=== PATIENT | female | born 1970 | race Caucasian/White ===

== ENCOUNTER 2016-06-16 16:33 | Observation (INO) | payer OTHER ==
[2016-06-16] MEDS ORDERED: IOPAMIDOL-300 100 ML VIAL IVP ONE (18:10)
[2016-06-16] MEDS ORDERED: ASPIRIN CHEW 81 MG TABLET PO STA (19:54)
[2016-06-16] MEDS ORDERED: ASPIRIN CHEW 81 MG TABLET ONE (19:59)
[2016-06-16] MEDS ORDERED: ACETAMINOPHEN 325 MG TABLET PO PRN (20:02)
[2016-06-16] MEDS ORDERED: SODIUM CHLORIDE FLUSH 0.9% 10 ML SYRINGE IVP PRN (20:02)
[2016-06-16] MEDS ORDERED: NITROGLYCERIN SL 0.4 MG TABLET SL PRN (20:02)
[2016-06-16] MEDS ORDERED: ONDANSETRON 4 MG/2 ML VIAL IVP PRN (20:02)
[2016-06-16] MEDS ORDERED: PROCHLORPERAZINE 10 MG/2 ML VIAL IVP PRN (20:02)
[2016-06-16] MEDS ORDERED: ATORVASTATIN 40 MG TABLET PO SCH (21:00)
[2016-06-16] MEDS: SODIUM CHLORIDE FLUSH 0.9% 10 ML SYRINGE IVP SCH (22:03)
[2016-06-17] MEDS ORDERED: ALPRAZolam 0.25 MG TABLET PO SCH (01:38)
[2016-06-17] MEDS: SODIUM CHLORIDE FLUSH 0.9% 10 ML SYRINGE IVP SCH (06:27)
[2016-06-17] MEDS ORDERED: PANTOPRAZOLE 40 MG TABLET PO SCH (07:00)
[2016-06-17] MEDS ORDERED: POLYETHYLENE GLYCOL 3350 17 GM PACKET PO SCH (09:00)
[2016-06-17] MEDS ORDERED: ENOXAPARIN 40 MG/0.4 ML SYRINGE SUBQ SCH (09:00)
[2016-06-17] MEDS ORDERED: THYROID PORK 45 MG PO SCH (09:00)
[2016-06-17] MEDS ORDERED: ASPIRIN EC 81 MG TABLET PO SCH (09:00)
== END 2016-06-17 08:12 | disposition home or self-care (01) ==
DX: R07.89 Other chest pain (principal); R42 Dizziness and giddiness; E89.0 Postprocedural hypothyroidism; I45.10 Unspecified right bundle-branch block; R20.2 Paresthesia of skin; E04.1 Nontoxic single thyroid nodule; R78.89 Finding of other specified substances, not normally found in blood; Z87.891 Personal history of nicotine dependence; Z79.899 Other long term (current) drug therapy
CPT/HCPCS: 36415; 71010; 71275; 80053; 83690; 84484; 85025; 93005; 93010; 99284; 99285; A9270; G0378; Q9967

== ENCOUNTER 2016-06-25 14:41 | Emergency (ER) | payer OTHER | END 2016-06-25 17:44 | disposition home or self-care (01) | DX: R07.89 Other chest pain (principal); M79.7 Fibromyalgia; E03.9 Hypothyroidism, unspecified ==

== ENCOUNTER 2017-07-06 10:19 | Emergency (ER) | payer OTHER ==
[2017-07-06 10:58] LABS: BASOPHILS % (AUTO) 0.5 %; EOSINOPHILS # (AUTO) 0.2 10^3/uL (0.0-0.7); EOSINOPHILS % (AUTO) 2.2 %; HGB - HEMOGLOBIN 13.8 g/dL (12.0-16.0); LYMPHOCYTES # (AUTO) 1.9 10^3/uL (1.5-3.5); LYMPHOCYTES % (AUTO) 20.4 %; MEAN CORPUSCULAR HEMOGLOBIN 28.3 pg (27.0-31.0); MEAN CORPUSCULAR HGB CONC 33.2 g/dL (32.0-36.0); MEAN CORPUSCULAR VOLUME 85.4 fL (81.0-99.0); MEAN PLATELET VOLUME 7.7 fL (7.9-10.8); MONOCYTES # (AUTO) 0.8 10^3/uL (0.0-1.0); MONOCYTES % (AUTO) 8.4 %; NEUTROPHILS # (AUTO) 6.3 10^3/uL (1.5-6.6); NEUTROPHILS % (AUTO) 68.5 %; PLT - PLATELET COUNT 284 10^3/uL (130-450); RED BLOOD COUNT 4.89 10^6/uL (4.20-5.40); RED CELL DISTRIBUTION WIDTH 14.2 % (12.0-15.0); WHITE BLOOD COUNT 9.2 x10^3/uL (4.8-10.8)
[2017-07-06 11:11] LABS: ALBUMIN 4.2 g/dL (3.2-5.5); ALBUMIN/GLOBULIN RATIO 1.3 (1.0-2.2); BILIRUBIN,TOTAL 0.6 mg/dL (0.2-1.0); CALCIUM 8.7 mg/dL (8.5-10.3); CREATININE 0.7 mg/dL (0.4-1.0); TOTAL PROTEIN 7.5 g/dL (6.7-8.2)
--- NOTE | 2017-07-06 11:13 | XRAY Report ---
EXAM: CHEST RADIOGRAPHY EXAM DATE: 07/06/2017 10:51 AM. CLINICAL HISTORY: Chest pain. COMPARISON: 06/25/2016. TECHNIQUE: 1 view. FINDINGS: Lungs/Pleura: No focal opacities evident. No pleural effusion. No pneumothorax. Mediastinum: Within exam limitations, the cardiomediastinal contour is normal. Other: None. IMPRESSION: Normal single view chest. [facility] Referring Provider Line: [phone] SITE ID: [id number]
--- NOTE | 2017-07-06 11:13 | XRAY Preliminary Report ---
Exam: XR CHEST 1 VIEW X-RAY IMPRESSION: Normal single view chest. [facility] SITE ID: [id number]
--- NOTE | 2017-07-06 12:07 | ED Physician Documentation ---
PD HPI CHEST PAIN - Stated complaint Stated Complaint: CHEST PAIN - Chief complaint Chief Complaint: Cardiac - History obtained from History obtained from: Patient, Family - History of Present Illness Timing - onset: How many days ago (2) Timing - onset during: Rest Timing - duration: Days (had it 2 days ago and then recurred this morning while sitting in office.) Timing - details: Abrupt onset, Now resolved, Waxing and waning Quality: Aching, Sharp, Pain Location: Substernal, Left chest Radiation: Neck Improved by: No: Rest Worsened by: Movement. No: Exertion, Inspiration, Palpation Associated symptoms: Feeling faint / dizzy, General Weakness. No: Shortness of air, Nausea, Cough Similar symptoms before: No diagnosis (chest pain episodes in the past without spcific diagnosis. Had had CP episode last fall and was to get stress test but felt okay so did not follow up with Cardiology.) Recently seen: Not recently seen Review of Systems Constitutional: denies: Fever, Chills Nose: denies: Rhinorrhea / runny nose, Congestion Throat: denies: Sore throat Cardiac: denies: Palpitations, Pedal edema, Calf pain Respiratory: denies: Dyspnea, Cough, Wheezing GI: denies: Abdominal Pain, Nausea Musculoskeletal: denies: Extremity swelling Neurologic: denies: Focal weakness, Numbness, Near syncope, Altered mental status PD PAST MEDICAL HISTORY - Past Medical History Past Medical History: Yes Respiratory: None Neuro: Other Endocrine/Autoimmune: None, Other GI: None 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 : None HEENT: None Psych: None Musculoskeletal: Fibromyalgia Derm: None - Past Surgical History Past Surgical History: Yes General: Appendectomy Neuro: Other - Present Medications Home Medications: Ambulatory Orders Medication Instructions Recorded Confirmed Thyroid,Pork [[place] Thyroid] 45 mg PO DAILY 08/12/12 06/25/16 Lorazepam [Ativan] 1 mg PO BID PRN #7 tablet 06/25/16 - Allergies Allergies/Adverse Reactions: Allergies Allergy/AdvReac Type Severity Reaction Status Date / Time cephalexin monohydrate * Allergy Intermediate CAREY, "worse Verified 06/25/16 15:03 [From Keflex] feeling of my life" morphine Allergy Intermediate Itching Verified 06/25/16 15:03 azithromycin [From Zithromax] Allergy Mild Hives Verified 06/25/16 15:03 oxycodone HCl * Allergy Mild Itching Verified 06/25/16 15:03 [From Percocet] propoxyphene napsylate * Allergy Mild Itching Verified 06/25/16 15:03 [From Darvocet-N 100] codeine Allergy Itching Verified 06/25/16 15:03 cimetidine [From Tagamet] AdvReac Severe drop in Verified 06/25/16 15:03 blood platelets cimetidine HCl * AdvReac Severe drop in Verified 06/25/16 15:03 [From Tagamet] blood platelets Sulfa (Sulfonamide AdvReac Severe platelets Verified 06/25/16 15:03 Antibiotics) dropped hydrocodone bitartrate * AdvReac Intermediate Nausea Verified 06/25/16 15:03 [From Vicodin] - Social History Does the pt smoke?: No Smoking Status: Never smoker Does the pt drink ETOH?: Yes Does the pt have substance abuse?: No - Family History Family history: reports: CAD - Immunizations Immunizations are current?: Yes - POLST Patient has POLST: No PD ED PE NORMAL - Vitals Vital signs reviewed: Yes - General General: Alert and oriented X 3, No acute distress, Well developed/nourished - HEENT HEENT: Pharynx benign - Neck Neck: Supple, no meningeal sign, No adenopathy, No JVD - Cardiac Cardiac: RRR, No murmur - Respiratory Respiratory: Clear bilaterally, Other (no chestwall tenderness) - Abdomen Abdomen: Soft, Non tender - Back Back: No CVA TTP - Derm Derm: Normal color, Warm and dry - Extremities Extremities: No deformity, No tenderness to palpate, Normal ROM s pain, No edema , No calf tenderness / cord - Neuro Neuro: Alert and oriented X 3, No motor deficit, Normal speech Results - Vitals Vitals: Vital Signs - 24 hr 07/06/17 07/06/17 07/06/17 10:29 11:24 12:31 Temperature 36.9 C 36.9 C Heart Rate 87 83 Respiratory 18 15 Rate Blood Pressure 148/96 H 147/84 H Blood Pressure 140/80 H [Left] O2 Saturation 100 100 Oxygen O2 Source Room air - EKG (time done) 10:26 Rate: Rate (enter#) (87) Rhythm: NSR Rohwer: Normal Intervals: RBBB (incomplete) QRS: Normal Ischemia: Normal ST segments. No: ST elevation c/w ischemia, ST depression Compare to prior EKG: Unchanged from prior EKG - Labs Labs: Laboratory Tests 07/06/17 07/06/17 07/06/17 10:52 10:52 10:52 WBC 9.2 RBC 4.89 Hgb 13.8 Hct 41.8 MCV 85.4 MCH 28.3 MCHC 33.2 RDW 14.2 Plt Count 284 MPV 7.7 L Neut # 6.3 Lymph # 1.9 Finney # 0.8 Eos # 0.2 Baso # 0.0 Absolute Nucleated RBC 0.00 Nucleated RBC % 0.0 Sodium 136 Potassium 3.6 Chloride 103 Carbon Dioxide 24 Anion Gap 9.0 BUN 17 Creatinine 0.7 Estimated GFR (MDRD) 90 Glucose 101 H Calcium 8.7 Total Bilirubin 0.6 AST 21 ALT 23 Alkaline Phosphatase 41 L Troponin I < 0.04 Total Protein 7.5 Albumin 4.2 Globulin 3.3 Albumin/Globulin Ratio 1.3 Lipase 17 L - Rads (name of study) chest xray Radiology: Prelim report reviewed, EMP read contemporaneously (no acute process) PD MEDICAL DECISION MAKING - ED course Complexity details: considered differential (no signs of acute ACS and not exertional CP. States she had stress test a few years ago that was normal. Was to get one after recent CP ER visit but says she felt okay so did not follow up with Regulatory Lead. ), d/w patient Departure - Departure Disposition: 01 Home, Self Care Clinical Impression: Chest pain Qualifiers: Chest pain type: precordial pain Qualified Code(s): R07.2 - Precordial pain Condition: Stable Record reviewed to determine appropriate education?: Yes Instructions: ED Chest Pain Atypical Unkn Cause Follow-Up: ALMA Frank [Provider Group] Comments: No signs of heart attack or other serious cause at this time based on your EKG chest x-ray and blood tests. Follow-up with your primary care regarding any further potential testing such as stress test. At this point presume an inflammatory component and try some ibuprofen or naproxen 2-3 times a day over the next few days. Return if worsening symptoms or other concerns. Discharge Date/Time: 07/06/17 12:52
[2017-07-06] MEDS ORDERED: KETOROLAC 60 MG/2 ML VIAL IVP STA (12:24)
[2017-07-06 12:32] VITALS: BP 147/84
== END 2017-07-06 12:52 | disposition home or self-care (01) ==
LOC: ED 10:19
DX: R07.2 Precordial pain (principal); I45.10 Unspecified right bundle-branch block; R94.31 Abnormal electrocardiogram [ECG] [EKG]; M79.7 Fibromyalgia
CPT/HCPCS: 36415; 71045; 80053; 83690; 84484; 85025; 93005; 96374; 99283

== ENCOUNTER 2017-11-25 13:00 | Emergency (ER) | payer OTHER ==
[2017-11-25 13:10] VITALS: BP 173/112
[2017-11-25 13:35] LABS: BASOPHILS # (AUTO) 0.1 10^3/uL (0.0-0.1); BASOPHILS % (AUTO) 0.9 %; EOSINOPHILS # (AUTO) 0.3 10^3/uL (0.0-0.7); EOSINOPHILS % (AUTO) 2.6 %; HGB - HEMOGLOBIN 13.9 g/dL (12.0-16.0); LYMPHOCYTES # (AUTO) 2.2 10^3/uL (1.5-3.5); LYMPHOCYTES % (AUTO) 20.8 %; MEAN CORPUSCULAR HEMOGLOBIN 28.9 pg (27.0-31.0); MEAN CORPUSCULAR HGB CONC 33.6 g/dL (32.0-36.0); MEAN CORPUSCULAR VOLUME 86.1 fL (81.0-99.0); MONOCYTES # (AUTO) 0.7 10^3/uL (0.0-1.0); MONOCYTES % (AUTO) 6.8 %; NEUTROPHILS # (AUTO) 7.2 10^3/uL (1.5-6.6); NEUTROPHILS % (AUTO) 68.9 %; PLT - PLATELET COUNT 311 10^3/uL (130-450); RED BLOOD COUNT 4.82 10^6/uL (4.20-5.40); RED CELL DISTRIBUTION WIDTH 14.7 % (12.0-15.0); WHITE BLOOD COUNT 10.5 x10^3/uL (4.8-10.8)
[2017-11-25 13:47] LABS: ALBUMIN 4.1 g/dL (3.2-5.5); ALBUMIN/GLOBULIN RATIO 1.2 (1.0-2.2); CALCIUM 9.1 mg/dL (8.5-10.3); CREATININE 0.8 mg/dL (0.4-1.0); TOTAL PROTEIN 7.5 g/dL (6.7-8.2)
--- NOTE | 2017-11-25 14:27 | XRAY Report ---
Procedure Date: 11/25/2017 Accession Number: [id number] / [id number] Procedure: XR - Chest 2 View X-Ray CPT Code: 01579 FULL RESULT: EXAM: CHEST RADIOGRAPHY EXAM DATE: 11/25/2017 02:05 PM. CLINICAL HISTORY: Chest tightnes. COMPARISON: 07/06/2017 TECHNIQUE: 2 views. FINDINGS: Lungs/Pleura: No focal opacities evident. No pleural effusion. No pneumothorax. Normal volumes. Mediastinum: Heart and mediastinal contours are unremarkable. Other: No acute findings compared to prior. IMPRESSION: Negative 2-view chest radiography. [facility]
== END 2017-11-25 15:00 | disposition left against medical advice (07) ==
LOC: ED 13:00
DX: R20.0 Anesthesia of skin (principal); M79.603 Pain in arm, unspecified; Z53.21 Procedure and treatment not carried out due to patient leaving prior to being seen by health care provider
CPT/HCPCS: 36415; 71046; 80053; 83690; 84484; 85025; 93005

== ENCOUNTER 2018-06-24 10:53 | Emergency (ER) | payer OTHER ==
[2018-06-24 11:06] VITALS: BP 138/38
[2018-06-24] MEDS ORDERED: DEXAMETHASONE 10 MG/ML VIAL PO STA (11:27)
--- NOTE | 2018-06-24 11:29 | ED Physician Documentation ---
History of Present Illness - Stated complaint Stated Complaint: HIVES/SWOLLEN LIP - Chief complaint Chief Complaint: Allergic Rx - History obtained from History obtained from: Patient - History of Present Illness Timing: Last night - Additonal information Additional information: 48-year-old female has had cough and congestion this past week she has had some pain in both of her ears she has developed hives last night. She has a prior history of developing hives easily. She denies any recent change in medications. Review of Systems Constitutional: denies: Fever Eyes: denies: Decreased vision Ears: reports: Ear pain Nose: reports: Rhinorrhea / runny nose, Congestion Throat: reports: Sore throat Cardiac: denies: Chest pain / pressure, Palpitations Respiratory: reports: Cough. 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 : None HEENT: None Psych: None Musculoskeletal: Fibromyalgia Derm: None - Past Surgical History Past Surgical History: Yes General: Appendectomy Neuro: Other - Present Medications Home Medications: Ambulatory Orders Medication Instructions Recorded Confirmed Thyroid,Pork [[place] Thyroid] 45 mg PO DAILY 08/12/12 06/24/18 Amoxicillin 875 mg PO BID #20 tablet 06/24/18 - Allergies Allergies/Adverse Reactions: Allergies Allergy/AdvReac Type Severity Reaction Status Date / Time cephalexin monohydrate * Allergy Intermediate CAREY, "worse Verified 06/24/18 11:06 [From Keflex] feeling of my life" morphine Allergy Intermediate Itching Verified 06/24/18 11:06 azithromycin [From Zithromax] Allergy Mild Hives Verified 06/24/18 11:06 oxycodone HCl * Allergy Mild Itching Verified 06/24/18 11:06 [From Percocet] propoxyphene napsylate * Allergy Mild Itching Verified 06/24/18 11:06 [From Darvocet-N 100] codeine Allergy Itching Verified 06/24/18 11:06 cimetidine [From Tagamet] AdvReac Severe drop in Verified 06/24/18 11:06 blood platelets cimetidine HCl * AdvReac Severe drop in Verified 06/24/18 11:06 [From Tagamet] blood platelets Sulfa (Sulfonamide AdvReac Severe platelets Verified 06/24/18 11:06 Antibiotics) dropped hydrocodone bitartrate * AdvReac Intermediate Nausea Verified 06/24/18 11:06 [From Vicodin] - Social History Does the pt smoke?: No Smoking Status: Never smoker Does the pt drink ETOH?: Yes Does the pt have substance abuse?: No - Immunizations Immunizations are current?: Yes - POLST Patient has POLST: No PD ED PE NORMAL - Vitals Vital signs reviewed: Yes (hypertensive with wide pulse pressure. ) - General General: Alert and oriented X 3, No acute distress, Well developed/nourished - HEENT HEENT: Atraumatic, PERRL, EOMI, Other (both TM's are inflamed along the umbo and there is a small hole in the left TM ) - Neck Neck: Supple, no meningeal sign, No bony TTP - Cardiac Cardiac: RRR, No murmur - Respiratory Respiratory: No respiratory distress, Clear bilaterally - Abdomen Abdomen: Soft, Non tender - Back Back: No CVA TTP, No spinal TTP - Derm Derm: Normal color, Warm and dry, Other (light urticaria is present) - Extremities Extremities: No deformity, No edema - Neuro Neuro: Alert and oriented X 3, 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 She is administered dexamethasone 10 mg orally and we will place her on some amoxicillin as this is the only antibiotic she tends to tolerate. Departure - Departure Disposition: 01 Home, Self Care Clinical Impression: Otitis media, Urticaria Condition: Stable Instructions: ED Urticaria, ED Otitis Media Acute Adult Follow-Up: ASHWIN FRANCOIS DO [Primary Care Provider] - Prescriptions: Amoxicillin 875 mg PO BID #20 tablet
== END 2018-06-24 11:46 | disposition home or self-care (01) ==
LOC: ED 10:53
DX: H66.90 Otitis media, unspecified, unspecified ear (principal); L50.9 Urticaria, unspecified; Z88.1 Allergy status to other antibiotic agents; Z88.3 Allergy status to other anti-infective agents; Z88.2 Allergy status to sulfonamides
CPT/HCPCS: 99282; 99283

== ENCOUNTER 2019-04-07 11:18 | Emergency (ER) | payer OTHER ==
--- NOTE | 2019-04-07 12:31 | XRAY Report ---
Reason: pain, swelling, popping, clicking left wrist Procedure Date: 04/07/2019 Accession Number: [id number] / [id number] Procedure: XR - Wrist 4 View LT CPT Code: Final Report FULL RESULT: EXAM: LEFT WRIST RADIOGRAPHY EXAM DATE: 04/07/2019 12:13 PM. CLINICAL HISTORY: Pain, swelling, popping, clicking left wrist. Carrying a washer up stairs yesterday, wrist twisted and popped. Pain ulnar side with bruising. COMPARISON: None. TECHNIQUE: 4 views. FINDINGS: Bones: Normal. No fractures or bone lesions. Joints: Normal. No subluxations. Soft Tissues: Normal. No soft tissue swelling. IMPRESSION: No acute osseous injury is detected. [facility]
--- NOTE | 2019-04-07 12:58 | ED Physician Documentation ---
PD HPI UPPER EXT INJURY - Stated complaint Stated Complaint: LEFT WRIST INJURY - Chief complaint Chief Complaint: Ext Problem - History obtained from History obtained from: Patient (She was carrying a washer and dryer yesterday and it slipped and she felt a pop on the ulnar side of the left, nondominant nondominant wrist with continued pain there although declines pain medication. 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 : None HEENT: None Psych: None Musculoskeletal: Fibromyalgia Derm: None - Past Surgical History Past Surgical History: Yes General: Appendectomy Neuro: Other - Present Medications Home Medications: Ambulatory Orders Medication Instructions Recorded Confirmed Thyroid,Pork [[place] Thyroid] 45 mg PO DAILY 08/12/12 06/24/18 Amoxicillin 875 mg PO BID #20 tablet 06/24/18 - Allergies Allergies/Adverse Reactions: Allergies Allergy/AdvReac Type Severity Reaction Status Date / Time cephalexin monohydrate * Allergy Intermediate CAREY, "worse Verified 10/29/18 19:10 [From Keflex] feeling of my life" morphine Allergy Intermediate Itching Verified 10/29/18 19:10 azithromycin [From Zithromax] Allergy Mild Hives Verified 10/29/18 19:10 oxycodone HCl * Allergy Mild Itching Verified 10/29/18 19:10 [From Percocet] propoxyphene napsylate * Allergy Mild Itching Verified 10/29/18 19:10 [From Darvocet-N 100] codeine Allergy Itching Verified 10/29/18 19:10 hydrochlorothiazide Allergy Unknown Verified 10/29/18 19:10 cimetidine [From Tagamet] AdvReac Severe drop in Verified 10/29/18 19:10 blood platelets cimetidine HCl * AdvReac Severe drop in Verified 10/29/18 19:10 [From Tagamet] blood platelets Sulfa (Sulfonamide AdvReac Severe platelets Verified 10/29/18 19:10 Antibiotics) dropped hydrocodone bitartrate * AdvReac Intermediate Nausea Verified 10/29/18 19:10 [From Vicodin] - Social History Does the pt smoke?: No Smoking Status: Never smoker Does the pt drink ETOH?: Yes Does the pt have substance abuse?: No - Immunizations Immunizations are current?: Yes - POLST Patient has POLST: No PD ED PE NORMAL - Vitals Vital signs reviewed: Yes - General General: Alert and oriented X 3, No acute distress - Extremities Extremities: Other (Tender over the ulnar side of the left wrist without d eformity. Has a lot of pain with radial deviation of the wrist, not so much with flexion and extension.) Results - Vitals Vitals: Vital Signs - 24 hr 04/07/19 11:49 Temperature 36.8 C Heart Rate 86 Respiratory 18 Rate Blood Pressure 147/94 H O2 Saturation 100 Oxygen O2 Source Room air - Rads (name of study) 4 views of the left wrist Radiology: EMP read contemporaneously (Normal) PD MEDICAL DECISION MAKING - ED course ED course: She presents with a tendinitis of the ulnar side of the left wrist. She is placed in a Velcro splint [place] She was given a copy of her x-rays on CD to aid in follow-up. She declines prescription pain medication. Departure - Departure Disposition: Home, Self Care Clinical Impression: Left wrist tendinitis Condition: Good Record reviewed to determine appropriate education?: Yes Instructions: ED Sprain Wrist Comments: If not better in a week, [place]. Take the copy the x-ray on CD with you. Ibuprofen as needed for pain. Ice as tolerated and keep the splint on, but she can remove it for sleeping and showering.
[2019-04-07 13:04] VITALS: BP 138/88
== END 2019-04-07 13:03 | disposition home or self-care (01) ==
LOC: ED 11:18
DX: M77.8 Other enthesopathies, not elsewhere classified (principal); I10 Essential (primary) hypertension
CPT/HCPCS: 99283

== ENCOUNTER 2020-03-21 13:46 | Outpatient (CLI) | payer OTHER | END 2020-03-21 13:47 | disposition EMS.NT | LOC: EMS 13:46 | PROVIDERS: ATTEND Surgery | DX: R07.9 Chest pain, unspecified (principal); R20.2 Paresthesia of skin ==

== ENCOUNTER 2021-04-17 18:48 | Emergency (ER) | payer OTHER ==
--- NOTE | 2021-04-17 19:26 | ED Physician Documentation ---
History of Present Illness - Stated complaint Stated Complaint: HYPERTENSION - Chief complaint Chief Complaint: Cardiac - Additonal information Additional information: 51-year-old female presents emergency department for concerns of elevated blood pressures. She states that over the last month she has been having migraines with increasing frequency. Her migraines typically will cause numbness and paresthesias on the right side of her body. She had a migraine that did not respond to usual treatments therefore when she was in [place] on 11 April she did go to a hospital there. She was noted to be modestly hypertensive with a blood pressure in the 190s. Subsequent labs and EKG as well as CT scan did not reveal any worrisome findings and she was advised to follow-up with the primary doctor. Since returning to [place] she has been checking her blood pressures and have noticed that they have been in the 160s and 170s. She is denying any chest pain, nausea or vomiting. She does have a remote history of a meningioma resection about 10 years ago near her brainstem. Her doctor did trial her on antihypertensive medicine in July 2020 but she had an allergic reaction to hydrochlorothiazide. She does/is scheduled to see her primary care doctor on the to discuss her hypertension as well as her recurrent headaches. Review of Systems Constitutional: denies: Fever, Chills Eyes: reports: Reviewed and negative Ears: reports: Reviewed and negative Nose: reports: Reviewed and negative Throat: reports: Reviewed and negative Cardiac: reports: Reviewed and negative Respiratory: reports: Reviewed and negative GI: reports: Reviewed and negative : reports: Reviewed and negative Skin: reports: Reviewed and negative Musculoskeletal: reports: Reviewed and negative Neurologic: reports: Headache Psychiatric: reports: Reviewed and negative Endocrine: reports: Reviewed and negative PD PAST MEDICAL HISTORY - Past Medical History Cardiovascular: Hypertension Respiratory: None Neuro: Motion sickness Endocrine/Autoimmune: None, Other GI: None CHARGE LPN: Ovarian cysts : None HEENT: None Psych: None Musculoskeletal: Fibromyalgia Derm: None - Past Surgical History Past Surgical History: Yes General: Appendectomy Neuro: Other - Present Medications Home Medications: Ambulatory Orders Medication Instructions Recorded Confirmed Thyroid,Pork [[place] Thyroid] 45 mg PO DAILY 08/12/12 06/24/18 Amoxicillin 875 mg PO BID #20 tablet 06/24/18 LORazepam [Lorazepam] 0.5 - 1 mg PO Q6HR PRN #10 tablet 08/05/20 - Allergies Allergies/Adverse Reactions: Allergies Allergy/AdvReac Type Severity Reaction Status Date / Time cephalexin monohydrate * Allergy Intermediate CAREY, "worse Verified 04/17/21 18:56 [From Keflex] feeling of my life" morphine Allergy Intermediate Itching Verified 04/17/21 18:56 azithromycin [From Zithromax] Allergy Mild Hives Verified 04/17/21 18:56 oxycodone HCl * Allergy Mild Itching Verified 04/17/21 18:56 [From Percocet] propoxyphene napsylate * Allergy Mild Itching Verified 04/17/21 18:56 [From Darvocet-N 100] codeine Allergy Itching Verified 04/17/21 18:56 hydrochlorothiazide Allergy Unknown Verified 04/17/21 18:56 cimetidine [From Tagamet] AdvReac Severe drop in Verified 04/17/21 18:56 blood platelets cimetidine HCl * AdvReac Severe drop in Verified 04/17/21 18:56 [From Tagamet] blood platelets Sulfa (Sulfonamide AdvReac Severe platelets Verified 04/17/21 18:56 Antibiotics) dropped hydrocodone bitartrate * AdvReac Intermediate Nausea Verified 04/17/21 18:56 [From Vicodin] - Social History Does the pt smoke?: No Smoking Status: Never smoker Does the pt drink ETOH?: Yes Does the pt have substance abuse?: No - Immunizations Immunizations are current?: Yes - POLST Patient has POLST: No PD ED PE NORMAL - General General: Alert and oriented X 3, No acute distress, Well developed/nourished - HEENT HEENT: Atraumatic, Ears normal, Moist mucous membranes - Neck Neck: Supple, no meningeal sign - Cardiac Cardiac: RRR, No murmur, No gallop - Respiratory Respiratory: No respiratory distress - Abdomen Abdomen: Normal bowel sounds, Soft - Back Back: No CVA TTP, No spinal TTP - Derm Derm: Normal color, Warm and dry - Extremities Extremities: No deformity, No tenderness to palpate, Normal ROM s pain - Neuro Neuro: Alert and oriented X 3 Eye Opening: Spontaneous Motor: Obeys Commands Verbal: Oriented GCS Score: 15 Results - Vitals Vitals: Vital Signs - 24 hr 04/17/21 04/17/21 18:51 19:30 Temperature 36.0 C L Heart Rate 105 H 91 Respiratory 16 17 Rate Blood Pressure 150/106 H 149/89 H O2 Saturation 100 97 Oxygen O2 Source Room air - EKG (time done) 1907 Rate: Rate (enter#) (88) Rhythm: NSR [place]: Normal Intervals: Normal IN. No: Prolonged QT QRS: Low voltage Ischemia: Normal ST segments Compare to prior EKG: Old EKG unavailable Computer interpretation: Agree with computer - Labs Labs: Laboratory Tests 04/17/21 04/17/21 04/17/21 19:30 19:30 19:30 WBC 11.2 H RBC 4.76 Hgb 15.0 Hct 43.9 MCV 92.2 MCH 31.5 H MCHC 34.2 RDW 12.4 Plt Count 278 MPV 9.8 Neut # (Auto) 7.7 H Lymph # (Auto) 1.9 [place] # (Auto) 1.3 H Eos # (Auto) 0.2 Baso # (Auto) 0.1 Absolute Nucleated RBC 0.00 Nucleated RBC % 0.0 Sodium 139 Potassium 3.5 Chloride 102 Carbon Dioxide 24 Anion Gap 13.0 BUN 17 Creatinine 0.9 Estimated GFR (MDRD) 66 L Glucose 101 H Calcium 9.6 Total Bilirubin 0.6 AST 23 ALT 38 Alkaline Phosphatase 57 Troponin I High Sens 4.4 Total Protein 7.1 Albumin 4.0 Globulin 3.1 Albumin/Globulin Ratio 1.3 Lipase 27 TSH 04/17/21 19:30 WBC RBC Hgb Hct MCV MCH MCHC RDW Plt Count MPV Neut # (Auto) Lymph # (Auto) [place] # (Auto) Eos # (Auto) Baso # (Auto) Absolute Nucleated RBC Nucleated RBC % Sodium Potassium Chloride Carbon Dioxide Anion Gap BUN Creatinine Estimated GFR (MDRD) Glucose Calcium Total Bilirubin AST ALT Alkaline Phosphatase Troponin I High Sens Total Protein Albumin Globulin Albumin/Globulin Ratio Lipase TSH 0.98 - Rads (name of study) CXR Radiology: Final report received (No acute cardiopulmonary pathology.) PD MEDICAL DECISION MAKING - ED course Complexity details: reviewed results, re-evaluated patient, d/w patient ED course: 51-year-old female who has a history of recurrent migraines as well as a meningioma status postresection 10 to 11 years ago presents to the emergency department for evaluation for worsening headaches as well as elevated blood pressures at home. She was seen at an ER in [place] about 1 week ago for similar. Had an unremarkable work-up including a CT of her head. She is not on any antihypertensive medicines and her blood pressures have been modestly elevated here in the ER. However reassuringly she has no endorgan perfusion normal troponin normal kidney and liver function. Screening EKG is nonischemic. There is some mild LVH. Chest x-ray without acute focal findings. I did offer to start the patient on a low-dose hydrochlorothiazide but the patient declined that as she states that she has many allergies and will see her primary doctor and follow-up in 4 days. We also discussed that with a history of the meningioma and the headaches with increasing frequency she would benefit from an outpatient MRI. Though recent CT imaging was negative and MRI would be more sensitive to evaluate for recurrent meningioma. Reassuringly she has a normal neurological exam without focal deficits. Emergent return precautions otherwise discussed. Departure - Departure Disposition: 01 Home, Self Care Clinical Impression: Persistent headaches, Elevated blood pressure reading Condition: Stable Record reviewed to determine appropriate education?: Yes Comments: Raine barahona are seen in the emergency department today for recurrent headaches that have started to come with increasing frequency over the last month as well as concerns your blood pressure is elevated. Your screening labs today do not show any worrisome findings. Your troponin is normal. Your EKG does not show signs of acute heart attack or 1 in the past. Because you have the history of the headaches as well as the meningioma in the past it is important that you discuss this ED visit with your primary care doctor. You should be referred for an outpatient MRI for further evaluation of the headaches despite normal CT scans. Your primary doctor will want to discuss other blood pressure management techniq ues for you which may include initiating medications. If at any point you develop sudden severe chest pain, have uncontrolled vomiting, slurred speech, facial droop please return immediately to the ER for second evaluation.
--- NOTE | 2021-04-17 19:32 | XRAY Report ---
PROCEDURE: Chest 1 View X-Ray INDICATIONS: HTN TECHNIQUE: One view of the chest was acquired. COMPARISON: November 09, 2019 FINDINGS: SUPPORT DEVICES: None. LUNGS/PLEURA: No focal consolidation, pleural effusion or space-occupying pneumothorax. MEDIASTINUM: The cardiomediastinal silhouette is within normal limits. BONES/SOFT TISSUES: No acute abnormality. IMPRESSION: 1.No acute cardiopulmonary abnormality. Reviewed by: Jason Bello MD on 04/17/2021 7:30 PM [facility] Approved by: Jason Bello MD on 04/17/2021 7:30 PM [facility] Station ID: [id number]
[2021-04-17 19:36] LABS: BASOPHILS # (AUTO) 0.1 10^3/uL (0.0-0.1); BASOPHILS % (AUTO) 0.4 %; EOSINOPHILS # (AUTO) 0.2 10^3/uL (0.0-0.7); EOSINOPHILS % (AUTO) 2.1 %; HCT - HEMATOCRIT 43.9 % (37.0-47.0); LYMPHOCYTES # (AUTO) 1.9 10^3/uL (1.5-3.5); LYMPHOCYTES % (AUTO) 16.6 %; MEAN CORPUSCULAR HEMOGLOBIN 31.5 pg (27.0-31.0); MEAN CORPUSCULAR HGB CONC 34.2 g/dL (32.0-36.0); MEAN CORPUSCULAR VOLUME 92.2 fL (81.0-99.0); MEAN PLATELET VOLUME 9.8 fL (7.9-10.8); MONOCYTES # (AUTO) 1.3 10^3/uL (0.0-1.0); MONOCYTES % (AUTO) 11.3 %; NEUTROPHILS # (AUTO) 7.7 10^3/uL (1.5-6.6); NEUTROPHILS % (AUTO) 69.3 %; PLT - PLATELET COUNT 278 10^3/uL (130-450); RED BLOOD COUNT 4.76 10^6/uL (4.20-5.40); RED CELL DISTRIBUTION WIDTH 12.4 % (12.0-15.0); WHITE BLOOD COUNT 11.2 x10^3/uL (4.8-10.8)
[2021-04-17 19:49] LABS: ALBUMIN/GLOBULIN RATIO 1.3 (1.0-2.2); BILIRUBIN,TOTAL 0.6 mg/dL (0.2-1.0); CALCIUM 9.6 mg/dL (8.5-10.3); CREATININE 0.9 mg/dL (0.4-1.0); POTASSIUM 3.5 mmol/L (3.5-5.0); TOTAL PROTEIN 7.1 g/dL (6.7-8.2)
[2021-04-17] MEDS ORDERED: ACETAMINOPHEN 325 MG TABLET PO STA (19:58)
[2021-04-17 21:08] VITALS: BP 138/78
== END 2021-04-17 21:08 | disposition home or self-care (01) ==
LOC: ED 18:48
DX: R51.9 Headache, unspecified (principal); I10 Essential (primary) hypertension; I51.7 Cardiomegaly; Z88.8 Allergy status to other drugs, medicaments and biological substances; Z86.69 Personal history of other diseases of the nervous system and sense organs; Z98.890 Other specified postprocedural states
CPT/HCPCS: 36415; 71045; 80053; 83690; 84443; 84484; 85025; 93005; 99283; 99284; A9270

== ENCOUNTER 2021-05-21 13:40 | Emergency (ER) | payer OTHER ==
--- NOTE | 2021-05-21 15:41 | ED Physician Documentation ---
PD HPI FOCAL NEURO - Stated complaint Stated Complaint: TUNEL VISION/HEAD PX/DIZZY - Chief complaint Chief Complaint: Neuro - History obtained from History obtained from: Patient - Additional information Additional information: 51yo female with hx of resolved brain CA (neg MRI/MRA per her 1 month ago). Had COVID in February and subsequently has had transiently elevated BPs. Today had near syncope at 12pm. Was driviing and saw spots and developed tunnel vision. Lasted 15 minutes and went away. Went home and developed N/V and occipital headache. She has been plagued by migraines lately, and her neurologist has prescribed PE prophylactic verapamil which she has not yet started. 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 : None HEENT: None Psych: None Musculoskeletal: Fibromyalgia Derm: None - Past Surgical History Past Surgical History: Yes General: Appendectomy Neuro: Other - Present Medications Home Medications: Ambulatory Orders Medication Instructions Recorded Confirmed Thyroid,Pork [[place] Thyroid] 45 mg PO DAILY 08/12/12 06/24/18 Amoxicillin 875 mg PO BID #20 tablet 06/24/18 LORazepam [Lorazepam] 0.5 - 1 mg PO Q6HR PRN #10 tablet 11/09/19 - Allergies Allergies/Adverse Reactions: Allergies Allergy/AdvReac Type Severity Reaction Status Date / Time cephalexin monohydrate * Allergy Intermediate CAREY, "worse Verified 05/21/21 13:52 [From Keflex] feeling of my life" morphine Allergy Intermediate Itching Verified 05/21/21 13:52 azithromycin [From Zithromax] Allergy Mild Hives Verified 05/21/21 13:52 oxycodone HCl * Allergy Mild Itching Verified 05/21/21 13:52 [From Percocet] propoxyphene napsylate * Allergy Mild Itching Verified 05/21/21 13:52 [From Darvocet-N 100] codeine Allergy Itching Verified 05/21/21 13:52 hydrochlorothiazide Allergy Unknown Verified 05/21/21 13:52 cimetidine [From Tagamet] AdvReac Severe drop in Verified 05/21/21 13:52 blood platelets cimetidine HCl * AdvReac Severe drop in Verified 05/21/21 13:52 [From Tagamet] blood platelets Sulfa (Sulfonamide AdvReac Severe platelets Verified 05/21/21 13:52 Antibiotics) dropped hydrocodone bitartrate * AdvReac Intermediate Nausea Verified 05/21/21 13:52 [From Vicodin] - Social History Does the pt smoke?: No Smoking Status: Never smoker Does the pt drink ETOH?: Yes Does the pt have substance abuse?: No - Immunizations Immunizations are current?: Yes - POLST Patient has POLST: No PD ED PE NORMAL - Vitals Vital signs reviewed: Yes - General General: Alert and oriented X 3, No acute distress - HEENT HEENT: PERRL, EOMI - Neck Neck: Supple, no meningeal sign, No bony TTP - Cardiac Cardiac: RRR, No murmur - Respiratory Respiratory: No respiratory distress, Clear bilaterally - Abdomen Abdomen: Normal bowel sounds, Soft, Non tender - Back Back: No CVA TTP, No spinal TTP - Derm Derm: Normal color, Warm and dry - Extremities Extremities: No edema, No calf tenderness / cord - Neuro Neuro: Alert and oriented X 3, Normal speech Results - Vitals Vitals: Vital Signs - 24 hr 05/21/21 05/21/21 13:45 14:51 Temperature 36.5 C Heart Rate 83 88 Respiratory 18 18 Rate Blood Pressure 163/92 H 165/90 H O2 Saturation 97 100 Oxygen O2 Source Room air - EKG (time done) 1635 Rate: Rate (enter#) (77) Rhythm: NSR [place]: LAD Intervals: Normal [place] QRS: Normal Ischemia: Normal ST segments PD MEDICAL DECISION MAKING - ED course ED course: She is been going through a lot lately, had COVID a couple of months ago now has transiently elevated blood pressures and flushing. Her research shows that this may be a post Covid phenomenon, albeit I have to admit I am not familiar with that. Classically it is concerning for pheochromocytoma and discussed the need for outpatient work-up for same. Today she has a pretty classic ophthalmic migraine with scotomata followed by occipital headache, she did not want anything stronger than ibuprofen for that. Departure - Departure Disposition: 01 Home, Self Care Clinical Impression: Migraine Qualifiers: Migraine type: with aura Status migrainosus presence: without status migrainosus Intractability: not intractable Qualified Code(s): G43.109 - Migraine with aura, not intractable, without status migrainosus Condition: Good Record reviewed to determine appropriate education?: Yes Instructions: ED Headache Migraine Comments: Talk with your doctor about a work-up for pheochromocytoma. Generally this involves a 24-hour urine collection looking for the metabolites of adrenaline. I would recommend starting the verapamil that your neurologist prescribed tonight. Return for new or worsening symptoms.
[2021-05-21] MEDS ORDERED: MAG HYDROX/AL HYDROX/SIMETH 30 ML UDC PO STA (15:43)
[2021-05-21] MEDS ORDERED: FAMOTIDINE 20 MG TABLET PO STA (15:43)
[2021-05-21] MEDS ORDERED: IBUPROFEN 600 MG TABLET PO STA (16:06)
[2021-05-21 17:00] VITALS: BP 171/89
== END 2021-05-21 17:00 | disposition home or self-care (01) ==
LOC: ED 13:40
DX: G43.109 Migraine with aura, not intractable, without status migrainosus (principal); I10 Essential (primary) hypertension
CPT/HCPCS: 93005; 99283; A9270

== ENCOUNTER 2021-05-23 11:25 | Outpatient (CLI) | payer OTHER ==
[2021-05-29 10:01] LABS: METANEPHRINE 74 mcg/24 h (90-315); NORMETANEPHRINE 296 mcg/24 h (122-676); TOTAL VOLUME 2800 mL
== END 2021-05-23 11:26 | disposition home or self-care (01) ==
LOC: LAB 11:25
PROVIDERS: ATTEND Emergency Medicine
DX: I10 Essential (primary) hypertension (principal)
CPT/HCPCS: 81599; 82384; 83835

== ENCOUNTER 2021-08-19 11:13 | Emergency (ER) | payer OTHER ==
--- OUTSIDE RECORDS SUMMARY | 2021-08-19 11:21 | EXTERNAL MEDICAL SUMMARY RPT | Continuity of Care Document ---
:1970 Author Organization [facility] Address [address] [place] [address] Phone Care Team Providers Name Role Phone Niurka Unavailable Unavailable Allergies No information. Encounters No information. Medications date description facility [id number] 24 HR Verapamil hydrochloride 180 MG Ex tended Release [facility] Capsule Problems Procedures date description facility [id number] [facility] [id number] Finding [facility] [id number] Diagnosis [facility] [id number] [facility] Results No information. Vital Signs date measurement value source [id number] temperature_standard 96.9 F [id number] temperature_metric 36.06 C 20210528 height_standard 66 in [id number] height_metric 167.64 cm 20210528 heart_rate 76 /min 20210528 BP_systolic 148 mm[Hg] 20210528 BP_diastolic 98 mm[Hg] 20210814 weight_standard 89.81 lb 20210814 weight_metric 40.74 kg 20210814 temperature_standard 97.9 F 20210814 temperature_metric 36.61 C 20210814 height_standard 66 in [id number] height_metric 167.64 cm 20210814 heart_rate 71 /min 20210814 BP_systolic 140 mm[Hg] 20210814 BP_diastolic 100 mm[Hg] 20210814 BMI 31.9 kg/m2
[2021-08-19 11:23] VITALS: BP 175/105
--- NOTE | 2021-08-19 12:08 | XRAY Report ---
PROCEDURE: Chest 1 View X-Ray INDICATIONS: chest pain: C+ TECHNIQUE: One view of the chest was acquired. COMPARISON: 04/17/2021 chest x-ray FINDINGS: Surgical changes and devices: None. Lungs and pleura: No pleural effusions or pneumothorax. Lungs are clear. Mediastinum: Mediastinal contours appear normal. Heart size is normal. Bones and chest wall: No suspicious bony lesions. Overlying soft tissues appear unremarkable. IMPRESSION: No acute process. Reviewed by: Mariela Cruz MD on 08/19/2021 12:07 PM PDT Approved by: Mariela Cruz MD on 08/19/2021 12:07 PM PDT Station ID: [id number]
--- NOTE | 2021-08-19 12:09 | ED Physician Documentation ---
History of Present Illness - Stated complaint Stated Complaint: C+ BACK/HEAD PX COUGH - Chief complaint Chief Complaint: General - Additonal information Additional information: 51-year-old female presents emergency department for evaluation of her COVID-19 infection. She began getting a sore throat fevers body aches yesterday evening and tested positive for COVID-19 with a home test this morning. There is been some nausea and mild vomiting. No diarrhea. Patient is not vaccinated for COVID-19. She reports a history of severe allergic reaction to the flu vaccine in the past. She also reports multiple allergies to many medications and has an intolerance to most of them. The only medication she currently takes is [place] for a thyroid disorder. She reports a history of fibromyalgia as well as COVID-19 in the early part of the year. States that she is dealing with long-haul symptoms. 9 she is interested in outpatient antiviral therapy but is concerned that she could have a severe side effect. Review of Systems Constitutional: reports: Fever, Chills, Myalgias, Fatigue Eyes: reports: Reviewed and negative Nose: reports: Reviewed and negative Throat: reports: Sore throat. 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 HEENT: None Psych: None Musculoskeletal: Fibromyalgia Derm: None - Past Surgical History Past Surgical History: Yes General: Appendectomy Neuro: Other - Present Medications Home Medications: Ambulatory Orders Medication Instructions Recorded Confirmed Thyroid,Pork [[place] Thyroid] 45 mg PO DAILY 08/12/12 06/24/18 Amoxicillin 875 mg PO BID #20 tablet 06/24/18 LORazepam [Lorazepam] 0.5 - 1 mg PO Q6HR PRN #10 tablet 11/09/19 - Allergies Allergies/Adverse Reactions: Allergies Allergy/AdvReac Type Severity Reaction Status Date / Time cephalexin monohydrate * Allergy Intermediate CAREY, "worse Verified 05/21/21 13:52 [From Keflex] feeling of my life" morphine Allergy Intermediate Itching Verified 05/21/21 13:52 azithromycin [From Zithromax] Allergy Mild Hives Verified 05/21/21 13:52 oxycodone HCl * Allergy Mild Itching Verified 05/21/21 13:52 [From Percocet] propoxyphene napsylate * Allergy Mild Itching Verified 05/21/21 13:52 [From Darvocet-N 100] codeine Allergy Itching Verified 05/21/21 13:52 hydrochlorothiazide Allergy Unknown Verified 05/21/21 13:52 verapamil Allergy Unknown Verified 08/19/21 11:18 cimetidine [From Tagamet] AdvReac Severe drop in Verified 05/21/21 13:52 blood platelets cimetidine HCl * AdvReac Severe drop in Verified 05/21/21 13:52 [From Tagamet] blood platelets Sulfa (Sulfonamide AdvReac Severe platelets Verified 05/21/21 13:52 Antibiotics) dropped hydrocodone bitartrate * AdvReac Intermediate Nausea Verified 05/21/21 13:52 [From Vicodin] - Social History Does the pt smoke?: No Smoking Status: Never smoker Does the pt drink ETOH?: Yes Does the pt have substance abuse?: No - Immunizations Immunizations are current?: Yes - POLST Patient has POLST: No PD ED PE NORMAL - General General: Alert and oriented X 3, No acute distress, Well developed/nourished - HEENT HEENT: Atraumatic, Moist mucous membranes - Neck Neck: Supple, no meningeal sign, No adenopathy, No JVD - Cardiac Cardiac: RRR, No murmur - Respiratory Respiratory: No respiratory distress, Clear bilaterally - Abdomen Abdomen: Normal bowel sounds, Soft - Back Back: No CVA TTP, No spinal TTP - Derm Derm: Normal color, Warm and dry, No rash - Extremities Extremities: No deformity, No tenderness to palpate, Normal ROM s pain - Neuro Neuro: Alert and oriented X 3, 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 Eye Opening: Spontaneous Motor: Obeys Commands Verbal: Oriented GCS Score: 15 - Psych Psych: Normal mood Results - Vitals Vitals: Vital Signs - 24 hr 08/19/21 11:19 Temperature 37.4 C Heart Rate 87 Respiratory 18 Rate Blood Pressure 175/105 H O2 Saturation 97 Oxygen O2 Source Room air - Rads (name of study) cxr Radiology: EMP read indepedently (No acute cardiopulmonary process) PD MEDICAL DECISION MAKING - ED course Complexity details: reviewed results, re-evaluated patient, considered differential, d/w patient ED course: 51-year-old female who reports a history of multiple medication allergies as well as severe side effects to the flu vaccine in the past presents to the emergency department for evaluation of her current COVID-19 infection. Began getting fevers myalgias chills body aches and sore throat last night. Tested positive this AM. Clinically patient appears very well. Unremarkable cardiopulmonary auscultation without hypoxia. Chest x-ray is without any focal findings. Her vital signs are reassuring with the exception of some hypertension. She would not meet criteria for inpatient hospitalization. The patient is interested in outpatient antiviral therapy. However given her h istory of side effects to many medications she was given the [employer] EUA papers to read.After being given appropriate amount of time to read the information and questions were answered by this provider patient has ultimately elected to decline oral outpatient antiviral therapy for the treatment of this COVID infection. We otherwise discussed routine care of her symptoms as well as emergent return precautions. Departure - Departure Disposition: 01 Home, Self Care Clinical Impression: COVID-19 Condition: Stable Record reviewed to determine appropriate education?: Yes Comments: Raine You are seen today in the emergency department for evaluation of your COVID-19 infection. You tested positive this morning but began having symptoms last night. Your chest x-ray is unremarkable. There are no findings to suggest pneumonia. As we discussed at the bedside this particular wave of COVID seems to be accompanied by higher fevers and more severe body aches though less respiratory symptoms. You were offered outpatient oral antiviral medication with either Paxlovid or Molnupiravir. After reading the distributed information and taking your history into consideration you have ultimately declined to take the medication as you se em to have a higher risk of severe side effects. I think that this is an okay decision and I believe that you will do well with your infection. Please stay well-hydrated. This helps reduce body aches as well as fevers, you can take [id number] ibuprofen or Tylenol. You can return to the ER at any point within 5 days of the onset of symptoms and we can distribute the medication to you. If at any point you feel that your symptoms are worsening, you have difficulty breathing severe chest pain or any fainting episodes then please return to the ER for a second evaluation
== END 2021-08-19 12:38 | disposition home or self-care (01) ==
LOC: ED 11:13
DX: U07.1 COVID-19 (principal); Z28.310 Unvaccinated for COVID-19
CPT/HCPCS: 99281; 99283

== ENCOUNTER 2021-11-06 10:54 | Emergency (ER) | payer OTHER ==
--- OUTSIDE RECORDS SUMMARY | 2021-11-06 11:18 | EXTERNAL MEDICAL SUMMARY RPT | Continuity of Care Document ---
:1970 Author Organization [facility] Address [address] [place] [address] Phone Allergies No information. Encounters No information. Functional Status No information. Immunizations No information. Medications No information. Problems No information. Procedures date description facility [id number] [facility] [id number] [facility] [id number] [facility] [id number] [facility] [id number] [facility] [id number]+0000 [facility] [id number] [facility] Results/Labs test date author facility value unit interpret ation Result panel 1 (unknown) (no (unknown) (unknown) (no value) (units (unk nown) date) unknown) (unknown) (no (unknown) (unknown) (no value) (units (unk nown) date) unknown) (unknown) (no (unknown) (unknown) (no value) (units (unk nown) date) unknown) (unknown) (no (unknown) (unknown) 08/14/21 (units (unkno wn) date) unknown) (unknown) (no (unknown) (unknown) 09:31 (units (unkno wn) date) unknown) (unknown) (no (unknown) (unknown) [place] [address] (unit s (unknown) date) unknown) (unknown) (no (unknown) (unknown) Draft (units (unkno wn) date) unknown) (unknown) (no (unknown) (unknown) Sleep Visit (units (un known) date) unknown) (unknown) (no (unknown) (unknown) [facility] (units (unknown) date) Center unknown) (unknown) (no (unknown) (unknown) (no value) (units (unk nown) date) unknown) (unknown) (no (unknown) (unknown) Confirmed 08/14/21] (unit s (unknown) date) unknown) (unknown) (no (unknown) (unknown) 0 = Would never doze (uni ts (unknown) date) or sleep, 1 = Slight unknown) chance of dozing or sleeping, 2 = (unknown) (no (unknown) (unknown) 08/14/21 (units (unkno wn) date) unknown) (unknown) (no (unknown) (unknown) 20 mg PO DAILY (units (unknown) date) 05/07/21 [History unknown) Confirmed 05/28/21] (unknown) (no (unknown) (unknown) [id number] (units (unkno wn) date) unknown) (unknown) (no (unknown) (unknown) Adult general (units ( unknown) date) medical exam unknown) (unknown) (no (unknown) (unknown) Age/Sex: 51 / F (units (unknown) date) Date of Service: unknown) (unknown) (no (unknown) (unknown) Allergies (units (unkn own) date) unknown) (unknown) (no (unknown) (unknown) Anesthesia (units (unk nown) date) unknown) (unknown) (no (unknown) (unknown) Attending Dr: Emile (uni ts (unknown) date) Eva POWELL unknown) (unknown) (no (unknown) (unknown) BMI 31.9 (units (un known) date) unknown) (unknown) (no (unknown) (unknown) BP 140/100 H (units (unknown) date) unknown) (unknown) (no (unknown) (unknown) Being a passenger in (uni ts (unknown) date) a motor vehicle for unknown) an hour or so: 2 = Moderate (unknown) (no (unknown) (unknown) Blood Pressure (units (unknown) date) Location Lt unknown) brachial (unknown) (no (unknown) (unknown) CODEINE Allergy (units (unknown) date) (Unknown, Uncoded unknown) 05/28/21 09:50) (unknown) (no (unknown) (unknown) Chronic back pain (units (unknown) date) unknown) (unknown) (no (unknown) (unknown) Colon polyps () (uni ts (unknown) date) unknown) (unknown) (no (unknown) (unknown) : 1970 (units (unknown) date) Acct:[id number] unknown) (unknown) (no (unknown) (unknown) Daytime sleepiness (units (unknown) date) unknown) (unknown) (no (unknown) (unknown) Dept at (units (unkno wn) date) . unknown) (unknown) (no (unknown) (unknown) Documented By: (units (unknown) date) Emile Velasquez MD unknown) 08/14/21 0924 (unknown) (no (unknown) (unknown) [place] Score: 5 (units (unknown) date) unknown) (unknown) (no (unknown) (unknown) [place] Sleepiness (units (unknown) date) Scale unknown) (unknown) (no (unknown) (unknown) Family History (units (unknown) date) (Reviewed 05/28/21 @ unknown) 10:35 by TEDDY Chowdary) (unknown) (no (unknown) (unknown) Father Prostate (units (unknown) date) cancer unknown) (unknown) (no (unknown) (unknown) Height 5 ft 6 in (unit s (unknown) date) unknown) (unknown) (no (unknown) (unknown) History of ITP (units (unknown) date) (-1999) unknown) (unknown) (no (unknown) (unknown) History of (units (unk nown) date) craniotomy unknown) (unknown) (no (unknown) (unknown) Intake (units (unkno wn) date) unknown) (unknown) (no (unknown) (unknown) Loc: SLEEP (units (unk nown) date) unknown) (unknown) (no (unknown) (unknown) Lying down in the (units (unknown) date) afternoon: 1 = Slight unknown) (unknown) (no (unknown) (unknown) MORPHINE Allergy (units (unknown) date) (Unknown, Uncoded unknown) 05/28/21 09:50) (unknown) (no (unknown) (unknown) Medical History (units (unknown) date) (Reviewed 05/28/21 @ unknown) 10:35 by TEDDY Chowdary) (unknown) (no (unknown) (unknown) Medications (units (un known) date) unknown) (unknown) (no (unknown) (unknown) Moderate chance of (units (unknown) date) dozing or sleeping, 3 unknown) = High chance of dozing or sleeping (unknown) (no (unknown) (unknown) Neck Circumference (units (unknown) date) Measurement unknown) 15.5 (unknown) (no (unknown) (unknown) Ovarian cyst (-1987) (uni ts (unknown) date) unknown) (unknown) (no (unknown) (unknown) PFSH (units (unkno wn) date) unknown) (unknown) (no (unknown) (unknown) Pain (units (unkno wn) date) unknown) (unknown) (no (unknown) (unknown) Pain scale (1-10): 0 (uni ts (unknown) date) unknown) (unknown) (no (unknown) (unknown) Patient: (units (unkno wn) date) Pita Perez D unknown) MR#: [id number] (unknown) (no (unknown) (unknown) Position Sitting (unit s (unknown) date) unknown) (unknown) (no (unknown) (unknown) Propoxyphene Allergy (uni ts (unknown) date) (Unknown, Uncoded unknown) 05/28/21 09:50) (unknown) (no (unknown) (unknown) Pulse 71 (units (un known) date) unknown) (unknown) (no (unknown) (unknown) Questionnaires (units (unknown) date) unknown) (unknown) (no (unknown) (unknown) Reason For Visit (units (unknown) date) unknown) (unknown) (no (unknown) (unknown) SULFA Allergy (units ( unknown) date) (Unknown, Uncoded unknown) 05/28/21 09:50) (unknown) (no (unknown) (unknown) Screening for (units ( unknown) date) malignant neoplasm of unknown) colon (unknown) (no (unknown) (unknown) Signed By: (units (unk nown) date) unknown) (unknown) (no (unknown) (unknown) Sitting and Reading: (uni ts (unknown) date) 1 = Slight unknown) (unknown) (no (unknown) (unknown) Sitting and talking (unit s (unknown) date) to someone: 0 = Never unknown) (None) (unknown) (no (unknown) (unknown) Sitting inactive in (unit s (unknown) date) a public place: 0 = unknown) Never (None) (unknown) (no (unknown) (unknown) Sitting quietly (units (unknown) date) after lunch (no unknown) alcohol): 0 = Never (None) (unknown) (no (unknown) (unknown) Smoking Status: (units (unknown) date) Former smoker unknown) (unknown) (no (unknown) (unknown) Stopped for a few (units (unknown) date) minutes in traffic: 0 unknown) = Never (None) (unknown) (no (unknown) (unknown) Surgical History (units (unknown) date) (Reviewed 05/28/21 @ unknown) 10:35 by TEDDY Chowdary) (unknown) (no (unknown) (unknown) Temp 97.9 F (units (unknown) date) unknown) (unknown) (no (unknown) (unknown) This note may have (units (unknown) date) been all or partially unknown) generated using voice recognition (unknown) (no (unknown) (unknown) Thyroid nodule (units (unknown) date) (-1998) unknown) (unknown) (no (unknown) (unknown) Tobacco + Substance (unit s (unknown) date) Use unknown) (unknown) (no (unknown) (unknown) Tobacco Status (units (unknown) date) unknown) (unknown) (no (unknown) (unknown) Visit Reasons: (units (unknown) date) consult unknown) (unknown) (no (unknown) (unknown) Vitals (units (unkno wn) date) unknown) (unknown) (no (unknown) (unknown) Watching TV: 1 = (units (unknown) date) Slight unknown) (unknown) (no (unknown) (unknown) Weight 198 lb (units (unknown) date) unknown) (unknown) (no (unknown) (unknown) azithromycin [From (units (unknown) date) Zithromax] Allergy unknown) (Unknown, Verified 08/14/21 09:30) (unknown) (no (unknown) (unknown) cephalexin [From (units (unknown) date) Keflex] Allergy unknown) (Unknown, Verified 08/14/21 09:30) (unknown) (no (unknown) (unknown) cimetidine [From (units (unknown) date) Tagamet] Allergy unknown) (Unknown, Verified 08/14/21 09:30) (unknown) (no (unknown) (unknown) have occurred. If (units (unknown) date) there are any unknown) questions, please contact the Medical Records (unknown) (no (unknown) (unknown) hydrochlorothiazide (unit s (unknown) date) Allergy (Verified unknown) 08/14/21 09:30) (unknown) (no (unknown) (unknown) ketorolac 10 mg (units (unknown) date) tablet 10 mg PO Q6H unknown) PRN #14 tab 11/02/20 [Rx Confirmed 05/28/21] (unknown) (no (unknown) (unknown) may occur. (units (unk nown) date) Occasional wrong-word unknown) or 'sound-alike' substitutions may have (unknown) (no (unknown) (unknown) occurred due to the (unit s (unknown) date) inherent limitations unknown) of voice recognition software. Please (unknown) (no (unknown) (unknown) omeprazole magnesium (uni ts (unknown) date) 20 mg capsule,delayed unknown) release (Acid Imaging Clerk (omeprazole)) (unknown) (no (unknown) (unknown) oxycodone [From (units (unknown) date) Percocet] Allergy unknown) (Unknown, Verified 08/14/21 09:30) (unknown) (no (unknown) (unknown) read the note (units ( unknown) date) carefully and unknown) recognize, using context, where these substitutions (unknown) (no (unknown) (unknown) software. 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 (unknown) (no (unknown) (unknown) thyroid (pork) 15 mg (unit s (unknown) date) tablet ([place] unknown) Thyroid) 15 mg PO DAILY #30 tab 04/29/21 [Rx (unknown) (no (unknown) (unknown) thyroid (pork) 30 mg (unit s (unknown) date) tablet ([place] unknown) Thyroid) 30 mg PO DAILY #30 tab 04/29/21 [Rx Result panel 2 (unknown) (no (unknown) (unknown) (no value) (units (unk nown) date) unknown) (unknown) (no (unknown) (unknown) (no value) (units (unk nown) date) unknown) (unknown) (no (unknown) (unknown) (no value) (units (unk nown) date) unknown) (unknown) (no (unknown) (unknown) [place] [address] (unit s (unknown) date) unknown) (unknown) (no (unknown) (unknown) Draft (units (unkno wn) date) unknown) (unknown) (no (unknown) (unknown) Sleep Visit (units (un known) date) unknown) (unknown) (no (unknown) (unknown) [facility] ([facility] (unknown) date) Center unknown) (unknown) (no (unknown) (unknown) (no value) (units (unk nown) date) unknown) (unknown) (no (unknown) (unknown) Confirmed 08/14/21] (unit s (unknown) date) unknown) (unknown) (no (unknown) (unknown) 0 = Would never doze (uni ts (unknown) date) or sleep, 1 = Slight unknown) chance of dozing or sleeping, 2 = (unknown) (no (unknown) (unknown) 08/14/21 (units (unkno wn) date) unknown) (unknown) (no (unknown) (unknown) 20 mg PO DAILY (units (unknown) date) 05/07/21 [History unknown) Confirmed 05/28/21] (unknown) (no (unknown) (unknown) [id number] (units (unkno wn) date) unknown) (unknown) (no (unknown) (unknown) Adult general (units ( unknown) date) medical exam unknown) (unknown) (no (unknown) (unknown) Age/Sex: 51 / F (units (unknown) date) Date of Service: unknown) (unknown) (no (unknown) (unknown) Allergies (units (unkn own) date) unknown) (unknown) (no (unknown) (unknown) Anesthesia (units (unk nown) date) unknown) (unknown) (no (unknown) (unknown) Attending Dr: Emile (uni ts (unknown) date) Eva POWELL unknown) (unknown) (no (unknown) (unknown) Being a passenger in (uni ts (unknown) date) a motor vehicle for unknown) an hour or so: 2 = Moderate (unknown) (no (unknown) (unknown) Branch: consistent, (unit s (unknown) date) daytime somnolence unknown) Daytime somnolence is: occasional, (unknown) (no (unknown) (unknown) Branch: denied, (units (unknown) date) sleep talking Sleep unknown) Talking Branch: currently and denied and (unknown) (no (unknown) (unknown) CODEINE Allergy (units (unknown) date) (Unknown, Uncoded unknown) 05/28/21 09:50) (unknown) (no (unknown) (unknown) Cardiac (units (unkno wn) date) unknown) (unknown) (no (unknown) (unknown) Chief Complaint: (units (unknown) date) Patient is here with unknown) a complaint of snoring and trouble (unknown) (no (unknown) (unknown) Chronic back pain (units (unknown) date) unknown) (unknown) (no (unknown) (unknown) Colon polyps (-1999) (uni ts (unknown) date) unknown) (unknown) (no (unknown) (unknown) Condition is Onset: (unit s (unknown) date) Chronic and ongoing unknown) (unknown) (no (unknown) (unknown) Const (units (unkno wn) date) unknown) (unknown) (no (unknown) (unknown) : 1970 (units (unknown) date) Acct:[id number] unknown) (unknown) (no (unknown) (unknown) Daytime sleepiness (units (unknown) date) unknown) (unknown) (no (unknown) (unknown) Denies chest pain or (uni ts (unknown) date) nocturnal unknown) palpitations (unknown) (no (unknown) (unknown) Denies chills, (units (unknown) date) Reports fatigue, unknown) Reports lethargy, Reports night sweats, Reports (unknown) (no (unknown) (unknown) Denies hives, rash (units (unknown) date) or pruritus unknown) (unknown) (no (unknown) (unknown) Denies nocturia (units (unknown) date) unknown) (unknown) (no (unknown) (unknown) Dept at (units (unkno wn) date) . unknown) (unknown) (no (unknown) (unknown) Dermatological (units (unknown) date) unknown) (unknown) (no (unknown) (unknown) Details: (units (unkno wn) date) unknown) (unknown) (no (unknown) (unknown) Documented By: (units (unknown) date) Emile Velasquez MD unknown) 08/14/21 0924 (unknown) (no (unknown) (unknown) ENT (units (unkno wn) date) unknown) (unknown) (no (unknown) (unknown) [place] Score: 5 (units (unknown) date) unknown) (unknown) (no (unknown) (unknown) [place] Sleepiness (units (unknown) date) Scale unknown) (unknown) (no (unknown) (unknown) Exacerbating/Allevia (uni ts (unknown) date) ting Factors unknown) (unknown) (no (unknown) (unknown) Eyes (units (unkno wn) date) unknown) (unknown) (no (unknown) (unknown) Family History (units (unknown) date) (Reviewed 08/14/21 @ unknown) 09:38 by Emile Velasquez MD) (unknown) (no (unknown) (unknown) Father Prostate (units (unknown) date) cancer unknown) (unknown) (no (unknown) (unknown) GI (units (unkno wn) date) unknown) (unknown) (no (unknown) (unknown) (units (unkno wn) date) unknown) (unknown) (no (unknown) (unknown) Gasping Branch: (units (unknown) date) currently, [place] unknown) sleep scale score (08/27), bruxism Bruxism (unknown) (no (unknown) (unknown) HPI (units (unkno wn) date) unknown) (unknown) (no (unknown) (unknown) HPI Sleep New (units ( unknown) date) Patient unknown) (unknown) (no (unknown) (unknown) Hematologic (units (un known) date) unknown) (unknown) (no (unknown) (unknown) History of ITP (units (unknown) date) (-1999) unknown) (unknown) (no (unknown) (unknown) History of (units (unk nown) date) craniotomy unknown) (unknown) (no (unknown) (unknown) Intake (units (unkno wn) date) unknown) (unknown) (no (unknown) (unknown) Loc: SLEEP (units (unk nown) date) unknown) (unknown) (no (unknown) (unknown) Lying down in the (units (unknown) date) afternoon: 1 = Slight unknown) (unknown) (no (unknown) (unknown) MORPHINE Allergy (units (unknown) date) (Unknown, Uncoded unknown) 05/28/21 09:50) (unknown) (no (unknown) (unknown) Medical History (units (unknown) date) (Reviewed 08/14/21 @ unknown) 09:38 by Emile Velasquez MD) (unknown) (no (unknown) (unknown) Medications (units (un known) date) unknown) (unknown) (no (unknown) (unknown) Moderate chance of (units (unknown) date) dozing or sleeping, 3 unknown) = High chance of dozing or sleeping (unknown) (no (unknown) (unknown) Musc (units (unkno wn) date) unknown) (unknown) (no (unknown) (unknown) Neurological (units (u nknown) date) unknown) (unknown) (no (unknown) (unknown) Ovarian cyst (-1987) (uni ts (unknown) date) unknown) (unknown) (no (unknown) (unknown) PFSH (units (unkno wn) date) unknown) (unknown) (no (unknown) (unknown) Pain (units (unkno wn) date) unknown) (unknown) (no (unknown) (unknown) Pain scale (1-10): 0 (uni ts (unknown) date) unknown) (unknown) (no (unknown) (unknown) Patient denies (units (unknown) date) 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, unknown) reports stress Sleep Stress Branch: both (unknown) (no (unknown) (unknown) Patient is here today (uni ts (unknown) date) for initial unknown) evaluation of sleep apnea symptoms and initial (unknown) (no (unknown) (unknown) Patient: (units (unkno wn) date) Pita Perez D unknown) MR#: [id number] (unknown) (no (unknown) (unknown) Propoxyphene Allergy (uni ts (unknown) date) (Unknown, Uncoded unknown) 05/28/21 09:50) (unknown) (no (unknown) (unknown) Psychological (units ( unknown) date) unknown) (unknown) (no (unknown) (unknown) Questionnaires (units (unknown) date) unknown) (unknown) (no (unknown) (unknown) ROS Sleep (units (unkn own) date) unknown) (unknown) (no (unknown) (unknown) Reason For Visit (units (unknown) date) unknown) (unknown) (no (unknown) (unknown) Reports depression, (unit s (unknown) date) anxiety and napping unknown) not at all; Denies hypnagogic (unknown) (no (unknown) (unknown) Reports dyspnea at (units (unknown) date) night; Denies cough unknown) (unknown) (no (unknown) (unknown) Reports history of (units (unknown) date) anemia; Denies unknown) history of transfusions (unknown) (no (unknown) (unknown) Reports morning (units (unknown) date) headache and trouble unknown) concentrating or focusing; Denies dizzy in (unknown) (no (unknown) (unknown) Reports myalgia (units (unknown) date) interfering with unknown) sleep (fibromyalgia); Denies arthralgia (unknown) (no (unknown) (unknown) Reports nasal (units ( unknown) date) congestion at night, unknown) sore throat in the morning and dry mouth in (unknown) (no (unknown) (unknown) Reports reflux pain (unit s (unknown) date) at night unknown) (unknown) (no (unknown) (unknown) Reports seasonal (units (unknown) date) allergies; Denies unknown) itchy eyes, redness, blurry vision or eye (unknown) (no (unknown) (unknown) Respiratory (units (un known) date) unknown) (unknown) (no (unknown) (unknown) SULFA Allergy (units ( unknown) date) (Unknown, Uncoded unknown) 05/28/21 09:50) (unknown) (no (unknown) (unknown) Screening for (units ( unknown) date) malignant neoplasm of unknown) colon (unknown) (no (unknown) (unknown) She has a history of (uni ts (unknown) date) hypertension and unknown) depression. (unknown) (no (unknown) (unknown) Signed By: (units (unk nown) date) unknown) (unknown) (no (unknown) (unknown) Sitting and Reading: (uni ts (unknown) date) 1 = Slight unknown) (unknown) (no (unknown) (unknown) Sitting and talking (unit s (unknown) date) to someone: 0 = Never unknown) (None) (unknown) (no (unknown) (unknown) Sitting inactive in (unit s (unknown) date) a public place: 0 = unknown) Never (None) (unknown) (no (unknown) (unknown) Sitting quietly (units (unknown) date) after lunch (no unknown) alcohol): 0 = Never (None) (unknown) (no (unknown) (unknown) Smoking Status: (units (unknown) date) Former smoker unknown) (unknown) (no (unknown) (unknown) Stopped for a few (units (unknown) date) minutes in traffic: 0 unknown) = Never (None) (unknown) (no (unknown) (unknown) Surgical History (units (unknown) date) (Reviewed 08/14/21 @ unknown) 09:38 by Emile Velasquez MD) (unknown) (no (unknown) (unknown) Symptom Course After (unit s (unknown) date) Onset: difficulty unknown) falling asleep Difficulty Falling Asleep: (unknown) (no (unknown) (unknown) Symptoms (units (unkno wn) date) unknown) (unknown) (no (unknown) (unknown) This note may have (units (unknown) date) been all or partially unknown) generated using voice recognition (unknown) (no (unknown) (unknown) Thyroid nodule (units (unknown) date) (-1998) unknown) (unknown) (no (unknown) (unknown) Tobacco + Substance (unit s (unknown) date) Use unknown) (unknown) (no (unknown) (unknown) Tobacco Status (units (unknown) date) unknown) (unknown) (no (unknown) (unknown) Visit Reasons: (units (unknown) date) consult unknown) (unknown) (no (unknown) (unknown) Watching TV: 1 = (units (unknown) date) Slight unknown) (unknown) (no (unknown) (unknown) also reports that she (uni ts (unknown) date) has had trouble unknown) falling asleep, staying asleep and getting (unknown) (no (unknown) (unknown) azithromycin [From (units (unknown) date) Zithromax] Allergy unknown) (Unknown, Verified 08/14/21 09:30) (unknown) (no (unknown) (unknown) back to sleep for (units (unknown) date) the last 5 years. She unknown) had a geoffrey-thyroidectomy in 1999. She (unknown) (no (unknown) (unknown) cephalexin [From (units (unknown) date) Keflex] Allergy unknown) (Unknown, Verified 08/14/21 09:30) (unknown) (no (unknown) (unknown) cimetidine [From (units (unknown) date) Tagamet] Allergy unknown) (Unknown, Verified 08/14/21 09:30) (unknown) (no (unknown) (unknown) daily, reports (units (unknown) date) caffeine Sleep unknown) Caffeine Branch: no, reports non-supine sleeping, (unknown) (no (unknown) (unknown) denies stimulant (units (unknown) date) therapy, denies unknown) sleeping with head elevated or denies sleeping (unknown) (no (unknown) (unknown) evaluation of (units ( unknown) date) insomnia unknown) (unknown) (no (unknown) (unknown) frequent, difficulty (uni ts (unknown) date) staying asleep unknown) Difficulty Staying Asleep: frequent, early (unknown) (no (unknown) (unknown) hallucinations or (units (unknown) date) sleep paralysis unknown) (unknown) (no (unknown) (unknown) has a (units (unkno wn) date) humidifer/vaporizer unknown) in her bedroom. She has tried different pillows. (unknown) (no (unknown) (unknown) have occurred. If (units (unknown) date) there are any unknown) questions, please contact the Medical Records (unknown) (no (unknown) (unknown) home + work Stress (units (unknown) date) Both Branch: unknown) somewhat, reports alcohol Sleep Alcohol Branch: (unknown) (no (unknown) (unknown) hydrochlorothiazide (unit s (unknown) date) Allergy (Verified unknown) 08/14/21 09:30) (unknown) (no (unknown) (unknown) interfering with (units (unknown) date) sleep, weakness unknown) associated with strong emotion or sleep (unknown) (no (unknown) (unknown) ketorolac 10 mg (units (unknown) date) tablet 10 mg PO Q6H unknown) PRN #14 tab 11/02/20 [Rx Confirmed 05/28/21] (unknown) (no (unknown) (unknown) may occur. 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 Please (unknown) (no (unknown) (unknown) omeprazole magnesium (uni ts (unknown) date) 20 mg capsule,delayed unknown) release (Acid Imaging Clerk (omeprazole)) (unknown) (no (unknown) (unknown) oxycodone [From (units (unknown) date) Percocet] Allergy unknown) (Unknown, Verified 08/14/21 09:30) (unknown) (no (unknown) (unknown) pain (units (unkno wn) date) unknown) (unknown) (no (unknown) (unknown) paralysis (units (unkn own) date) unknown) (unknown) (no (unknown) (unknown) patient reports that (uni ts (unknown) date) she has been told she unknown) is snoring at night for the last 4 (unknown) (no (unknown) (unknown) pills (units (unkno wn) date) unknown) (unknown) (no (unknown) (unknown) read the note (units ( unknown) date) carefully and unknown) recognize, using context, where these substitutions (unknown) (no (unknown) (unknown) sleep walking Sleep (unit s (unknown) date) Walking Branch: unknown) denied (unknown) (no (unknown) (unknown) sleeping (units (unkno wn) date) unknown) (unknown) (no (unknown) (unknown) sleeping a lot, (units (unknown) date) normal bedtime unknown) ([id number], 2400 on non work nights), normal wake (unknown) (no (unknown) (unknown) snoring Snoring: (units (unknown) date) frequent, apnea unknown) Apnea: witnessed, choking or gasping Choking or (unknown) (no (unknown) (unknown) snoring and Reports (unit s (unknown) date) stops breathing unknown) during sleep (unknown) (no (unknown) (unknown) software. 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 (unknown) (no (unknown) (unknown) the morning or (units (unknown) date) vertigo unknown) (unknown) (no (unknown) (unknown) the morning; Denies (unit s (unknown) date) epistaxis or runny unknown) nose (unknown) (no (unknown) (unknown) thyroid (pork) 15 mg (unit s (unknown) date) tablet ([place] unknown) Thyroid) 15 mg PO DAILY #30 tab 04/29/21 [Rx (unknown) (no (unknown) (unknown) thyroid (pork) 30 mg (unit s (unknown) date) tablet ([place] unknown) Thyroid) 30 mg PO DAILY #30 tab 04/29/21 [Rx (unknown) (no (unknown) (unknown) time (0900, (units (un known) date) [id number] on non work unknown) mornings), sleep schedule Sleep Schedule (unknown) (no (unknown) (unknown) years. She is snoring (uni ts (unknown) date) nightly with unknown) witnessed apnea and has gasping arousals. She Result panel 3 (unknown) (no (unknown) (unknown) (no value) (units (unk nown) date) unknown) (unknown) (no (unknown) (unknown) (no value) (units (unk nown) date) unknown) (unknown) (no (unknown) (unknown) (no value) (units (unk nown) date) unknown) (unknown) (no (unknown) (unknown) [place] [address] (unit s (unknown) date) unknown) (unknown) (no (unknown) (unknown) Draft (units (unkno wn) date) unknown) (unknown) (no (unknown) (unknown) Sleep Visit (units (un known) date) unknown) (unknown) (no (unknown) (unknown) [facility] ([facility] unknown) (unknown) (no (unknown) (unknown) (no value) (units (unk nown) date) unknown) (unknown) (no (unknown) (unknown) Confirmed 08/14/21] (unit s (unknown) date) unknown) (unknown) (no (unknown) (unknown) 0 = Would never doze (uni ts (unknown) date) or sleep, 1 = Slight unknown) chance of dozing or sleeping, 2 = (unknown) (no (unknown) (unknown) 08/14/21 (units (unkno wn) date) unknown) (unknown) (no (unknown) (unknown) 20 mg PO DAILY (units (unknown) date) 05/07/21 [History unknown) Confirmed 05/28/21] (unknown) (no (unknown) (unknown) [id number] (units (unkno wn) date) unknown) (unknown) (no (unknown) (unknown) Adult general (units ( unknown) date) medical exam unknown) (unknown) (no (unknown) (unknown) Age/Sex: 51 / F (units (unknown) date) Date of Service: unknown) (unknown) (no (unknown) (unknown) Allergies (units (unkn own) date) unknown) (unknown) (no (unknown) (unknown) Anesthesia (units (unk nown) date) unknown) (unknown) (no (unknown) (unknown) Attending Dr: Emile (uni ts (unknown) date) Eva POWELL unknown) (unknown) (no (unknown) (unknown) Being a passenger in (uni ts (unknown) date) a motor vehicle for unknown) an hour or so: 2 = Moderate (unknown) (no (unknown) (unknown) Branch: consistent, (unit s (unknown) date) daytime somnolence unknown) Daytime somnolence is: occasional, (unknown) (no (unknown) (unknown) Branch: denied, (units (unknown) date) sleep talking Sleep unknown) Talking Branch: currently and denied and (unknown) (no (unknown) (unknown) CODEINE Allergy (units (unknown) date) (Unknown, Uncoded unknown) 05/28/21 09:50) (unknown) (no (unknown) (unknown) Cardiac (units (unkno wn) date) unknown) (unknown) (no (unknown) (unknown) Chief Complaint: (units (unknown) date) Patient is here with unknown) a complaint of snoring and trouble (unknown) (no (unknown) (unknown) Chronic back pain (units (unknown) date) unknown) (unknown) (no (unknown) (unknown) Colon polyps (-1999) (uni ts (unknown) date) unknown) (unknown) (no (unknown) (unknown) Condition is Onset: (unit s (unknown) date) Chronic and ongoing unknown) (unknown) (no (unknown) (unknown) Const (units (unkno wn) date) unknown) (unknown) (no (unknown) (unknown) : 1970 (units (unknown) date) Acct:[id number] unknown) (unknown) (no (unknown) (unknown) Daytime sleepiness (units (unknown) date) unknown) (unknown) (no (unknown) (unknown) Denies chest pain or (uni ts (unknown) date) nocturnal unknown) palpitations (unknown) (no (unknown) (unknown) Denies chills, (units (unknown) date) Reports fatigue, unknown) Reports lethargy, Reports night sweats, Reports (unknown) (no (unknown) (unknown) Denies hives, rash (units (unknown) date) or pruritus unknown) (unknown) (no (unknown) (unknown) Denies nocturia (units (unknown) date) unknown) (unknown) (no (unknown) (unknown) Dept at (units (unkno wn) date) . unknown) (unknown) (no (unknown) (unknown) Dermatological (units (unknown) date) unknown) (unknown) (no (unknown) (unknown) Details: (units (unkno wn) date) unknown) (unknown) (no (unknown) (unknown) Documented By: (units (unknown) date) Emile Velasquez MD unknown) 08/14/21 0924 (unknown) (no (unknown) (unknown) ENT (units (unkno wn) date) unknown) (unknown) (no (unknown) (unknown) [place] Score: 5 (units (unknown) date) unknown) (unknown) (no (unknown) (unknown) [place] Sleepiness (units (unknown) date) Scale unknown) (unknown) (no (unknown) (unknown) Exacerbating/Allevia (uni ts (unknown) date) ting Factors unknown) (unknown) (no (unknown) (unknown) Eyes (units (unkno wn) date) unknown) (unknown) (no (unknown) (unknown) Family History (units (unknown) date) (Reviewed 08/14/21 @ unknown) 09:38 by Emile Velasquez MD) (unknown) (no (unknown) (unknown) Father Prostate (units (unknown) date) cancer unknown) (unknown) (no (unknown) (unknown) GI (units (unkno wn) date) unknown) (unknown) (no (unknown) (unknown) (units (unkno wn) date) unknown) (unknown) (no (unknown) (unknown) Gasping Branch: (units (unknown) date) currently, epworth unknown) sleep scale score (08/27), bruxism Bruxism (unknown) (no (unknown) (unknown) HPI (units (unkno wn) date) unknown) (unknown) (no (unknown) (unknown) HPI Sleep New (units ( unknown) date) Patient unknown) (unknown) (no (unknown) (unknown) Hematologic (units (un known) date) unknown) (unknown) (no (unknown) (unknown) History of ITP (units (unknown) date) () unknown) (unknown) (no (unknown) (unknown) History of (units (unk nown) date) craniotomy unknown) (unknown) (no (unknown) (unknown) Intake (units (unkno wn) date) unknown) (unknown) (no (unknown) (unknown) Loc: SLEEP (units (unk nown) date) unknown) (unknown) (no (unknown) (unknown) Lying down in the (units (unknown) date) afternoon: 1 = Slight unknown) (unknown) (no (unknown) (unknown) MORPHINE Allergy (units (unknown) date) (Unknown, Uncoded unknown) 05/28/21 09:50) (unknown) (no (unknown) (unknown) Medical History (units (unknown) date) (Reviewed 08/14/21 @ unknown) 09:38 by Emile Velasquez MD) (unknown) (no (unknown) (unknown) Medications (units (un known) date) unknown) (unknown) (no (unknown) (unknown) Moderate chance of (units (unknown) date) dozing or sleeping, 3 unknown) = High chance of dozing or sleeping (unknown) (no (unknown) (unknown) Musc (units (unkno wn) date) unknown) (unknown) (no (unknown) (unknown) Neurological (units (u nknown) date) unknown) (unknown) (no (unknown) (unknown) Ovarian cyst (-1987) (uni ts (unknown) date) unknown) (unknown) (no (unknown) (unknown) PFSH (units (unkno wn) date) unknown) (unknown) (no (unknown) (unknown) Pain (units (unkno wn) date) unknown) (unknown) (no (unknown) (unknown) Pain scale (1-10): 0 (uni ts (unknown) date) unknown) (unknown) (no (unknown) (unknown) Patient 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 (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 (unknown) date) 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, unknown) reports stress Sleep Stress Branch: both (unknown) (no (unknown) (unknown) Patient is here today (uni ts (unknown) date) for initial unknown) evaluation of sleep apnea symptoms and initial (unknown) (no (unknown) (unknown) Patient: (units (unkno wn) date) Pita Perez D unknown) MR#: [id number] (unknown) (no (unknown) (unknown) Propoxyphene Allergy (uni ts (unknown) date) (Unknown, Uncoded unknown) 05/28/21 09:50) (unknown) (no (unknown) (unknown) Psychological (units ( unknown) date) unknown) (unknown) (no (unknown) (unknown) Questionnaires (units (unknown) date) unknown) (unknown) (no (unknown) (unknown) ROS Sleep (units (unkn own) date) unknown) (unknown) (no (unknown) (unknown) Reason For Visit (units (unknown) date) unknown) (unknown) (no (unknown) (unknown) Reports depression, (unit s (unknown) date) anxiety and napping unknown) not at all; Denies hypnagogic (unknown) (no (unknown) (unknown) Reports dyspnea at (units (unknown) date) night; Denies cough unknown) (unknown) (no (unknown) (unknown) Reports history of (units (unknown) date) anemia; Denies unknown) history of transfusions (unknown) (no (unknown) (unknown) Reports morning (units (unknown) date) headache and trouble unknown) concentrating or focusing; Denies dizzy in (unknown) (no (unknown) (unknown) Reports myalgia (units (unknown) date) interfering with unknown) sleep (fibromyalgia); Denies arthralgia (unknown) (no (unknown) (unknown) Reports nasal (units ( unknown) date) congestion at night, unknown) sore throat in the morning and dry mouth in (unknown) (no (unknown) (unknown) Reports reflux pain (unit s (unknown) date) at night unknown) (unknown) (no (unknown) (unknown) Reports seasonal (units (unknown) date) allergies; Denies unknown) itchy eyes, redness, blurry vision or eye (unknown) (no (unknown) (unknown) Respiratory (units (un known) date) unknown) (unknown) (no (unknown) (unknown) SULFA Allergy (units ( unknown) date) (Unknown, Uncoded unknown) 05/28/21 09:50) (unknown) (no (unknown) (unknown) Screening for (units ( unknown) date) malignant neoplasm of unknown) colon (unknown) (no (unknown) (unknown) She has a history of (uni ts (unknown) date) hypertension and unknown) depression. (unknown) (no (unknown) (unknown) Signed By: (units (unk nown) date) unknown) (unknown) (no (unknown) (unknown) Sitting and Reading: (uni ts (unknown) date) 1 = Slight unknown) (unknown) (no (unknown) (unknown) Sitting and talking (unit s (unknown) date) to someone: 0 = Never unknown) (None) (unknown) (no (unknown) (unknown) Sitting inactive in (unit s (unknown) date) a public place: 0 = unknown) Never (None) (unknown) (no (unknown) (unknown) Sitting quietly (units (unknown) date) after lunch (no unknown) alcohol): 0 = Never (None) (unknown) (no (unknown) (unknown) Smoking Status: (units (unknown) date) Former smoker unknown) (unknown) (no (unknown) (unknown) Stopped for a few (units (unknown) date) minutes in traffic: 0 unknown) = Never (None) (unknown) (no (unknown) (unknown) Surgical History (units (unknown) date) (Reviewed 08/14/21 @ unknown) 09:38 by Emile Velasquez MD) (unknown) (no (unknown) (unknown) Symptom Course After (unit s (unknown) date) Onset: difficulty unknown) falling asleep Difficulty Falling Asleep: (unknown) (no (unknown) (unknown) Symptoms (units (unkno wn) date) unknown) (unknown) (no (unknown) (unknown) This note may have (units (unknown) date) been all or partially unknown) generated using voice recognition (unknown) (no (unknown) (unknown) Thyroid nodule (units (unknown) date) (-1998) unknown) (unknown) (no (unknown) (unknown) Tobacco + Substance (unit s (unknown) date) Use unknown) (unknown) (no (unknown) (unknown) Tobacco Status (units (unknown) date) unknown) (unknown) (no (unknown) (unknown) Visit Reasons: (units (unknown) date) consult unknown) (unknown) (no (unknown) (unknown) Watching TV: 1 = (units (unknown) date) Slight unknown) (unknown) (no (unknown) (unknown) also reports that she (uni ts (unknown) date) has had trouble unknown) falling asleep, staying asleep and getting (unknown) (no (unknown) (unknown) azithromycin [From (units (unknown) date) Zithromax] Allergy unknown) (Unknown, Verified 08/14/21 09:30) (unknown) (no (unknown) (unknown) back to sleep for (units (unknown) date) the last 5 years. She unknown) had a geoffrey-thyroidectomy in 1999. She (unknown) (no (unknown) (unknown) cephalexin [From (units (unknown) date) Keflex] Allergy unknown) (Unknown, Verified 08/14/21 09:30) (unknown) (no (unknown) (unknown) cimetidine [From (units (unknown) date) Tagamet] Allergy unknown) (Unknown, Verified 08/14/21 09:30) (unknown) (no (unknown) (unknown) daily, reports (units (unknown) date) caffeine Sleep unknown) Caffeine Branch: no, reports non-supine sleeping, (unknown) (no (unknown) (unknown) denies stimulant (units (unknown) date) therapy, denies unknown) sleeping with head elevated or denies sleeping (unknown) (no (unknown) (unknown) evaluation of (units ( unknown) date) insomnia unknown) (unknown) (no (unknown) (unknown) frequent, difficulty (uni ts (unknown) date) staying asleep unknown) Difficulty Staying Asleep: frequent, early (unknown) (no (unknown) (unknown) hallucinations or (units (unknown) date) sleep paralysis unknown) (unknown) (no (unknown) (unknown) has a (units (unkno wn) date) humidifer/vaporizer unknown) in her bedroom. She has tried different pillows. (unknown) (no (unknown) (unknown) have occurred. If (units (unknown) date) there are any unknown) questions, please contact the Medical Records (unknown) (no (unknown) (unknown) home + work Stress (units (unknown) date) Both Branch: unknown) somewhat, reports alcohol Sleep Alcohol Branch: (unknown) (no (unknown) (unknown) hydrochlorothiazide (unit s (unknown) date) Allergy (Verified unknown) 08/14/21 09:30) (unknown) (no (unknown) (unknown) interfering with (units (unknown) date) sleep, weakness unknown) associated with strong emotion or sleep (unknown) (no (unknown) (unknown) ketorolac 10 mg (units (unknown) date) tablet 10 mg PO Q6H unknown) PRN #14 tab 11/02/20 [Rx Confirmed 05/28/21] (unknown) (no (unknown) (unknown) may occur. 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 Please (unknown) (no (unknown) (unknown) omeprazole magnesium (uni ts (unknown) date) 20 mg capsule,delayed unknown) release (Acid Imaging Clerk (omeprazole)) (unknown) (no (unknown) (unknown) oxycodone [From (units (unknown) date) Percocet] Allergy unknown) (Unknown, Verified 08/14/21 09:30) (unknown) (no (unknown) (unknown) pain (units (unkno wn) date) unknown) (unknown) (no (unknown) (unknown) paralysis (units (unkn own) date) unknown) (unknown) (no (unknown) (unknown) patient reports that (uni ts (unknown) date) she has been told she unknown) is snoring at night for the last 4 (unknown) (no (unknown) (unknown) pills (units (unkno wn) date) unknown) (unknown) (no (unknown) (unknown) read the note (units ( unknown) date) carefully and unknown) recognize, using context, where these substitutions (unknown) (no (unknown) (unknown) sleep walking Sleep (unit s (unknown) date) Walking Branch: unknown) denied (unknown) (no (unknown) (unknown) sleeping (units (unkno wn) date) unknown) (unknown) (no (unknown) (unknown) sleeping a lot, (units (unknown) date) normal bedtime unknown) ([id number], 2400 on non work nights), normal wake (unknown) (no (unknown) (unknown) snoring Snoring: (units (unknown) date) frequent, apnea unknown) Apnea: witnessed, choking or gasping Choking or (unknown) (no (unknown) (unknown) snoring and Reports (unit s (unknown) date) stops breathing unknown) during sleep (unknown) (no (unknown) (unknown) software. 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 (unknown) (no (unknown) (unknown) the morning or (units (unknown) date) vertigo unknown) (unknown) (no (unknown) (unknown) the morning; Denies (unit s (unknown) date) epistaxis or runny unknown) nose (unknown) (no (unknown) (unknown) thyroid (pork) 15 mg (unit s (unknown) date) tablet ([place] unknown) Thyroid) 15 mg PO DAILY #30 tab 04/29/21 [Rx (unknown) (no (unknown) (unknown) thyroid (pork) 30 mg (unit s (unknown) date) tablet ([place] unknown) Thyroid) 30 mg PO DAILY #30 tab 04/29/21 [Rx (unknown) (no (unknown) (unknown) time (0900, (units (un known) date) [id number] on non work unknown) mornings), sleep schedule Sleep Schedule (unknown) (no (unknown) (unknown) years. She is snoring (uni ts (unknown) date) nightly with unknown) witnessed apnea and has gasping arousals. She Result panel 4 (unknown) (no (unknown) (unknown) (no value) (units (unk nown) date) unknown) (unknown) (no (unknown) (unknown) Assessment and Plan: (uni ts (unknown) date) unknown) (unknown) (no (unknown) (unknown) Qualifiers: (units (un known) date) unknown) (unknown) (no (unknown) (unknown) Status: Chronic (units (unknown) date) unknown) (unknown) (no (unknown) (unknown) (no value) (units (unk nown) date) unknown) (unknown) (no (unknown) (unknown) (no value) (units (unk nown) date) unknown) (unknown) (no (unknown) (unknown) [place] [address] (unit s (unknown) date) unknown) (unknown) (no (unknown) (unknown) Draft (units (unkno wn) date) unknown) (unknown) (no (unknown) (unknown) Insomnia type: (units (unknown) date) unspecified unknown) Qualified Code(s): G47.00 - Insomnia, (unknown) (no (unknown) (unknown) Sleep Visit (units (un known) date) unknown) (unknown) (no (unknown) (unknown) [facility] ([facility] ([facility] unknown) (unknown) (no (unknown) (unknown) (no value) (units (unk nown) date) unknown) (unknown) (no (unknown) (unknown) Confirmed 08/14/21] (unit s (unknown) date) unknown) (unknown) (no (unknown) (unknown) (1) (units (unkno wn) date) Breathing-related unknown) sleep disorder: (unknown) (no (unknown) (unknown) (2) Insomnia: (units ( unknown) date) unknown) (unknown) (no (unknown) (unknown) (3) Snoring: (units (u nknown) date) unknown) (unknown) (no (unknown) (unknown) 0 = Would never doze (uni ts (unknown) date) or sleep, 1 = Slight unknown) chance of dozing or sleeping, 2 = (unknown) (no (unknown) (unknown) 05/11/22 (units (unkno wn) date) unknown) (unknown) (no (unknown) (unknown) 20 mg PO DAILY (units (unknown) date) 05/07/21 [History unknown) Confirmed 05/28/21] (unknown) (no (unknown) (unknown) [id number] (units (unkno wn) date) unknown) (unknown) (no (unknown) (unknown) Adhere to regular (units (unknown) date) mealtime schedule, unknown) avoid snacking (unknown) (no (unknown) (unknown) Adult general (units ( unknown) date) medical exam unknown) (unknown) (no (unknown) (unknown) Affect: normal (units (unknown) date) affect unknown) (unknown) (no (unknown) (unknown) Age/Sex: 51 / F (units (unknown) date) Date of Service: unknown) (unknown) (no (unknown) (unknown) Allergies (units (unkn own) date) unknown) (unknown) (no (unknown) (unknown) Anesthesia (units (unk nown) date) unknown) (unknown) (no (unknown) (unknown) Appearance: grossly (unit s (unknown) date) normal unknown) (unknown) (no (unknown) (unknown) Assessment + Plan (units (unknown) date) unknown) (unknown) (no (unknown) (unknown) Associate your bed (units (unknown) date) with sleep. It's not unknown) a good idea to use your bed to watch TV, (unknown) (no (unknown) (unknown) Attending Dr: Emile (uni ts (unknown) date) Eva POWELL unknown) (unknown) (no (unknown) (unknown) Attitude: (units (unkn own) date) cooperative unknown) (unknown) (no (unknown) (unknown) Avoid alcohol after (unit s (unknown) date) 4 pm unknown) (unknown) (no (unknown) (unknown) Avoid medications (units (unknown) date) which may interfere unknown) with sleep (unknown) (no (unknown) (unknown) Avoid random napping (uni ts (unknown) date) during the day; it unknown) can disturb the normal pattern of sleep (unknown) (no (unknown) (unknown) Avoid stimulants (units (unknown) date) such as caffeine, unknown) nicotine, and alcohol too close to bedtime. (unknown) (no (unknown) (unknown) Being a passenger in (uni ts (unknown) date) a motor vehicle for unknown) an hour or so: 2 = Moderate (unknown) (no (unknown) (unknown) Branch: consistent, (unit s (unknown) date) daytime somnolence unknown) Daytime somnolence is: occasional, (unknown) (no (unknown) (unknown) Branch: denied, (units (unknown) date) sleep talking Sleep unknown) Talking Branch: currently and denied and (unknown) (no (unknown) (unknown) CODEINE Allergy (units (unknown) date) (Unknown, Uncoded unknown) 05/28/21 09:50) (unknown) (no (unknown) (unknown) Cardiac (units (unkno wn) date) unknown) (unknown) (no (unknown) (unknown) Chief Complaint: (units (unknown) date) Patient is here with unknown) a complaint of snoring and trouble (unknown) (no (unknown) (unknown) Chronic back pain (units (unknown) date) unknown) (unknown) (no (unknown) (unknown) Cognition: normal (units (unknown) date) cognition unknown) (unknown) (no (unknown) (unknown) Colon polyps (-1999) (uni ts (unknown) date) unknown) (unknown) (no (unknown) (unknown) Condition is Onset: (unit s (unknown) date) Chronic and ongoing unknown) (unknown) (no (unknown) (unknown) Conjunctivae: (units ( unknown) date) conjunctivae normal unknown) (unknown) (no (unknown) (unknown) Consider weaning (units (unknown) date) caffeine use, unknown) starting with no caffeine after 3pm (unknown) (no (unknown) (unknown) Const (units (unkno wn) date) unknown) (unknown) (no (unknown) (unknown) : 1970 (units (unknown) date) Acct:[id number] unknown) (unknown) (no (unknown) (unknown) Daytime sleepiness (units (unknown) date) unknown) (unknown) (no (unknown) (unknown) Denies chest pain or (uni ts (unknown) date) nocturnal unknown) palpitations (unknown) (no (unknown) (unknown) Denies chills, (units (unknown) date) Reports fatigue, unknown) Reports lethargy, Reports night sweats, Reports (unknown) (no (unknown) (unknown) Denies hives, rash (units (unknown) date) or pruritus unknown) (unknown) (no (unknown) (unknown) Denies nocturia (units (unknown) date) unknown) (unknown) (no (unknown) (unknown) Dept at (units (unkno wn) date) . unknown) (unknown) (no (unknown) (unknown) Dermatological (units (unknown) date) unknown) (unknown) (no (unknown) (unknown) Details: (units (unkno wn) date) unknown) (unknown) (no (unknown) (unknown) Documented By: (units (unknown) date) Emile Velasquez MD unknown) 08/14/21 0924 (unknown) (no (unknown) (unknown) ENT (units (unkno wn) date) unknown) (unknown) (no (unknown) (unknown) Ears: hearing (units ( unknown) date) grossly normal unknown) bilaterally and external ears normal (unknown) (no (unknown) (unknown) Effort + Inspection: (uni ts (unknown) date) normal respiratory unknown) effort, able to speak in complete (unknown) (no (unknown) (unknown) Ensure adequate (units (unknown) date) exposure to natural unknown) light. This is particularly important for (unknown) (no (unknown) (unknown) [place] Score: 5 (units (unknown) date) unknown) (unknown) (no (unknown) (unknown) [place] Sleepiness (units (unknown) date) Scale unknown) (unknown) (no (unknown) (unknown) Establish a regular (units (unknown) date) relaxing bedtime unknown) routine. Try to avoid emotionally upsetting (unknown) (no (unknown) (unknown) Exacerbating/Allevia (uni ts (unknown) date) ting Factors unknown) (unknown) (no (unknown) (unknown) Exam (units (unkno wn) date) unknown) (unknown) (no (unknown) (unknown) Eyes (units (unkno wn) date) unknown) (unknown) (no (unknown) (unknown) Family History (units (unknown) date) (Reviewed 08/14/21 @ unknown) 09:38 by Emile Velasquez MD) (unknown) (no (unknown) (unknown) Father Prostate (units (unknown) date) cancer unknown) (unknown) (no (unknown) (unknown) Food can be (units (un known) date) disruptive right unknown) before sleep; stay away from large meals close to (unknown) (no (unknown) (unknown) GI (units (unkno wn) date) unknown) (unknown) (no (unknown) (unknown) (units (unkno wn) date) unknown) (unknown) (no (unknown) (unknown) Gasping Branch: (units (unknown) date) currently, epworth unknown) sleep scale score (08/27), bruxism Bruxism (unknown) (no (unknown) (unknown) General: cooperative (uni ts (unknown) date) and no acute distress unknown) (unknown) (no (unknown) (unknown) General: patient (units (unknown) date) alert, patient awake unknown) and patient oriented x3 (unknown) (no (unknown) (unknown) Get regular moderate (uni ts (unknown) date) exercise (30 minutes, unknown) 3x/week) (unknown) (no (unknown) (unknown) HENMT (units (unkno wn) date) unknown) (unknown) (no (unknown) (unknown) HPI (units (unkno wn) date) unknown) (unknown) (no (unknown) (unknown) HPI Sleep New (units ( unknown) date) Patient unknown) (unknown) (no (unknown) (unknown)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 (unknown) (no (unknown) (unknown) Effort + Inspection: (uni ts (unknown) date) normal respiratory unknown) effort, able to speak in complete (unknown) (no (unknown) (unknown) Ensure adequate (units (unknown) date) exposure to natural unknown) light. This is particularly important for (unknown) (no (unknown) (unknown) [place] Score: 5 (units (unknown) date) unknown) (unknown) (no (unknown) (unknown) [place] Sleepiness (units (unknown) date) Scale unknown) (unknown) (no (unknown) (unknown) Establish a regular (units (unknown) date) relaxing bedtime unknown) routine. Try to avoid emotionally upsetting (unknown) (no (unknown) (unknown) Exacerbating/Allevia (uni ts (unknown) date) ting Factors unknown) (unknown) (no (unknown) (unknown) Exam (units (unkno wn) date) unknown) (unknown) (no (unknown) (unknown) Eyes (units (unkno wn) date) unknown) (unknown) (no (unknown) (unknown) Family History (units (unknown) date) (Reviewed 05/28/21 @ unknown) 10:35 by TEDDY Chowdary) (unknown) (no (unknown) (unknown) Father Prostate (units (unknown) date) cancer unknown) (unknown) (no (unknown) (unknown) Food can be (units (un known) date) disruptive right unknown) before sleep; stay away from large meals close to (unknown) (no (unknown) (unknown) GI (units (unkno wn) date) unknown) (unknown) (no (unknown) (unknown) (units (unkno wn) date) unknown) (unknown) (no (unknown) (unknown) [place]asping Branch: (units (unknown) date) currently, epworth unknown) sleep scale score (08/27), bruxism Bruxism (unknown) (no (unknown) (unknown) General: cooperative (uni ts (unknown) date) and no acute distress unknown) (unknown) (no (unknown) (unknown) General: patient (units (unknown) date) alert, patient awake unknown) and patient oriented x3 (unknown) (no (unknown) (unknown) Get regular moderate (uni ts (unknown) date) exercise (30 minutes, unknown) 3x/week) (unknown) (no (unknown) (unknown) HENMT (units (unkno wn) date) unknown) (unknown) (no (unknown) (unknown) HPI (units (unkno wn) date) unknown) (unknown) (no (unknown) (unknown) HPI Sleep New (units ( unknown) date) Patient unknown) (unknown) (no (unknown) (unknown) Head: normal to (units (unknown) date) inspection unknown) (unknown) (no (unknown) (unknown) Height 5 ft 6 in (unit s (unknown) date) unknown) (unknown) (no (unknown) (unknown) Hematologic (units (un known) date) unknown) (unknown) (no (unknown) (unknown) History of ITP (units (unknown) date) (-1999) unknown) (unknown) (no (unknown) (unknown) History of (units (unk nown) date) craniotomy unknown) (unknown) (no (unknown) (unknown) Intake (units (unkno wn) date) unknown) (unknown) (no (unknown) (unknown) Light exposure (units (unknown) date) during the day helps unknown) maintain a healthy sleep-wake cycle. In (unknown) (no (unknown) (unknown) Loc: SLEEP (units (unk nown) date) unknown) (unknown) (no (unknown) (unknown) Lying down in the (units (unknown) date) afternoon: 1 = Slight unknown) (unknown) (no (unknown) (unknown) MORPHINE Allergy (units (unknown) date) (Unknown, Uncoded unknown) 05/28/21 09:50) (unknown) (no (unknown) (unknown) Make sure that the (units (unknown) date) sleep environment is unknown) pleasant and relaxing. The bed should be (unknown) (no (unknown) (unknown) Medical History (units (unknown) date) (Reviewed 05/28/21 @ unknown) 10:35 by TEDDY Chowdary) (unknown) (no (unknown) (unknown) Medications (units (un known) date) unknown) (unknown) (no (unknown) (unknown) Mental Status: (units (unknown) date) mental status grossly unknown) normal (unknown) (no (unknown) (unknown) Moderate chance of (units (unknown) date) dozing or sleeping, 3 unknown) = High chance of dozing or sleeping (unknown) (no (unknown) (unknown) Mood: congruent mood (uni ts (unknown) date) unknown) (unknown) (no (unknown) (unknown) Musc (units (unkno wn) date) unknown) (unknown) (no (unknown) (unknown) Neck Circumference (units (unknown) date) Measurement unknown) 15.5 (unknown) (no (unknown) (unknown) Neuro (units (unkno wn) date) unknown) (unknown) (no (unknown) (unknown) Neurological (units (u nknown) date) unknown) (unknown) (no (unknown) (unknown) Nutritional (units (un known) date) Appearance: obese unknown) (unknown) (no (unknown) (unknown) Orientation: alert, (unit s (unknown) date) awake and oriented x3 unknown) (unknown) (no (unknown) (unknown) Ovarian cyst (-1987) (uni ts (unknown) date) unknown) (unknown) (no (unknown) (unknown) PFSH (units (unkno wn) date) unknown) (unknown) (no (unknown) (unknown) Pain (units (unkno wn) date) unknown) (unknown) (no (unknown) (unknown) Pain scale (1-10): 0 (uni ts (unknown) date) unknown) (unknown) (no (unknown) (unknown) Patient 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 Positional therapy and the use of (unknown) (no (unknown) (unknown) Patient is here today (uni ts (unknown) date) for initial unknown) evaluation of sleep apnea symptoms and initial (unknown) (no (unknown) (unknown) Patient reports a (units (unknown) date) history of snoring unknown) and a disturbed sleep pattern. There is (unknown) (no (unknown) (unknown) Patient reports (units (unknown) date) symptoms of chronic unknown) insomnia for more than 3 months as evidenced (unknown) (no (unknown) (unknown) Patient scheduled (units (unknown) date) for an attended unknown) overnight diagnostic sleep study (unknown) (no (unknown) (unknown) Patient scheduled (units (unknown) date) for an attended unknown) overnight diagnostic sleep study. (unknown) (no (unknown) (unknown) Patient was (units (un known) date) instructed to return unknown) sooner if any questions or concerns arise. (unknown) (no (unknown) (unknown) Patient: (units (unkno wn) date) Szypula,Pita D unknown) MR#: [id number] (unknown) (no (unknown) (unknown) Plan (units (unkno wn) date) unknown) (unknown) (no (unknown) (unknown) Position Sitting (unit s (unknown) date) unknown) (unknown) (no (unknown) (unknown) Positional therapy (units (unknown) date) as needed. unknown) (unknown) (no (unknown) (unknown) Properly timed (units (unknown) date) exercise can promote unknown) good sleep. Vigorous exercise should be (unknown) (no (unknown) (unknown) Propoxyphene Allergy (uni ts (unknown) date) (Unknown, Uncoded unknown) 05/28/21 09:50) (unknown) (no (unknown) (unknown) Psych (units (unkno wn) date) unknown) (unknown) (no (unknown) (unknown) Psychological (units ( unknown) date) unknown) (unknown) (no (unknown) (unknown) Pulse 71 (units (un known) date) unknown) (unknown) (no (unknown) (unknown) Questionnaires (units (unknown) date) unknown) (unknown) (no (unknown) (unknown) ROS Sleep (units (unkn own) date) unknown) (unknown) (no (unknown) (unknown) Reason For Visit (units (unknown) date) unknown) (unknown) (no (unknown) (unknown) Reports depression, (unit s (unknown) date) anxiety and napping unknown) not at all; Denies hypnagogic (unknown) (no (unknown) (unknown) Reports dyspnea at (units (unknown) date) night; Denies cough unknown) (unknown) (no (unknown) (unknown) Reports history of (units (unknown) date) anemia; Denies unknown) history of transfusions (unknown) (no (unknown) (unknown) Reports morning (units (unknown) date) headache and trouble unknown) concentrating or focusing; Denies dizzy in (unknown) (no (unknown) (unknown) Reports myalgia (units (unknown) date) interfering with unknown) sleep (fibromyalgia); Denies arthralgia (unknown) (no (unknown) (unknown) Reports nasal (units ( unknown) date) congestion at night, unknown) sore throat in the morning and dry mouth in (unknown) (no (unknown) (unknown) Reports reflux pain (unit s (unknown) date) at night unknown) (unknown) (no (unknown) (unknown) Reports seasonal (units (unknown) date) allergies; Denies unknown) itchy eyes, redness, blurry vision or eye (unknown) (no (unknown) (unknown) Resp (units (unkno wn) date) unknown) (unknown) (no (unknown) (unknown) Respiratory (units (un known) date) unknown) (unknown) (no (unknown) (unknown) Return visit in 2 (units (unknown) date) weeks to review sleep unknown) study results (unknown) (no (unknown) (unknown) SULFA Allergy (units ( unknown) date) (Unknown, Uncoded unknown) 05/28/21 09:50) (unknown) (no (unknown) (unknown) Sclera: sclerae (units (unknown) date) normal unknown) (unknown) (no (unknown) (unknown) Score II (units (unkno wn) date) unknown) (unknown) (no (unknown) (unknown) Screening for (units ( unknown) date) malignant neoplasm of unknown) colon (unknown) (no (unknown) (unknown) She has a history of (uni ts (unknown) date) hypertension and unknown) depression. (unknown) (no (unknown) (unknown) Signed By: (units (unk nown) date) unknown) (unknown) (no (unknown) (unknown) Sitting and Reading: (uni ts (unknown) date) 1 = Slight unknown) (unknown) (no (unknown) (unknown) Sitting and talking (unit s (unknown) date) to someone: 0 = Never unknown) (None) (unknown) (no (unknown) (unknown) Sitting inactive in (unit s (unknown) date) a public place: 0 = unknown) Never (None) (unknown) (no (unknown) (unknown) Sitting quietly (units (unknown) date) after lunch (no unknown) alcohol): 0 = Never (None) (unknown) (no (unknown) (unknown) Smoking Status: (units (unknown) date) Former smoker unknown) (unknown) (no (unknown) (unknown) Speech and Movement: (uni ts (unknown) date) speech clear unknown) (unknown) (no (unknown) (unknown) Speech: speech (units (unknown) date) normal unknown) (unknown) (no (unknown) (unknown) Stopped for a few (units (unknown) date) minutes in traffic: 0 unknown) = Never (None) (unknown) (no (unknown) (unknown) Surgical History (units (unknown) date) (Reviewed 05/28/21 @ unknown) 10:35 by TEDDY Chowdary) (unknown) (no (unknown) (unknown) Symptom Course After (unit s (unknown) date) Onset: difficulty unknown) falling asleep Difficulty Falling Asleep: (unknown) (no (unknown) (unknown) Symptoms (units (unkno wn) date) unknown) (unknown) (no (unknown) (unknown) Temp 97.9 F (units (unknown) date) unknown) (unknown) (no (unknown) (unknown) This note may have (units (unknown) date) been all or partially unknown) generated using voice recognition (unknown) (no (unknown) (unknown) This will be (units (u nknown) date) reassessed after the unknown) sleep study. (unknown) (no (unknown) (unknown) Throat: posterior (units (unknown) date) oropharynx normal unknown) Throat Post Oph Norm Branch: Mallampati (unknown) (no (unknown) (unknown) Thyroid nodule (units (unknown) date) (-1998) unknown) (unknown) (no (unknown) (unknown) Tobacco + Substance (unit s (unknown) date) Use unknown) (unknown) (no (unknown) (unknown) Tobacco Status (units (unknown) date) unknown) (unknown) (no (unknown) (unknown) Treatment options (units (unknown) date) were also reviewed unknown) and questions answered. The patient is (unknown) (no (unknown) (unknown) Use of nasal (units (u nknown) date) steroids and unknown) montelukast was also reviewed. This will be assessed (unknown) (no (unknown) (unknown) Visit Reasons: (units (unknown) date) consult unknown) (unknown) (no (unknown) (unknown) Vitals (units (unkno wn) date) unknown) (unknown) (no (unknown) (unknown) Watching TV: 1 = (units (unknown) date) Slight unknown) (unknown) (no (unknown) (unknown) Weight 198 lb (units (unknown) date) unknown) (unknown) (no (unknown) (unknown) While alcohol is (units (unknown) date) well known to speed unknown) the onset of sleep, it disrupts sleep in (unknown) (no (unknown) (unknown) activities, you may (unit s (unknown) date) have more problems unknown) getting back to sleep during the night. (unknown) (no (unknown) (unknown) addition, avoiding (units (unknown) date) nighttime bright unknown) light exposure, which can occur with many (unknown) (no (unknown) (unknown) also a history of (units (unknown) date) hypertension and unknown) depression with a Mallampati score of II. The (unknown) (no (unknown) (unknown) also reports that she (uni ts (unknown) date) has had trouble unknown) falling asleep, staying asleep and getting (unknown) (no (unknown) (unknown) and wakefulness. (units (unknown) date) Scheduled napping may unknown) be considered if appropriate for the (unknown) (no (unknown) (unknown) azithromycin [From (units (unknown) date) Zithromax] Allergy unknown) (Unknown, Verified 08/14/21 09:30) (unknown) (no (unknown) (unknown) back to sleep for (units (unknown) date) the last 5 years. She unknown) had a geoffrey-thyroidectomy in 1999. She (unknown) (no (unknown) (unknown) basics of the (units ( unknown) date) pathophysiology of unknown) sleep apnea and the effect on sleep in general (unknown) (no (unknown) (unknown) be an independent (units (unknown) date) problem. Sleep unknown) hygiene and sleep schedules were discussed. (unknown) (no (unknown) (unknown) bedtime. Also dietary (uni ts (unknown) date) changes can cause unknown) sleep problems, if someone is struggling (unknown) (no (unknown) (unknown) bring your problems (unit s (unknown) date) to bed. unknown) (unknown) (no (unknown) (unknown) by trouble falling (units (unknown) date) asleep, trouble unknown) staying asleep and non-restorative sleep. Th (unknown) (no (unknown) (unknown) cephalexin [From (units (unknown) date) Keflex] Allergy unknown) (Unknown, Verified 08/14/21 09:30) (unknown) (no (unknown) (unknown) cimetidine [From (units (unknown) date) Tagamet] Allergy unknown) (Unknown, Verified 08/14/21 09:30) (unknown) (no (unknown) (unknown) comfortable, the (units (unknown) date) room should be quiet, unknown) not too hot or cold, or too bright. (unknown) (no (unknown) (unknown) conversations and (units (unknown) date) activities before unknown) trying to go to sleep. Don't dwell on, or (unknown) (no (unknown) (unknown) daily, reports (units (unknown) date) caffeine Sleep unknown) Caffeine Branch: no, reports non-supine sleeping, (unknown) (no (unknown) (unknown) denies stimulant (units (unknown) date) therapy, denies unknown) sleeping with head elevated or denies sleeping (unknown) (no (unknown) (unknown) determined that a (units (unknown) date) diagnostic sleep unknown) study is indicated. Sleep study options were (unknown) (no (unknown) (unknown) dishes. And, (units (u nknown) date) remember, chocolate unknown) has caffeine. (unknown) (no (unknown) (unknown) done before bed to (units (unknown) date) help initiate a unknown) restful night's sleep. (unknown) (no (unknown) (unknown) evaluation of (units ( unknown) date) insomnia unknown) (unknown) (no (unknown) (unknown) frequent, difficulty (uni ts (unknown) date) staying asleep unknown) Difficulty Staying Asleep: frequent, early (unknown) (no (unknown) (unknown) hallucinations or (units (unknown) date) sleep paralysis unknown) (unknown) (no (unknown) (unknown) has a (units (unkno wn) date) humidifer/vaporizer unknown) in her bedroom. She has tried different pillows. (unknown) (no (unknown) (unknown) have occurred. If (units (unknown) date) there are any unknown) questions, please contact the Medical Records (unknown) (no (unknown) (unknown) home + work Stress (units (unknown) date) Both Branch: unknown) somewhat, reports alcohol Sleep Alcohol Branch: (unknown) (no (unknown) (unknown) hydrochlorothiazide (unit s (unknown) date) Allergy (Verified unknown) 08/14/21 09:30) (unknown) (no (unknown) (unknown) in the past. After (units (unknown) date) review of the unknown) physical findings and clinical history it was (unknown) (no (unknown) (unknown) interfering with (units (unknown) date) sleep, weakness unknown) associated with strong emotion or sleep (unknown) (no (unknown) (unknown) is can be seen (units (unknown) date) secondary to sleep unknown) apnea, depression, medical conditions or can (unknown) (no (unknown) (unknown) ketorolac 10 mg (units (unknown) date) tablet 10 mg PO Q6H unknown) PRN #14 tab 11/02/20 [Rx Confirmed 05/28/21] (unknown) (no (unknown) (unknown) listen to the radio, (uni ts (unknown) date) or read as if you unknown) associate falling asleep with these (unknown) (no (unknown) (unknown) may occur. 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 (unknown) (no (unknown) (unknown) occurred due to the (unit s (unknown) date) inherent limitations unknown) of voice recognition software. Please (unknown) (no (unknown) (unknown) older people who may (uni ts (unknown) date) not venture outside unknown) as frequently as children and adults. (unknown) (no (unknown) (unknown) omeprazole magnesium (uni ts (unknown) date) 20 mg capsule,delayed unknown) release (Acid Imaging Clerk (omeprazole)) (unknown) (no (unknown) (unknown) on the sleep study. (unit s (unknown) date) unknown) (unknown) (no (unknown) (unknown) optimal sleep (units ( unknown) date) schedule. unknown) (unknown) (no (unknown) (unknown) outlined, including (unit s (unknown) date) the benefits and unknown) limitations of different study types. (unknown) (no (unknown) (unknown) oxycodone [From (units (unknown) date) Percocet] Allergy unknown) (Unknown, Verified 08/14/21 09:30) (unknown) (no (unknown) (unknown) pain (units (unkno wn) date) unknown) (unknown) (no (unknown) (unknown) paralysis (units (unkn own) date) unknown) (unknown) (no (unknown) (unknown) patient reports that (uni ts (unknown) date) she has been told she unknown) is snoring at night for the last 4 (unknown) (no (unknown) (unknown) personal electronic (unit s (unknown) date) devices, can also unknown) help maintain a healthy sleep-wake cycle. (unknown) (no (unknown) (unknown) pills (units (unkno wn) date) unknown) (unknown) (no (unknown) (unknown) read the note (units ( unknown) date) carefully and unknown) recognize, using context, where these substitutions (unknown) (no (unknown) (unknown) sentences, no (units ( unknown) date) audible wheezes, no unknown) grunting and not labored (unknown) (no (unknown) (unknown) sleep walking Sleep (unit s (unknown) date) Walking Branch: unknown) denied (unknown) (no (unknown) (unknown) sleeping (units (unkno wn) date) unknown) (unknown) (no (unknown) (unknown) sleeping a lot, (units (unknown) date) normal bedtime unknown) ([id number], 2400 on non work nights), normal wake (unknown) (no (unknown) (unknown) snoring Snoring: (units (unknown) date) frequent, apnea unknown) Apnea: witnessed, choking or gasping Choking or (unknown) (no (unknown) (unknown) snoring and Reports (unit s (unknown) date) stops breathing unknown) during sleep (unknown) (no (unknown) (unknown) software. 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 (unknown) (no (unknown) (unknown) taken in the morning (uni ts (unknown) date) or late afternoon. A unknown) relaxing exercise, like yoga, can be (unknown) (no (unknown) (unknown) the morning or (units (unknown) date) vertigo unknown) (unknown) (no (unknown) (unknown) the morning; Denies (unit s (unknown) date) epistaxis or runny unknown) nose (unknown) (no (unknown) (unknown) the second half as (units (unknown) date) the body begins to unknown) metabolize the alcohol, causing arousal. (unknown) (no (unknown) (unknown) thyroid (pork) 15 mg (unit s (unknown) date) tablet ([place] unknown) Thyroid) 15 mg PO DAILY #30 tab 04/29/21 [Rx (unknown) (no (unknown) (unknown) thyroid (pork) 30 mg (unit s (unknown) date) tablet ([place] unknown) Thyroid) 30 mg PO DAILY #30 tab 04/29/21 [Rx (unknown) (no (unknown) (unknown) time (0900, (units (un known) date) [id number] on non work unknown) mornings), sleep schedule Sleep Schedule (unknown) (no (unknown) (unknown) unspecified (units (un known) date) unknown) (unknown) (no (unknown) (unknown) were discussed at (units (unknown) date) length. She has a unknown) history of witnessed apnea and neck surgery (unknown) (no (unknown) (unknown) willing to proceed (units (unknown) date) with the sleep study. unknown) (unknown) (no (unknown) (unknown) with a sleep (units (u nknown) date) problem, it's not a unknown) good time to start experimenting with spicy (unknown) (no (unknown) (unknown) years. She is snoring (uni ts (unknown) date) nightly with unknown) witnessed apnea and has gasping arousals. She Result panel 6 (unknown) (no (unknown) (unknown) (no value) (units (unk nown) date) unknown) (unknown) (no (unknown) (unknown) Assessment and Plan: (uni ts (unknown) date) unknown) (unknown) (no (unknown) (unknown) Qualifiers: (units (un known) date) unknown) (unknown) (no (unknown) (unknown) Status: Chronic (units (unknown) date) unknown) (unknown) (no (unknown) (unknown) (no value) (units (unk nown) date) unknown) (unknown) (no (unknown) (unknown) (no value) (units (unk nown) date) unknown) (unknown) (no (unknown) (unknown) 08/14/21 1221 (units ( unknown) date) unknown) (unknown) (no (unknown) (unknown) [place] [id number] (unit s (unknown) date) unknown) (unknown) (no (unknown) (unknown) Insomnia type: (units (unknown) date) unspecified unknown) Qualified Code(s): G47.00 - Insomnia, (unknown) (no (unknown) (unknown) Signed (units (unkno wn) date) unknown) (unknown) (no (unknown) (unknown) Sleep Visit (units (un known) date) unknown) (unknown) (no (unknown) (unknown) [facility]) (unknown) (no (unknown) (unknown) (no value) (units (unk nown) date) unknown) (unknown) (no (unknown) (unknown) Confirmed 08/14/21] (unit s (unknown) date) unknown) (unknown) (no (unknown) (unknown) (1) (units (unkno wn) date) Breathing-related unknown) sleep disorder: (unknown) (no (unknown) (unknown) (2) Insomnia: (units ( unknown) date) unknown) (unknown) (no (unknown) (unknown) (3) Snoring: (units (u nknown) date) unknown) (unknown) (no (unknown) (unknown) 0 = Would never doze (uni ts (unknown) date) or sleep, 1 = Slight unknown) chance of dozing or sleeping, 2 = (unknown) (no (unknown) (unknown) 08/14/21 (units (unkno wn) date) unknown) (unknown) (no (unknown) (unknown) 20 mg PO DAILY (units (unknown) date) 05/07/21 [History unknown) Confirmed 05/28/21] (unknown) (no (unknown) (unknown) [id number] (units (unkno wn) date) unknown) (unknown) (no (unknown) (unknown) Adhere to regular (units (unknown) date) mealtime schedule, unknown) avoid snacking (unknown) (no (unknown) (unknown) Adult general (units ( unknown) date) medical exam unknown) (unknown) (no (unknown) (unknown) Affect: normal (units (unknown) date) affect unknown) (unknown) (no (unknown) (unknown) Age/Sex: 51 / F (units (unknown) date) Date of Service: unknown) (unknown) (no (unknown) (unknown) Allergies (units (unkn own) date) unknown) (unknown) (no (unknown) (unknown) Anesthesia (units (unk nown) date) unknown) (unknown) (no (unknown) (unknown) Appearance: grossly (unit s (unknown) date) normal unknown) (unknown) (no (unknown) (unknown) Assessment + Plan (units (unknown) date) unknown) (unknown) (no (unknown) (unknown) Associate your bed (units (unknown) date) with sleep. It's not unknown) a good idea to use your bed to watch TV, (unknown) (no (unknown) (unknown) Attending Dr: Emile (uni ts (unknown) date) Eva POWELL unknown) (unknown) (no (unknown) (unknown) Attitude: (units (unkn own) date) cooperative unknown) (unknown) (no (unknown) (unknown) Avoid alcohol after (unit s (unknown) date) 4 pm unknown) (unknown) (no (unknown) (unknown) Avoid medications (units (unknown) date) which may interfere unknown) with sleep (unknown) (no (unknown) (unknown) Avoid random napping (uni ts (unknown) date) during the day; it unknown) can disturb the normal pattern of sleep (unknown) (no (unknown) (unknown) Avoid stimulants (units (unknown) date) such as caffeine, unknown) nicotine, and alcohol too close to bedtime. (unknown) (no (unknown) (unknown) Being a passenger in (uni ts (unknown) date) a motor vehicle for unknown) an hour or so: 2 = Moderate (unknown) (no (unknown) (unknown) Branch: consistent, (unit s (unknown) date) daytime somnolence unknown) Daytime somnolence is: occasional, (unknown) (no (unknown) (unknown) Branch: denied, (units (unknown) date) sleep talking Sleep unknown) Talking Branch: currently and denied and (unknown) (no (unknown) (unknown) CODEINE Allergy (units (unknown) date) (Unknown, Uncoded unknown) 05/28/21 09:50) (unknown) (no (unknown) (unknown) Cardiac (units (unkno wn) date) unknown) (unknown) (no (unknown) (unknown) Chief Complaint: (units (unknown) date) Patient is here with unknown) a complaint of snoring and trouble (unknown) (no (unknown) (unknown) Chronic back pain (units (unknown) date) unknown) (unknown) (no (unknown) (unknown) Cognition: normal (units (unknown) date) cognition unknown) (unknown) (no (unknown) (unknown) Colon polyps (-1999) (uni ts (unknown) date) unknown) (unknown) (no (unknown) (unknown) Condition is Onset: (unit s (unknown) date) Chronic and ongoing unknown) (unknown) (no (unknown) (unknown) Conjunctivae: (units ( unknown) date) conjunctivae normal unknown) (unknown) (no (unknown) (unknown) Consider weaning (units (unknown) date) caffeine use, unknown) starting with no caffeine after 3pm (unknown) (no (unknown) (unknown) Const (units (unkno wn) date) unknown) (unknown) (no (unknown) (unknown) : 1970 (units (unknown) date) Acct:[id number] unknown) (unknown) (no (unknown) (unknown) Daytime sleepiness (units (unknown) date) unknown) (unknown) (no (unknown) (unknown) Denies chest pain or (uni ts (unknown) date) nocturnal unknown) palpitations (unknown) (no (unknown) (unknown) Denies chills, (units (unknown) date) Reports fatigue, unknown) Reports lethargy, Reports night sweats, Reports (unknown) (no (unknown) (unknown) Denies hives, rash (units (unknown) date) or pruritus unknown) (unknown) (no (unknown) (unknown) Denies nocturia (units (unknown) date) unknown) (unknown) (no (unknown) (unknown) Dept at (units (unkno wn) date) . unknown) (unknown) (no (unknown) (unknown) Dermatological (units (unknown) date) unknown) (unknown) (no (unknown) (unknown) Details: (units (unkno wn) date) unknown) (unknown) (no (unknown) (unknown) Documented By: (units (unknown) date) Emile Velasquez MD unknown) 08/14/21 0924 (unknown) (no (unknown) (unknown) ENT (units (unkno wn) date) unknown) (unknown) (no (unknown) (unknown) Ears: hearing (units ( unknown) date) grossly normal unknown) bilaterally and external ears normal (unknown) (no (unknown) (unknown) Effort + Inspection: (uni ts (unknown) date) normal respiratory unknown) effort, able to speak in complete (unknown) (no (unknown) (unknown) Ensure adequate (units (unknown) date) exposure to natural unknown) light. This is particularly important for (unknown) (no (unknown) (unknown) [place] Score: 5 (units (unknown) date) unknown) (unknown) (no (unknown) (unknown) [place] Sleepiness (units (unknown) date) Scale unknown) (unknown) (no (unknown) (unknown) Establish a regular (units (unknown) date) relaxing bedtime unknown) routine. Try to avoid emotionally upsetting (unknown) (no (unknown) (unknown) Exacerbating/Allevia (uni ts (unknown) date) ting Factors unknown) (unknown) (no (unknown) (unknown) Exam (units (unkno wn) date) unknown) (unknown) (no (unknown) (unknown) Eyes (units (unkno wn) date) unknown) (unknown) (no (unknown) (unknown) Family History (units (unknown) date) (Reviewed 08/14/21 @ unknown) 09:38 by Emile Velasquez MD) (unknown) (no (unknown) (unknown) Father Prostate (units (unknown) date) cancer unknown) (unknown) (no (unknown) (unknown) Food can be (units (un known) date) disruptive right unknown) before sleep; stay away from large meals close to (unknown) (no (unknown) (unknown) GI (units (unkno wn) date) unknown) (unknown) (no (unknown) (unknown) (units (unkno wn) date) unknown) (unknown) (no (unknown) (unknown) Gasping Branch: (units (unknown) date) currently, epworth unknown) sleep scale score (08/27), bruxism Bruxism (unknown) (no (unknown) (unknown) General: cooperative (uni ts (unknown) date) and no acute distress unknown) (unknown) (no (unknown) (unknown) General: patient (units (unknown) date) alert, patient awake unknown) and patient oriented x3 (unknown) (no (unknown) (unknown) Get regular moderate (uni ts (unknown) date) exercise (30 minutes, unknown) 3x/week) (unknown) (no (unknown) (unknown) HENMT (units (unkno wn) date) unknown) (unknown) (no (unknown) (unknown) HPI (units (unkno wn) date) unknown) (unknown) (no (unknown) (unknown) HPI Sleep New (units ( unknown) date) Patient unknown) (unknown) (no (unknown) (unknown) Head: normal to (units (unknown) date) inspection unknown) (unknown) (no (unknown) (unknown) Hematologic (units (un known) date) unknown) (unknown) (no (unknown) (unknown) History of ITP (units (unknown) date) (-1999) unknown) (unknown) (no (unknown) (unknown) History of (units (unk n) date) craniotomy unknown) (unknown) (no (unknown) (unknown) Intake (units (unkno wn) date) unknown) (unknown) (no (unknown) (unknown) Light exposure (units (unknown) date) during the day helps unknown) maintain a healthy sleep-wake cycle. In (unknown) (no (unknown) (unknown) Loc: SLEEP (units (unk nown) date) unknown) (unknown) (no (unknown) (unknown) Lying down in the (units (unknown) date) afternoon: 1 = Slight unknown) (unknown) (no (unknown) (unknown) MORPHINE Allergy (units (unknown) date) (Unknown, Uncoded unknown) 05/28/21 09:50) (unknown) (no (unknown) (unknown) Make sure that the (units (unknown) date) sleep environment is unknown) pleasant and relaxing. The bed should be (unknown) (no (unknown) (unknown) Medical History (units (unknown) date) (Reviewed 08/14/21 @ unknown) 09:38 by Emile Velasquez MD) (unknown) (no (unknown) (unknown) Medications (units (un known) date) unknown) (unknown) (no (unknown) (unknown) Mental Status: (units (unknown) date) mental status grossly unknown) normal (unknown) (no (unknown) (unknown) Moderate chance of (units (unknown) date) dozing or sleeping, 3 unknown) = High chance of dozing or sleeping (unknown) (no (unknown) (unknown) Mood: congruent mood (uni ts (unknown) date) unknown) (unknown) (no (unknown) (unknown) Musc (units (unkno wn) date) unknown) (unknown) (no (unknown) (unknown) Neuro (units (unkno wn) date) unknown) (unknown) (no (unknown) (unknown) Neurological (units (u nknown) date) unknown) (unknown) (no (unknown) (unknown) Nutritional (units (un known) date) Appearance: obese unknown) (unknown) (no (unknown) (unknown) Orientation: alert, (unit s (unknown) date) awake and oriented x3 unknown) (unknown) (no (unknown) (unknown) Ovarian cyst (-1987) (uni ts (unknown) date) unknown) (unknown) (no (unknown) (unknown) PFSH (units (unkno wn) date) unknown) (unknown) (no (unknown) (unknown) Pain (units (unkno wn) date) unknown) (unknown) (no (unknown) (unknown) Pain scale (1-10): 0 (uni ts (unknown) date) unknown) (unknown) (no (unknown) (unknown) Patient 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 Positional therapy and the use of (unknown) (no (unknown) (unknown) Patient is here today (uni ts (unknown) date) for initial unknown) evaluation of sleep apnea symptoms and initial (unknown) (no (unknown) (unknown) Patient reports a (units (unknown) date) history of snoring unknown) and a disturbed sleep pattern. There is (unknown) (no (unknown) (unknown) Patient reports (units (unknown) date) symptoms of chronic unknown) insomnia for more than 3 months as evidenced (unknown) (no (unknown) (unknown) Patient scheduled (units (unknown) date) for an attended unknown) overnight diagnostic sleep study (unknown) (no (unknown) (unknown) Patient scheduled (units (unknown) date) for an attended unknown) overnight diagnostic sleep study. (unknown) (no (unknown) (unknown) Patient was (units (un known) date) instructed to return unknown) sooner if any questions or concerns arise. (unknown) (no (unknown) (unknown) Patient: (units (unkno wn) date) Pita Perez D unknown) MR#: [id number] (unknown) (no (unknown) (unknown) Plan (units (unkno wn) date) unknown) (unknown) (no (unknown) (unknown) Positional therapy (units (unknown) date) as needed. unknown) (unknown) (no (unknown) (unknown) Properly timed (units (unknown) date) exercise can promote unknown) good sleep. Vigorous exercise should be (unknown) (no (unknown) (unknown) Propoxyphene Allergy (uni ts (unknown) date) (Unknown, Uncoded unknown) 05/28/21 09:50) (unknown) (no (unknown) (unknown) Psych (units (unkno wn) date) unknown) (unknown) (no (unknown) (unknown) Psychological (units ( unknown) date) unknown) (unknown) (no (unknown) (unknown) Questionnaires (units (unknown) date) unknown) (unknown) (no (unknown) (unknown) ROS Sleep (units (unkn own) date) unknown) (unknown) (no (unknown) (unknown) Reason For Visit (units (unknown) date) unknown) (unknown) (no (unknown) (unknown) Reports depression, (unit s (unknown) date) anxiety and napping unknown) not at all; Denies hypnagogic (unknown) (no (unknown) (unknown) Reports dyspnea at (units (unknown) date) night; Denies cough unknown) (unknown) (no (unknown) (unknown) Reports history of (units (unknown) date) anemia; Denies unknown) history of transfusions (unknown) (no (unknown) (unknown) Reports morning (units (unknown) date) headache and trouble unknown) concentrating or focusing; Denies dizzy in (unknown) (no (unknown) (unknown) Reports myalgia (units (unknown) date) interfering with unknown) sleep (fibromyalgia); Denies arthralgia (unknown) (no (unknown) (unknown) Reports nasal (units ( unknown) date) congestion at night, unknown) sore throat in the morning and dry mouth in (unknown) (no (unknown) (unknown) Reports reflux pain (unit s (unknown) date) at night unknown) (unknown) (no (unknown) (unknown) Reports seasonal (units (unknown) date) allergies; Denies unknown) itchy eyes, redness, blurry vision or eye (unknown) (no (unknown) (unknown) Resp (units (unkno wn) date) unknown) (unknown) (no (unknown) (unknown) Respiratory (units (un known) date) unknown) (unknown) (no (unknown) (unknown) Return visit in 2 (units (unknown) date) weeks to review sleep unknown) study results (unknown) (no (unknown) (unknown) SULFA Allergy (units ( unknown) date) (Unknown, Uncoded unknown) 05/28/21 09:50) (unknown) (no (unknown) (unknown) Sclera: sclerae (units (unknown) date) normal unknown) (unknown) (no (unknown) (unknown) Score II (units (unkno wn) date) unknown) (unknown) (no (unknown) (unknown) Screening for (units ( unknown) date) malignant neoplasm of unknown) colon (unknown) (no (unknown) (unknown) She has a history of (uni ts (unknown) date) hypertension and unknown) depression. (unknown) (no (unknown) (unknown) Signed By: (units (unk nown) date) <Electronically unknown) signed by Emile Velasquez MD> (unknown) (no (unknown) (unknown) Sitting and Reading: (uni ts (unknown) date) 1 = Slight unknown) (unknown) (no (unknown) (unknown) Sitting and talking (unit s (unknown) date) to someone: 0 = Never unknown) (None) (unknown) (no (unknown) (unknown) Sitting inactive in (unit s (unknown) date) a public place: 0 = unknown) Never (None) (unknown) (no (unknown) (unknown) Sitting quietly (units (unknown) date) after lunch (no unknown) alcohol): 0 = Never (None) (unknown) (no (unknown) (unknown) Smoking Status: (units (unknown) date) Former smoker unknown) (unknown) (no (unknown) (unknown) Speech and Movement: (uni ts (unknown) date) speech clear unknown) (unknown) (no (unknown) (unknown) Speech: speech (units (unknown) date) normal unknown) (unknown) (no (unknown) (unknown) Stopped for a few (units (unknown) date) minutes in traffic: 0 unknown) = Never (None) (unknown) (no (unknown) (unknown) Surgical History (units (unknown) date) (Reviewed 08/14/21 @ unknown) 09:38 by Emile Velasquez MD) (unknown) (no (unknown) (unknown) Symptom Course After (unit s (unknown) date) Onset: difficulty unknown) falling asleep Difficulty Falling Asleep: (unknown) (no (unknown) (unknown) Symptoms (units (unkno wn) date) unknown) (unknown) (no (unknown) (unknown) This can be seen (units (unknown) date) secondary to sleep unknown) apnea, depression, medical conditions or can (unknown) (no (unknown) (unknown) This note may have (units (unknown) date) been all or partially unknown) generated using voice recognition (unknown) (no (unknown) (unknown) This will be (units (u nknown) date) reassessed after the unknown) sleep study. (unknown) (no (unknown) (unknown) Throat: posterior (units (unknown) date) oropharynx normal unknown) Throat Post Oph Norm Branch: Mallampati (unknown) (no (unknown) (unknown) Thyroid nodule (units (unknown) date) (-1998) unknown) (unknown) (no (unknown) (unknown) Tobacco + Substance (unit s (unknown) date) Use unknown) (unknown) (no (unknown) (unknown) Tobacco Status (units (unknown) date) unknown) (unknown) (no (unknown) (unknown) Treatment options (units (unknown) date) were also reviewed unknown) and questions answered. The patient is (unknown) (no (unknown) (unknown) Use of nasal (units (u nknown) date) steroids and unknown) montelukast was also reviewed. This will be assessed (unknown) (no (unknown) (unknown) Visit Reasons: (units (unknown) date) consult unknown) (unknown) (no (unknown) (unknown) Watching TV: 1 = (units (unknown) date) Slight unknown) (unknown) (no (unknown) (unknown) While alcohol is (units (unknown) date) well known to speed unknown) the onset of sleep, it disrupts sleep in (unknown) (no (unknown) (unknown) activities, you may (unit s (unknown) date) have more problems unknown) getting back to sleep during the night. (unknown) (no (unknown) (unknown) addition, avoiding (units (unknown) date) nighttime bright unknown) light exposure, which can occur with many (unknown) (no (unknown) (unknown) also a history of (units (unknown) date) hypertension and unknown) depression with a Mallampati score of II. The (unknown) (no (unknown) (unknown) also reports that she (uni ts (unknown) date) has had trouble unknown) falling asleep, staying asleep and getting (unknown) (no (unknown) (unknown) and wakefulness. (units (unknown) date) Scheduled napping may unknown) be considered if appropriate for the (unknown) (no (unknown) (unknown) azithromycin [From (units (unknown) date) Zithromax] Allergy unknown) (Unknown, Verified 08/14/21 09:30) (unknown) (no (unknown) (unknown) back to sleep for (units (unknown) date) the last 5 years. She unknown) had a geoffrey-thyroidectomy in 1999. She (unknown) (no (unknown) (unknown) basics of the (units ( unknown) date) pathophysiology of unknown) sleep apnea and the effect on sleep in general (unknown) (no (unknown) (unknown) be an independent (units (unknown) date) problem. Sleep unknown) hygiene and sleep schedules were discussed. (unknown) (no (unknown) (unknown) bedtime. Also dietary (uni ts (unknown) date) changes can cause unknown) sleep problems, if someone is struggling (unknown) (no (unknown) (unknown) bring your problems (unit s (unknown) date) to bed. unknown) (unknown) (no (unknown) (unknown) by trouble falling (units (unknown) date) asleep, trouble unknown) staying asleep and non-restorative sleep. (unknown) (no (unknown) (unknown) cephalexin [From (units (unknown) date) Keflex] Allergy unknown) (Unknown, Verified 08/14/21 09:30) (unknown) (no (unknown) (unknown) change in body (units (unknown) date) position for the unknown) snoring without improvement. (unknown) (no (unknown) (unknown) cimetidine [From (units (unknown) date) Tagamet] Allergy unknown) (Unknown, Verified 08/14/21 09:30) (unknown) (no (unknown) (unknown) comfortable, the (units (unknown) date) room should be quiet, unknown) not too hot or cold, or too bright. (unknown) (no (unknown) (unknown) conversations and (units (unknown) date) activities before unknown) trying to go to sleep. Don't dwell on, or (unknown) (no (unknown) (unknown) daily, reports (units (unknown) date) caffeine Sleep unknown) Caffeine Branch: no, reports non-supine sleeping, (unknown) (no (unknown) (unknown) denies stimulant (units (unknown) date) therapy, denies unknown) sleeping with head elevated or denies sleeping (unknown) (no (unknown) (unknown) determined that a (units (unknown) date) diagnostic sleep unknown) study is indicated. Sleep study options were (unknown) (no (unknown) (unknown) dishes. And, (units (u nknown) date) remember, chocolate unknown) has caffeine. (unknown) (no (unknown) (unknown) done before bed to (units (unknown) date) help initiate a unknown) restful night's sleep. (unknown) (no (unknown) (unknown) evaluation of (units ( unknown) date) insomnia unknown) (unknown) (no (unknown) (unknown) frequent, difficulty (uni ts (unknown) date) staying asleep unknown) Difficulty Staying Asleep: frequent, early (unknown) (no (unknown) (unknown) hallucinations or (units (unknown) date) sleep paralysis unknown) (unknown) (no (unknown) (unknown) has a (units (unkno wn) date) humidifer/vaporizer unknown) in her bedroom. She has tried different pillows with (unknown) (no (unknown) (unknown) have occurred. If (units (unknown) date) there are any unknown) questions, please contact the Medical Records (unknown) (no (unknown) (unknown) home + work Stress (units (unknown) date) Both Branch: unknown) somewhat, reports alcohol Sleep Alcohol Branch: (unknown) (no (unknown) (unknown) hydrochlorothiazide (unit s (unknown) date) Allergy (Verified unknown) 08/14/21 09:30) (unknown) (no (unknown) (unknown) in the past. After (units (unknown) date) review of the unknown) physical findings and clinical history it was (unknown) (no (unknown) (unknown) interfering with (units (unknown) date) sleep, weakness unknown) associated with strong emotion or sleep (unknown) (no (unknown) (unknown) ketorolac 10 mg (units (unknown) date) tablet 10 mg PO Q6H unknown) PRN #14 tab 11/02/20 [Rx Confirmed 05/28/21] (unknown) (no (unknown) (unknown) listen to the radio, (uni ts (unknown) date) or read as if you unknown) associate falling asleep with these (unknown) (no (unknown) (unknown) may occur. 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 (unknown) (no (unknown) (unknown) occurred due to the (unit s (unknown) date) inherent limitations unknown) of voice recognition software. Please (unknown) (no (unknown) (unknown) older people who may (uni ts (unknown) date) not venture outside unknown) as frequently as children and adults. (unknown) (no (unknown) (unknown) omeprazole magnesium (uni ts (unknown) date) 20 mg capsule,delayed unknown) release (Acid Imaging Clerk (omeprazole)) (unknown) (no (unknown) (unknown) on the sleep study. (unit s (unknown) date) unknown) (unknown) (no (unknown) (unknown) optimal sleep (units ( unknown) date) schedule. unknown) (unknown) (no (unknown) (unknown) outlined, including (unit s (unknown) date) the benefits and unknown) limitations of different study types. (unknown) (no (unknown) (unknown) oxycodone [From (units (unknown) date) Percocet] Allergy unknown) (Unknown, Verified 08/14/21 09:30) (unknown) (no (unknown) (unknown) pain (units (unkno wn) date) unknown) (unknown) (no (unknown) (unknown) paralysis (units (unkn own) date) unknown) (unknown) (no (unknown) (unknown) patient reports that (uni ts (unknown) date) she has been told she unknown) is snoring at night for the last 4 (unknown) (no (unknown) (unknown) personal electronic (unit s (unknown) date) devices, can also unknown) help maintain a healthy sleep-wake cycle. (unknown) (no (unknown) (unknown) pills (units (unkno wn) date) unknown) (unknown) (no (unknown) (unknown) read the note (units ( unknown) date) carefully and unknown) recognize, using context, where these substitutions (unknown) (no (unknown) (unknown) sentences, no (units ( unknown) date) audible wheezes, no unknown) grunting and not labored (unknown) (no (unknown) (unknown) sleep walking Sleep (unit s (unknown) date) Walking Branch: unknown) denied (unknown) (no (unknown) (unknown) sleeping (units (unkno wn) date) unknown) (unknown) (no (unknown) (unknown) sleeping a lot, (units (unknown) date) normal bedtime unknown) ([id number], 2400 on non work nights), normal wake (unknown) (no (unknown) (unknown) snoring Snoring: (units (unknown) date) frequent, apnea unknown) Apnea: witnessed, choking or gasping Choking or (unknown) (no (unknown) (unknown) snoring and Reports (unit s (unknown) date) stops breathing unknown) during sleep (unknown) (no (unknown) (unknown) software. 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 (unknown) (no (unknown) (unknown) taken in the morning (uni ts (unknown) date) or late afternoon. A unknown) relaxing exercise, like yoga, can be (unknown) (no (unknown) (unknown) the morning or (units (unknown) date) vertigo unknown) (unknown) (no (unknown) (unknown) the morning; Denies (unit s (unknown) date) epistaxis or runny unknown) nose (unknown) (no (unknown) (unknown) the second half as (units (unknown) date) the body begins to unknown) metabolize the alcohol, causing arousal. (unknown) (no (unknown) (unknown) thyroid (pork) 15 mg (unit s (unknown) date) tablet ([place] unknown) Thyroid) 15 mg PO DAILY #30 tab 04/29/21 [Rx (unknown) (no (unknown) (unknown) thyroid (pork) 30 mg (unit s (unknown) date) tablet ([place] unknown) Thyroid) 30 mg PO DAILY #30 tab 04/29/21 [Rx (unknown) (no (unknown) (unknown) time (0900, (units (un known) date) [id number] on non work unknown) mornings), sleep schedule Sleep Schedule (unknown) (no (unknown) (unknown) unspecified (units (un known) date) unknown) (unknown) (no (unknown) (unknown) were discussed at (units (unknown) date) length. She has a unknown) history of witnessed apnea and neck surgery (unknown) (no (unknown) (unknown) willing to proceed (units (unknown) date) with the sleep study. unknown) (unknown) (no (unknown) (unknown) with a sleep (units (u nknown) date) problem, it's not a unknown) good time to start experimenting with spicy (unknown) (no (unknown) (unknown) years. She is snoring (uni ts (unknown) date) nightly with unknown) witnessed apnea and has gasping arousals. She Result panel 7 (unknown) (no (unknown) (unknown) (no value) (units (unk nown) date) unknown) (unknown) (no (unknown) (unknown) Orders: (units (unkno wn) date) unknown) (unknown) (no (unknown) (unknown) (no value) (units (unk nown) date) unknown) (unknown) (no (unknown) (unknown) 0047 (units (unkno wn) date) unknown) (unknown) (no (unknown) (unknown) 0147 (units (unkno wn) date) unknown) (unknown) (no (unknown) (unknown) 0247 (units (unkno wn) date) unknown) (unknown) (no (unknown) (unknown) 0347 (units (unkno wn) date) unknown) (unknown) (no (unknown) (unknown) 0447 (units (unkno wn) date) unknown) (unknown) (no (unknown) (unknown) 0525 (units (unkno wn) date) unknown) (unknown) (no (unknown) (unknown) 157 (units (unkno wn) date) unknown) (unknown) (no (unknown) (unknown) 2,3, (units (unkno wn) date) unknown) (unknown) (no (unknown) (unknown) 20 (units (unkno wn) date) unknown) (unknown) (no (unknown) (unknown) 2138 (units (unkno wn) date) unknown) (unknown) (no (unknown) (unknown) 2147 (units (unkno wn) date) unknown) (unknown) (no (unknown) (unknown) 2247 (units (unkno wn) date) unknown) (unknown) (no (unknown) (unknown) 2347 (units (unkno wn) date) unknown) (unknown) (no (unknown) (unknown) 277 (units (unkno wn) date) unknown) (unknown) (no (unknown) (unknown) 37 (units (unkno wn) date) unknown) (unknown) (no (unknown) (unknown) 397 (units (unkno wn) date) unknown) (unknown) (no (unknown) (unknown) 49-75 (units (unkno wn) date) unknown) (unknown) (no (unknown) (unknown) 517 (units (unkno wn) date) unknown) (unknown) (no (unknown) (unknown) 55-72 (units (unkno wn) date) unknown) (unknown) (no (unknown) (unknown) 55-76 (units (unkno wn) date) unknown) (unknown) (no (unknown) (unknown) 58-82 (units (unkno wn) date) unknown) (unknown) (no (unknown) (unknown) 63-75 (units (unkno wn) date) unknown) (unknown) (no (unknown) (unknown) 637 (units (unkno wn) date) unknown) (unknown) (no (unknown) (unknown) 65-71 (units (unkno wn) date) unknown) (unknown) (no (unknown) (unknown) 66-72 (units (unkno wn) date) unknown) (unknown) (no (unknown) (unknown) 66-75 (units (unkno wn) date) unknown) (unknown) (no (unknown) (unknown) 67-73 (units (unkno wn) date) unknown) (unknown) (no (unknown) (unknown) 757 (units (unkno wn) date) unknown) (unknown) (no (unknown) (unknown) 85 (units (unkno wn) date) unknown) (unknown) (no (unknown) (unknown) 877 (units (unkno wn) date) unknown) (unknown) (no (unknown) (unknown) 91 (units (unkno wn) date) unknown) (unknown) (no (unknown) (unknown) 92 (units (unkno wn) date) unknown) (unknown) (no (unknown) (unknown) 93 (units (unkno wn) date) unknown) (unknown) (no (unknown) (unknown) 95 (units (unkno wn) date) unknown) (unknown) (no (unknown) (unknown) 954 (units (unkno wn) date) unknown) (unknown) (no (unknown) (unknown) 97 (units (unkno wn) date) unknown) (unknown) (no (unknown) (unknown) ? (units (unkno wn) date) unknown) (unknown) (no (unknown) (unknown) ? (units (unkno wn) date) unknown) (unknown) (no (unknown) (unknown) ? (units (unkno wn) date) unknown) (unknown) (no (unknown) (unknown) ?UAR, freq (units (unk nown) date) snores unknown) (unknown) (no (unknown) (unknown) [place], [place] (units ( unknown) date) [id number] unknown) (unknown) (no (unknown) (unknown) Bthrm In and Out (units (unknown) date) unknown) (unknown) (no (unknown) (unknown) Comments (units (unkno wn) date) unknown) (unknown) (no (unknown) (unknown) Cont OH In REM (units (unknown) date) supine, Rera, unknown) UAR, snores, PLM (unknown) (no (unknown) (unknown) Draft (units (unkno wn) date) unknown) (unknown) (no (unknown) (unknown) Epoch (units (unkno wn) date) unknown) (unknown) (no (unknown) (unknown) Events (units (unkno wn) date) unknown) (unknown) (no (unknown) (unknown) Freq OH + Rera (units (unknown) date) UAR, occ snores unknown) (unknown) (no (unknown) (unknown) Freq OH + Rera, (units (unknown) date) unknown) (unknown) (no (unknown) (unknown) Freq OH in REM, (units (unknown) date) Rera, UAR unknown) (unknown) (no (unknown) (unknown) HR (units (unkno wn) date) unknown) (unknown) (no (unknown) (unknown) L (units (unkno wn) date) unknown) (unknown) (no (unknown) (unknown) LIGHTS OFF (units (unk nown) date) unknown) (unknown) (no (unknown) (unknown) LIGHTS ON (units (unkn own) date) unknown) (unknown) (no (unknown) (unknown) Mild to loud (units (u nknown) date) unknown) (unknown) (no (unknown) (unknown) Mild to mod (units (un known) date) unknown) (unknown) (no (unknown) (unknown) Min. SpO2 (units (unkn own) date) unknown) (unknown) (no (unknown) (unknown) Mostly resting (units (unknown) date) quietly unknown) (unknown) (no (unknown) (unknown) No (units (unkno wn) date) unknown) (unknown) (no (unknown) (unknown) Occ OH, Rera, (units ( unknown) date) UAR, snores unknown) (unknown) (no (unknown) (unknown) Position (units (unkno wn) date) unknown) (unknown) (no (unknown) (unknown) REM (units (unkno wn) date) unknown) (unknown) (no (unknown) (unknown) REM, W,1,2 (units (unk nown) date) unknown) (unknown) (no (unknown) (unknown) Resting quietly (units (unknown) date) unknown) (unknown) (no (unknown) (unknown) S (units (unkno wn) date) unknown) (unknown) (no (unknown) (unknown) S,L (units (unkno wn) date) unknown) (unknown) (no (unknown) (unknown) SLEEP ONSET (units (un known) date) unknown) (unknown) (no (unknown) (unknown) Sleep Visit (units (un known) date) unknown) (unknown) (no (unknown) (unknown) [facility] ([facility] ([facility] unknown) (unknown) (no (unknown) (unknown) Snores (units (unkno wn) date) unknown) (unknown) (no (unknown) (unknown) Stages (units (unkno wn) date) unknown) (unknown) (no (unknown) (unknown) Time (units (unkno wn) date) unknown) (unknown) (no (unknown) (unknown) UAR, a few OH in (units (unknown) date) REM unknown) (unknown) (no (unknown) (unknown) W (units (unkno wn) date) unknown) (unknown) (no (unknown) (unknown) W,1 (units (unkno wn) date) unknown) (unknown) (no (unknown) (unknown) W,1,2, (units (unkno wn) date) unknown) (unknown) (no (unknown) (unknown) W,1,2,3 (units (unkno wn) date) unknown) (unknown) (no (unknown) (unknown) n/a (units (unkno wn) date) unknown) (unknown) (no (unknown) (unknown) (no value) (units (unk nown) date) unknown) (unknown) (no (unknown) (unknown) (units (unknown) date) Scoring unknown) Summary (unknown) (no (unknown) (unknown) 09/09/21 (units (unkno wn) date) unknown) (unknown) (no (unknown) (unknown) [id number] (units (unkno wn) date) unknown) (unknown) (no (unknown) (unknown) ? (units (unkno wn) date) unknown) (unknown) (no (unknown) (unknown) ? (units (unkno wn) date) unknown) (unknown) (no (unknown) (unknown) ? ?L,S,O (units (unkno wn) date) unknown) (unknown) (no (unknown) (unknown) ? Mild to (units (unkn own) date) ?mod unknown) (unknown) (no (unknown) (unknown) ?86 (units (unkno wn) date) unknown) (unknown) (no (unknown) (unknown) ? (units (unkno wn) date) Arousals: unknown) Frequent most of the time, consistent with OH and Rera (unknown) (no (unknown) (unknown) ? ECG (units (un known) date) Abnormalities:? unknown) None (unknown) (no (unknown) (unknown) ? EEG (units (un known) date) Abnormalities:? unknown) None (unknown) (no (unknown) (unknown) ? (units (unkno wn) date) Estimated RDI: unknown) 23? AHI: 11 (unknown) (no (unknown) (unknown) ? (units (unkno wn) date) Nocturia: X 1 unknown) (unknown) (no (unknown) (unknown) ? PLMS: (units ( unknown) date) Noted for a short unknown) time only (unknown) (no (unknown) (unknown) ? REM (units (un known) date) Latency: 67 unknown) minutes (unknown) (no (unknown) (unknown) ? Sleep (units ( unknown) date) Latency: 8.5 unknown) minutes (unknown) (no (unknown) (unknown) ? Snoring: (units (unknown) date) Later in study, unknown) frequent to continuous, mild to mod (unknown) (no (unknown) (unknown) ? (units (unkno wn) date) Technical Issues: unknown) None (unknown) (no (unknown) (unknown) ? Pt (units (u nknown) date) estimates 6-7 unknown) hours of sleep and woke up 2-3 times (unknown) (no (unknown) (unknown) ? Pt (units (u nknown) date) [id number] unknown) utes to fall asleep, which is shorter than usual (unknown) (no (unknown) (unknown) ? Pt (units (u nknown) date) feels moderate unknown) sleepy and fatigued, and also moderately alert (unknown) (no (unknown) (unknown) ? Pt (units (u nknown) date) says sleep was unknown) average, which is better than usual because she (unknown) (no (unknown) (unknown) ? Pt (units (u nknown) date) stated she is unknown) alert enough to drive herself home (unknown) (no (unknown) (unknown) ? Pt (units (u nknown) date) states no unknown) difficulty falling or staying asleep? (unknown) (no (unknown) (unknown) ? Pt (units (u nknown) date) woke up by Tech. unknown) (unknown) (no (unknown) (unknown) ? (units (unknown) date) ? unknown) ? (unknown) (no (unknown) (unknown) Age/Sex: 51 / F (units (unknown) date) Date of unknown) Service: (unknown) (no (unknown) (unknown) Assessment and (units (unknown) date) Plan unknown) (unknown) (no (unknown) (unknown) Attending Dr: (units ( unknown) date) Emile Velasquez MD unknown) (unknown) (no (unknown) (unknown) Bed #:? 2 (units (unkn own) date) unknown) (unknown) (no (unknown) (unknown) DATE: 09/09/2021 (units (unknown) date) unknown) (unknown) (no (unknown) (unknown) : 1970 (units (unknown) date) Acct:[id number] unknown) (unknown) (no (unknown) (unknown) Dept at (units (unkno wn) date) . unknown) (unknown) (no (unknown) (unknown) Documented By: (units (unknown) date) Emile Velasquez MD unknown) 09/10/21 0610 (unknown) (no (unknown) (unknown) ESS: 5? (units (unkno wn) date) unknown) (unknown) (no (unknown) (unknown) Height: 66? (units (un known) date) unknown) (unknown) (no (unknown) (unknown) [facility] (units (unknown) date) [facility] (unknown) (no (unknown) (unknown) Insurance info: (units (unknown) date) Prime unknown) (unknown) (no (unknown) (unknown) Loc: SLEEP (units (unk nown) date) unknown) (unknown) (no (unknown) (unknown) Medication: (units (un known) date) Ketorolac, unknown) Omeprazole Magnesium, Thyroid (pork) (unknown) (no (unknown) (unknown) Morning (units (unkno wn) date) Comments: unknown) (unknown) (no (unknown) (unknown) Neck (units (unkno wn) date) Circumference: unknown) 14? (unknown) (no (unknown) (unknown) Ordering (units (unkno wn) date) Physician: unknown) Emile Velasquez (unknown) (no (unknown) (unknown) Patient Medical (units (unknown) date) History: EDS, unknown) Hypothyroidism, Fibromyalgia, Migraines, Anxiety (unknown) (no (unknown) (unknown) Patient Name: (units ( unknown) date) ?PITA unknown) RAMONEBERNARDINO? MR#: [id number]?: 1970 (unknown) (no (unknown) (unknown) Patient: (units (unkno wn) date) JewelSamuel fischermick العراقي unknown) MR#: [id number] (unknown) (no (unknown) (unknown) Performed by (units (u nknown) date) unknown) (unknown) (no (unknown) (unknown) Performed by: (units ( unknown) date) unknown) (unknown) (no (unknown) (unknown) Previous Sleep (units (unknown) date) Studies: None? ? unknown) (unknown) (no (unknown) (unknown) Reason for SLEEP (units (unknown) date) STUDY: unknown) Breathing-related Sleep Disorder, Insomnia, EDS, Snoring (unknown) (no (unknown) (unknown) Recording Tech: (units (unknown) date) Mariya unknown) GHISLAINE Boswell??? 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 Later, frequent mild to moderate snores (unknown) (no (unknown) (unknown) Result Visit is (units (unknown) date) scheduled on: unknown) (unknown) (no (unknown) (unknown) Mariya (units (unkno wn) date) ROSY BoswellGT unknown) (unknown) (no (unknown) (unknown) Severity OF GERI: (units (unknown) date) ?N/A unknown) (unknown) (no (unknown) (unknown) Signed By: (units (unk nown) date) unknown) (unknown) (no (unknown) (unknown) Sleep Aid used (units (unknown) date) by pt: ??0 unknown) (unknown) (no (unknown) (unknown) Sleep Procedure (units (unknown) date) unknown) (unknown) (no (unknown) (unknown) Study type: (units (un known) date) NPSG? unknown) ? (unknown) (no (unknown) (unknown) Tech (units (unkno wn) date) Observations unknown) (unknown) (no (unknown) (unknown) Tech (units (unkno wn) date) Observations: unknown) (unknown) (no (unknown) (unknown) Technologist (units (u nknown) date) Summary:? Pt unknown) started the NPSG in the supine position. Sleep onset (unknown) (no (unknown) (unknown) This note may (units ( unknown) date) have been all or unknown) partially generated using voice recognition (unknown) (no (unknown) (unknown) Weight: 198 lbs (units (unknown) date) unknown) (unknown) (no (unknown) (unknown) about 4.5 hours (units (unknown) date) TIB, in supine unknown) position, continuous left PLMs were also (unknown) (no (unknown) (unknown) desaturations to (units (unknown) date) 85%, during the unknown) last prolonged Stg REM period. (unknown) (no (unknown) (unknown) didn?t wake up (units (unknown) date) as much unknown) (unknown) (no (unknown) (unknown) have occurred. (units (unknown) date) If there are any unknown) questions, please contact the Medical Records (unknown) (no (unknown) (unknown) may occur. (units (unk nown) date) Occasional unknown) wrong-word or 'sound-alike' substitutions may have (unknown) (no (unknown) (unknown) observed. Pt (units (u nknown) date) achieved Stg REM unknown) X 4, with frequent to continuous OH and SpO2 (unknown) (no (unknown) (unknown) occurred due to (units (unknown) date) the inherent unknown) limitations of voice recognition software. Please (unknown) (no (unknown) (unknown) read the note (units ( unknown) date) carefully and unknown) recognize, using context, where these substitutions (unknown) (no (unknown) (unknown) software. 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 Sleep architecture was normal (unknown) (no (unknown) (unknown) with Depression, (units (unknown) date) Hyperlipidemia, unknown) Abnormal EKG (unknown) (no (unknown) (unknown) with UAR were (units ( unknown) date) noted, as well as unknown) frequent OH and Rera, with SpO2 ryland 85%.After (unknown) (no (unknown) (unknown) with pt (units (unkno wn) date) achieving all unknown) stages of sleep. IN Stg REM, pt demonstrated frequent OH, Result panel 8 (unknown) (no (unknown) (unknown) (no value) (units (unk nown) date) unknown) (unknown) (no (unknown) (unknown) Orders: (units (unkno wn) date) unknown) (unknown) (no (unknown) (unknown) (no value) (units (unk nown) date) unknown) (unknown) (no (unknown) (unknown) 0047 (units (unkno wn) date) unknown) (unknown) (no (unknown) (unknown) 0147 (units (unkno wn) date) unknown) (unknown) (no (unknown) (unknown) 0247 (units (unkno wn) date) unknown) (unknown) (no (unknown) (unknown) 0347 (units (unkno wn) date) unknown) (unknown) (no (unknown) (unknown) 0447 (units (unkno wn) date) unknown) (unknown) (no (unknown) (unknown) 0525 (units (unkno wn) date) unknown) (unknown) (no (unknown) (unknown) 09/10/21 1853 (units ( unknown) date) unknown) (unknown) (no (unknown) (unknown) 157 (units (unkno wn) date) unknown) (unknown) (no (unknown) (unknown) 2,3, (units (unkno wn) date) unknown) (unknown) (no (unknown) (unknown) 20 (units (unkno wn) date) unknown) (unknown) (no (unknown) (unknown) 2138 (units (unkno wn) date) unknown) (unknown) (no (unknown) (unknown) 2147 (units (unkno wn) date) unknown) (unknown) (no (unknown) (unknown) 2247 (units (unkno wn) date) unknown) (unknown) (no (unknown) (unknown) 2347 (units (unkno wn) date) unknown) (unknown) (no (unknown) (unknown) 277 (units (unkno wn) date) unknown) (unknown) (no (unknown) (unknown) 37 (units (unkno wn) date) unknown) (unknown) (no (unknown) (unknown) 397 (units (unkno wn) date) unknown) (unknown) (no (unknown) (unknown) 49-75 (units (unkno wn) date) unknown) (unknown) (no (unknown) (unknown) 517 (units (unkno wn) date) unknown) (unknown) (no (unknown) (unknown) 55-72 (units (unkno wn) date) unknown) (unknown) (no (unknown) (unknown) 55-76 (units (unkno wn) date) unknown) (unknown) (no (unknown) (unknown) 58-82 (units (unkno wn) date) unknown) (unknown) (no (unknown) (unknown) 63-75 (units (unkno wn) date) unknown) (unknown) (no (unknown) (unknown) 637 (units (unkno wn) date) unknown) (unknown) (no (unknown) (unknown) 65-71 (units (unkno wn) date) unknown) (unknown) (no (unknown) (unknown) 66-72 (units (unkno wn) date) unknown) (unknown) (no (unknown) (unknown) 66-75 (units (unkno wn) date) unknown) (unknown) (no (unknown) (unknown) 67-73 (units (unkno wn) date) unknown) (unknown) (no (unknown) (unknown) 757 (units (unkno wn) date) unknown) (unknown) (no (unknown) (unknown) 85 (units (unkno wn) date) unknown) (unknown) (no (unknown) (unknown) 877 (units (unkno wn) date) unknown) (unknown) (no (unknown) (unknown) 91 (units (unkno wn) date) unknown) (unknown) (no (unknown) (unknown) 92 (units (unkno wn) date) unknown) (unknown) (no (unknown) (unknown) 93 (units (unkno wn) date) unknown) (unknown) (no (unknown) (unknown) 95 (units (unkno wn) date) unknown) (unknown) (no (unknown) (unknown) 954 (units (unkno wn) date) unknown) (unknown) (no (unknown) (unknown) 97 (units (unkno wn) date) unknown) (unknown) (no (unknown) (unknown) ? (units (unkno wn) date) unknown) (unknown) (no (unknown) (unknown) ? (units (unkno wn) date) unknown) (unknown) (no (unknown) (unknown) ? (units (unkno wn) date) unknown) (unknown) (no (unknown) (unknown) ?UAR, freq (units (unk nown) date) snores unknown) (unknown) (no (unknown) (unknown) [place], [place] (units ( unknown) date) [address] unknown) (unknown) (no (unknown) (unknown) Bthrm In and Out (units (unknown) date) unknown) (unknown) (no (unknown) (unknown) Comments (units (unkno wn) date) unknown) (unknown) (no (unknown) (unknown) Cont OH In REM (units (unknown) date) supine, Rera, unknown) UAR, snores, PLM (unknown) (no (unknown) (unknown) Epoch (units (unkno wn) date) unknown) (unknown) (no (unknown) (unknown) Events (units (unkno wn) date) unknown) (unknown) (no (unknown) (unknown) Freq OH + Rera (units (unknown) date) UAR, occ snores unknown) (unknown) (no (unknown) (unknown) Freq OH + Rera, (units (unknown) date) unknown) (unknown) (no (unknown) (unknown) Freq OH in REM, (units (unknown) date) Rera, UAR unknown) (unknown) (no (unknown) (unknown) HR (units (unkno wn) date) unknown) (unknown) (no (unknown) (unknown) L (units (unkno wn) date) unknown) (unknown) (no (unknown) (unknown) LIGHTS OFF (units (unk nown) date) unknown) (unknown) (no (unknown) (unknown) LIGHTS ON (units (unkn own) date) unknown) (unknown) (no (unknown) (unknown) Mild to loud (units (u nknown) date) unknown) (unknown) (no (unknown) (unknown) Mild to mod (units (un known) date) unknown) (unknown) (no (unknown) (unknown) Min. SpO2 (units (unkn own) date) unknown) (unknown) (no (unknown) (unknown) Mostly resting (units (unknown) date) quietly unknown) (unknown) (no (unknown) (unknown) No (units (unkno wn) date) unknown) (unknown) (no (unknown) (unknown) Occ OH, Rera, (units ( unknown) date) UAR, snores unknown) (unknown) (no (unknown) (unknown) Position (units (unkno wn) date) unknown) (unknown) (no (unknown) (unknown) REM (units (unkno wn) date) unknown) (unknown) (no (unknown) (unknown) REM, W,1,2 (units (unk nown) date) unknown) (unknown) (no (unknown) (unknown) Resting quietly (units (unknown) date) unknown) (unknown) (no (unknown) (unknown) S (units (unkno wn) date) unknown) (unknown) (no (unknown) (unknown) S,L (units (unkno wn) date) unknown) (unknown) (no (unknown) (unknown) SLEEP ONSET (units (un known) date) unknown) (unknown) (no (unknown) (unknown) Signed (units (unkno wn) date) unknown) (unknown) (no (unknown) (unknown) Sleep Visit (units (un known) date) unknown) (unknown) (no (unknown) (unknown) [facility] ([facility] ([facility] Center unknown) (unknown) (no (unknown) (unknown) Snores (units (unkno wn) date) unknown) (unknown) (no (unknown) (unknown) Stages (units (unkno wn) date) unknown) (unknown) (no (unknown) (unknown) Time (units (unkno wn) date) unknown) (unknown) (no (unknown) (unknown) UAR, a few OH in (units (unknown) date) REM unknown) (unknown) (no (unknown) (unknown) W (units (unkno wn) date) unknown) (unknown) (no (unknown) (unknown) W,1 (units (unkno wn) date) unknown) (unknown) (no (unknown) (unknown) W,1,2, (units (unkno wn) date) unknown) (unknown) (no (unknown) (unknown) W,1,2,3 (units (unkno wn) date) unknown) (unknown) (no (unknown) (unknown) n/a (units (unkno wn) date) unknown) (unknown) (no (unknown) (unknown) (no value) (units (unk nown) date) unknown) (unknown) (no (unknown) (unknown) (units (unknown) date) Scoring unknown) Summary (unknown) (no (unknown) (unknown) 09/09/21 (units (unkno wn) date) unknown) (unknown) (no (unknown) (unknown) [id number] (units (unkno wn) date) unknown) (unknown) (no (unknown) (unknown) ? (units (unkno wn) date) unknown) (unknown) (no (unknown) (unknown) ? (units (unkno wn) date) unknown) (unknown) (no (unknown) (unknown) ? ?L,S,O (units (unkno wn) date) unknown) (unknown) (no (unknown) (unknown) ? Mild to (units (unkn own) date) ?mod unknown) (unknown) (no (unknown) (unknown) ?86 (units (unkno wn) date) unknown) (unknown) (no (unknown) (unknown) ? (units (unkno wn) date) Arousals: unknown) Frequent most of the time, consistent with OH and Rera (unknown) (no (unknown) (unknown) ? ECG (units (un known) date) Abnormalities:? unknown) None (unknown) (no (unknown) (unknown) ? EEG (units (un known) date) Abnormalities:? unknown) None (unknown) (no (unknown) (unknown) ? (units (unkno wn) date) Estimated RDI: unknown) 23? AHI: 11 (unknown) (no (unknown) (unknown) ? (units (unkno wn) date) Nocturia: X 1 unknown) (unknown) (no (unknown) (unknown) ? PLMS: (units ( unknown) date) Noted for a short unknown) time only (unknown) (no (unknown) (unknown) ? REM (units (un known) date) Latency: 67 unknown) minutes (unknown) (no (unknown) (unknown) ? Sleep (units ( unknown) date) Latency: 8.5 unknown) minutes (unknown) (no (unknown) (unknown) ? Snoring: (units (unknown) date) Later in study, unknown) frequent to continuous, mild to mod (unknown) (no (unknown) (unknown) ? (units (unkno wn) date) Technical Issues: unknown) None (unknown) (no (unknown) (unknown) ? Pt (units (u nknown) date) estimates 6-7 unknown) hours of sleep and woke up 2-3 times (unknown) (no (unknown) (unknown) ? Pt (units (u nknown) date) [id number] unknown) utes to fall asleep, which is shorter than usual (unknown) (no (unknown) (unknown) ? Pt (units (u nknown) date) feels moderate unknown) sleepy and fatigued, and also moderately alert (unknown) (no (unknown) (unknown) ? Pt (units (u nknown) date) says sleep was unknown) average, which is better than usual because she (unknown) (no (unknown) (unknown) ? Pt (units (u nknown) date) stated she is unknown) alert enough to drive herself home (unknown) (no (unknown) (unknown) ? Pt (units (u nknown) date) states no unknown) difficulty falling or staying asleep? (unknown) (no (unknown) (unknown) ? Pt (units (u nknown) date) woke up by Tech. unknown) (unknown) (no (unknown) (unknown) ? (units (unknown) date) ? unknown) ? (unknown) (no (unknown) (unknown) Age/Sex: 51 / F (units (unknown) date) Date of unknown) Service: (unknown) (no (unknown) (unknown) Assessment and (units (unknown) date) Plan unknown) (unknown) (no (unknown) (unknown) Attending Dr: (units ( unknown) date) Emile Velasquez MD unknown) (unknown) (no (unknown) (unknown) Bed #:? 2 (units (unkn own) date) unknown) (unknown) (no (unknown) (unknown) DATE: 09/09/2021 (units (unknown) date) unknown) (unknown) (no (unknown) (unknown) : 1970 (units (unknown) date) Acct:[id number] unknown) (unknown) (no (unknown) (unknown) Dept at (units (unkno wn) date) . unknown) (unknown) (no (unknown) (unknown) Documented By: (units (unknown) date) Emile Velasquez MD unknown) 09/10/21 0610 (unknown) (no (unknown) (unknown) ESS: 5? (units (unkno wn) date) unknown) (unknown) (no (unknown) (unknown) Height: 66? (units (un known) date) unknown) (unknown) (no (unknown) (unknown) [facility] (units (unknown) date) [facility]) [facility] (unknown) (no (unknown) (unknown) Insurance info: (units (unknown) date) Prime unknown) (unknown) (no (unknown) (unknown) Loc: SLEEP (units (unk nown) date) unknown) (unknown) (no (unknown) (unknown) Medication: (units (un known) date) Ketorolac, unknown) Omeprazole Magnesium, Thyroid (pork) (unknown) (no (unknown) (unknown) Morning (units (unkno wn) date) Comments: unknown) (unknown) (no (unknown) (unknown) Neck (units (unkno wn) date) Circumference: unknown) 14? (unknown) (no (unknown) (unknown) Ordering (units (unkno wn) date) Physician: unknown) Emile Velasquez (unknown) (no (unknown) (unknown) Patient Medical (units (unknown) date) History: EDS, unknown) Hypothyroidism, Fibromyalgia, Migraines, Anxiety (unknown) (no (unknown) (unknown) Patient Name: (units ( unknown) date) ?PITA unknown) RACHEL? MR#: [id number]?: 1970 (unknown) (no (unknown) (unknown) Patient: (units (unkno wn) date) Pita Perez D unknown) MR#: [id number] (unknown) (no (unknown) (unknown) Performed by (units (u nknown) date) unknown) (unknown) (no (unknown) (unknown) Performed by: (units ( unknown) date) unknown) (unknown) (no (unknown) (unknown) Previous Sleep (units (unknown) date) Studies: None? ? unknown) (unknown) (no (unknown) (unknown) Reason for SLEEP (units (unknown) date) STUDY: unknown) Breathing-related Sleep Disorder, Insomnia, EDS, Snoring (unknown) (no (unknown) (unknown) Recording Tech: (units (unknown) date) Mariya unknown) GHISLAINE Boswell??? 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 Later, frequent mild to moderate snores (unknown) (no (unknown) (unknown) Result Visit is (units (unknown) date) scheduled on: unknown) (unknown) (no (unknown) (unknown) Mariya (units (unkno wn) date) GHISLAINE Boswell unknown) (unknown) (no (unknown) (unknown) Severity OF GERI: (units (unknown) date) ?N/A unknown) (unknown) (no (unknown) (unknown) Signed By: (units (unk nown) date) <Electronically unknown) signed by Emile Velasquez MD> (unknown) (no (unknown) (unknown) Sleep Aid used (units (unknown) date) by pt: ??0 unknown) (unknown) (no (unknown) (unknown) Sleep Procedure (units (unknown) date) unknown) (unknown) (no (unknown) (unknown) Study type: (units (un known) date) NPSG? unknown) ? (unknown) (no (unknown) (unknown) Tech (units (unkno wn) date) Observations unknown) (unknown) (no (unknown) (unknown) Tech (units (unkno wn) date) Observations: unknown) (unknown) (no (unknown) (unknown) Technologist (units (u nknown) date) Summary:? Pt unknown) started the NPSG in the supine position. Sleep onset (unknown) (no (unknown) (unknown) This note may (units ( unknown) date) have been all or unknown) partially generated using voice recognition (unknown) (no (unknown) (unknown) Weight: 198 lbs (units (unknown) date) unknown) (unknown) (no (unknown) (unknown) about 4.5 hours (units (unknown) date) TIB, in supine unknown) position, continuous left PLMs were also (unknown) (no (unknown) (unknown) desaturations to (units (unknown) date) 85%, during the unknown) last prolonged Stg REM period. (unknown) (no (unknown) (unknown) didn?t wake up (units (unknown) date) as much unknown) (unknown) (no (unknown) (unknown) have occurred. (units (unknown) date) If there are any unknown) questions, please contact the Medical Records (unknown) (no (unknown) (unknown) may occur. (units (unk nown) date) Occasional unknown) wrong-word or 'sound-alike' substitutions may have (unknown) (no (unknown) (unknown) observed. Pt (units (u nknown) date) achieved Stg REM unknown) X 4, with frequent to continuous OH and SpO2 (unknown) (no (unknown) (unknown) occurred due to (units (unknown) date) the inherent unknown) limitations of voice recognition software. Please (unknown) (no (unknown) (unknown) read the note (units ( unknown) date) carefully and unknown) recognize, using context, where these substitutions (unknown) (no (unknown) (unknown) software. 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 Sleep architecture was normal (unknown) (no (unknown) (unknown) with Depression, (units (unknown) date) Hyperlipidemia, unknown) Abnormal EKG (unknown) (no (unknown) (unknown) with UAR were (units ( unknown) date) noted, as well as unknown) frequent OH and Rera, with SpO2 ryland 85%.After (unknown) (no (unknown) (unknown) with pt (units (unkno wn) date) achieving all unknown) stages of sleep. IN Stg REM, pt demonstrated frequent OH, Result panel 9 (unknown) (no (unknown) (unknown) (no value) (units (unk nown) date) unknown) (unknown) (no (unknown) (unknown) Depression (units (unk nown) date) unknown) (unknown) (no (unknown) (unknown) Orders: (units (unkno wn) date) unknown) (unknown) (no (unknown) (unknown) (no value) (units (unk nown) date) unknown) (unknown) (no (unknown) (unknown) (no value) (units (unk nown) date) unknown) (unknown) (no (unknown) (unknown) 0047? (units (unknown) date) unknown) (unknown) (no (unknown) (unknown) 0147? (units (unknown) date) unknown) (unknown) (no (unknown) (unknown) 0247? (units (unknown) date) unknown) (unknown) (no (unknown) (unknown) 0347? (units (unknown) date) unknown) (unknown) (no (unknown) (unknown) 0447? (units (unknown) date) unknown) (unknown) (no (unknown) (unknown) 0525? (units (unknown) date) unknown) (unknown) (no (unknown) (unknown) 157? (units ( unknown) date) unknown) (unknown) (no (unknown) (unknown) 2,3,??REM? (unit s (unknown) date) unknown) (unknown) (no (unknown) (unknown) 20? (units (u nknown) date) unknown) (unknown) (no (unknown) (unknown) 2138? (units (unknown) date) unknown) (unknown) (no (unknown) (unknown) 2147? (units (unknown) date) unknown) (unknown) (no (unknown) (unknown) 2247? (units (unknown) date) unknown) (unknown) (no (unknown) (unknown) 2347? (units (unknown) date) unknown) (unknown) (no (unknown) (unknown) 277? (units ( unknown) date) unknown) (unknown) (no (unknown) (unknown) 37? (units (u nknown) date) unknown) (unknown) (no (unknown) (unknown) 397? (units ( unknown) date) unknown) (unknown) (no (unknown) (unknown) 49-75? (units (unknown) date) unknown) (unknown) (no (unknown) (unknown) 517? (units ( unknown) date) unknown) (unknown) (no (unknown) (unknown) 55-72? (units (unknown) date) unknown) (unknown) (no (unknown) (unknown) 55-76? (units (unknown) date) unknown) (unknown) (no (unknown) (unknown) 58-82? (units (unknown) date) unknown) (unknown) (no (unknown) (unknown) 63-75? (units (unknown) date) unknown) (unknown) (no (unknown) (unknown) 637? (units ( unknown) date) unknown) (unknown) (no (unknown) (unknown) 65-71? (units (unknown) date) unknown) (unknown) (no (unknown) (unknown) 66-72? (units (unknown) date) unknown) (unknown) (no (unknown) (unknown) 66-75? (units (unknown) date) unknown) (unknown) (no (unknown) (unknown) 67-73? (units (unknown) date) unknown) (unknown) (no (unknown) (unknown) 757? (units ( unknown) date) unknown) (unknown) (no (unknown) (unknown) 85? (units (u nknown) date) unknown) (unknown) (no (unknown) (unknown) 877? (units ( unknown) date) unknown) (unknown) (no (unknown) (unknown) 91? (units (u nknown) date) unknown) (unknown) (no (unknown) (unknown) 92? (units (u nknown) date) unknown) (unknown) (no (unknown) (unknown) 93? (units (u nknown) date) unknown) (unknown) (no (unknown) (unknown) 954? (units ( unknown) date) unknown) (unknown) (no (unknown) (unknown) 95? (units (u nknown) date) unknown) (unknown) (no (unknown) (unknown) 97? (units (u nknown) date) unknown) (unknown) (no (unknown) (unknown) ? (units (un known) date) unknown) (unknown) (no (unknown) (unknown) ? (units (unkno wn) date) unknown) (unknown) (no (unknown) (unknown) ???Events? (unit s (unknown) date) unknown) (unknown) (no (unknown) (unknown) ???HR? (units (unknown) date) unknown) (unknown) (no (unknown) (unknown) [place] [address] (unit s (unknown) date) unknown) (unknown) (no (unknown) (unknown) Bthrm In and Out?? ? (uni ts (unknown) date) unknown) (unknown) (no (unknown) (unknown) Comments?? ? (units (u nknown) date) unknown) (unknown) (no (unknown) (unknown) Cont OH In REM (units (unknown) date) supine, Rera, UAR, unknown) snores, PLM? (unknown) (no (unknown) (unknown) Draft (units (unkno wn) date) unknown) (unknown) (no (unknown) (unknown) Epoch? (units (unknown) date) unknown) (unknown) (no (unknown) (unknown) Freq OH + Rera UAR, (unit s (unknown) date) occ snores? unknown) (unknown) (no (unknown) (unknown) Freq OH + (units (unkn own) date) Rera,???UAR, freq unknown) snores? (unknown) (no (unknown) (unknown) Freq OH in REM, Rera, (un its (unknown) date) UAR? unknown) (unknown) (no (unknown) (unknown) L? (units (un known) date) unknown) (unknown) (no (unknown) (unknown) LIGHTS OFF? (units (unknown) date) unknown) (unknown) (no (unknown) (unknown) LIGHTS ON??? (units (u nknown) date) unknown) (unknown) (no (unknown) (unknown) Mild to loud? (unit s (unknown) date) ?? unknown) (unknown) (no (unknown) (unknown) Mild to mod? (un its (unknown) date) unknown) (unknown) (no (unknown) (unknown) Min. SpO2? (unit s (unknown) date) unknown) (unknown) (no (unknown) (unknown) Mostly resting (units (unknown) date) quietly?? ? unknown) (unknown) (no (unknown) (unknown) No? (units (u nknown) date) unknown) (unknown) (no (unknown) (unknown) Occ OH, Rera, UAR, (units (unknown) date) snores? unknown) (unknown) (no (unknown) (unknown) Position? (units (unknown) date) unknown) (unknown) (no (unknown) (unknown) REM, W,1,2? (uni ts (unknown) date) unknown) (unknown) (no (unknown) (unknown) Resting quietly?? ? (unit s (unknown) date) unknown) (unknown) (no (unknown) (unknown) S,L? (units ( unknown) date) unknown) (unknown) (no (unknown) (unknown) S? (units (un known) date) unknown) (unknown) (no (unknown) (unknown) SLEEP ONSET?? ? (units (unknown) date) unknown) (unknown) (no (unknown) (unknown) Sleep Visit (units (un known) date) unknown) (unknown) (no (unknown) (unknown) [facility] (un its (unknown) date) unknown) (unknown) (no (unknown) (unknown) Snores? (units (unknown) date) unknown) (unknown) (no (unknown) (unknown) Stages? (units (unknown) date) unknown) (unknown) (no (unknown) (unknown) Time? (units (unknown) date) unknown) (unknown) (no (unknown) (unknown) UAR, a few OH in REM? (un its (unknown) date) ? unknown) (unknown) (no (unknown) (unknown) W,1,2,3? (units (unknown) date) unknown) (unknown) (no (unknown) (unknown) W,1,2,??REM? (un its (unknown) date) unknown) (unknown) (no (unknown) (unknown) W,1? (units ( unknown) date) unknown) (unknown) (no (unknown) (unknown) W? (units (un known) date) unknown) (unknown) (no (unknown) (unknown) n/a? (units ( unknown) date) unknown) (unknown) (no (unknown) (unknown) (no value) (units (unk nown) date) unknown) (unknown) (no (unknown) (unknown) (un its (unknown) date) Scoring unknown) Summary (unknown) (no (unknown) (unknown) *Please reference (units (unknown) date) Sleep Study for unknown) Procedure Documentation (unknown) (no (unknown) (unknown) 09/09/21 (units (unkno wn) date) unknown) (unknown) (no (unknown) (unknown) [id number] (units (unkno wn) date) unknown) (unknown) (no (unknown) (unknown) ? (units (unkno wn) date) unknown) (unknown) (no (unknown) (unknown) ? ? ? (units (unkno wn) date) unknown) (unknown) (no (unknown) (unknown) ? ?L,S,O? (units (unknown) date) unknown) (unknown) (no (unknown) (unknown) ? Mild to ?mod? (uni ts (unknown) date) ? unknown) (unknown) (no (unknown) (unknown) ?86? (units ( unknown) date) unknown) (unknown) (no (unknown) (unknown) ? (un its (unknown) date) ? unknown ) ? (unknown) (no (unknown) (unknown) ?Pt (units (u nknown) date) estimates 6-7 hours of unknown ) sleep and woke up 2-3 times (unknown) (no (unknown) (unknown) ?Pt (units (u nknown) date) [id number] unknown) to fall asleep, which is shorter than usual (unknown) (no (unknown) (unknown) ?Pt feels (units (unknown) date) moderate sleepy and unknown) fatigued, and also moderately alert (unknown) (no (unknown) (unknown) ?Pt says (units (unknown) date) sleep was average, unknown) which is better than usual because she (unknown) (no (unknown) (unknown) ?Pt stated (unit s (unknown) date) she is alert enough to unknown ) drive herself home (unknown) (no (unknown) (unknown) ?Pt states (unit s (unknown) date) no difficulty falling unknown) or staying asleep? (unknown) (no (unknown) (unknown) ?Pt woke up (uni ts (unknown) date) by Tech. unknown) (unknown) (no (unknown) (unknown) ?Arousals: (units (unknown) date) Frequent most of the unknown) time, consistent with OH and Rera (unknown) (no (unknown) (unknown) ?ECG (units (un known) date) Abnormalities:? None unknown) (unknown) (no (unknown) (unknown) ?EEG (units (un known) date) Abnormalities:? None unknown) (unknown) (no (unknown) (unknown) ?Estimated (units (unknown) date) RDI: unknown) 23?AHI: 11 (unknown) (no (unknown) (unknown) ?Nocturia: X 1 (un its (unknown) date) unknown) (unknown) (no (unknown) (unknown) ?PLMS: Noted (unit s (unknown) date) for a short time only unknown) (unknown) (no (unknown) (unknown) ?REM Latency: (uni ts (unknown) date) 67 minutes unknown) (unknown) (no (unknown) (unknown) ?Sleep (units ( unknown) date) Latency: 8.5 minutes unknown) (unknown) (no (unknown) (unknown) ?Snoring: (units (unknown) date) Later in study, unknown) frequent to continuous, mild to mod (unknown) (no (unknown) (unknown) ?Technical (units (unknown) date) Issues: None unknown) (unknown) (no (unknown) (unknown) Add'l Plan Details (units (unknown) date) unknown) (unknown) (no (unknown) (unknown) Add'l Plan*: (units (u nknown) date) unknown) (unknown) (no (unknown) (unknown) Age/Sex: 51 / F (units (unknown) date) Date of Service: unknown) (unknown) (no (unknown) (unknown) Assessment and Plan (unit s (unknown) date) unknown) (unknown) (no (unknown) (unknown) Attending Dr: Emile (uni ts (unknown) date) Eva POWELL unknown) (unknown) (no (unknown) (unknown) [place] A: Obstructive (un its (unknown) date) Sleep Apnea, Mild unknown) (G47.33) (unknown) (no (unknown) (unknown) [place] B: (units (unkno wn) date) Polysomnogram (89.17) unknown) (unknown) (no (unknown) (unknown) [place] C: (units (unkno wn) date) Hypertension unknown) (unknown) (no (unknown) (unknown) Bed #:? 2 (units (unkn own) date) unknown) (unknown) (no (unknown) (unknown) DATE: 09/09/2021 (units (unknown) date) unknown) (unknown) (no (unknown) (unknown) : 1970 (units (unknown) date) Acct:[id number] unknown) (unknown) (no (unknown) (unknown) Dept at (units (unkno wn) date) . unknown) (unknown) (no (unknown) (unknown) Diplomat, [place] (units (unknown) date) Board of Sleep unknown) Medicine (unknown) (no (unknown) (unknown) Documented By: (units (unknown) date) Emile Velasquez MD unknown) 09/16/21 1201 (unknown) (no (unknown) (unknown) ESS: 5? (units (unkno wn) date) unknown) (unknown) (no (unknown) (unknown) FAAP, sub-specialty (unit s (unknown) date) boards in Sleep unknown) Medicine (unknown) (no (unknown) (unknown) Height: 66? (units (un known) date) unknown) (unknown) (no (unknown) (unknown) IMPRESSION: (units (un known) date) unknown) (unknown) (no (unknown) (unknown) [facility] (un its (unknown) date) [facility]) (unknown) (no (unknown) (unknown) If there are any (units (unknown) date) questions regarding unknown) this patient please contact us at the Sleep (unknown) (no (unknown) (unknown) Insurance info: (units (unknown) date) Prime unknown) (unknown) (no (unknown) (unknown) Loc: SLEEP (units (unk nown) date) unknown) (unknown) (no (unknown) (unknown) Medication:?Ketorolac (un its (unknown) date) , Omeprazole unknown) Magnesium, Thyroid (pork) (unknown) (no (unknown) (unknown) Morning Comments:? (units (unknown) date) unknown) (unknown) (no (unknown) (unknown) Neck (units (unkno wn) date) Circumference:?14? unknown) (unknown) (no (unknown) (unknown) Ordering (units (unkno wn) date) Physician:?Dr. Baptiste unknown) Eva (unknown) (no (unknown) (unknown) Patient Medical (units (unknown) date) History:?EDS, unknown) Hypothyroidism, Fibromyalgia, Migraines, Anxiety (unknown) (no (unknown) (unknown) Patient Name: OJ (unit s (unknown) date) RACHEL? MR#: unknown ) [id number]?: 1970 (unknown) (no (unknown) (unknown) Patient: Pita Perez (un its (unknown) date) D MR#: [id number] unknown) (unknown) (no (unknown) (unknown) Performed by (units (u nknown) date) unknown) (unknown) (no (unknown) (unknown) Performed by: (units ( unknown) date) unknown) (unknown) (no (unknown) (unknown) Previous Sleep (units (unknown) date) Studies:?None??? unknown) (unknown) (no (unknown) (unknown) RECOMMENDATION: (units (unknown) date) unknown) (unknown) (no (unknown) (unknown) Reason for SLEEP (units (unknown) date) STUDY: unknown) Breathing-related Sleep Disorder, Insomnia, EDS, Snoring (unknown) (no (unknown) (unknown) Recording Tech: (units (unknown) date) Mariya Boswell, unknown) RPSGT??? (unknown) (no (unknown) (unknown) Recording Outer Diameter Grinder Tool (uni ts (unknown) date) Observations: unknown) (unknown) (no (unknown) (unknown) Referral Sleep (units (unknown) date) Medicine G47.00 - unknown) Insomnia, unspecified, G47.30 - Sleep apnea, (unknown) (no (unknown) (unknown) Referrals (units (unkn own) date) unknown) (unknown) (no (unknown) (unknown) Referring physician: (uni ts (unknown) date) Juan Pablo Stratton unknown) (unknown) (no (unknown) (unknown) Rera, UAR and SpO2 (units (unknown) date) desaturations to 91%. unknown) Later, frequent mild to moderate snores (unknown) (no (unknown) (unknown) Result Visit is (units (unknown) date) scheduled on: unknown) (unknown) (no (unknown) (unknown) Review of proper (units (unknown) date) sleep hygiene, unknown) including the use of nicotine and excessive (unknown) (no (unknown) (unknown) Emile Velasquez M.D. (units (unknown) date) unknown) (unknown) (no (unknown) (unknown) Mariya Boswell, (unit s (unknown) date) RPSGT unknown) (unknown) (no (unknown) (unknown) Severity OF GERI:??N/A (un its (unknown) date) unknown) (unknown) (no (unknown) (unknown) Signed By: (units (unk nown) date) unknown) (unknown) (no (unknown) (unknown) Sleep Aid used by pt: (un its (unknown) date) ??0 unknown) (unknown) (no (unknown) (unknown) Sleep Procedure (units (unknown) date) unknown) (unknown) (no (unknown) (unknown) Study type: (units (un known) date) NPSG? unknown ) ? (unknown) (no (unknown) (unknown) Tech Observations (units (unknown) date) unknown) (unknown) (no (unknown) (unknown) Tech Observations: (units (unknown) date) unknown) (unknown) (no (unknown) (unknown) Tech Observations: (units (unknown) date) unknown) (unknown) (no (unknown) (unknown) Technologist (units (u nknown) date) Summary:? Pt started unknown) the NPSG in the supine position. Sleep onset (unknown) (no (unknown) (unknown) The EKG showed no (units (unknown) date) significant unknown) arrhythmias. (unknown) (no (unknown) (unknown) The patient should be (un its (unknown) date) advised regarding unknown) safety issues associated with (unknown) (no (unknown) (unknown) The patient underwent (un its (unknown) date) a digital unknown) polysomnographic sleep study is which the (unknown) (no (unknown) (unknown) This nocturnal (units (unknown) date) polysomnographic sleep unknown ) study showed moderate snoring which was (unknown) (no (unknown) (unknown) This note may have (units (unknown) date) been all or partially unknown) generated using voice recognition (unknown) (no (unknown) (unknown) This recording was (units (unknown) date) performed using unknown) [employer] Frequency G3 PSG recording system and (unknown) (no (unknown) (unknown) Weight: 198?lbs (units (unknown) date) unknown) (unknown) (no (unknown) (unknown) [facility] (units (unknown) date) unknown) (unknown) (no (unknown) (unknown) a trial of auto CPAP (uni ts (unknown) date) therapy or return to unknown) the sleep lab for a full-night CPAP (unknown) (no (unknown) (unknown) about 4.5 hours TIB, (uni ts (unknown) date) in supine position, unknown) continuous left PLMs were also (unknown) (no (unknown) (unknown) and pulse oximetry (units (unknown) date) with placement based unknown) on guidelines outlined in the AASM (unknown) (no (unknown) (unknown) caffeine and the (units (unknown) date) avoidance of alcohol unknown) and benzodiazepine hypnotics before be (unknown) (no (unknown) (unknown) continuous in nature. (uni ts (unknown) date) The apnea/hypopnea unknown) index was 11.7 and the sleep efficiency (unknown) (no (unknown) (unknown) deemed to be of (units (unknown) date) adequate quality to unknown) allow interpretation. Scoring was based on (unknown) (no (unknown) (unknown) desaturations to 85%, (un its (unknown) date) during the last unknown) prolonged Stg REM period. (unknown) (no (unknown) (unknown) didn?t wake up as (units (unknown) date) much unknown) (unknown) (no (unknown) (unknown) dtime is also (units ( unknown) date) recommended. unknown) (unknown) (no (unknown) (unknown) effort, nasal and (units (unknown) date) oral airflow, nasal unknown) pressure, leg movements, body position,? (unknown) (no (unknown) (unknown) equipment while in a (uni ts (unknown) date) somnolent state. unknown) (unknown) (no (unknown) (unknown) following were (units (unknown) date) recorded unknown) simultaneously: Electroencephalogram based on the 10-20 (unknown) (no (unknown) (unknown) have occurred. If (units (unknown) date) there are any unknown) questions, please contact the Medical Records (unknown) (no (unknown) (unknown) may occur. (units (unk nown) date) Occasional wrong-word unknown) or 'sound-alike' substitutions may have (unknown) (no (unknown) (unknown) observed. Pt achieved (un its (unknown) date) Stg REM X 4, with unknown) frequent to continuous OH and SpO2 (unknown) (no (unknown) (unknown) obstructive sleep (units (unknown) date) apnea with significant unknown ) desaturation events down to 86%. Given (unknown) (no (unknown) (unknown) occurred due to the (unit s (unknown) date) inherent limitations unknown) of voice recognition software. Please (unknown) (no (unknown) (unknown) procedures could also (un its (unknown) date) be considered. unknown) Attaining optimal weight is recommended. (unknown) (no (unknown) (unknown) read the note (units ( unknown) date) carefully and unknown) recognize, using context, where these substitutions (unknown) (no (unknown) (unknown) scoring manual. Audio (un its (unknown) date) and video recordings unknown) were also obtained at the same time. (unknown) (no (unknown) (unknown) scoring software. The (un its (unknown) date) raw data was reviewed unknown) in its entirety and the data was (unknown) (no (unknown) (unknown) sleepiness, and avoid (un its (unknown) date) operating motor unknown) vehicles or handling heavy/dangerous (unknown) (no (unknown) (unknown) software. 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 (unknown) (no (unknown) (unknown) system, (units (unkno wn) date) electro-oculogram, unknown) electromyogram, electrocardiogram, respiratory (unknown) (no (unknown) (unknown) the Recommended (units (unknown) date) Standards and unknown) Specifications as outlined in the AASM Manual for (unknown) (no (unknown) (unknown) the Scoring of Sleep (uni ts (unknown) date) and Associated Events, unknown ) Version 2.6. (unknown) (no (unknown) (unknown) the history of (units (unknown) date) hypertension and unknown) depression, would recommend the patient undergo (unknown) (no (unknown) (unknown) titration study. (units (unknown) date) Alternative therapies, unknown ) including dental appliances and surgical (unknown) (no (unknown) (unknown) unspecified, R06.83 - (un its (unknown) date) Snoring unknown) (unknown) (no (unknown) (unknown) was 8 minutes, Pt (units (unknown) date) rested quietly through unknown ) NREM. Sleep architecture was normal (unknown) (no (unknown) (unknown) was 89.9%. The PLM (units (unknown) date) index was 6.1. The unknown) sleep study is consistent with mild (unknown) (no (unknown) (unknown) with Depression, (units (unknown) date) Hyperlipidemia, unknown) Abnormal EKG (unknown) (no (unknown) (unknown) with UAR were noted, (uni ts (unknown) date) as well as frequent OH unknown ) and Rera, with SpO2 ryland 85%.After (unknown) (no (unknown) (unknown) with pt achieving all (un its (unknown) date) stages of sleep. IN unknown) Stg REM, pt demonstrated frequent OH, Result panel 10 (unknown) (no (unknown) (unknown) (no value) (units (unk nown) date) unknown) (unknown) (no (unknown) (unknown) Depression (units (unk nown) date) unknown) (unknown) (no (unknown) (unknown) Orders: (units (unkno wn) date) unknown) (unknown) (no (unknown) (unknown) (no value) (units (unk nown) date) unknown) (unknown) (no (unknown) (unknown) (no value) (units (unk nown) date) unknown) (unknown) (no (unknown) (unknown) 0047? (units (unknown) date) unknown) (unknown) (no (unknown) (unknown) 0147? (units (unknown) date) unknown) (unknown) (no (unknown) (unknown) 0247? (units (unknown) date) unknown) (unknown) (no (unknown) (unknown) 0347? (units (unknown) date) unknown) (unknown) (no (unknown) (unknown) 0447? (units (unknown) date) unknown) (unknown) (no (unknown) (unknown) 0525? (units (unknown) date) unknown) (unknown) (no (unknown) (unknown) 09/16/21 1417 (units ( unknown) date) unknown) (unknown) (no (unknown) (unknown) 157? (units ( unknown) date) unknown) (unknown) (no (unknown) (unknown) 2,3,??REM? (unit s (unknown) date) unknown) (unknown) (no (unknown) (unknown) 20? (units (u nknown) date) unknown) (unknown) (no (unknown) (unknown) 2138? (units (unknown) date) unknown) (unknown) (no (unknown) (unknown) 2147? (units (unknown) date) unknown) (unknown) (no (unknown) (unknown) 2247? (units (unknown) date) unknown) (unknown) (no (unknown) (unknown) 2347? (units (unknown) date) unknown) (unknown) (no (unknown) (unknown) 277? (units ( unknown) date) unknown) (unknown) (no (unknown) (unknown) 37? (units (u nknown) date) unknown) (unknown) (no (unknown) (unknown) 397? (units ( unknown) date) unknown) (unknown) (no (unknown) (unknown) 49-75? (units (unknown) date) unknown) (unknown) (no (unknown) (unknown) 517? (units ( unknown) date) unknown) (unknown) (no (unknown) (unknown) 55-72? (units (unknown) date) unknown) (unknown) (no (unknown) (unknown) 55-76? (units (unknown) date) unknown) (unknown) (no (unknown) (unknown) 58-82? (units (unknown) date) unknown) (unknown) (no (unknown) (unknown) 63-75? (units (unknown) date) unknown) (unknown) (no (unknown) (unknown) 637? (units ( unknown) date) unknown) (unknown) (no (unknown) (unknown) 65-71? (units (unknown) date) unknown) (unknown) (no (unknown) (unknown) 66-72? (units (unknown) date) unknown) (unknown) (no (unknown) (unknown) 66-75? (units (unknown) date) unknown) (unknown) (no (unknown) (unknown) 67-73? (units (unknown) date) unknown) (unknown) (no (unknown) (unknown) 757? (units ( unknown) date) unknown) (unknown) (no (unknown) (unknown) 85? (units (u nknown) date) unknown) (unknown) (no (unknown) (unknown) 877? (units ( unknown) date) unknown) (unknown) (no (unknown) (unknown) 91? (units (u nknown) date) unknown) (unknown) (no (unknown) (unknown) 92? (units (u nknown) date) unknown) (unknown) (no (unknown) (unknown) 93? (units (u nknown) date) unknown) (unknown) (no (unknown) (unknown) 954? (units ( unknown) date) unknown) (unknown) (no (unknown) (unknown) 95? (units (u nknown) date) unknown) (unknown) (no (unknown) (unknown) 97? (units (u nknown) date) unknown) (unknown) (no (unknown) (unknown) ? (units (un known) date) unknown) (unknown) (no (unknown) (unknown) ? (units (unkno wn) date) unknown) (unknown) (no (unknown) (unknown) ???Events? (unit s (unknown) date) unknown) (unknown) (no (unknown) (unknown) ???HR? (units (unknown) date) unknown) (unknown) (no (unknown) (unknown) [place] [address] (unit s (unknown) date) unknown) (unknown) (no (unknown) (unknown) Bthrm In and Out?? ? (uni ts (unknown) date) unknown) (unknown) (no (unknown) (unknown) Comments?? ? (units (u nknown) date) unknown) (unknown) (no (unknown) (unknown) Cont OH In REM (units (unknown) date) supine, Rera, UAR, unknown) snores, PLM? (unknown) (no (unknown) (unknown) Epoch? (units (unknown) date) unknown) (unknown) (no (unknown) (unknown) Freq OH + Rera UAR, (unit s (unknown) date) occ snores? unknown) (unknown) (no (unknown) (unknown) Freq OH + (units (unkn own) date) Rera,???UAR, freq unknown) snores? (unknown) (no (unknown) (unknown) Freq OH in REM, Rera, (un its (unknown) date) UAR? unknown) (unknown) (no (unknown) (unknown) L? (units (un known) date) unknown) (unknown) (no (unknown) (unknown) LIGHTS OFF? (units (unknown) date) unknown) (unknown) (no (unknown) (unknown) LIGHTS ON??? (units (u nknown) date) unknown) (unknown) (no (unknown) (unknown) Mild to loud? (unit s (unknown) date) ?? unknown) (unknown) (no (unknown) (unknown) Mild to mod? (un its (unknown) date) unknown) (unknown) (no (unknown) (unknown) Min. SpO2? (unit s (unknown) date) unknown) (unknown) (no (unknown) (unknown) Mostly resting (units (unknown) date) quietly?? ? unknown) (unknown) (no (unknown) (unknown) No? (units (u nknown) date) unknown) (unknown) (no (unknown) (unknown) Occ OH, Rera, UAR, (units (unknown) date) snores? unknown) (unknown) (no (unknown) (unknown) Position? (units (unknown) date) unknown) (unknown) (no (unknown) (unknown) REM, W,1,2? (uni ts (unknown) date) unknown) (unknown) (no (unknown) (unknown) Resting quietly?? ? (unit s (unknown) date) unknown) (unknown) (no (unknown) (unknown) S,L? (units ( unknown) date) unknown) (unknown) (no (unknown) (unknown) S? (units (un known) date) unknown) (unknown) (no (unknown) (unknown) SLEEP ONSET?? ? (units (unknown) date) unknown) (unknown) (no (unknown) (unknown) Signed (units (unkno wn) date) unknown) (unknown) (no (unknown) (unknown) Sleep Visit (units (un known) date) unknown) (unknown) (no (unknown) (unknown) [facility] (un its (unknown) date) unknown) (unknown) (no (unknown) (unknown) Snores? (units (unknown) date) unknown) (unknown) (no (unknown) (unknown) Stages? (units (unknown) date) unknown) (unknown) (no (unknown) (unknown) Time? (units (unknown) date) unknown) (unknown) (no (unknown) (unknown) UAR, a few OH in REM? (un its (unknown) date) ? unknown) (unknown) (no (unknown) (unknown) W,1,2,3? (units (unknown) date) unknown) (unknown) (no (unknown) (unknown) W,1,2,??REM? (un its (unknown) date) unknown) (unknown) (no (unknown) (unknown) W,1? (units ( unknown) date) unknown) (unknown) (no (unknown) (unknown) W? (units (un known) date) unknown) (unknown) (no (unknown) (unknown) n/a? (units ( unknown) date) unknown) (unknown) (no (unknown) (unknown) (no value) (units (unk nown) date) unknown) (unknown) (no (unknown) (unknown) (un its (unknown) date) Scoring unknown) Summary (unknown) (no (unknown) (unknown) *Please reference (units (unknown) date) Sleep Study for unknown) Procedure Documentation (unknown) (no (unknown) (unknown) 09/09/21 (units (unkno wn) date) unknown) (unknown) (no (unknown) (unknown) [id number] (units (unkno wn) date) unknown) (unknown) (no (unknown) (unknown) ? (units (unkno wn) date) unknown) (unknown) (no (unknown) (unknown) ? ? ? (units (unkno wn) date) unknown) (unknown) (no (unknown) (unknown) ? ?L,S,O? (units (unknown) date) unknown) (unknown) (no (unknown) (unknown) ? Mild to ?mod? (uni ts (unknown) date) ? unknown) (unknown) (no (unknown) (unknown) ?86? (units ( unknown) date) unknown) (unknown) (no (unknown) (unknown) ? (un its (unknown) date) ? unknown ) ? (unknown) (no (unknown) (unknown) ?Pt (units (u nknown) date) estimates 6-7 hours of unknown ) sleep and woke up 2-3 times (unknown) (no (unknown) (unknown) ?Pt (units (u nknown) date) [id number] unknown) to fall asleep, which is shorter than usual (unknown) (no (unknown) (unknown) ?Pt feels (units (unknown) date) moderate sleepy and unknown) fatigued, and also moderately alert (unknown) (no (unknown) (unknown) ?Pt says (units (unknown) date) sleep was average, unknown) which is better than usual because she (unknown) (no (unknown) (unknown) ?Pt stated (unit s (unknown) date) she is alert enough to unknown ) drive herself home (unknown) (no (unknown) (unknown) ?Pt states (unit s (unknown) date) no difficulty falling unknown) or staying asleep? (unknown) (no (unknown) (unknown) ?Pt woke up (uni ts (unknown) date) by Tech. unknown) (unknown) (no (unknown) (unknown) ?Arousals: (units (unknown) date) Frequent most of the unknown) time, consistent with OH and Rera (unknown) (no (unknown) (unknown) ?ECG (units (un known) date) Abnormalities:? None unknown) (unknown) (no (unknown) (unknown) ?EEG (units (un known) date) Abnormalities:? None unknown) (unknown) (no (unknown) (unknown) ?Estimated (units (unknown) date) RDI: unknown) 23?AHI: 11 (unknown) (no (unknown) (unknown) ?Nocturia: X 1 (un its (unknown) date) unknown) (unknown) (no (unknown) (unknown) ?PLMS: Noted (unit s (unknown) date) for a short time only unknown) (unknown) (no (unknown) (unknown) ?REM Latency: (uni ts (unknown) date) 67 minutes unknown) (unknown) (no (unknown) (unknown) ?Sleep (units ( unknown) date) Latency: 8.5 minutes unknown) (unknown) (no (unknown) (unknown) ?Snoring: (units (unknown) date) Later in study, unknown) frequent to continuous, mild to mod (unknown) (no (unknown) (unknown) ?Technical (units (unknown) date) Issues: None unknown) (unknown) (no (unknown) (unknown) Add'l Plan Details (units (unknown) date) unknown) (unknown) (no (unknown) (unknown) Add'l Plan*: (units (u nknown) date) unknown) (unknown) (no (unknown) (unknown) Age/Sex: 51 / F (units (unknown) date) Date of Service: unknown) (unknown) (no (unknown) (unknown) Assessment and Plan (unit s (unknown) date) unknown) (unknown) (no (unknown) (unknown) Attending Dr: Emile (uni ts (unknown) date) Eva POWELL unknown) (unknown) (no (unknown) (unknown) [place] A: Obstructive (un its (unknown) date) Sleep Apnea, Mild unknown) (G47.33) (unknown) (no (unknown) (unknown) [place] B: (units (unkno wn) date) Polysomnogram (89.17) unknown) (unknown) (no (unknown) (unknown) [place] C: (units (unkno wn) date) Hypertension unknown) (unknown) (no (unknown) (unknown) Bed #:? 2 (units (unkn own) date) unknown) (unknown) (no (unknown) (unknown) DATE: 09/09/2021 (units (unknown) date) unknown) (unknown) (no (unknown) (unknown) : 1970 (units (unknown) date) Acct:[id number] unknown) (unknown) (no (unknown) (unknown) Dept at (units (unkno wn) date) . unknown) (unknown) (no (unknown) (unknown) Diplomat, [place] (units (unknown) date) Board of Sleep unknown) Medicine (unknown) (no (unknown) (unknown) Documented By: (units (unknown) date) Emile Velasquez MD unknown) 09/16/21 1201 (unknown) (no (unknown) (unknown) ESS: 5? (units (unkno wn) date) unknown) (unknown) (no (unknown) (unknown) FAAP, sub-specialty (unit s (unknown) date) boards in Sleep unknown) Medicine (unknown) (no (unknown) (unknown) Height: 66? (units (un known) date) unknown) (unknown) (no (unknown) (unknown) IMPRESSION: (units (un known) date) unknown) (unknown) (no (unknown) (unknown) [facility] (un its (unknown) date) [facility]) (unknown) (no (unknown) (unknown) If there are any (units (unknown) date) questions regarding unknown) this patient please contact us at the Sleep (unknown) (no (unknown) (unknown) Insurance info: (units (unknown) date) Prime unknown) (unknown) (no (unknown) (unknown) Loc: SLEEP (units (unk nown) date) unknown) (unknown) (no (unknown) (unknown) Medication:?Ketorolac (un its (unknown) date) , Omeprazole unknown) Magnesium, Thyroid (pork) (unknown) (no (unknown) (unknown) Morning Comments:? (units (unknown) date) unknown) (unknown) (no (unknown) (unknown) Neck (units (unkno wn) date) Circumference:?14? unknown) (unknown) (no (unknown) (unknown) Ordering (units (unkno wn) date) Physician:?Dr. Baptiste unknown) Eva (unknown) (no (unknown) (unknown) Patient Medical (units (unknown) date) History:?EDS, unknown) Hypothyroidism, Fibromyalgia, Migraines, Anxiety (unknown) (no (unknown) (unknown) Patient Name: ?PITA (unit s (unknown) date) RACHEL? MR#: unknown ) [id number]?: 1970 (unknown) (no (unknown) (unknown) Patient: Pita Perez (un its (unknown) date) D MR#: [id number] unknown) (unknown) (no (unknown) (unknown) Performed by (units (u nknown) date) unknown) (unknown) (no (unknown) (unknown) Performed by: (units ( unknown) date) unknown) (unknown) (no (unknown) (unknown) Previous Sleep (units (unknown) date) Studies:?None??? unknown) (unknown) (no (unknown) (unknown) RECOMMENDATION: (units (unknown) date) unknown) (unknown) (no (unknown) (unknown) Reason for SLEEP (units (unknown) date) STUDY: unknown) Breathing-related Sleep Disorder, Insomnia, EDS, Snoring (unknown) (no (unknown) (unknown) Recording Tech: (units (unknown) date) Mariya Boswell, unknown) RPSGT??? (unknown) (no (unknown) (unknown) Recording Outer [employer] (uni ts (unknown) date) Observations: unknown) (unknown) (no (unknown) (unknown) Referral Sleep (units (unknown) date) Medicine G47.00 - unknown) Insomnia, unspecified, G47.30 - Sleep apnea, (unknown) (no (unknown) (unknown) Referrals (units (unkn own) date) unknown) (unknown) (no (unknown) (unknown) Referring physician: (uni ts (unknown) date) Juan Pablo Stratton unknown) (unknown) (no (unknown) (unknown) Rera, UAR and SpO2 (units (unknown) date) desaturations to 91%. unknown) Later, frequent mild to moderate snores (unknown) (no (unknown) (unknown) Result Visit is (units (unknown) date) scheduled on: unknown) (unknown) (no (unknown) (unknown) Review of proper (units (unknown) date) sleep hygiene, unknown) including the use of nicotine and excessive (unknown) (no (unknown) (unknown) Emile Velasquez M.D. (units (unknown) date) unknown) (unknown) (no (unknown) (unknown) Mariya Boswell, (unit s (unknown) date) RPSGT unknown) (unknown) (no (unknown) (unknown) Severity OF GERI:??N/A (un its (unknown) date) unknown) (unknown) (no (unknown) (unknown) Signed By: (units (unk nown) date) <Electronically signed unknown ) by Emile Velasquez MD> (unknown) (no (unknown) (unknown) Sleep Aid used by pt: (un its (unknown) date) ??0 unknown) (unknown) (no (unknown) (unknown) Sleep Procedure (units (unknown) date) unknown) (unknown) (no (unknown) (unknown) Study type: (units (un known) date) NPSG? unknown ) ? (unknown) (no (unknown) (unknown) Tech Observations (units (unknown) date) unknown) (unknown) (no (unknown) (unknown) Tech Observations: (units (unknown) date) unknown) (unknown) (no (unknown) (unknown) Tech Observations: (units (unknown) date) unknown) (unknown) (no (unknown) (unknown) Technologist (units (u nknown) date) Summary:? Pt started unknown) the NPSG in the supine position. Sleep onset (unknown) (no (unknown) (unknown) The EKG showed no (units (unknown) date) significant unknown) arrhythmias. (unknown) (no (unknown) (unknown) The patient should be (un its (unknown) date) advised regarding unknown) safety issues associated with (unknown) (no (unknown) (unknown) The patient underwent (un its (unknown) date) a digital unknown) polysomnographic sleep study is which the (unknown) (no (unknown) (unknown) This nocturnal (units (unknown) date) polysomnographic sleep unknown ) study showed moderate snoring which was (unknown) (no (unknown) (unknown) This note may have (units (unknown) date) been all or partially unknown) generated using voice recognition (unknown) (no (unknown) (unknown) This recording was (units (unknown) date) performed using unknown) [employer] G3 PSG recording system and (unknown) (no (unknown) (unknown) Weight: 198?lbs (units (unknown) date) unknown) (unknown) (no (unknown) (unknown) [facility] (units (unknown) date) unknown) (unknown) (no (unknown) (unknown) a trial of auto CPAP (uni ts (unknown) date) therapy or return to unknown) the sleep lab for a full-night CPAP (unknown) (no (unknown) (unknown) about 4.5 hours TIB, (uni ts (unknown) date) in supine position, unknown) continuous left PLMs were also (unknown) (no (unknown) (unknown) and pulse oximetry (units (unknown) date) with placement based unknown) on guidelines outlined in the AASM (unknown) (no (unknown) (unknown) caffeine and the (units (unknown) date) avoidance of alcohol unknown) and benzodiazepine hypnotics before be (unknown) (no (unknown) (unknown) continuous in nature. (uni ts (unknown) date) The apnea/hypopnea unknown) index was 11.7 and the sleep efficiency (unknown) (no (unknown) (unknown) deemed to be of (units (unknown) date) adequate quality to unknown) allow interpretation. Scoring was based on (unknown) (no (unknown) (unknown) desaturations to 85%, (un its (unknown) date) during the last unknown) prolonged Stg REM period. (unknown) (no (unknown) (unknown) didn?t wake up as (units (unknown) date) much unknown) (unknown) (no (unknown) (unknown) dtime is also (units ( unknown) date) recommended. unknown) (unknown) (no (unknown) (unknown) effort, nasal and (units (unknown) date) oral airflow, nasal unknown) pressure, leg movements, body position,? (unknown) (no (unknown) (unknown) equipment while in a (uni ts (unknown) date) somnolent state. unknown) (unknown) (no (unknown) (unknown) following were (units (unknown) date) recorded unknown) simultaneously: Electroencephalogram based on the 10-20 (unknown) (no (unknown) (unknown) have occurred. If (units (unknown) date) there are any unknown) questions, please contact the Medical Records (unknown) (no (unknown) (unknown) may occur. (units (unk nown) date) Occasional wrong-word unknown) or 'sound-alike' substitutions may have (unknown) (no (unknown) (unknown) observed. Pt achieved (un its (unknown) date) Stg REM X 4, with unknown) frequent to continuous OH and SpO2 (unknown) (no (unknown) (unknown) obstructive sleep (units (unknown) date) apnea with significant unknown ) desaturation events down to 86%. Given (unknown) (no (unknown) (unknown) occurred due to the (unit s (unknown) date) inherent limitations unknown) of voice recognition software. Please (unknown) (no (unknown) (unknown) procedures could also (un its (unknown) date) be considered. unknown) Attaining optimal weight is recommended. (unknown) (no (unknown) (unknown) read the note (units ( unknown) date) carefully and unknown) recognize, using context, where these substitutions (unknown) (no (unknown) (unknown) scoring manual. Audio (un its (unknown) date) and video recordings unknown) were also obtained at the same time. (unknown) (no (unknown) (unknown) scoring software. The (un its (unknown) date) raw data was reviewed unknown) in its entirety and the data was (unknown) (no (unknown) (unknown) sleepiness, and avoid (un its (unknown) date) operating motor unknown) vehicles or handling heavy/dangerous (unknown) (no (unknown) (unknown) software. 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 (unknown) (no (unknown) (unknown) system, (units (unkno wn) date) electro-oculogram, unknown) electromyogram, electrocardiogram, respiratory (unknown) (no (unknown) (unknown) the Recommended (units (unknown) date) Standards and unknown) Specifications as outlined in the AASM Manual for (unknown) (no (unknown) (unknown) the Scoring of Sleep (uni ts (unknown) date) and Associated Events, unknown ) Version 2.6. (unknown) (no (unknown) (unknown) the history of (units (unknown) date) hypertension and unknown) depression, would recommend the patient undergo (unknown) (no (unknown) (unknown) titration study. (units (unknown) date) Alternative therapies, unknown ) including dental appliances and surgical (unknown) (no (unknown) (unknown) unspecified, R06.83 - (un its (unknown) date) Snoring unknown) (unknown) (no (unknown) (unknown) was 8 minutes, Pt (units (unknown) date) rested quietly through unknown ) NREM. Sleep architecture was normal (unknown) (no (unknown) (unknown) was 89.9%. The PLM (units (unknown) date) index was 6.1. The unknown) sleep study is consistent with mild (unknown) (no (unknown) (unknown) with Depression, (units (unknown) date) Hyperlipidemia, unknown) Abnormal EKG (unknown) (no (unknown) (unknown) with UAR were noted, (uni ts (unknown) date) as well as frequent OH unknown ) and Rera, with SpO2 ryland 85%.After (unknown) (no (unknown) (unknown) with pt achieving all (un its (unknown) date) stages of sleep. IN unknown) Stg REM, pt demonstrated frequent OH, Result panel 11 (unknown) (no (unknown) (unknown) (no value) (units (unk nown) date) unknown) (unknown) (no (unknown) (unknown) (no value) (units (unk nown) date) unknown) (unknown) (no (unknown) (unknown) (no value) (units (unk nown) date) unknown) (unknown) (no (unknown) (unknown) 09/24/21 (units (unkno wn) date) unknown) (unknown) (no (unknown) (unknown) 13:05 (units (unkno wn) date) unknown) (unknown) (no (unknown) (unknown) [place] [address] (unit s (unknown) date) unknown) (unknown) (no (unknown) (unknown) Draft (units (unkno wn) date) unknown) (unknown) (no (unknown) (unknown) Sleep Visit (units (un known) date) unknown) (unknown) (no (unknown) (unknown) [facility]) (unknown) (no (unknown) (unknown) (no value) (units (unk nown) date) unknown) (unknown) (no (unknown) (unknown) PLM index was 6.1. (units (unknown) date) Sleep study is unknown) consistent with mild obstructive sleep apnea (unknown) (no (unknown) (unknown) 09/24/21 (units (unkno wn) date) unknown) (unknown) (no (unknown) (unknown) 09/24/21] (units (unkn own) date) unknown) (unknown) (no (unknown) (unknown) 20 mg PO DAILY (units (unknown) date) 05/07/21 [History unknown) Confirmed 09/24/21] (unknown) (no (unknown) (unknown) [id number] (units (unkno wn) date) unknown) (unknown) (no (unknown) (unknown) Adult general (units ( unknown) date) medical exam unknown) (unknown) (no (unknown) (unknown) Age/Sex: 51 / F (units (unknown) date) Date of Service: unknown) (unknown) (no (unknown) (unknown) Allergies (units (unkn own) date) unknown) (unknown) (no (unknown) (unknown) Anesthesia (units (unk nown) date) unknown) (unknown) (no (unknown) (unknown) Attaining optimal (units (unknown) date) weight is also unknown) recommended. (unknown) (no (unknown) (unknown) Attending Dr: Regan (unit s (unknown) date) Isiah ESPINAL unknown) (unknown) (no (unknown) (unknown) BMI 31.4 (units (un known) date) unknown) (unknown) (no (unknown) (unknown) BP 178/110 H (units (unknown) date) unknown) (unknown) (no (unknown) (unknown) Blood Pressure (units (unknown) date) Location Lt unknown) brachial (unknown) (no (unknown) (unknown) CODEINE Allergy (units (unknown) date) (Unknown, Uncoded unknown) 09/24/21 13:04) (unknown) (no (unknown) (unknown) Chief Complaint: (units (unknown) date) NPSG results review unknown) (unknown) (no (unknown) (unknown) Chronic back pain (units (unknown) date) unknown) (unknown) (no (unknown) (unknown) Colon polyps () (uni ts (unknown) date) unknown) (unknown) (no (unknown) (unknown) : 1970 (units (unknown) date) Acct:[id number] unknown) (unknown) (no (unknown) (unknown) Daytime sleepiness (units (unknown) date) unknown) (unknown) (no (unknown) (unknown) Dept at (units (unkno wn) date) . unknown) (unknown) (no (unknown) (unknown) Documented By: (units (unknown) date) Regan Joyce unknown) 09/24/21 1301 (unknown) (no (unknown) (unknown) EKG showed no (units ( unknown) date) significant unknown) arrhythmias. (unknown) (no (unknown) (unknown) Elevated Blood (units (unknown) date) Pressure. unknown) (unknown) (no (unknown) (unknown) Family History (units (unknown) date) (Reviewed 08/14/21 @ unknown) 09:38 by Emile Velasquez MD) (unknown) (no (unknown) (unknown) Father Prostate (units (unknown) date) cancer unknown) (unknown) (no (unknown) (unknown) HPI (units (unkno wn) date) unknown) (unknown) (no (unknown) (unknown) Height 5 ft 6 in (unit s (unknown) date) unknown) (unknown) (no (unknown) (unknown) History of ITP (units (unknown) date) () unknown) (unknown) (no (unknown) (unknown) History of (units (unk nown) date) craniotomy unknown) (unknown) (no (unknown) (unknown) Intake (units (unkno wn) date) unknown) (unknown) (no (unknown) (unknown) Loc: SLEEP (units (unk nown) date) unknown) (unknown) (no (unknown) (unknown) MORPHINE Allergy (units (unknown) date) (Unknown, Uncoded unknown) 09/24/21 13:04) (unknown) (no (unknown) (unknown) Medical History (units (unknown) date) (Reviewed 08/14/21 @ unknown) 09:38 by Emile Velasquez MD) (unknown) (no (unknown) (unknown) Medications (units (un known) date) unknown) (unknown) (no (unknown) (unknown) Ovarian cyst (-1987) (uni ts (unknown) date) unknown) (unknown) (no (unknown) (unknown) PFSH (units (unkno wn) date) unknown) (unknown) (no (unknown) (unknown) Pain (units (unkno wn) date) unknown) (unknown) (no (unknown) (unknown) Pain scale (1-10): 4 (uni ts (unknown) date) unknown) (unknown) (no (unknown) (unknown) Patient: (units (unkno wn) date) Pita Perez Malcom unknown) MR#: [id number] (unknown) (no (unknown) (unknown) Position Sitting (unit s (unknown) date) unknown) (unknown) (no (unknown) (unknown) Propoxyphene Allergy (uni ts (unknown) date) (Unknown, Uncoded unknown) 09/24/21 13:04) (unknown) (no (unknown) (unknown) Pt here for follow (units (unknown) date) up of Sleep Study unknown) Follow Up Visit Reason (describe): (unknown) (no (unknown) (unknown) Pt here for follow (units (unknown) date) up of an overnight unknown) attended diagnostic sleep study (unknown) (no (unknown) (unknown) Pulse 87 (units (un known) date) unknown) (unknown) (no (unknown) (unknown) Pulse Source (units (u nknown) date) Monitor unknown) (unknown) (no (unknown) (unknown) Reason For Visit (units (unknown) date) unknown) (unknown) (no (unknown) (unknown) Respiration 14 (units (unknown) date) unknown) (unknown) (no (unknown) (unknown) Results reviewed. (units (unknown) date) Implications of unknown) findings discussed. NPSG revealed continuous (unknown) (no (unknown) (unknown) Review of sleep (units (unknown) date) hygiene reviewed. unknown) (unknown) (no (unknown) (unknown) SULFA Allergy (units ( unknown) date) (Unknown, Uncoded unknown) 09/24/21 13:04) (unknown) (no (unknown) (unknown) Safety issues (units ( unknown) date) reviewed associated unknown) with sleepiness, operating motor vehicles and (unknown) (no (unknown) (unknown) Screening for (units ( unknown) date) malignant neoplasm of unknown) colon (unknown) (no (unknown) (unknown) Signed By: (units (unk nown) date) unknown) (unknown) (no (unknown) (unknown) Sleep Study Follow (units (unknown) date) Up Chief Complaint: unknown) Attended sleep study (unknown) (no (unknown) (unknown) Sleep Study Results (unit s (unknown) date) Follow Up unknown) (unknown) (no (unknown) (unknown) Smoking Status: (units (unknown) date) Former smoker unknown) (unknown) (no (unknown) (unknown) Surgical History (units (unknown) date) (Reviewed 08/14/21 @ unknown) 09:38 by Emile Velasquez MD) (unknown) (no (unknown) (unknown) Temp 98.3 F (units (unknown) date) unknown) (unknown) (no (unknown) (unknown) Temp Source (units (un known) date) Temporal Artery Scan unknown) (unknown) (no (unknown) (unknown) This note may have (units (unknown) date) been all or partially unknown) generated using voice recognition (unknown) (no (unknown) (unknown) Thyroid nodule (units (unknown) date) (-1998) unknown) (unknown) (no (unknown) (unknown) Tobacco + Substance (unit s (unknown) date) Use unknown) (unknown) (no (unknown) (unknown) Tobacco Status (units (unknown) date) unknown) (unknown) (no (unknown) (unknown) Visit Reasons: NPSG (unit s (unknown) date) RESULTS unknown) (unknown) (no (unknown) (unknown) Vitals (units (unkno wn) date) unknown) (unknown) (no (unknown) (unknown) Weight 195 lb (units (unknown) date) unknown) (unknown) (no (unknown) (unknown) [Rx Confirmed (units ( unknown) date) 09/24/21] unknown) (unknown) (no (unknown) (unknown) azithromycin [From (units (unknown) date) Zithromax] Allergy unknown) (Unknown, Verified 09/24/21 13:04) (unknown) (no (unknown) (unknown) cephalexin [From (units (unknown) date) Keflex] Allergy unknown) (Unknown, Verified 09/24/21 13:04) (unknown) (no (unknown) (unknown) cimetidine [From (units (unknown) date) Tagamet] Allergy unknown) (Unknown, Verified 09/24/21 13:04) (unknown) (no (unknown) (unknown) have occurred. If (units (unknown) date) there are any unknown) questions, please contact the Medical Records (unknown) (no (unknown) (unknown) hydrochlorothiazide (unit s (unknown) date) Allergy (Verified unknown) 09/24/21 13:04) (unknown) (no (unknown) (unknown) hypertension and (units (unknown) date) depression, unknown) recommendations for trial of auto CPAP therapy or (unknown) (no (unknown) (unknown) including dental (units (unknown) date) appliances and unknown) surgical procedures could also be considered. (unknown) (no (unknown) (unknown) ketorolac 10 mg (units (unknown) date) tablet 10 mg PO Q6H unknown) PRN pain #14 tabs 11/02/20 [Rx Confirmed (unknown) (no (unknown) (unknown) may occur. (units (unk nown) date) Occasional wrong-word unknown) or 'sound-alike' substitutions may have (unknown) (no (unknown) (unknown) moderate snoring. (units (unknown) date) Apnea-hypopnea index unknown) was 11.7 the sleep efficiency was 89.9%. (unknown) (no (unknown) (unknown) occurred due to the (unit s (unknown) date) inherent limitations unknown) of voice recognition software. Please (unknown) (no (unknown) (unknown) omeprazole magnesium (uni ts (unknown) date) 20 mg capsule,delayed unknown) release (Acid Imaging Clerk (omeprazole)) (unknown) (no (unknown) (unknown) or heavy, dangerous (unit s (unknown) date) equipment. unknown) (unknown) (no (unknown) (unknown) oxycodone [From (units (unknown) date) Percocet] Allergy unknown) (Unknown, Verified 09/24/21 13:04) (unknown) (no (unknown) (unknown) read the note (units ( unknown) date) carefully and unknown) recognize, using context, where these substitutions (unknown) (no (unknown) (unknown) return to sleep lab (unit s (unknown) date) for full night CPAP unknown) titration study. Alternative therapies (unknown) (no (unknown) (unknown) software. 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 (unknown) (no (unknown) (unknown) thyroid (pork) 15 mg (uni ts (unknown) date) tablet ([place] unknown) Thyroid) 15 mg PO DAILY #30 tabs 04/29/21 (unknown) (no (unknown) (unknown) thyroid (pork) 30 mg (uni ts (unknown) date) tablet ([place] unknown) Thyroid) 30 mg PO DAILY #30 tabs 04/29/21 (unknown) (no (unknown) (unknown) with significant (units (unknown) date) desaturation events unknown) down to 86%. Given the history of Result panel 12 (unknown) (no (unknown) (unknown) (no value) (units (unk nown) date) unknown) (unknown) (no (unknown) (unknown) (no value) (units (unk nown) date) unknown) (unknown) (no (unknown) (unknown) (no value) (units (unk nown) date) unknown) (unknown) (no (unknown) (unknown) LACY [place] [id number] (unit s (unknown) date) unknown) (unknown) (no (unknown) (unknown) Draft (units (unkno wn) date) unknown) (unknown) (no (unknown) (unknown) Sleep Visit (units (un known) date) unknown) (unknown) (no (unknown) (unknown) [facility] unknown) (unknown) (no (unknown) (unknown) (no value) (units (unk nown) date) unknown) (unknown) (no (unknown) (unknown) PLM index was 6.1. (units (unknown) date) Sleep study is unknown) consistent with mild obstructive sleep apnea (unknown) (no (unknown) (unknown) 'every test in the (units (unknown) date) world and everything unknown) is fine'. We discussed the implications (unknown) (no (unknown) (unknown) 09/24/21 (units (unkno wn) date) unknown) (unknown) (no (unknown) (unknown) 09/24/21] (units (unkn own) date) unknown) (unknown) (no (unknown) (unknown) 20 mg PO DAILY (units (unknown) date) 05/07/21 [History unknown) Confirmed 09/24/21] (unknown) (no (unknown) (unknown) [id number] (units (unkno wn) date) unknown) (unknown) (no (unknown) (unknown) Adult general (units ( unknown) date) medical exam unknown) (unknown) (no (unknown) (unknown) Age/Sex: 51 / F (units (unknown) date) Date of Service: unknown) (unknown) (no (unknown) (unknown) Allergies (units (unkn own) date) unknown) (unknown) (no (unknown) (unknown) Anesthesia (units (unk nown) date) unknown) (unknown) (no (unknown) (unknown) Attaining optimal (units (unknown) date) weight is also unknown) recommended. (unknown) (no (unknown) (unknown) Attending Dr: Regan (unit s (unknown) date) Isiah ESPINAL unknown) (unknown) (no (unknown) (unknown) CODEINE Allergy (units (unknown) date) (Unknown, Uncoded unknown) 09/24/21 13:04) (unknown) (no (unknown) (unknown) Chief Complaint: (units (unknown) date) NPSG results review unknown) (unknown) (no (unknown) (unknown) Chronic back pain (units (unknown) date) unknown) (unknown) (no (unknown) (unknown) Colon polyps (-1999) (uni ts (unknown) date) unknown) (unknown) (no (unknown) (unknown) : 1970 (units (unknown) date) Acct:[id number] unknown) (unknown) (no (unknown) (unknown) Daytime sleepiness (units (unknown) date) unknown) (unknown) (no (unknown) (unknown) Dept at (units (unkno wn) date) . unknown) (unknown) (no (unknown) (unknown) Documented By: (units (unknown) date) Regan Joyce unknown) 09/24/21 1301 (unknown) (no (unknown) (unknown) EKG showed no (units ( unknown) date) significant unknown) arrhythmias. (unknown) (no (unknown) (unknown) Elevated Blood (units (unknown) date) Pressure. Has had unknown) numerous workups in the ED, does not take (unknown) (no (unknown) (unknown) Family History (units (unknown) date) (Reviewed 08/14/21 @ unknown) 09:38 by Emile Velasquez MD) (unknown) (no (unknown) (unknown) Father Prostate (units (unknown) date) cancer unknown) (unknown) (no (unknown) (unknown) HPI (units (unkno wn) date) unknown) (unknown) (no (unknown) (unknown) History of ITP (units (unknown) date) () unknown) (unknown) (no (unknown) (unknown) History of (units (unk nown) date) craniotomy unknown) (unknown) (no (unknown) (unknown) Intake (units (unkno wn) date) unknown) (unknown) (no (unknown) (unknown) Loc: [facility] (units (unk nown) date) unknown) (unknown) (no (unknown) (unknown) MORPHINE Allergy (units (unknown) date) (Unknown, Uncoded unknown) 09/24/21 13:04) (unknown) (no (unknown) (unknown) Medical History (units (unknown) date) (Reviewed 08/14/21 @ unknown) 09:38 by Emile Velasquez MD) (unknown) (no (unknown) (unknown) Medications (units (un known) date) unknown) (unknown) (no (unknown) (unknown) Ovarian cyst (-1987) (uni ts (unknown) date) unknown) (unknown) (no (unknown) (unknown) PFSH (units (unkno wn) date) unknown) (unknown) (no (unknown) (unknown) Pain (units (unkno wn) date) unknown) (unknown) (no (unknown) (unknown) Pain scale (1-10): 4 (uni ts (unknown) date) unknown) (unknown) (no (unknown) (unknown) Patient: (units (unkno wn) date) Pita Perez D unknown) MR#: [id number] (unknown) (no (unknown) (unknown) Propoxyphene Allergy (uni ts (unknown) date) (Unknown, Uncoded unknown) 09/24/21 13:04) (unknown) (no (unknown) (unknown) Pt here for follow (units (unknown) date) up of Sleep Study unknown) Follow Up Visit Reason (describe): (unknown) (no (unknown) (unknown) Pt here for follow (units (unknown) date) up of an overnight unknown) attended diagnostic sleep study (unknown) (no (unknown) (unknown) Reason For Visit (units (unknown) date) unknown) (unknown) (no (unknown) (unknown) Results reviewed. (units (unknown) date) Implications of unknown) findings discussed. NPSG revealed continuous (unknown) (no (unknown) (unknown) Review of sleep (units (unknown) date) hygiene reviewed. unknown) (unknown) (no (unknown) (unknown) SULFA Allergy (units ( unknown) date) (Unknown, Uncoded unknown) 09/24/21 13:04) (unknown) (no (unknown) (unknown) Safety issues (units ( unknown) date) reviewed associated unknown) with sleepiness, operating motor vehicles and (unknown) (no (unknown) (unknown) Screening for (units ( unknown) date) malignant neoplasm of unknown) colon (unknown) (no (unknown) (unknown) Signed By: (units (unk nown) date) unknown) (unknown) (no (unknown) (unknown) Sleep Study Follow (units (unknown) date) Up Chief Complaint: unknown) Attended sleep study (unknown) (no (unknown) (unknown) Sleep Study Results (unit s (unknown) date) Follow Up unknown) (unknown) (no (unknown) (unknown) Smoking Status: (units (unknown) date) Former smoker unknown) (unknown) (no (unknown) (unknown) Surgical History (units (unknown) date) (Reviewed 08/14/21 @ unknown) 09:38 by Emile Velasquez MD) (unknown) (no (unknown) (unknown) This note may have (units (unknown) date) been all or partially unknown) generated using voice recognition (unknown) (no (unknown) (unknown) Thyroid nodule (units (unknown) date) (-1998) unknown) (unknown) (no (unknown) (unknown) Tobacco + Substance (unit s (unknown) date) Use unknown) (unknown) (no (unknown) (unknown) Tobacco Status (units (unknown) date) unknown) (unknown) (no (unknown) (unknown) Visit Reasons: NPSG (unit s (unknown) date) RESULTS unknown) (unknown) (no (unknown) (unknown) [Rx Confirmed (units ( unknown) date) 09/24/21] unknown) (unknown) (no (unknown) (unknown) azithromycin [From (units (unknown) date) Zithromax] Allergy unknown) (Unknown, Verified 09/24/21 13:04) (unknown) (no (unknown) (unknown) cephalexin [From (units (unknown) date) Keflex] Allergy unknown) (Unknown, Verified 09/24/21 13:04) (unknown) (no (unknown) (unknown) cimetidine [From (units (unknown) date) Tagamet] Allergy unknown) (Unknown, Verified 09/24/21 13:04) (unknown) (no (unknown) (unknown) elevated blood (units (unknown) date) pressure. unknown) (unknown) (no (unknown) (unknown) have occurred. If (units (unknown) date) there are any unknown) questions, please contact the Medical Records (unknown) (no (unknown) (unknown) hydrochlorothiazide (unit s (unknown) date) Allergy (Verified unknown) 09/24/21 13:04) (unknown) (no (unknown) (unknown) hypertension and (units (unknown) date) depression, unknown) recommendations for trial of auto CPAP therapy or (unknown) (no (unknown) (unknown) including dental (units (unknown) date) appliances and unknown) surgical procedures could also be considered. (unknown) (no (unknown) (unknown) ketorolac 10 mg (units (unknown) date) tablet 10 mg PO Q6H unknown) PRN pain #14 tabs 11/02/20 [Rx Confirmed (unknown) (no (unknown) (unknown) may occur. (units (unk nown) date) Occasional wrong-word unknown) or 'sound-alike' substitutions may have (unknown) (no (unknown) (unknown) medications. States (unit s (unknown) date) these are just spikes unknown) and is not concerned. I have had (unknown) (no (unknown) (unknown) moderate snoring. (units (unknown) date) Apnea-hypopnea index unknown) was 11.7 the sleep efficiency was 89.9%. (unknown) (no (unknown) (unknown) occurred due to the (unit s (unknown) date) inherent limitations unknown) of voice recognition software. Please (unknown) (no (unknown) (unknown) of elevated blood (units (unknown) date) pressure and she unknown) verbalized understanding of the dangers in (unknown) (no (unknown) (unknown) omeprazole magnesium (uni ts (unknown) date) 20 mg capsule,delayed unknown) release (Acid Imaging Clerk (omeprazole)) (unknown) (no (unknown) (unknown) or heavy, dangerous (unit s (unknown) date) equipment. unknown) (unknown) (no (unknown) (unknown) oxycodone [From (units (unknown) date) Percocet] Allergy unknown) (Unknown, Verified 09/24/21 13:04) (unknown) (no (unknown) (unknown) read the note (units ( unknown) date) carefully and unknown) recognize, using context, where these substitutions (unknown) (no (unknown) (unknown) return to sleep lab (unit s (unknown) date) for full night CPAP unknown) titration study. Alternative therapies (unknown) (no (unknown) (unknown) software. 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 (unknown) (no (unknown) (unknown) thyroid (pork) 15 mg (uni ts (unknown) date) tablet ([place] unknown) Thyroid) 15 mg PO DAILY #30 tabs 04/29/21 (unknown) (no (unknown) (unknown) thyroid (pork) 30 mg (uni ts (unknown) date) tablet ([place] unknown) Thyroid) 30 mg PO DAILY #30 tabs 04/29/21 (unknown) (no (unknown) (unknown) with significant (units (unknown) date) desaturation events unknown) down to 86%. Given the history of Result panel 13 (unknown) (no (unknown) (unknown) (no value) (units (unk nown) date) unknown) (unknown) (no (unknown) (unknown) (no value) (units (unk nown) date) unknown) (unknown) (no (unknown) (unknown) (no value) (units (unk nown) date) unknown) (unknown) (no (unknown) (unknown) LACY [place] [id number] (unit s (unknown) date) unknown) (unknown) (no (unknown) (unknown) Draft (units (unkno wn) date) unknown) (unknown) (no (unknown) (unknown) Sleep Visit (units (un known) date) unknown) (unknown) (no (unknown) (unknown) [facility]) (unknown) (no (unknown) (unknown) (no value) (units (unk nown) date) unknown) (unknown) (no (unknown) (unknown) PLM index was 6.1. (units (unknown) date) Sleep study is unknown) consistent with mild obstructive sleep apnea (unknown) (no (unknown) (unknown) 'every test in the (units (unknown) date) world and everything unknown) is fine'. We discussed the implications (unknown) (no (unknown) (unknown) 09/24/21 (units (unkno wn) date) unknown) (unknown) (no (unknown) (unknown) 09/24/21] (units (unkn own) date) unknown) (unknown) (no (unknown) (unknown) 20 mg PO DAILY (units (unknown) date) 05/07/21 [History unknown) Confirmed 09/24/21] (unknown) (no (unknown) (unknown) [id number] (units (unkno wn) date) unknown) (unknown) (no (unknown) (unknown) Adult general (units ( unknown) date) medical exam unknown) (unknown) (no (unknown) (unknown) Age/Sex: 51 / F (units (unknown) date) Date of Service: unknown) (unknown) (no (unknown) (unknown) Allergies (units (unkn own) date) unknown) (unknown) (no (unknown) (unknown) Anesthesia (units (unk nown) date) unknown) (unknown) (no (unknown) (unknown) Attaining optimal (units (unknown) date) weight is also unknown) recommended. (unknown) (no (unknown) (unknown) Attending Dr: Regan (unit s (unknown) date) Isiah ESPINAL unknown) (unknown) (no (unknown) (unknown) CODEINE Allergy (units (unknown) date) (Unknown, Uncoded unknown) 09/24/21 13:04) (unknown) (no (unknown) (unknown) Cardiac (units (unkno wn) date) unknown) (unknown) (no (unknown) (unknown) Chief Complaint: (units (unknown) date) NPSG results review unknown) (unknown) (no (unknown) (unknown) Chronic back pain (units (unknown) date) unknown) (unknown) (no (unknown) (unknown) Colon polyps (-1999) (uni ts (unknown) date) unknown) (unknown) (no (unknown) (unknown) Const (units (unkno wn) date) unknown) (unknown) (no (unknown) (unknown) : 1970 (units (unknown) date) Acct:[id number] unknown) (unknown) (no (unknown) (unknown) Daytime sleepiness (units (unknown) date) unknown) (unknown) (no (unknown) (unknown) Denies chest pain or (uni ts (unknown) date) nocturnal unknown) palpitations (unknown) (no (unknown) (unknown) Denies chills, (units (unknown) date) Reports fatigue, unknown) Reports lethargy, Reports night sweats, Reports (unknown) (no (unknown) (unknown) Denies dyspnea at (units (unknown) date) night or cough unknown) (unknown) (no (unknown) (unknown) Denies nocturia (units (unknown) date) unknown) (unknown) (no (unknown) (unknown) Dept at (units (unkno wn) date) . unknown) (unknown) (no (unknown) (unknown) Documented By: (units (unknown) date) Regan JoyceP unknown) 09/24/21 1301 (unknown) (no (unknown) (unknown) EKG showed no (units ( unknown) date) significant unknown) arrhythmias. (unknown) (no (unknown) (unknown) ENT (units (unkno wn) date) unknown) (unknown) (no (unknown) (unknown) Elevated Blood (units (unknown) date) Pressure. Has had unknown) numerous workups in the ED, does not take (unknown) (no (unknown) (unknown) Eyes (units (unkno wn) date) unknown) (unknown) (no (unknown) (unknown) Family History (units (unknown) date) (Reviewed 08/14/21 @ unknown) 09:38 by Emile Velasquez MD) (unknown) (no (unknown) (unknown) Father Prostate (units (unknown) date) cancer unknown) (unknown) (no (unknown) (unknown) GI (units (unkno wn) date) unknown) (unknown) (no (unknown) (unknown) (units (unkno wn) date) unknown) (unknown) (no (unknown) (unknown) HPI (units (unkno wn) date) unknown) (unknown) (no (unknown) (unknown) History of ITP (units (unknown) date) (-1999) unknown) (unknown) (no (unknown) (unknown) History of (units (unk nown) date) craniotomy unknown) (unknown) (no (unknown) (unknown) Intake (units (unkno wn) date) unknown) (unknown) (no (unknown) (unknown) Loc: SLEEP (units (unk nown) date) unknown) (unknown) (no (unknown) (unknown) MORPHINE Allergy (units (unknown) date) (Unknown, Uncoded unknown) 09/24/21 13:04) (unknown) (no (unknown) (unknown) Medical History (units (unknown) date) (Reviewed 08/14/21 @ unknown) 09:38 by Emile Velasquez MD) (unknown) (no (unknown) (unknown) Medications (units (un known) date) unknown) (unknown) (no (unknown) (unknown) Musc (units (unkno wn) date) unknown) (unknown) (no (unknown) (unknown) Neurological (units (u nknown) date) unknown) (unknown) (no (unknown) (unknown) Ovarian cyst (-1987) (uni ts (unknown) date) unknown) (unknown) (no (unknown) (unknown) PFSH (units (unkno wn) date) unknown) (unknown) (no (unknown) (unknown) Pain (units (unkno wn) date) unknown) (unknown) (no (unknown) (unknown) Pain scale (1-10): 4 (uni ts (unknown) date) unknown) (unknown) (no (unknown) (unknown) Patient: (units (unkno wn) date) Pita Perez D unknown) MR#: [id number] (unknown) (no (unknown) (unknown) Propoxyphene Allergy (uni ts (unknown) date) (Unknown, Uncoded unknown) 09/24/21 13:04) (unknown) (no (unknown) (unknown) Psychological (units ( unknown) date) unknown) (unknown) (no (unknown) (unknown) Pt had difficulty (units (unknown) date) falling asleep unknown) Difficulty Falling Asleep: no, difficulty (unknown) (no (unknown) (unknown) Pt here for follow (units (unknown) date) up of Sleep Study unknown) Follow Up Visit Reason (describe): (unknown) (no (unknown) (unknown) Pt here for follow (units (unknown) date) up of an overnight unknown) attended diagnostic sleep study (unknown) (no (unknown) (unknown) ROS Sleep (units (unkn own) date) unknown) (unknown) (no (unknown) (unknown) Reason For Visit (units (unknown) date) unknown) (unknown) (no (unknown) (unknown) Reports depression, (unit s (unknown) date) anxiety and napping unknown) not at all; Denies hypnagogic (unknown) (no (unknown) (unknown) Reports morning (units (unknown) date) headache and trouble unknown) concentrating or focusing; Denies dizzy in (unknown) (no (unknown) (unknown) Reports myalgia (units (unknown) date) interfering with unknown) sleep (fibromyalgia); Denies arthralgia (unknown) (no (unknown) (unknown) Reports nasal (units ( unknown) date) congestion at night, unknown) sore throat in the morning and dry mouth in (unknown) (no (unknown) (unknown) Reports reflux pain (unit s (unknown) date) at night unknown) (unknown) (no (unknown) (unknown) Reports seasonal (units (unknown) date) allergies; Denies unknown) itchy eyes, redness, blurry vision or eye (unknown) (no (unknown) (unknown) Respiratory (units (un known) date) unknown) (unknown) (no (unknown) (unknown) Results reviewed. (units (unknown) date) Implications of unknown) findings discussed. NPSG revealed continuous (unknown) (no (unknown) (unknown) Review of sleep (units (unknown) date) hygiene reviewed. unknown) (unknown) (no (unknown) (unknown) SULFA Allergy (units ( unknown) date) (Unknown, Uncoded unknown) 09/24/21 13:04) (unknown) (no (unknown) (unknown) Safety issues (units ( unknown) date) reviewed associated unknown) with sleepiness, operating motor vehicles and (unknown) (no (unknown) (unknown) Screening for (units ( unknown) date) malignant neoplasm of unknown) colon (unknown) (no (unknown) (unknown) Signed By: (units (unk nown) date) unknown) (unknown) (no (unknown) (unknown) Sleep Study Follow (units (unknown) date) Up Chief Complaint: unknown) Attended sleep study (unknown) (no (unknown) (unknown) Sleep Study Results (unit s (unknown) date) Follow Up unknown) (unknown) (no (unknown) (unknown) Smoking Status: (units (unknown) date) Former smoker unknown) (unknown) (no (unknown) (unknown) Surgical History (units (unknown) date) (Reviewed 08/14/21 @ unknown) 09:38 by Emile Velasquez MD) (unknown) (no (unknown) (unknown) This note may have (units (unknown) date) been all or partially unknown) generated using voice recognition (unknown) (no (unknown) (unknown) Thyroid nodule (units (unknown) date) (-1998) unknown) (unknown) (no (unknown) (unknown) Tobacco + Substance (unit s (unknown) date) Use unknown) (unknown) (no (unknown) (unknown) Tobacco Status (units (unknown) date) unknown) (unknown) (no (unknown) (unknown) Visit Reasons: NPSG (unit s (unknown) date) RESULTS unknown) (unknown) (no (unknown) (unknown) [Rx Confirmed (units ( unknown) date) 09/24/21] unknown) (unknown) (no (unknown) (unknown) azithromycin [From (units (unknown) date) Zithromax] Allergy unknown) (Unknown, Verified 09/24/21 13:04) (unknown) (no (unknown) (unknown) cephalexin [From (units (unknown) date) Keflex] Allergy unknown) (Unknown, Verified 09/24/21 13:04) (unknown) (no (unknown) (unknown) cimetidine [From (units (unknown) date) Tagamet] Allergy unknown) (Unknown, Verified 09/24/21 13:04) (unknown) (no (unknown) (unknown) elevated blood (units (unknown) date) pressure. unknown) (unknown) (no (unknown) (unknown) hallucinations or (units (unknown) date) sleep paralysis unknown) (unknown) (no (unknown) (unknown) have occurred. 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 (unknown) (no (unknown) (unknown) interfering with (units (unknown) date) sleep, weakness unknown) associated with strong emotion or sleep (unknown) (no (unknown) (unknown) ketorolac 10 mg (units (unknown) date) tablet 10 mg PO Q6H unknown) PRN pain #14 tabs 11/02/20 [Rx Confirmed (unknown) (no (unknown) (unknown) may occur. (units (unk nown) date) Occasional wrong-word unknown) or 'sound-alike' substitutions may have (unknown) (no (unknown) (unknown) medications. States (unit s (unknown) date) these are just spikes unknown) and is not concerned. I have had (unknown) (no (unknown) (unknown) moderate snoring. (units (unknown) date) Apnea-hypopnea index unknown) was 11.7 the sleep efficiency was 89.9%. (unknown) (no (unknown) (unknown) occurred due to the (unit s (unknown) date) inherent limitations unknown) of voice recognition software. Please (unknown) (no (unknown) (unknown) of elevated blood (units (unknown) date) pressure and she unknown) verbalized understanding of the dangers in (unknown) (no (unknown) (unknown) omeprazole magnesium (uni ts (unknown) date) 20 mg capsule,delayed unknown) release (Acid Imaging Clerk (omeprazole)) (unknown) (no (unknown) (unknown) or heavy, dangerous (unit s (unknown) date) equipment. unknown) (unknown) (no (unknown) (unknown) oxycodone [From (units (unknown) date) Percocet] Allergy unknown) (Unknown, Verified 09/24/21 13:04) (unknown) (no (unknown) (unknown) pain (units (unkno wn) date) unknown) (unknown) (no (unknown) (unknown) paralysis (units (unkn own) date) unknown) (unknown) (no (unknown) (unknown) read the note (units ( unknown) date) carefully and unknown) recognize, using context, where these substitutions (unknown) (no (unknown) (unknown) return to sleep lab (unit s (unknown) date) for full night CPAP unknown) titration study. Alternative therapies (unknown) (no (unknown) (unknown) snoring and Reports (unit s (unknown) date) stops breathing unknown) during sleep (unknown) (no (unknown) (unknown) software. 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 (unknown) (no (unknown) (unknown) staying asleep (units (unknown) date) Difficulty Staying unknown) Asleep: no and difficulty with hook-up Diff (unknown) (no (unknown) (unknown) the morning or (units (unknown) date) vertigo unknown) (unknown) (no (unknown) (unknown) the morning; Denies (unit s (unknown) date) epistaxis or runny unknown) nose (unknown) (no (unknown) (unknown) thyroid (pork) 15 mg (uni ts (unknown) date) tablet ([place] unknown) Thyroid) 15 mg PO DAILY #30 tabs 04/29/21 (unknown) (no (unknown) (unknown) thyroid (pork) 30 mg (uni ts (unknown) date) tablet ([place] unknown) Thyroid) 30 mg PO DAILY #30 tabs 04/29/21 (unknown) (no (unknown) (unknown) with significant (units (unknown) date) desaturation events unknown) down to 86%. Given the history of Result panel 14 (unknown) (no (unknown) (unknown) (no value) (units (unk nown) date) unknown) (unknown) (no (unknown) (unknown) Assessment and Plan: (uni ts (unknown) date) unknown) (unknown) (no (unknown) (unknown) Status: Acute (units ( unknown) date) unknown) (unknown) (no (unknown) (unknown) Status: Chronic (units (unknown) date) unknown) (unknown) (no (unknown) (unknown) (no value) (units (unk nown) date) unknown) (unknown) (no (unknown) (unknown) (no value) (units (unk nown) date) unknown) (unknown) (no (unknown) (unknown) [place] [address] (unit s (unknown) date) unknown) (unknown) (no (unknown) (unknown) Draft (units (unkno wn) date) unknown) (unknown) (no (unknown) (unknown) Sleep Visit (units (un known) date) unknown) (unknown) (no (unknown) (unknown) [facility] unknown) (unknown) (no (unknown) (unknown) (no value) (units (unk nown) date) unknown) (unknown) (no (unknown) (unknown) PLM index was 6.1. (units (unknown) date) Sleep study is unknown) consistent with mild obstructive sleep apnea (unknown) (no (unknown) (unknown) 'every test in the (units (unknown) date) world and everything unknown) is fine'. We discussed the implications (unknown) (no (unknown) (unknown) (1) Obstructive (units (unknown) date) sleep apnea: unknown) (unknown) (no (unknown) (unknown) (2) Daytime (units (un known) date) sleepiness: unknown) (unknown) (no (unknown) (unknown) 09/24/21 (units (unkno wn) date) unknown) (unknown) (no (unknown) (unknown) 09/24/21] (units (unkn own) date) unknown) (unknown) (no (unknown) (unknown) 20 mg PO DAILY (units (unknown) date) 05/07/21 [History unknown) Confirmed 09/24/21] (unknown) (no (unknown) (unknown) [id number] (units (unkno wn) date) unknown) (unknown) (no (unknown) (unknown) Adult general (units ( unknown) date) medical exam unknown) (unknown) (no (unknown) (unknown) Affect: normal (units (unknown) date) affect unknown) (unknown) (no (unknown) (unknown) Age/Sex: 51 / F (units (unknown) date) Date of Service: unknown) (unknown) (no (unknown) (unknown) Allergies (units (unkn own) date) unknown) (unknown) (no (unknown) (unknown) Anesthesia (units (unk nown) date) unknown) (unknown) (no (unknown) (unknown) Appearance: grossly (unit s (unknown) date) normal unknown) (unknown) (no (unknown) (unknown) Assessment + Plan (units (unknown) date) unknown) (unknown) (no (unknown) (unknown) Attaining optimal (units (unknown) date) weight is also unknown) recommended. (unknown) (no (unknown) (unknown) Attending Dr: Regan (unit s (unknown) date) Isiah ESPINAL unknown) (unknown) (no (unknown) (unknown) Attitude: (units (unkn own) date) cooperative unknown) (unknown) (no (unknown) (unknown) CODEINE Allergy (units (unknown) date) (Unknown, Uncoded unknown) 09/24/21 13:04) (unknown) (no (unknown) (unknown) Cardiac (units (unkno wn) date) unknown) (unknown) (no (unknown) (unknown) Chief Complaint: (units (unknown) date) NPSG results review unknown) (unknown) (no (unknown) (unknown) Chronic back pain (units (unknown) date) unknown) (unknown) (no (unknown) (unknown) Cognition: normal (units (unknown) date) cognition unknown) (unknown) (no (unknown) (unknown) Colon polyps (-1999) (uni ts (unknown) date) unknown) (unknown) (no (unknown) (unknown) Conjunctivae: (units ( unknown) date) conjunctivae normal unknown) (unknown) (no (unknown) (unknown) Const (units (unkno wn) date) unknown) (unknown) (no (unknown) (unknown) : 1970 (units (unknown) date) Acct:[id number] unknown) (unknown) (no (unknown) (unknown) Daytime sleepiness (units (unknown) date) unknown) (unknown) (no (unknown) (unknown) Denies chest pain or (uni ts (unknown) date) nocturnal unknown) palpitations (unknown) (no (unknown) (unknown) Denies chills, (units (unknown) date) Reports fatigue, unknown) Reports lethargy, Reports night sweats, Reports (unknown) (no (unknown) (unknown) Denies dyspnea at (units (unknown) date) night or cough unknown) (unknown) (no (unknown) (unknown) Denies nocturia (units (unknown) date) unknown) (unknown) (no (unknown) (unknown) Dept at (units (unkno wn) date) . unknown) (unknown) (no (unknown) (unknown) Documented By: (units (unknown) date) Regan Joyce unknown) 09/24/21 1301 (unknown) (no (unknown) (unknown) EKG showed no (units ( unknown) date) significant unknown) arrhythmias. (unknown) (no (unknown) (unknown) ENT (units (unkno wn) date) unknown) (unknown) (no (unknown) (unknown) Ears: hearing (units ( unknown) date) grossly normal unknown) bilaterally (unknown) (no (unknown) (unknown) Effort + Inspection: (uni ts (unknown) date) normal respiratory unknown) effort, able to speak in complete (unknown) (no (unknown) (unknown) Elevated Blood (units (unknown) date) Pressure. Has had unknown) numerous workups in the ED, does not take (unknown) (no (unknown) (unknown) Essential (units (unkn own) date) hypertension unknown) (unknown) (no (unknown) (unknown) Exam (units (unkno wn) date) unknown) (unknown) (no (unknown) (unknown) Eyes (units (unkno wn) date) unknown) (unknown) (no (unknown) (unknown) Family History (units (unknown) date) (Reviewed 08/14/21 @ unknown) 09:38 by Emile Velasquez MD) (unknown) (no (unknown) (unknown) Father Prostate (units (unknown) date) cancer unknown) (unknown) (no (unknown) (unknown) GI (units (unkno wn) date) unknown) (unknown) (no (unknown) (unknown) (units (unkno wn) date) unknown) (unknown) (no (unknown) (unknown) General: (units (unkno wn) date) cooperative, unknown) comfortable and no acute distress (unknown) (no (unknown) (unknown) General: patient (units (unknown) date) alert, patient awake unknown) and patient oriented x3 (unknown) (no (unknown) (unknown) HENMT (units (unkno wn) date) unknown) (unknown) (no (unknown) (unknown) HPI (units (unkno wn) date) unknown) (unknown) (no (unknown) (unknown) Head: normal to (units (unknown) date) inspection unknown) (unknown) (no (unknown) (unknown) History of ITP (units (unknown) date) (-2000) unknown) (unknown) (no (unknown) (unknown) History of (units (unk nown) date) craniotomy unknown) (unknown) (no (unknown) (unknown) Intake (units (unkno wn) date) unknown) (unknown) (no (unknown) (unknown) Loc: SLEEP (units (unk nown) date) unknown) (unknown) (no (unknown) (unknown) MORPHINE Allergy (units (unknown) date) (Unknown, Uncoded unknown) 09/24/21 13:04) (unknown) (no (unknown) (unknown) Medical History (units (unknown) date) (Updated 09/24/21 @ unknown) 13:24 by TEDDY Webster) (unknown) (no (unknown) (unknown) Medications (units (un known) date) unknown) (unknown) (no (unknown) (unknown) Mood: congruent mood (uni ts (unknown) date) unknown) (unknown) (no (unknown) (unknown) Musc (units (unkno wn) date) unknown) (unknown) (no (unknown) (unknown) Neck (units (unkno wn) date) unknown) (unknown) (no (unknown) (unknown) Neck: normal visual (unit s (unknown) date) inspection unknown) (unknown) (no (unknown) (unknown) Neuro (units (unkno wn) date) unknown) (unknown) (no (unknown) (unknown) Neurological (units (u nknown) date) unknown) (unknown) (no (unknown) (unknown) Obstructive sleep (units (unknown) date) apnea unknown) (unknown) (no (unknown) (unknown) Ovarian cyst (-1987) (uni ts (unknown) date) unknown) (unknown) (no (unknown) (unknown) PFSH (units (unkno wn) date) unknown) (unknown) (no (unknown) (unknown) Pain (units (unkno wn) date) unknown) (unknown) (no (unknown) (unknown) Pain scale (1-10): 4 (uni ts (unknown) date) unknown) (unknown) (no (unknown) (unknown) Patient: (units (unkno wn) date) Samuel Perezi D unknown) MR#: [id number] (unknown) (no (unknown) (unknown) Propoxyphene Allergy (uni ts (unknown) date) (Unknown, Uncoded unknown) 09/24/21 13:04) (unknown) (no (unknown) (unknown) Psych (units (unkno wn) date) unknown) (unknown) (no (unknown) (unknown) Psychological (units ( unknown) date) unknown) (unknown) (no (unknown) (unknown) Pt had difficulty (units (unknown) date) falling asleep unknown) Difficulty Falling Asleep: no, difficulty (unknown) (no (unknown) (unknown) Pt here for follow (units (unknown) date) up of Sleep Study unknown) Follow Up Visit Reason (describe): (unknown) (no (unknown) (unknown) Pt here for follow (units (unknown) date) up of an overnight unknown) attended diagnostic sleep study (unknown) (no (unknown) (unknown) ROS Sleep (units (unkn own) date) unknown) (unknown) (no (unknown) (unknown) Reason For Visit (units (unknown) date) unknown) (unknown) (no (unknown) (unknown) Reports depression, (unit s (unknown) date) anxiety and napping unknown) not at all; Denies hypnagogic (unknown) (no (unknown) (unknown) Reports morning (units (unknown) date) headache and trouble unknown) concentrating or focusing; Denies dizzy in (unknown) (no (unknown) (unknown) Reports myalgia (units (unknown) date) interfering with unknown) sleep (fibromyalgia); Denies arthralgia (unknown) (no (unknown) (unknown) Reports nasal (units ( unknown) date) congestion at night, unknown) sore throat in the morning and dry mouth in (unknown) (no (unknown) (unknown) Reports reflux pain (unit s (unknown) date) at night unknown) (unknown) (no (unknown) (unknown) Reports seasonal (units (unknown) date) allergies; Denies unknown) itchy eyes, redness, blurry vision or eye (unknown) (no (unknown) (unknown) Resp (units (unkno wn) date) unknown) (unknown) (no (unknown) (unknown) Respiratory (units (un known) date) unknown) (unknown) (no (unknown) (unknown) Results reviewed. (units (unknown) date) Implications of unknown) findings discussed. NPSG revealed continuous (unknown) (no (unknown) (unknown) Review of sleep (units (unknown) date) hygiene reviewed. unknown) (unknown) (no (unknown) (unknown) SULFA Allergy (units ( unknown) date) (Unknown, Uncoded unknown) 09/24/21 13:04) (unknown) (no (unknown) (unknown) Safety issues (units ( unknown) date) reviewed associated unknown) with sleepiness, operating motor vehicles and (unknown) (no (unknown) (unknown) Sclera: sclerae (units (unknown) date) normal unknown) (unknown) (no (unknown) (unknown) Screening for (units ( unknown) date) malignant neoplasm of unknown) colon (unknown) (no (unknown) (unknown) Signed By: (units (unk nown) date) unknown) (unknown) (no (unknown) (unknown) Sleep Study Follow (units (unknown) date) Up Chief Complaint: unknown) Attended sleep study (unknown) (no (unknown) (unknown) Sleep Study Results (unit s (unknown) date) Follow Up unknown) (unknown) (no (unknown) (unknown) Smoking Status: (units (unknown) date) Former smoker unknown) (unknown) (no (unknown) (unknown) Speech and Movement: (uni ts (unknown) date) speech and movement unknown) normal (unknown) (no (unknown) (unknown) Speech: speech (units (unknown) date) normal unknown) (unknown) (no (unknown) (unknown) Surgical History (units (unknown) date) (Reviewed 08/14/21 @ unknown) 09:38 by Emile Velasquez MD) (unknown) (no (unknown) (unknown) This note may have (units (unknown) date) been all or partially unknown) generated using voice recognition (unknown) (no (unknown) (unknown) Thyroid nodule (units (unknown) date) (-1998) unknown) (unknown) (no (unknown) (unknown) Tobacco + Substance (unit s (unknown) date) Use unknown) (unknown) (no (unknown) (unknown) Tobacco Status (units (unknown) date) unknown) (unknown) (no (unknown) (unknown) Visit Reasons: NPSG (unit s (unknown) date) RESULTS unknown) (unknown) (no (unknown) (unknown) [Rx Confirmed (units ( unknown) date) 09/24/21] unknown) (unknown) (no (unknown) (unknown) azithromycin [From (units (unknown) date) Zithromax] Allergy unknown) (Unknown, Verified 09/24/21 13:04) (unknown) (no (unknown) (unknown) cephalexin [From (units (unknown) date) Keflex] Allergy unknown) (Unknown, Verified 09/24/21 13:04) (unknown) (no (unknown) (unknown) cimetidine [From (units (unknown) date) Tagamet] Allergy unknown) (Unknown, Verified 09/24/21 13:04) (unknown) (no (unknown) (unknown) elevated blood (units (unknown) date) pressure. unknown) (unknown) (no (unknown) (unknown) hallucinations or (units (unknown) date) sleep paralysis unknown) (unknown) (no (unknown) (unknown) have occurred. 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 (unknown) (no (unknown) (unknown) interfering with (units (unknown) date) sleep, weakness unknown) associated with strong emotion or sleep (unknown) (no (unknown) (unknown) ketorolac 10 mg (units (unknown) date) tablet 10 mg PO Q6H unknown) PRN pain #14 tabs 11/02/20 [Rx Confirmed (unknown) (no (unknown) (unknown) may occur. (units (unk nown) date) Occasional wrong-word unknown) or 'sound-alike' substitutions may have (unknown) (no (unknown) (unknown) medications. States (unit s (unknown) date) these are just spikes unknown) and is not concerned. I have had (unknown) (no (unknown) (unknown) moderate snoring. (units (unknown) date) Apnea-hypopnea index unknown) was 11.7 the sleep efficiency was 89.9%. (unknown) (no (unknown) (unknown) occurred due to the (unit s (unknown) date) inherent limitations unknown) of voice recognition software. Please (unknown) (no (unknown) (unknown) of elevated blood (units (unknown) date) pressure and she unknown) verbalized understanding of the dangers in (unknown) (no (unknown) (unknown) omeprazole magnesium (uni ts (unknown) date) 20 mg capsule,delayed unknown) release (Acid Imaging Clerk (omeprazole)) (unknown) (no (unknown) (unknown) or heavy, dangerous (unit s (unknown) date) equipment. unknown) (unknown) (no (unknown) (unknown) oxycodone [From (units (unknown) date) Percocet] Allergy unknown) (Unknown, Verified 09/24/21 13:04) (unknown) (no (unknown) (unknown) pain (units (unkno wn) date) unknown) (unknown) (no (unknown) (unknown) paralysis (units (unkn own) date) unknown) (unknown) (no (unknown) (unknown) read the note (units ( unknown) date) carefully and unknown) recognize, using context, where these substitutions (unknown) (no (unknown) (unknown) return to sleep lab (unit s (unknown) date) for full night CPAP unknown) titration study. Alternative therapies (unknown) (no (unknown) (unknown) sentences and no (units (unknown) date) audible wheezes unknown) (unknown) (no (unknown) (unknown) snoring and Reports (unit s (unknown) date) stops breathing unknown) during sleep (unknown) (no (unknown) (unknown) software. 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 (unknown) (no (unknown) (unknown) staying asleep (units (unknown) date) Difficulty Staying unknown) Asleep: no and difficulty with hook-up Diff (unknown) (no (unknown) (unknown) the morning or (units (unknown) date) vertigo unknown) (unknown) (no (unknown) (unknown) the morning; Denies (unit s (unknown) date) epistaxis or runny unknown) nose (unknown) (no (unknown) (unknown) thyroid (pork) 15 mg (uni ts (unknown) date) tablet ([place] unknown) Thyroid) 15 mg PO DAILY #30 tabs 04/29/21 (unknown) (no (unknown) (unknown) thyroid (pork) 30 mg (uni ts (unknown) date) tablet ([place] unknown) Thyroid) 30 mg PO DAILY #30 tabs 04/29/21 (unknown) (no (unknown) (unknown) with significant (units (unknown) date) desaturation events unknown) down to 86%. Given the history of Result panel 15 (unknown) (no (unknown) (unknown) (no value) (units (unk nown) date) unknown) (unknown) (no (unknown) (unknown) Assessment and Plan: (uni ts (unknown) date) unknown) (unknown) (no (unknown) (unknown) Status: Acute (units ( unknown) date) unknown) (unknown) (no (unknown) (unknown) Status: Chronic (units (unknown) date) unknown) (unknown) (no (unknown) (unknown) (no value) (units (unk nown) date) unknown) (unknown) (no (unknown) (unknown) (no value) (units (unk nown) date) unknown) (unknown) (no (unknown) (unknown) [place] [address] (unit s (unknown) date) unknown) (unknown) (no (unknown) (unknown) Draft (units (unkno wn) date) unknown) (unknown) (no (unknown) (unknown) Sleep Visit (units (un known) date) unknown) (unknown) (no (unknown) (unknown) [facility] ([facility] unknown) (unknown) (no (unknown) (unknown) (no value) (units (unk nown) date) unknown) (unknown) (no (unknown) (unknown) PLM index was 6.1. (units (unknown) date) Sleep study is unknown) consistent with mild obstructive sleep apnea (unknown) (no (unknown) (unknown) 'every test in the (units (unknown) date) world and everything unknown) is fine'. We discussed the implications (unknown) (no (unknown) (unknown) (1) Obstructive (units (unknown) date) sleep apnea: unknown) (unknown) (no (unknown) (unknown) (2) Daytime (units (un known) date) sleepiness: unknown) (unknown) (no (unknown) (unknown) 09/24/21 (units (unkno wn) date) unknown) (unknown) (no (unknown) (unknown) 09/24/21] (units (unkn own) date) unknown) (unknown) (no (unknown) (unknown) 158/88. (units (unkno wn) date) unknown) (unknown) (no (unknown) (unknown) 20 mg PO DAILY (units (unknown) date) 05/07/21 [History unknown) Confirmed 09/24/21] (unknown) (no (unknown) (unknown) [id number] (units (unkno wn) date) unknown) (unknown) (no (unknown) (unknown) Adult general (units ( unknown) date) medical exam unknown) (unknown) (no (unknown) (unknown) Affect: normal (units (unknown) date) affect unknown) (unknown) (no (unknown) (unknown) Age/Sex: 51 / F (units (unknown) date) Date of Service: unknown) (unknown) (no (unknown) (unknown) Allergies (units (unkn own) date) unknown) (unknown) (no (unknown) (unknown) Anesthesia (units (unk nown) date) unknown) (unknown) (no (unknown) (unknown) Appearance: grossly (unit s (unknown) date) normal unknown) (unknown) (no (unknown) (unknown) Assessment + Plan (units (unknown) date) unknown) (unknown) (no (unknown) (unknown) Attaining optimal (units (unknown) date) weight is also unknown) recommended. (unknown) (no (unknown) (unknown) Attaining optimal (units (unknown) date) weight is also unknown) recommended. She would like to proceed with (unknown) (no (unknown) (unknown) Attending Dr: Regan (unit s (unknown) date) Isiah ESPINAL unknown) (unknown) (no (unknown) (unknown) Attitude: (units (unkn own) date) cooperative unknown) (unknown) (no (unknown) (unknown) CODEINE Allergy (units (unknown) date) (Unknown, Uncoded unknown) 09/24/21 13:04) (unknown) (no (unknown) (unknown) Cardiac (units (unkno wn) date) unknown) (unknown) (no (unknown) (unknown) Chief Complaint: (units (unknown) date) NPSG results review unknown) (unknown) (no (unknown) (unknown) Chronic back pain (units (unknown) date) unknown) (unknown) (no (unknown) (unknown) Cognition: normal (units (unknown) date) cognition unknown) (unknown) (no (unknown) (unknown) Colon polyps (-1999) (uni ts (unknown) date) unknown) (unknown) (no (unknown) (unknown) Conjunctivae: (units ( unknown) date) conjunctivae normal unknown) (unknown) (no (unknown) (unknown) Const (units (unkno wn) date) unknown) (unknown) (no (unknown) (unknown) : 1970 (units (unknown) date) Acct:[id number] unknown) (unknown) (no (unknown) (unknown) Daytime sleepiness (units (unknown) date) unknown) (unknown) (no (unknown) (unknown) Denies chest pain or (uni ts (unknown) date) nocturnal unknown) palpitations (unknown) (no (unknown) (unknown) Denies chills, (units (unknown) date) Reports fatigue, unknown) Reports lethargy, Reports night sweats, Reports (unknown) (no (unknown) (unknown) Denies dyspnea at (units (unknown) date) night or cough unknown) (unknown) (no (unknown) (unknown) Denies nocturia (units (unknown) date) unknown) (unknown) (no (unknown) (unknown) Dept at (units (unkno wn) date) . unknown) (unknown) (no (unknown) (unknown) Documented By: (units (unknown) date) Regan Joyce unknown) 09/24/21 1301 (unknown) (no (unknown) (unknown) EKG showed no (units ( unknown) date) significant unknown) arrhythmias. (unknown) (no (unknown) (unknown) ENT (units (unkno wn) date) unknown) (unknown) (no (unknown) (unknown) Ears: hearing (units ( unknown) date) grossly normal unknown) bilaterally (unknown) (no (unknown) (unknown) Effort + Inspection: (uni ts (unknown) date) normal respiratory unknown) effort, able to speak in complete (unknown) (no (unknown) (unknown) Elevated Blood (units (unknown) date) Pressure. Has had unknown) numerous workups in the ED, does not take (unknown) (no (unknown) (unknown) Elevated Blood (units (unknown) date) Pressure. She is not unknown) concerned. Extensive counseling related to (unknown) (no (unknown) (unknown) Essential (units (unkn own) date) hypertension unknown) (unknown) (no (unknown) (unknown) Exam (units (unkno wn) date) unknown) (unknown) (no (unknown) (unknown) Eyes (units (unkno wn) date) unknown) (unknown) (no (unknown) (unknown) Family History (units (unknown) date) (Reviewed 08/14/21 @ unknown) 09:38 by Emile Velasquez MD) (unknown) (no (unknown) (unknown) Father Prostate (units (unknown) date) cancer unknown) (unknown) (no (unknown) (unknown) GI (units (unkno wn) date) unknown) (unknown) (no (unknown) (unknown) (units (unkno wn) date) unknown) (unknown) (no (unknown) (unknown) General: (units (unkno wn) date) cooperative, unknown) comfortable and no acute distress (unknown) (no (unknown) (unknown) General: patient (units (unknown) date) alert, patient awake unknown) and patient oriented x3 (unknown) (no (unknown) (unknown) HENMT (units (unkno wn) date) unknown) (unknown) (no (unknown) (unknown) HPI (units (unkno wn) date) unknown) (unknown) (no (unknown) (unknown) Head: normal to (units (unknown) date) inspection unknown) (unknown) (no (unknown) (unknown) History of ITP (units (unknown) date) (-1999) unknown) (unknown) (no (unknown) (unknown) History of (units (unk nown) date) craniotomy unknown) (unknown) (no (unknown) (unknown) Intake (units (unkno wn) date) unknown) (unknown) (no (unknown) (unknown) Loc: SLEEP (units (unk nown) date) unknown) (unknown) (no (unknown) (unknown) MORPHINE Allergy (units (unknown) date) (Unknown, Uncoded unknown) 09/24/21 13:04) (unknown) (no (unknown) (unknown) Medical History (units (unknown) date) (Updated 09/24/21 @ unknown) 13:24 by TEDDY Webster) (unknown) (no (unknown) (unknown) Medications (units (un known) date) unknown) (unknown) (no (unknown) (unknown) Mood: congruent mood (uni ts (unknown) date) unknown) (unknown) (no (unknown) (unknown) Musc (units (unkno wn) date) unknown) (unknown) (no (unknown) (unknown) Neck (units (unkno wn) date) unknown) (unknown) (no (unknown) (unknown) Neck: normal visual (unit s (unknown) date) inspection unknown) (unknown) (no (unknown) (unknown) Neuro (units (unkno wn) date) unknown) (unknown) (no (unknown) (unknown) Neurological (units (u nknown) date) unknown) (unknown) (no (unknown) (unknown) Obstructive sleep (units (unknown) date) apnea unknown) (unknown) (no (unknown) (unknown) Ovarian cyst (-1987) (uni ts (unknown) date) unknown) (unknown) (no (unknown) (unknown) PFSH (units (unkno wn) date) unknown) (unknown) (no (unknown) (unknown) Pain (units (unkno wn) date) unknown) (unknown) (no (unknown) (unknown) Pain scale (1-10): 4 (uni ts (unknown) date) unknown) (unknown) (no (unknown) (unknown) Patient was (units (un known) date) encouraged to unknown) maintain CPAP usage at a minimum of 4 hours a night, (unknown) (no (unknown) (unknown) Patient was (units (un known) date) instructed to return unknown) sooner if any questions or concerns arise. (unknown) (no (unknown) (unknown) Patient was (units (un known) date) prescribed PAP unknown) therapy at 5-15 cwp. (unknown) (no (unknown) (unknown) Patient: (units (unkno wn) date) RachelSamueli D unknown) MR#: [id number] (unknown) (no (unknown) (unknown) Plan (units (unkno wn) date) unknown) (unknown) (no (unknown) (unknown) Propoxyphene Allergy (uni ts (unknown) date) (Unknown, Uncoded unknown) 09/24/21 13:04) (unknown) (no (unknown) (unknown) Psych (units (unkno wn) date) unknown) (unknown) (no (unknown) (unknown) Psychological (units ( unknown) date) unknown) (unknown) (no (unknown) (unknown) Pt had difficulty (units (unknown) date) falling asleep unknown) Difficulty Falling Asleep: no, difficulty (unknown) (no (unknown) (unknown) Pt here for follow (units (unknown) date) up of Sleep Study unknown) Follow Up Visit Reason (describe): (unknown) (no (unknown) (unknown) Pt here for follow (units (unknown) date) up of an overnight unknown) attended diagnostic sleep study (unknown) (no (unknown) (unknown) ROS Sleep (units (unkn own) date) unknown) (unknown) (no (unknown) (unknown) Reason For Visit (units (unknown) date) unknown) (unknown) (no (unknown) (unknown) Reports depression, (unit s (unknown) date) anxiety and napping unknown) not at all; Denies hypnagogic (unknown) (no (unknown) (unknown) Reports morning (units (unknown) date) headache and trouble unknown) concentrating or focusing; Denies dizzy in (unknown) (no (unknown) (unknown) Reports myalgia (units (unknown) date) interfering with unknown) sleep (fibromyalgia); Denies arthralgia (unknown) (no (unknown) (unknown) Reports nasal (units ( unknown) date) congestion at night, unknown) sore throat in the morning and dry mouth in (unknown) (no (unknown) (unknown) Reports reflux pain (unit s (unknown) date) at night unknown) (unknown) (no (unknown) (unknown) Reports seasonal (units (unknown) date) allergies; Denies unknown) itchy eyes, redness, blurry vision or eye (unknown) (no (unknown) (unknown) Resp (units (unkno wn) date) unknown) (unknown) (no (unknown) (unknown) Respiratory (units (un known) date) unknown) (unknown) (no (unknown) (unknown) Results reviewed. (units (unknown) date) Implications of unknown) findings discussed. NPSG revealed continuous (unknown) (no (unknown) (unknown) Return visit in 2 (units (unknown) date) months to assess unknown) continued response to PAP therapy (unknown) (no (unknown) (unknown) Review of sleep (units (unknown) date) hygiene reviewed. unknown) (unknown) (no (unknown) (unknown) SULFA Allergy (units ( unknown) date) (Unknown, Uncoded unknown) 09/24/21 13:04) (unknown) (no (unknown) (unknown) Safety issues (units ( unknown) date) reviewed associated unknown) with sleepiness, operating motor vehicles and (unknown) (no (unknown) (unknown) Sclera: sclerae (units (unknown) date) normal unknown) (unknown) (no (unknown) (unknown) Screening for (units ( unknown) date) malignant neoplasm of unknown) colon (unknown) (no (unknown) (unknown) She agrees to follow (uni ts (unknown) date) up with her PCP. unknown) Second blood pressure reading improved. (unknown) (no (unknown) (unknown) Signed By: (units (unk nown) date) unknown) (unknown) (no (unknown) (unknown) Sleep Study Follow (units (unknown) date) Up Chief Complaint: unknown) Attended sleep study (unknown) (no (unknown) (unknown) Sleep Study Results (unit s (unknown) date) Follow Up unknown) (unknown) (no (unknown) (unknown) Smoking Status: (units (unknown) date) Former smoker unknown) (unknown) (no (unknown) (unknown) Speech and Movement: (uni ts (unknown) date) speech and movement unknown) normal (unknown) (no (unknown) (unknown) Speech: speech (units (unknown) date) normal unknown) (unknown) (no (unknown) (unknown) Surgical History (units (unknown) date) (Reviewed 08/14/21 @ unknown) 09:38 by Emile Velasquez MD) (unknown) (no (unknown) (unknown) This note may have (units (unknown) date) been all or partially unknown) generated using voice recognition (unknown) (no (unknown) (unknown) Thyroid nodule (units (unknown) date) (-1998) unknown) (unknown) (no (unknown) (unknown) Tobacco + Substance (unit s (unknown) date) Use unknown) (unknown) (no (unknown) (unknown) Tobacco Status (units (unknown) date) unknown) (unknown) (no (unknown) (unknown) Understands (units (un known) date) compliance unknown) requirements of 30 consecutive days at >= 4hours per (unknown) (no (unknown) (unknown) Visit Reasons: NPSG (unit s (unknown) date) RESULTS unknown) (unknown) (no (unknown) (unknown) [Rx Confirmed (units ( unknown) date) 09/24/21] unknown) (unknown) (no (unknown) (unknown) azithromycin [From (units (unknown) date) Zithromax] Allergy unknown) (Unknown, Verified 09/24/21 13:04) (unknown) (no (unknown) (unknown) but increased (units ( unknown) date) benefit from more unknown) usage was also explained. (unknown) (no (unknown) (unknown) cephalexin [From (units (unknown) date) Keflex] Allergy unknown) (Unknown, Verified 09/24/21 13:04) (unknown) (no (unknown) (unknown) cimetidine [From (units (unknown) date) Tagamet] Allergy unknown) (Unknown, Verified 09/24/21 13:04) (unknown) (no (unknown) (unknown) elevated blood (units (unknown) date) pressure. unknown) (unknown) (no (unknown) (unknown) hallucinations or (units (unknown) date) sleep paralysis unknown) (unknown) (no (unknown) (unknown) have occurred. 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 (unknown) (no (unknown) (unknown) interfering with (units (unknown) date) sleep, weakness unknown) associated with strong emotion or sleep (unknown) (no (unknown) (unknown) ketorolac 10 mg (units (unknown) date) tablet 10 mg PO Q6H unknown) PRN pain #14 tabs 11/02/20 [Rx Confirmed (unknown) (no (unknown) (unknown) may occur. (units (unk nown) date) Occasional wrong-word unknown) or 'sound-alike' substitutions may have (unknown) (no (unknown) (unknown) medications. States (unit s (unknown) date) these are just spikes unknown) and is not concerned. I have had (unknown) (no (unknown) (unknown) moderate snoring. (units (unknown) date) Apnea-hypopnea index unknown) was 11.7 the sleep efficiency was 89.9%. (unknown) (no (unknown) (unknown) night. (units (unkno wn) date) unknown) (unknown) (no (unknown) (unknown) occurred due to the (unit s (unknown) date) inherent limitations unknown) of voice recognition software. Please (unknown) (no (unknown) (unknown) of elevated blood (units (unknown) date) pressure and she unknown) verbalized understanding of the dangers in (unknown) (no (unknown) (unknown) omeprazole magnesium (uni ts (unknown) date) 20 mg capsule,delayed unknown) release (Acid Imaging Clerk (omeprazole)) (unknown) (no (unknown) (unknown) or heavy, dangerous (unit s (unknown) date) equipment. unknown) (unknown) (no (unknown) (unknown) oxycodone [From (units (unknown) date) Percocet] Allergy unknown) (Unknown, Verified 09/24/21 13:04) (unknown) (no (unknown) (unknown) pain (units (unkno wn) date) unknown) (unknown) (no (unknown) (unknown) paralysis (units (unkn own) date) unknown) (unknown) (no (unknown) (unknown) read the note (units ( unknown) date) carefully and unknown) recognize, using context, where these substitutions (unknown) (no (unknown) (unknown) return to sleep lab (unit s (unknown) date) for full night CPAP unknown) titration study. Alternative therapies (unknown) (no (unknown) (unknown) sentences and no (units (unknown) date) audible wheezes unknown) (unknown) (no (unknown) (unknown) snoring and Reports (unit s (unknown) date) stops breathing unknown) during sleep (unknown) (no (unknown) (unknown) software. 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 (unknown) (no (unknown) (unknown) the morning or (units (unknown) date) vertigo unknown) (unknown) (no (unknown) (unknown) the morning; Denies (unit s (unknown) date) epistaxis or runny unknown) nose (unknown) (no (unknown) (unknown) thyroid (pork) 15 mg (uni ts (unknown) date) tablet ([place] unknown) Thyroid) 15 mg PO DAILY #30 tabs 04/29/21 (unknown) (no (unknown) (unknown) thyroid (pork) 30 mg (uni ts (unknown) date) tablet ([place] unknown) Thyroid) 30 mg PO DAILY #30 tabs 04/29/21 (unknown) (no (unknown) (unknown) trial of CPAP (units ( unknown) date) therapy. unknown) (unknown) (no (unknown) (unknown) with significant (units (unknown) date) desaturation events unknown) down to 86%. Given the history of Result panel 16 (unknown) (no (unknown) (unknown) (no value) (units (unk nown) date) unknown) (unknown) (no (unknown) (unknown) Assessment and Plan: (uni ts (unknown) date) unknown) (unknown) (no (unknown) (unknown) Status: Acute (units ( unknown) date) unknown) (unknown) (no (unknown) (unknown) Status: Chronic (units (unknown) date) unknown) (unknown) (no (unknown) (unknown) (no value) (units (unk nown) date) unknown) (unknown) (no (unknown) (unknown) (no value) (units (unk nown) date) unknown) (unknown) (no (unknown) (unknown) 09/24/21 1334 (units ( unknown) date) unknown) (unknown) (no (unknown) (unknown) LACY Rojo [id number] (unit s (unknown) date) unknown) (unknown) (no (unknown) (unknown) Signed (units (unkno wn) date) unknown) (unknown) (no (unknown) (unknown) Sleep Visit (units (un known) date) unknown) (unknown) (no (unknown) (unknown) [facility] unknown) (unknown) (no (unknown) (unknown) (no value) (units (unk nown) date) unknown) (unknown) (no (unknown) (unknown) PLM index was 6.1. (units (unknown) date) Sleep study is unknown) consistent with mild obstructive sleep apnea (unknown) (no (unknown) (unknown) (1) Obstructive (units (unknown) date) sleep apnea: unknown) (unknown) (no (unknown) (unknown) (2) Daytime (units (un known) date) sleepiness: unknown) (unknown) (no (unknown) (unknown) 09/24/21 (units (unkno wn) date) unknown) (unknown) (no (unknown) (unknown) 09/24/21] (units (unkn own) date) unknown) (unknown) (no (unknown) (unknown) 158/88. (units (unkno wn) date) unknown) (unknown) (no (unknown) (unknown) 20 mg PO DAILY (units (unknown) date) 05/07/21 [History unknown) Confirmed 09/24/21] (unknown) (no (unknown) (unknown) [id number] (units (unkno wn) date) unknown) (unknown) (no (unknown) (unknown) Adult general (units ( unknown) date) medical exam unknown) (unknown) (no (unknown) (unknown) Affect: normal (units (unknown) date) affect unknown) (unknown) (no (unknown) (unknown) Age/Sex: 51 / F (units (unknown) date) Date of Service: unknown) (unknown) (no (unknown) (unknown) Allergies (units (unkn own) date) unknown) (unknown) (no (unknown) (unknown) Anesthesia (units (unk nown) date) unknown) (unknown) (no (unknown) (unknown) Appearance: grossly (unit s (unknown) date) normal unknown) (unknown) (no (unknown) (unknown) Assessment + Plan (units (unknown) date) unknown) (unknown) (no (unknown) (unknown) Attaining optimal (units (unknown) date) weight is also unknown) recommended. (unknown) (no (unknown) (unknown) Attending Dr: Regan (unit s (unknown) date) Isiah ESPINAL unknown) (unknown) (no (unknown) (unknown) Attitude: (units (unkn own) date) cooperative unknown) (unknown) (no (unknown) (unknown) CODEINE Allergy (units (unknown) date) (Unknown, Uncoded unknown) 09/24/21 13:04) (unknown) (no (unknown) (unknown) Cardiac (units (unkno wn) date) unknown) (unknown) (no (unknown) (unknown) Chief Complaint: (units (unknown) date) NPSG results review unknown) (unknown) (no (unknown) (unknown) Chronic back pain (units (unknown) date) unknown) (unknown) (no (unknown) (unknown) Cognition: normal (units (unknown) date) cognition unknown) (unknown) (no (unknown) (unknown) Colon polyps () (uni ts (unknown) date) unknown) (unknown) (no (unknown) (unknown) Conjunctivae: (units ( unknown) date) conjunctivae normal unknown) (unknown) (no (unknown) (unknown) Const (units (unkno wn) date) unknown) (unknown) (no (unknown) (unknown) : 1970 (units (unknown) date) Acct:[id number] unknown) (unknown) (no (unknown) (unknown) Daytime sleepiness (units (unknown) date) unknown) (unknown) (no (unknown) (unknown) Denies chest pain or (uni ts (unknown) date) nocturnal unknown) palpitations (unknown) (no (unknown) (unknown) Denies chills, (units (unknown) date) Reports fatigue, unknown) Reports lethargy, Reports night sweats, Reports (unknown) (no (unknown) (unknown) Denies dyspnea at (units (unknown) date) night or cough unknown) (unknown) (no (unknown) (unknown) Denies nocturia (units (unknown) date) unknown) (unknown) (no (unknown) (unknown) Difficulty with Hook (uni ts (unknown) date) Up: no during the unknown) sleep study (unknown) (no (unknown) (unknown) Documented By: (units (unknown) date) Regan Joyce unknown) 09/24/21 1301 (unknown) (no (unknown) (unknown) EKG showed no (units ( unknown) date) significant unknown) arrhythmias. (unknown) (no (unknown) (unknown) ENT (units (unkno wn) date) unknown) (unknown) (no (unknown) (unknown) Ears: hearing (units ( unknown) date) grossly normal unknown) bilaterally (unknown) (no (unknown) (unknown) Effort + Inspection: (uni ts (unknown) date) normal respiratory unknown) effort, able to speak in complete (unknown) (no (unknown) (unknown) Elevated Blood (units (unknown) date) Pressure. She is not unknown) concerned. Extensive counseling related to (unknown) (no (unknown) (unknown) Essential (units (unkn own) date) hypertension unknown) (unknown) (no (unknown) (unknown) Exam (units (unkno wn) date) unknown) (unknown) (no (unknown) (unknown) Eyes (units (unkno wn) date) unknown) (unknown) (no (unknown) (unknown) Family History (units (unknown) date) (Reviewed 08/14/21 @ unknown) 09:38 by Emile Velasquez MD) (unknown) (no (unknown) (unknown) Father Prostate (units (unknown) date) cancer unknown) (unknown) (no (unknown) (unknown) GI (units (unkno wn) date) unknown) (unknown) (no (unknown) (unknown) (units (unkno wn) date) unknown) (unknown) (no (unknown) (unknown) General: (units (unkno wn) date) cooperative, unknown) comfortable and no acute distress (unknown) (no (unknown) (unknown) General: patient (units (unknown) date) alert, patient awake unknown) and patient oriented x3 (unknown) (no (unknown) (unknown) HENMT (units (unkno wn) date) unknown) (unknown) (no (unknown) (unknown) HPI (units (unkno wn) date) unknown) (unknown) (no (unknown) (unknown) Head: normal to (units (unknown) date) inspection unknown) (unknown) (no (unknown) (unknown) History of ITP (units (unknown) date) (-1999) unknown) (unknown) (no (unknown) (unknown) History of (units (unk nown) date) craniotomy unknown) (unknown) (no (unknown) (unknown) Hypertension. (units ( unknown) date) Elevated Blood unknown) Pressure in clinic today. Has had numerous workups (unknown) (no (unknown) (unknown) Intake (units (unkno wn) date) unknown) (unknown) (no (unknown) (unknown) Loc: SLEEP (units (unk nown) date) unknown) (unknown) (no (unknown) (unknown) MORPHINE Allergy (units (unknown) date) (Unknown, Uncoded unknown) 09/24/21 13:04) (unknown) (no (unknown) (unknown) Medical History (units (unknown) date) (Updated 09/24/21 @ unknown) 13:24 by TEDDY Webster) (unknown) (no (unknown) (unknown) Medications (units (un known) date) unknown) (unknown) (no (unknown) (unknown) Mild GERI. History of (uni ts (unknown) date) snoring and disturbed unknown) sleep patterns, gasp arousals and (unknown) (no (unknown) (unknown) Mood: congruent mood (uni ts (unknown) date) unknown) (unknown) (no (unknown) (unknown) Musc (units (unkno wn) date) unknown) (unknown) (no (unknown) (unknown) Neck (units (unkno wn) date) unknown) (unknown) (no (unknown) (unknown) Neck: normal visual (unit s (unknown) date) inspection unknown) (unknown) (no (unknown) (unknown) Neuro (units (unkno wn) date) unknown) (unknown) (no (unknown) (unknown) Neurological (units (u nknown) date) unknown) (unknown) (no (unknown) (unknown) Obstructive sleep (units (unknown) date) apnea unknown) (unknown) (no (unknown) (unknown) Ovarian cyst (-1987) (uni ts (unknown) date) unknown) (unknown) (no (unknown) (unknown) PFSH (units (unkno wn) date) unknown) (unknown) (no (unknown) (unknown) Pain (units (unkno wn) date) unknown) (unknown) (no (unknown) (unknown) Pain scale (1-10): 4 (uni ts (unknown) date) unknown) (unknown) (no (unknown) (unknown) Patient instructed (units (unknown) date) to use scheduled naps unknown) as needed for drowsiness safety (unknown) (no (unknown) (unknown) Patient was (units (un known) date) encouraged to unknown) maintain CPAP usage at a minimum of 4 hours a night, (unknown) (no (unknown) (unknown) Patient was (units (un known) date) instructed to return unknown) sooner if any questions or concerns arise. (unknown) (no (unknown) (unknown) Patient was (units (un known) date) prescribed PAP unknown) therapy at 5-15 cwp. (unknown) (no (unknown) (unknown) Patient: (units (unkno wn) date) Pita Perez D unknown) MR#: [id number] (unknown) (no (unknown) (unknown) Plan (units (unkno wn) date) unknown) (unknown) (no (unknown) (unknown) Propoxyphene Allergy (uni ts (unknown) date) (Unknown, Uncoded unknown) 09/24/21 13:04) (unknown) (no (unknown) (unknown) Psych (units (unkno wn) date) unknown) (unknown) (no (unknown) (unknown) Psychological (units ( unknown) date) unknown) (unknown) (no (unknown) (unknown) Pt had difficulty (units (unknown) date) falling asleep unknown) Difficulty Falling Asleep: no, difficulty (unknown) (no (unknown) (unknown) Pt here for follow (units (unknown) date) up of Sleep Study unknown) Follow Up Visit Reason (describe): (unknown) (no (unknown) (unknown) Pt here for follow (units (unknown) date) up of an overnight unknown) attended diagnostic sleep study (unknown) (no (unknown) (unknown) ROS Sleep (units (unkn own) date) unknown) (unknown) (no (unknown) (unknown) Reason For Visit (units (unknown) date) unknown) (unknown) (no (unknown) (unknown) Reports depression, (unit s (unknown) date) anxiety and napping unknown) not at all; Denies hypnagogic (unknown) (no (unknown) (unknown) Reports morning (units (unknown) date) headache and trouble unknown) concentrating or focusing; Denies dizzy in (unknown) (no (unknown) (unknown) Reports myalgia (units (unknown) date) interfering with unknown) sleep (fibromyalgia); Denies arthralgia (unknown) (no (unknown) (unknown) Reports nasal (units ( unknown) date) congestion at night, unknown) sore throat in the morning and dry mouth in (unknown) (no (unknown) (unknown) Reports reflux pain (unit s (unknown) date) at night unknown) (unknown) (no (unknown) (unknown) Reports seasonal (units (unknown) date) allergies; Denies unknown) itchy eyes, redness, blurry vision or eye (unknown) (no (unknown) (unknown) Resp (units (unkno wn) date) unknown) (unknown) (no (unknown) (unknown) Respiratory (units (un known) date) unknown) (unknown) (no (unknown) (unknown) Results reviewed. (units (unknown) date) Implications of unknown) findings discussed. NPSG revealed continuous (unknown) (no (unknown) (unknown) Return visit in 2 (units (unknown) date) months to assess unknown) continued response to PAP therapy (unknown) (no (unknown) (unknown) Review of sleep (units (unknown) date) hygiene reviewed. unknown) (unknown) (no (unknown) (unknown) SULFA Allergy (units ( unknown) date) (Unknown, Uncoded unknown) 09/24/21 13:04) (unknown) (no (unknown) (unknown) Safety issues (units ( unknown) date) reviewed associated unknown) with sleepiness, operating motor vehicles and (unknown) (no (unknown) (unknown) Sclera: sclerae (units (unknown) date) normal unknown) (unknown) (no (unknown) (unknown) Screening for (units ( unknown) date) malignant neoplasm of unknown) colon (unknown) (no (unknown) (unknown) She agrees to follow (uni ts (unknown) date) up with her PCP. unknown) Second blood pressure reading improved. (unknown) (no (unknown) (unknown) Signed By: (units (unk nown) date) <Electronically unknown) signed by Regan Joyce> (unknown) (no (unknown) (unknown) Sleep Study Follow (units (unknown) date) Up Chief Complaint: unknown) Attended sleep study (unknown) (no (unknown) (unknown) Sleep Study Results (unit s (unknown) date) Follow Up unknown) (unknown) (no (unknown) (unknown) Sleep study is (units (unknown) date) consistent with mild unknown) obstructive sleep apnea with significant (unknown) (no (unknown) (unknown) Smoking Status: (units (unknown) date) Former smoker unknown) (unknown) (no (unknown) (unknown) Speech and Movement: (uni ts (unknown) date) speech and movement unknown) normal (unknown) (no (unknown) (unknown) Speech: speech (units (unknown) date) normal unknown) (unknown) (no (unknown) (unknown) Surgical History (units (unknown) date) (Reviewed 08/14/21 @ unknown) 09:38 by Emile Velasquez MD) (unknown) (no (unknown) (unknown) This note may have (units (unknown) date) been all or partially unknown) generated using voice recognition (unknown) (no (unknown) (unknown) Thyroid nodule (units (unknown) date) (-1998) unknown) (unknown) (no (unknown) (unknown) Tobacco + Substance (unit s (unknown) date) Use unknown) (unknown) (no (unknown) (unknown) Tobacco Status (units (unknown) date) unknown) (unknown) (no (unknown) (unknown) Understands (units (un known) date) compliance unknown) requirements of 30 consecutive days at >= 4hours per (unknown) (no (unknown) (unknown) Visit Reasons: NPSG (unit s (unknown) date) RESULTS unknown) (unknown) (no (unknown) (unknown) [Rx Confirmed (units ( unknown) date) 09/24/21] unknown) (unknown) (no (unknown) (unknown) appliances and (units (unknown) date) surgical procedures unknown) could also be considered. Attaining optimal (unknown) (no (unknown) (unknown) at . (units (unknown) date) unknown) (unknown) (no (unknown) (unknown) azithromycin [From (units (unknown) date) Zithromax] Allergy unknown) (Unknown, Verified 09/24/21 13:04) (unknown) (no (unknown) (unknown) but increased (units ( unknown) date) benefit from more unknown) usage was also explained. (unknown) (no (unknown) (unknown) cephalexin [From (units (unknown) date) Keflex] Allergy unknown) (Unknown, Verified 09/24/21 13:04) (unknown) (no (unknown) (unknown) cimetidine [From (units (unknown) date) Tagamet] Allergy unknown) (Unknown, Verified 09/24/21 13:04) (unknown) (no (unknown) (unknown) depression, (units (un known) date) recommendations for unknown) trial of auto CPAP therapy or return to sleep (unknown) (no (unknown) (unknown) desaturation events (unit s (unknown) date) down to 86%. Given unknown) the history of hypertension and (unknown) (no (unknown) (unknown) discussed the (units ( unknown) date) implications of unknown) elevated blood pressure, possible needs for (unknown) (no (unknown) (unknown) due to the inherent (unit s (unknown) date) limitations of voice unknown) recognition software. Please read the (unknown) (no (unknown) (unknown) hallucinations or (units (unknown) date) sleep paralysis unknown) (unknown) (no (unknown) (unknown) hydrochlorothiazide (unit s (unknown) date) Allergy (Verified unknown) 09/24/21 13:04) (unknown) (no (unknown) (unknown) hypertension and (units (unknown) date) depression, unknown) recommendations for trial of auto CPAP therapy or (unknown) (no (unknown) (unknown) hypopnea index was (units (unknown) date) 11.7 the sleep unknown) efficiency was 89.9%. PLM index was 6.1. (unknown) (no (unknown) (unknown) in the ED, does not (unit s (unknown) date) take medications. unknown) States these are just spikes and she is (unknown) (no (unknown) (unknown) including dental (units (unknown) date) appliances and unknown) surgical procedures could also be considered. (unknown) (no (unknown) (unknown) interfering with (units (unknown) date) sleep, weakness unknown) associated with strong emotion or sleep (unknown) (no (unknown) (unknown) ketorolac 10 mg (units (unknown) date) tablet 10 mg PO Q6H unknown) PRN pain #14 tabs 11/02/20 [Rx Confirmed (unknown) (no (unknown) (unknown) lab for full night (units (unknown) date) CPAP titration study. unknown) Alternative therapies including dental (unknown) (no (unknown) (unknown) medication and (units (unknown) date) importance in unknown) following with her PCP. She verbalized (unknown) (no (unknown) (unknown) moderate snoring. (units (unknown) date) Apnea-hypopnea index unknown) was 11.7 the sleep efficiency was 89.9%. (unknown) (no (unknown) (unknown) night. (units (unkno wn) date) unknown) (unknown) (no (unknown) (unknown) not concerned. I (units (unknown) date) have had 'every test unknown) in the world and everything is fine'. We (unknown) (no (unknown) (unknown) note carefully and (units (unknown) date) recognize, using unknown) context, where these substitutions have (unknown) (no (unknown) (unknown) occurred. If there (unit s (unknown) date) are any questions, unknown) please contact the Medical Records Dept (unknown) (no (unknown) (unknown) of findings (units (un known) date) discussed. NPSG unknown) revealed continuous moderate snoring. Apnea- (unknown) (no (unknown) (unknown) omeprazole magnesium (uni ts (unknown) date) 20 mg capsule,delayed unknown) release (Acid Imaging Clerk (omeprazole)) (unknown) (no (unknown) (unknown) or heavy, dangerous (unit s (unknown) date) equipment. unknown) (unknown) (no (unknown) (unknown) oxycodone [From (units (unknown) date) Percocet] Allergy unknown) (Unknown, Verified 09/24/21 13:04) (unknown) (no (unknown) (unknown) pain (units (unkno wn) date) unknown) (unknown) (no (unknown) (unknown) paralysis (units (unkn own) date) unknown) (unknown) (no (unknown) (unknown) return to sleep lab (unit s (unknown) date) for full night CPAP unknown) titration study. Alternative therapies (unknown) (no (unknown) (unknown) sentences and no (units (unknown) date) audible wheezes unknown) (unknown) (no (unknown) (unknown) snoring and Reports (unit s (unknown) date) stops breathing unknown) during sleep (unknown) (no (unknown) (unknown) software. 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 ma (unknown) (no (unknown) (unknown) staying asleep (units (unknown) date) Difficulty Staying unknown) Asleep: no and difficulty with hook-up (unknown) (no (unknown) (unknown) the danger of (units ( unknown) date) elevated blood unknown) pressure provided today as outlined in UpToDate. (unknown) (no (unknown) (unknown) the morning or (units (unknown) date) vertigo unknown) (unknown) (no (unknown) (unknown) the morning; Denies (unit s (unknown) date) epistaxis or runny unknown) nose (unknown) (no (unknown) (unknown) therapy. (units (unkno wn) date) unknown) (unknown) (no (unknown) (unknown) thyroid (pork) 15 mg (uni ts (unknown) date) tablet ([place] unknown) Thyroid) 15 mg PO DAILY #30 tabs 04/29/21 (unknown) (no (unknown) (unknown) thyroid (pork) 30 mg (uni ts (unknown) date) tablet ([place] unknown) Thyroid) 30 mg PO DAILY #30 tabs 04/29/21 (unknown) (no (unknown) (unknown) understanding of the (uni ts (unknown) date) dangers in elevated unknown) blood pressure. (unknown) (no (unknown) (unknown) weight is also (units (unknown) date) recommended. She unknown) would like to proceed with trial of CPAP (unknown) (no (unknown) (unknown) with significant (units (unknown) date) desaturation events unknown) down to 86%. Given the history of (unknown) (no (unknown) (unknown) witnessed apnea for (units (unknown) date) at least 5 years. unknown) Results of her NPSG reviewed. Implications (unknown) (no (unknown) (unknown) y occur. Occasional (unit s (unknown) date) wrong-word or unknown) 'sound-alike' substitutions may have occurred Social History date description facility (no date) Ex-smoker (finding) [facility] Vital Signs date measurement value units +0000 BMI BMI 31.9 kg/m2 [id number]+0000 BP_diastolic BP_diastolic 100 mm[H g] 56719492738418+0000 BP_systolic BP_systolic 140 mm[Hg] 57927416715634+0000 heart_rate heart_rate 71 /min [id number]+0000 height_metric height_metric 167.64 cm [id number]+0000 height_standard height_standard 66 in [id number]+0000 temperature_metric temperature_metric 36.61 C [id number]+0000 temperature_standard temperature_standard 9 7.9 F [id number]+0000 weight_metric weight_metric 40.74 kg [id number]+0000 weight_standard weight_standard 89.81 lb [id number]+0000 BMI BMI 31.4 kg/m2 42664822338462+0000 BP_diastolic BP_diastolic 88 mm[H g] [id number]+0000 BP_systolic BP_systolic 158 mm[Hg] +0000 heart_rate heart_rate 87 /min [id number]+0000 height_metric height_metric 167.64 cm [id number]+0000 height_standard height_standard 66 in +0000 respiration_rate respiration_rate 14 /min +0000 temperature_metric temperature_metric 36.83 C +0000 temperature_standard temperature_standard 9 8.3 F +0000 weight_metric weight_metric 40.12 kg +0000 weight_standard weight_standard 88.45 lb
[2021-11-06] MEDS ORDERED: TETANUS/DIPHTHERIA/PERTUSSIS 0.5 ML SYRINGE IM ONE (12:06)
--- NOTE | 2021-11-06 12:31 | XRAY Report ---
PROCEDURE: Forearm LT INDICATIONS: cat bite forearm TECHNIQUE: 2 views of the forearm were acquired. COMPARISON: None FINDINGS: Bones: No fractures or dislocations. No suspicious bony lesions. Soft tissues: No suspicious soft tissue calcifications or masses. No radiodense foreign body. No sof t tissue gas. IMPRESSION: No radiodense foreign body. Reviewed by: Kaila Castellano MD, PhD on 11/06/2021 12:29 PM PDT Approved by: Kaila Castellano MD, PhD on 11/06/2021 12:29 PM PDT Station ID: [id number]
--- NOTE | 2021-11-06 12:39 | ED Physician Documentation ---
PD HPI UPPER EXT INJURY - Stated complaint Stated Complaint: LT ARM CAT BITE - Chief complaint Chief Complaint: Wound - History obtained from History obtained from: Patient - History of Present Illness Location: Left, Forearm - Additonal information Additional information: 51-year-old female presents for cat bite sustained to left forearm that occurred just prior to arrival. Patient states that her pet cat was being introduced to another cat and they began to fight. She attempted to separate the creatures and pulled on her cat's tail, the animal reacted and bit her 2-3 times on the forearm. Reports pain and swelling of her left forearm. Does not remember when her last tetanus shot was. No medications taken at home for symptoms. Cat is vaccinated Review of Systems Ten Systems: 10 systems reviewed and negative Constitutional: denies: Fever, Chills, Myalgias Ears: denies: Loss of hearing, Ear pain, Drainage/discharge Skin: reports: Bite / sting. denies: Rash, Lesions, Abrasion (s) Musculoskeletal: reports: Extremity pain. denies: Neck pain, Back pain, Joint pain, Extremity swelling PD PAST MEDICAL HISTORY - Past Medical History Cardiovascular: Hypertension Respiratory: None Neuro: Motion sickness Endocrine/Autoimmune: None, Other GI: None HEAD TELLER: Ovarian cysts : None HEENT: None Psych: None Musculoskeletal: Fibromyalgia Derm: None - Past Surgical History Past Surgical History: Yes General: Appendectomy Neuro: Other - Present Medications Home Medications: Ambulatory Orders Medication Instructions Recorded Confirmed Thyroid,Pork [[place] Thyroid] 45 mg PO DAILY 08/12/12 06/24/18 Amoxicillin 875 mg PO BID #20 tablet 06/24/18 LORazepam [Lorazepam] 0.5 - 1 mg PO Q6HR PRN #10 tablet 11/09/19 Doxycycline Hyclate 100 mg PO BID #14 tab.sr 11/06/21 clindamycin HCL [Cleocin HCl] 300 mg PO TID #21 cap 11/06/21 - Allergies Allergies/Adverse Reactions: Allergies Allergy/AdvReac Type Severity Reaction Status Date / Time cephalexin monohydrate * Allergy Intermediate CAREY, "worse Verified 05/21/21 13:52 [From Keflex] feeling of my life" morphine Allergy Intermediate Itching Verified 05/21/21 13:52 azithromycin [From Zithromax] Allergy Mild Hives Verified 11/06/21 11:18 oxycodone HCl * Allergy Mild Itching Verified 11/06/21 11:18 [From Percocet] propoxyphene napsylate * Allergy Mild Itching Verified 11/06/21 11:18 [From Darvocet-N 100] codeine Allergy Itching Verified 11/06/21 11:18 hydrochlorothiazide Allergy Unknown Verified 11/06/21 11:18 verapamil Allergy Unknown Verified 11/06/21 11:18 cimetidine [From Tagamet] AdvReac Severe drop in Verified 11/06/21 11:18 blood platelets cimetidine HCl * AdvReac Severe drop in Verified 11/06/21 11:18 [From Tagamet] blood platelets Sulfa (Sulfonamide AdvReac Severe platelets Verified 11/06/21 11:18 Antibiotics) dropped hydrocodone bitartrate * AdvReac Intermediate Nausea Verified 11/06/21 11:18 [From Vicodin] - Social History Does the pt smoke?: No Smoking Status: Never smoker Does the pt drink ETOH?: Yes Does the pt have substance abuse?: No - Immunizations Immunizations are current?: Yes - POLST Patient has POLST: No PD ED PE NORMAL - Vitals Vital signs reviewed: Yes - General General: Alert and oriented X 3, No acute distress - HEENT HEENT: Atraumatic, PERRL, EOMI, Ears normal, Pharynx benign - Neck Neck: Supple, no meningeal sign, No bony TTP, No adenopathy - Cardiac Cardiac: RRR, No murmur, Strong equal pulses - Respiratory Respiratory: No respiratory distress, Clear bilaterally - Abdomen Abdomen: Soft, Non tender, Non distended - Back Back: No CVA TTP, No spinal TTP - Derm Derm: Normal color, Warm and dry, Other (2-3 punctate bite bull to L forearm. 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 Animal is fully vaccinated, this was a provoked bite. Pat eric's tetanus shot was updated. Patient stated that she absolutely could not take Augmentin as it causes her severe GI discomfort. Is discharged on alternate therapy Departure - Departure Disposition: 01 Home, Self Care Clinical Impression: Cat bite Condition: Stable Instructions: Bites Scratches Animal, ED Bite Animal General Prescriptions: clindamycin HCL [Cleocin HCl] 300 mg PO TID #21 cap Doxycycline Hyclate 100 mg PO BID #14 tab.sr Discharge Date/Time: 11/06/21 12:44
[2021-11-06 12:45] VITALS: BP 148/84
== END 2021-11-06 12:44 | disposition home or self-care (01) ==
LOC: ED 10:54
DX: S51.852A Open bite of left forearm, initial encounter (principal); W55.01XA Bitten by cat, initial encounter; Y93.K9 Activity, other involving animal care
CPT/HCPCS: 90471; 99282; 99283

== ENCOUNTER 2022-01-28 09:12 | Emergency (ER) | payer OTHER ==
--- NOTE | 2022-01-28 09:27 | ED Physician Documentation ---
PD HPI ABD PAIN - Stated complaint Stated Complaint: ABD PX/BACK PX - Chief complaint Chief Complaint: Abd Pain - History obtained from History obtained from: Patient - History of Present Illness Timing - onset: Last night Timing - details: Abrupt onset (awoke from sleep with the pain.), Still present, Waxing and waning Quality: Cramping, Aching, Pain Location: RUQ, Epigastric, LUQ Radiation: Right flank, Upper back Improved by: No: Laying still Worsened by: Palpation. No: Moving, Breathing Associated symptoms: Nausea. No: Fever, Vomiting, Diarrhea, Constipation, Dysuria Similar symptoms before: Has not had sx before Recently seen: Not recently seen Review of Systems Constitutional: denies: Fever, Chills Nose: denies: Rhinorrhea / runny nose, Congestion Throat: denies: Sore throat Respiratory: denies: Cough GI: reports: Abdominal Pain, Nausea. 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 : None HEENT: None Psych: None Musculoskeletal: Fibromyalgia Derm: None - Past Surgical History Past Surgical History: Yes General: Appendectomy Neuro: Other - Present Medications Home Medications: Ambulatory Orders Medication Instructions Recorded Confirmed Thyroid,Pork [[place] Thyroid] 45 mg PO DAILY 08/12/12 01/28/22 Dicyclomine [Bentyl] 10 mg PO QID PRN #15 cap 01/28/22 Ondansetron Odt [Zofran] 4 mg TL Q6H PRN #10 tablet 01/28/22 - Allergies Allergies/Adverse Reactions: Allergies Allergy/AdvReac Type Severity Reaction Status Date / Time cephalexin monohydrate * Allergy Intermediate CAREY, "worse Verified 01/28/22 09:19 [From Keflex] feeling of my life" morphine Allergy Intermediate Itching Verified 01/28/22 09:19 azithromycin [From Zithromax] Allergy Mild Hives Verified 01/28/22 09:19 oxycodone HCl * Allergy Mild Itching Verified 01/28/22 09:19 [From Percocet] propoxyphene napsylate * Allergy Mild Itching Verified 01/28/22 09:19 [From Darvocet-N 100] codeine Allergy Itching Verified 01/28/22 09:19 hydrochlorothiazide Allergy Unknown Verified 01/28/22 09:19 verapamil Allergy Unknown Verified 01/28/22 09:19 cimetidine [From Tagamet] AdvReac Severe drop in Verified 01/28/22 09:19 blood platelets cimetidine HCl * AdvReac Severe drop in Verified 01/28/22 09:19 [From Tagamet] blood platelets Sulfa (Sulfonamide AdvReac Severe platelets Verified 01/28/22 09:19 Antibiotics) dropped hydrocodone bitartrate * AdvReac Intermediate Nausea Verified 01/28/22 09:19 [From Vicodin] - Social History Does the pt smoke?: No Smoking Status: Never smoker Does the pt drink ETOH?: Yes Does the pt have substance abuse?: No - Immunizations Immunizations are current?: Yes - POLST Patient has POLST: No PD ED PE NORMAL - Vitals Vital signs reviewed: Yes - General General: Alert and oriented X 3, Well developed/nourished, Other (appears in pain. Some writhing side to side on cart. ) - HEENT HEENT: Moist mucous membranes, Pharynx benign - Neck Neck: Supple, no meningeal sign, No adenopathy - Cardiac Cardiac: RRR, No murmur - Respiratory Respiratory: No respiratory distress, Clear bilaterally - Abdomen Abdomen: Normal bowel sounds, Soft, Non distended, No organomegaly, Other (tender in epigastric area with some guarding. No percussion tender. ) - Female Female : Deferred - Rectal Rectal: Deferred - Back Back: No spinal TTP, Other (some right CVA tneder to percussion. ) - Derm Derm: Normal color, Warm and dry - Extremities Extremities: No edema, No calf tenderness / cord, Other (normal femoral pulses. ) - Neuro Neuro: Alert and oriented X 3, No motor deficit, Normal speech Results - Vitals Vitals: Vital Signs - 24 hr 01/28/22 01/28/22 09:15 11:41 Temperature 36.7 C 36.2 C L Heart Rate 95 81 Respiratory 18 16 Rate Blood Pressure 186/105 H 179/99 H O2 Saturation 94 97 Oxygen O2 Source Room air - Labs Labs: Laboratory Tests 01/28/22 01/28/22 01/28/22 09:25 09:33 09:33 WBC 7.4 RBC 5.25 Hgb 16.1 H Hct 48.7 H MCV 92.8 MCH 30.7 MCHC 33.1 RDW 13.2 Plt Count 312 MPV 9.7 Neut # (Auto) 4.4 Lymph # (Auto) 2.0 [place] # (Auto) 0.7 Eos # (Auto) 0.3 Baso # (Auto) 0.0 Absolute Nucleated RBC 0.00 Nucleated RBC % 0.0 Sodium 141 Potassium 3.5 Chloride 102 Carbon Dioxide 27 Anion Gap 12.0 BUN 11 Creatinine 0.8 Estimated GFR (MDRD) 75 L Glucose 103 H Calcium 9.4 Total Bilirubin 0.5 AST 35 ALT 43 Alkaline Phosphatase 86 Total Protein 7.3 Albumin 4.1 Globulin 3.2 Albumin/Globulin Ratio 1.3 Lipase 31 Urine Color LIGHT YELLOW Urine Clarity CLEAR Urine pH 8.5 H Ur Specific [place] 1.015 Urine Protein NEGATIVE Urine Glucose (UA) NEGATIVE Urine Ketones NEGATIVE Urine Occult Blood NEGATIVE Urine Nitrite NEGATIVE Urine Bilirubin NEGATIVE Urine Urobilinogen 0.2 (NORMAL) Ur Leukocyte Esterase NEGATIVE Ur Microscopic Review NOT INDICATED Urine Culture Comments NOT INDICATED - Rads (name of study) abd/pelvic CT Radiology: Prelim report reviewed (no acute process), See rad report PD MEDICAL DECISION MAKING - ED course Complexity details: reviewed results (no obvious cause on labs/imaging. Therefore consider gastritis, intestinal spasming, or acalculus gallbladder spasms. ), re-evaluated patient (pain improved after some pain meds. She declined second dose of meds though pain still medium. ), considered differential (consider biliary colic/cholecystitis given the location and character of pain. However not as tender as I would expect, and some to flank and epigastric. So also consider kidney stone, gastritis, colonic spasm, v ascular/aortic process. ), d/w patient Departure - Departure Disposition: 01 Home, Self Care Clinical Impression: Abdominal pain Qualifiers: Abdominal location: right upper quadrant Qualified Code(s): R10.11 - Right upper quadrant pain Condition: Stable Record reviewed to determine appropriate education?: Yes Instructions: ED Abdominal Pain Female Non-Specific Abdominal Pain Follow-Up: [facility] [Provider Group] Prescriptions: Dicyclomine [Bentyl] 10 mg PO QID PRN #15 cap PRN Reason: Abdominal Pain Ondansetron Odt [Zofran] 4 mg TL Q6H PRN #10 tablet PRN Reason: Nausea / Vomiting Comments: Your CT scan and blood tests and urine test are normal without any specific finding to account for the pain. This would exclude gallstones, acute gallbladder infection, kidney stones, bowel obstruction, diverticulitis, kidney infection among other things. Other considerations then that would cause the pain and lieu of the normal tests would be spasming or irritation of the intestine and initial outlet of the intestine from the stomach. This could be related to some irritation or acid p roduction or may have just been caused by a response to food you ate last night. Other consideration could be gallbladder spasms without gallstones or inflammation. This is fairly uncommon but if you have recurring episodes like this particularly after higher fat type meals then you may need to have other testing to evaluate the spasticity of the gallbladder. In the short-term stay well-hydrated and use Tylenol or ibuprofen if needed for pains. Use ondansetron if needed for nausea. To that you could add dicyclomine which is an antispasmodic for the intestine to help with cramps and pains if needed. Recheck if worsening over the next day or 2 including worse pain, vomiting, bloody stools, fever or other concerns. Discharge Date/Time: 01/28/22 12:14
[2022-01-28] MEDS ORDERED: KETOROLAC 15 MG/ML VIAL IVP STA (09:40)
[2022-01-28] MEDS ORDERED: SODIUM CHLORIDE 0.9% 1,000 ML IV STA (09:40)
--- OUTSIDE RECORDS SUMMARY | 2022-01-28 09:47 | EXTERNAL MEDICAL SUMMARY RPT | Continuity of Care Document ---
:1970 Author Organization [facility] Address [address] [place] [address] Phone Care Team Providers Name Role Phone Juan Pablo Roberts Unavailable Unavailable Allergies No information. Encounters No information. Functional Status No information. Immunizations No information. Medications No information. Problems No information. Procedures No information. Results/Labs test date author facility value unit interpret ation Result panel 1 (unknown) (no (unknown) (unknown) (no value) (units (unk nown) date) unknown) (unknown) (no (unknown) (unknown) 12/25/21 (units (unkno wn) date) unknown) (unknown) (no (unknown) (unknown) [id number] (units (unkno wn) date) unknown) (unknown) (no (unknown) (unknown) Adult general (units ( unknown) date) medical exam unknown) (unknown) (no (unknown) (unknown) Age/Sex: 51 / F Date (uni ts (unknown) date) of Service: unknown) (unknown) (no (unknown) (unknown) Allergies (units (unkn own) date) unknown) (unknown) (no (unknown) (unknown) [place] [address] (unit s (unknown) date) unknown) (unknown) (no (unknown) (unknown) Anesthesia (units (unk nown) date) unknown) (unknown) (no (unknown) (unknown) Attending Dr: Regan (unit s (unknown) date) Isiah ESPINAL unknown) (unknown) (no (unknown) (unknown) CODEINE Allergy (units (unknown) date) (Unknown, Uncoded unknown) 09/24/21 13:04) (unknown) (no (unknown) (unknown) Chronic back pain (units (unknown) date) unknown) (unknown) (no (unknown) (unknown) Colon polyps (-1999) (uni ts (unknown) date) unknown) (unknown) (no (unknown) (unknown) : 1970 (units (unknown) date) Acct:[id number] unknown) (unknown) (no (unknown) (unknown) Daytime sleepiness (units (unknown) date) unknown) (unknown) (no (unknown) (unknown) Dept at (units (unkno wn) date) . unknown) (unknown) (no (unknown) (unknown) Documented By: (units (unknown) date) Regan Joyce unknown) 12/25/21 1119 (unknown) (no (unknown) (unknown) Draft (units (unkno wn) date) unknown) (unknown) (no (unknown) (unknown) Essential (units (unkn own) date) hypertension unknown) (unknown) (no (unknown) (unknown) Family History (units (unknown) date) (Reviewed 08/14/21 @ unknown) 09:38 by Emile Velaqsuez MD) (unknown) (no (unknown) (unknown) Father Prostate (units (unknown) date) cancer unknown) (unknown) (no (unknown) (unknown) History of [...] by TEDDY Webster) (unknown) (no (unknown) (unknown) Obstructive sleep (units (unknown) date) apnea unknown) (unknown) (no (unknown) (unknown) Ovarian cyst (-1987) (uni ts (unknown) date) unknown) (unknown) (no (unknown) (unknown) PFSH (units (unkno wn) date) unknown) (unknown) (no (unknown) (unknown) Patient: (units (unkno wn) date) Raine Perez MR#: unknown) M000 (unknown) (no (unknown) (unknown) Propoxyphene Allergy (uni ts (unknown) date) (Unknown, Uncoded unknown) 09/24/21 13:04) (unknown) (no (unknown) (unknown) Reason For Visit (units (unknown) date) unknown) (unknown) (no (unknown) (unknown) SULFA Allergy (units ( unknown) date) (Unknown, Uncoded unknown) 09/24/21 13:04) (unknown) (no (unknown) (unknown) Screening for (units ( unknown) date) malignant neoplasm of unknown) colon (unknown) (no (unknown) (unknown) Signed By: (units (unk nown) date) unknown) (unknown) (no (unknown) (unknown) Sleep Visit (units (un known) date) unknown) (unknown) (no (unknown) (unknown) [facility] ([facility] ([facility] unknown) (unknown) (no (unknown) (unknown) Smoking Status: [...] unknown) (unknown) (no (unknown) (unknown) Visit Reasons: 2m (units (unknown) date) comp- rotech unknown) (unknown) (no (unknown) (unknown) azithromycin [From [...] unknown) 09/24/21 13:04) (unknown) (no (unknown) (unknown) may occur. (units (unk nown) date) Occasional wrong-word unknown) or 'sound-alike' substitutions may have (unknown) (no (unknown) (unknown) occurred due to the (unit s (unknown) date) inherent limitations unknown) of voice recognition software. Please (unknown) (no (unknown) (unknown) oxycodone [From (units (unknown) date) Percocet] Allergy unknown) (Unknown, Verified 09/24/21 13:04) (unknown) (no (unknown) (unknown) read the note (units ( unknown) date) carefully and unknown) recognize, using context, where these substitutions (unknown) (no (unknown) (unknown) software. Although (units (unknown) date) every effort is made unknown) to edit content, supervisor remelt errors Result panel 2 (unknown) (no (unknown) (unknown) (no value) (units (unk nown) date) unknown) (unknown) (no (unknown) (unknown) (1) Obstructive (units (unknown) date) sleep apnea: unknown) (unknown) (no (unknown) (unknown) 0 = Would never doze (uni ts (unknown) date) or sleep, 1 = Slight unknown) chance of dozing or sleeping, 2 = (unknown) (no (unknown) (unknown) 12/25/21 (units (unkno wn) date) unknown) (unknown) (no (unknown) (unknown) 11:26 (units (unkno wn) date) unknown) (unknown) (no (unknown) (unknown) 2 month compliance (units (unknown) date) unknown) (unknown) (no (unknown) (unknown) [id number] (units (unkno wn) date) unknown) (unknown) (no (unknown) (unknown) AHI flow. It is (units (unknown) date) clear she is unknown) benefiting from therapy and is willing to continue (unknown) (no (unknown) (unknown) Add'l Complaint: (units (unknown) date) unknown) (unknown) (no (unknown) (unknown) Adult general (units ( unknown) date) medical exam unknown) (unknown) (no (unknown) (unknown) Affect: normal (units (unknown) date) affect unknown) (unknown) (no (unknown) (unknown) Age/Sex: 51 / F Date (uni ts (unknown) date) of Service: unknown) (unknown) (no (unknown) (unknown) Allergies (units (unkn own) date) unknown) (unknown) (no (unknown) (unknown) [place] [address] (unit s (unknown) date) unknown) (unknown) (no (unknown) (unknown) Anesthesia (units (unk nown) date) unknown) (unknown) (no (unknown) (unknown) Appearance: grossly (unit s (unknown) date) normal unknown) (unknown) (no (unknown) (unknown) Assessment + Plan (units (unknown) date) unknown) (unknown) (no (unknown) (unknown) Assessment and Plan: (uni ts (unknown) date) unknown) (unknown) (no (unknown) (unknown) Attending Dr: Regan (unit s (unknown) date) Isiah ICD 9 CODER unknown) (unknown) (no (unknown) (unknown) Attitude: (units (unkn own) date) cooperative unknown) (unknown) (no (unknown) (unknown) Auto CPAP set (units ( unknown) date) pressures: 5-15 CWP unknown) (unknown) (no (unknown) (unknown) BMI 31.1 (units (unkno wn) date) unknown) (unknown) (no (unknown) (unknown) BP 159/89 H (units (un known) date) unknown) (unknown) (no (unknown) (unknown) Being a passenger in (uni ts (unknown) date) a motor vehicle for unknown) an hour or so: 2 = Moderate (unknown) (no (unknown) (unknown) Blood Pressure (units (unknown) date) Location Lt brachial unknown) (unknown) (no (unknown) (unknown) CODEINE Allergy (units (unknown) date) (Unknown, Uncoded unknown) 12/25/21 11:26) (unknown) (no (unknown) (unknown) CPAP (5-15 cwp) (units (unknown) date) unknown) (unknown) (no (unknown) (unknown) Chief Complaint: (units (unknown) date) Follow up CPAP unknown) therapy for GERI (unknown) (no (unknown) (unknown) Chronic back pain (units (unknown) date) unknown) (unknown) (no (unknown) (unknown) Cognition: normal (units (unknown) date) cognition unknown) (unknown) (no (unknown) (unknown) Colon polyps (-1999) (uni ts (unknown) date) unknown) (unknown) (no (unknown) (unknown) Compliance is (units ( unknown) date) suboptimal due to unknown) camping trips without the machine. Reports no (unknown) (no (unknown) (unknown) Condition is Onset: (unit s (unknown) date) Chronic and ongoing unknown) condition (unknown) (no (unknown) (unknown) Conjunctivae: (units ( unknown) date) conjunctivae normal unknown) (unknown) (no (unknown) (unknown) Const (units (unkno wn) date) unknown) (unknown) (no (unknown) (unknown) Currently using CPAP (uni ts (unknown) date) 5-15 CWP. Compliance unknown) data reviewed, implications of (unknown) (no (unknown) (unknown) Currently using CPAP (uni ts (unknown) date) 5-15 CWP. Using her unknown) machine somewhat regularly. (unknown) (no (unknown) (unknown) DME: [facility] (units (unk nown) date) unknown) (unknown) (no (unknown) (unknown) : 1970 (units (unknown) date) Acct:[id number] unknown) (unknown) (no (unknown) (unknown) Daytime sleepiness (units (unknown) date) unknown) (unknown) (no (unknown) (unknown) Dept at (units (unkno wn) date) . unknown) (unknown) (no (unknown) (unknown) Details: (units (unkno wn) date) unknown) (unknown) (no (unknown) (unknown) Device data last 90 (unit s (unknown) date) days: unknown) (unknown) (no (unknown) (unknown) Device set up: (units (unknown) date) 11/24/2021 unknown) (unknown) (no (unknown) (unknown) Documented By: (units (unknown) date) Regan Joyce unknown) 12/25/21 1119 (unknown) (no (unknown) (unknown) Draft (units (unkno wn) date) unknown) (unknown) (no (unknown) (unknown) Ears: hearing (units ( unknown) date) grossly normal unknown) bilaterally (unknown) (no (unknown) (unknown) Effort + Inspection: (uni ts (unknown) date) normal respiratory unknown) effort, able to speak in complete (unknown) (no (unknown) (unknown) [place] Score: 5 (units (unknown) date) unknown) (unknown) (no (unknown) (unknown) [place] Sleepiness (units (unknown) date) Scale unknown) (unknown) (no (unknown) (unknown) Essential (units (unkn own) date) hypertension unknown) (unknown) (no (unknown) (unknown) Exam Narrative (units (unknown) date) unknown) (unknown) (no (unknown) (unknown) Exam Narrative: (units (unknown) date) unknown) (unknown) (no (unknown) (unknown) Exam (units (unkno wn) date) unknown) (unknown) (no (unknown) (unknown) Eyes (units (unkno wn) date) unknown) (unknown) (no (unknown) (unknown) Family History (units (unknown) date) (Reviewed 08/14/21 @ unknown) 09:38 by Emile Velasquez MD) (unknown) (no (unknown) (unknown) Father Prostate (units (unknown) date) cancer unknown) (unknown) (no (unknown) (unknown) General: (units (unkno wn) date) cooperative, unknown) comfortable and no acute distress (unknown) (no (unknown) (unknown) General: patient (units (unknown) date) alert, patient awake unknown) and patient oriented x3 (unknown) (no (unknown) (unknown) HENMT (units (unkno wn) date) unknown) (unknown) (no (unknown) (unknown) HPI Sleep Follow Up (unit s (unknown) date) unknown) (unknown) (no (unknown) (unknown) HPI (units (unkno wn) date) unknown) (unknown) (no (unknown) (unknown) Head: normal to (units (unknown) date) inspection unknown) (unknown) (no (unknown) (unknown) Height 5 ft 6 in (units (unknown) date) unknown) (unknown) (no (unknown) [...] Allergy (units (unknown) date) (Unknown, Uncoded unknown) 12/25/21 11:26) (unknown) (no (unknown) (unknown) Medical History (units (unknown) date) (Updated 09/24/21 @ unknown) 13:24 by TEDDY Webster) (unknown) (no (unknown) (unknown) Medications (units (un known) date) unknown) (unknown) (no (unknown) (unknown) Mild GERI. History of (uni ts (unknown) date) snoring, sleep unknown) disturbance. NPSG consistent with mild (unknown) (no (unknown) (unknown) Moderate chance of [...] wn) date) unknown) (unknown) (no (unknown) (unknown) Obstructive sleep (units (unknown) date) apnea unknown) (unknown) (no (unknown) (unknown) Ovarian cyst (-1987) (uni ts (unknown) date) unknown) (unknown) (no (unknown) (unknown) PAP treatment due to (unit s (unknown) date) nonadherence unknown) (describe) (does not use device while camping) (unknown) (no (unknown) (unknown) PFSH (units (unkno wn) date) unknown) (unknown) (no (unknown) (unknown) Pain scale (1-10): 2 (uni ts (unknown) date) unknown) (unknown) (no (unknown) (unknown) Pain (units (unkno wn) date) unknown) (unknown) (no (unknown) (unknown) Patient prescribed (units (unknown) date) continued CPAP unknown) therapy at 9-15 cwp. No changes made today. (unknown) (no (unknown) (unknown) Patient was (units (un known) date) encouraged to unknown) maintain PAP usage at a minimum of 4 hours a night, (unknown) (no (unknown) (unknown) Patient was started (unit s (unknown) date) on CPAP therapy. unknown) (unknown) (no (unknown) (unknown) Patient: (units (unkno wn) date) Raine Perez MR#: unknown) M000 (unknown) (no (unknown) (unknown) Plan (units (unkno wn) date) unknown) (unknown) (no (unknown) (unknown) Position Sitting (units (unknown) date) unknown) (unknown) (no (unknown) (unknown) Prescription written (uni ts (unknown) date) for renewal of PAP unknown) supplies; (unknown) (no (unknown) (unknown) Propoxyphene Allergy (uni ts (unknown) date) (Unknown, Uncoded unknown) 12/25/21 11:26) (unknown) (no (unknown) (unknown) Psych (units (unkno wn) date) unknown) (unknown) (no (unknown) (unknown) Pulse 77 (units (unkno wn) date) unknown) (unknown) (no (unknown) (unknown) Pulse Source Monitor (uni ts (unknown) date) unknown) (unknown) (no (unknown) (unknown) Questionnaires (units (unknown) date) unknown) (unknown) (no (unknown) (unknown) Reason For Visit (units (unknown) date) unknown) (unknown) (no (unknown) (unknown) Resp (units (unkno wn) date) unknown) (unknown) (no (unknown) (unknown) Respiration 14 (units (unknown) date) unknown) (unknown) (no (unknown) (unknown) Return visit in 6 (units (unknown) date) months to assess unknown) continued response to PAP therapy Patient was (unknown) (no (unknown) (unknown) SULFA Allergy (units ( unknown) date) (Unknown, Uncoded unknown) 12/25/21 11:26) (unknown) (no (unknown) (unknown) Sclera: sclerae (units [...] = Never (None) (unknown) (no (unknown) (unknown) Sleep Visit (units (un known) date) unknown) (unknown) (no (unknown) (unknown) [facility] (units (unknown) date) Center unknown) (unknown) (no (unknown) (unknown) Smoking Status: (units (unknown) date) Former smoker unknown) (unknown) (no (unknown) (unknown) Speech and Movement: (uni ts (unknown) date) speech and movement unknown) normal (unknown) (no (unknown) (unknown) Speech: speech (units (unknown) date) normal unknown) (unknown) (no (unknown) (unknown) Status: Acute (units ( unknown) date) unknown) (unknown) (no (unknown) (unknown) Stopped for a few (units (unknown) date) minutes in traffic: 0 unknown) = Never (None) (unknown) (no (unknown) (unknown) Surgical History (units (unknown) date) (Reviewed 08/14/21 @ unknown) 09:38 by Emile Velasquez MD) (unknown) (no (unknown) (unknown) Temp 97.8 F (units (un known) date) unknown) (unknown) (no (unknown) (unknown) Temp Source Temporal (uni ts (unknown) date) Artery Scan unknown) (unknown) (no (unknown) (unknown) This note may have (units (unknown) date) been all or partially unknown) generated using voice recognition (unknown) (no (unknown) (unknown) Thyroid nodule (units (unknown) date) (-1998) unknown) (unknown) (no (unknown) (unknown) Tobacco + Substance (unit s (unknown) date) Use unknown) (unknown) (no (unknown) (unknown) Tobacco Status (units (unknown) date) unknown) (unknown) (no (unknown) (unknown) Treatment Effects: (units (unknown) date) Pap Treatment unknown) Response/Side Effects: nonadherent to current (unknown) (no (unknown) (unknown) Treatment (units (unkn own) date) Response/Side Affects unknown) (unknown) (no (unknown) (unknown) Usage: 97% with 63% (unit s (unknown) date) greater than 4 hours. unknown) Leak 7.0 L/min. AHIflow: 0.6 (unknown) (no (unknown) (unknown) Visit Reasons: 2m (units (unknown) date) comp- rotech unknown) (unknown) (no (unknown) (unknown) Visit type (FU): (units (unknown) date) follow up of GERI unknown) therapy Follow up evaluation of GERI therapy: (unknown) (no (unknown) (unknown) Vitals (units (unkno wn) date) unknown) (unknown) (no (unknown) (unknown) Watching TV: 1 = (units (unknown) date) Slight unknown) (unknown) (no (unknown) (unknown) Weight 193 lb (units ( unknown) date) unknown) (unknown) (no (unknown) (unknown) [Rx Confirmed (units ( unknown) date) 12/25/21] unknown) (unknown) (no (unknown) (unknown) azithromycin [From (units (unknown) date) Zithromax] Allergy unknown) (Unknown, Verified 12/25/21 11:26) (unknown) (no (unknown) (unknown) but increased (units ( unknown) date) benefit from more unknown) usage was also explained. (unknown) (no (unknown) (unknown) cephalexin [From (units (unknown) date) Keflex] Allergy unknown) (Unknown, Verified 12/25/21 11:26) (unknown) (no (unknown) (unknown) cimetidine [From (units (unknown) date) Tagamet] Allergy unknown) (Unknown, Verified 12/25/21 11:26) (unknown) (no (unknown) (unknown) concerns with the (units (unknown) date) mask, machine or unknown) pressure. Showing positive clinical (unknown) (no (unknown) (unknown) continue with CPAP. (unit s (unknown) date) unknown) (unknown) (no (unknown) (unknown) evidenced by (units (un known) date) resolution of snoring unknown) and decreased daytime sleepiness with optimal (unknown) (no (unknown) (unknown) findings discussed. (unit s (unknown) date) Compliance is unknown) suboptimal due to camping trips without the (unknown) (no (unknown) (unknown) have occurred. If (units (unknown) date) there are any unknown) questions, please contact the Medical Records (unknown) (no (unknown) (unknown) hydrochlorothiazide (unit s (unknown) date) Allergy (Verified unknown) 12/25/21 11:26) (unknown) (no (unknown) (unknown) improvement as (units (unknown) date) evidenced by unknown) resolution of snoring and decreased daytime (unknown) (no (unknown) (unknown) instructed to return (uni ts (unknown) date) sooner if any unknown) questions or concerns arise. (unknown) (no (unknown) (unknown) machine. Showing (units (unknown) date) positive clinical unknown) improvement when she uses her device, as (unknown) (no (unknown) (unknown) may occur. (units (unk nown) date) Occasional wrong-word unknown) or 'sound-alike' substitutions may have (unknown) (no (unknown) (unknown) occurred due to the (unit s (unknown) date) inherent limitations unknown) of voice recognition software. Please (unknown) (no (unknown) (unknown) oxycodone [From (units (unknown) date) Percocet] Allergy unknown) (Unknown, Verified 12/25/21 11:26) (unknown) (no (unknown) (unknown) read the note (units ( unknown) date) carefully and unknown) recognize, using context, where these substitutions (unknown) (no (unknown) (unknown) sentences and no (units (unknown) date) audible wheezes unknown) (unknown) (no (unknown) (unknown) sleep apnea (AHI (units (unknown) date) 11.7) with unknown) significant desaturation events down to 86%. Patien (unknown) (no (unknown) (unknown) sleep apnea (AHI (units (unknown) date) 11.7) with unknown) significant desaturation events down to 86%. (unknown) (no (unknown) (unknown) sleepiness. It is (units (unknown) date) clear she is unknown) benefiting from therapy and is willing to (unknown) (no (unknown) (unknown) software. Although (units (unknown) date) every effort is made unknown) to edit content, supervisor remelt errors (unknown) (no (unknown) (unknown) t was started on (units (unknown) date) CPAP therapy. unknown) (unknown) (no (unknown) (unknown) thyroid (pork) 15 mg (uni ts (unknown) date) tablet ([place] unknown) Thyroid) 15 mg PO DAILY #30 tabs 04/29/21 (unknown) (no (unknown) (unknown) thyroid (pork) 30 mg (uni ts (unknown) date) tablet ([place] unknown) Thyroid) 30 mg PO DAILY #30 tabs 04/29/21 (unknown) (no (unknown) (unknown) with CPAP. (units (unk nown) date) unknown) Result panel 3 (unknown) (no (unknown) (unknown) (no value) (units (unk nown) date) unknown) (unknown) (no (unknown) (unknown) (1) Obstructive (units (unknown) date) sleep apnea: unknown) (unknown) (no (unknown) (unknown) 0 = Would never doze (uni ts (unknown) date) or sleep, 1 = Slight unknown) chance of dozing or sleeping, 2 = (unknown) (no (unknown) (unknown) 12/25/21 (units (unkno wn) date) unknown) (unknown) (no (unknown) (unknown) 2 month compliance (units (unknown) date) unknown) (unknown) (no (unknown) (unknown) [id number] (units (unkno wn) date) unknown) (unknown) (no (unknown) (unknown) 2: better (units (unkn own) date) unknown) (unknown) (no (unknown) (unknown) AHI flow. It is (units (unknown) date) clear she is unknown) benefiting from therapy and is willing to continue (unknown) (no (unknown) (unknown) Add'l Complaint: (units (unknown) date) unknown) (unknown) (no (unknown) (unknown) Adult general (units ( unknown) date) medical exam unknown) (unknown) (no (unknown) (unknown) Affect: normal (units (unknown) date) affect unknown) (unknown) (no (unknown) (unknown) Age/Sex: 51 / F Date (uni ts (unknown) date) of Service: unknown) (unknown) (no (unknown) (unknown) Allergies (units (unkn own) date) unknown) (unknown) (no (unknown) (unknown) [place] [address] (unit s (unknown) date) unknown) (unknown) (no (unknown) (unknown) Anesthesia (units (unk nown) date) unknown) (unknown) (no (unknown) (unknown) Appearance: grossly (unit s (unknown) date) normal unknown) (unknown) (no (unknown) (unknown) Assessment + Plan (units (unknown) date) unknown) (unknown) (no (unknown) (unknown) Assessment and Plan: (uni ts (unknown) date) unknown) (unknown) (no (unknown) (unknown) Attending Dr: Regan (unit s (unknown) date) Isiah BOSEP unknown) (unknown) (no (unknown) (unknown) Attitude: (units (unkn own) date) cooperative unknown) (unknown) (no (unknown) (unknown) Auto CPAP set (units ( unknown) date) pressures: 5-15 CWP unknown) (unknown) (no (unknown) (unknown) Being a passenger in (uni ts (unknown) date) a motor vehicle for unknown) an hour or so: 2 = Moderate (unknown) (no (unknown) (unknown) CODEINE Allergy (units (unknown) date) (Unknown, Uncoded unknown) 12/25/21 11:26) (unknown) (no (unknown) (unknown) CPAP (5-15 cwp) (units (unknown) date) unknown) (unknown) (no (unknown) (unknown) Cardiac (units (unkno wn) date) unknown) (unknown) (no (unknown) (unknown) Chief Complaint: (units (unknown) date) Follow up CPAP unknown) therapy for GERI (unknown) (no (unknown) (unknown) Chronic back pain (units (unknown) date) unknown) (unknown) (no (unknown) (unknown) Clinical Course (units (unknown) date) unknown) (unknown) (no (unknown) (unknown) Cognition: normal (units (unknown) date) cognition unknown) (unknown) (no (unknown) (unknown) Colon polyps (-1999) (uni ts (unknown) date) unknown) (unknown) (no (unknown) (unknown) Compliance is (units ( unknown) date) suboptimal due to unknown) camping trips without the machine. Reports no (unknown) (no (unknown) (unknown) Condition is Onset: (unit s (unknown) date) Chronic and ongoing unknown) condition (unknown) (no (unknown) (unknown) Conjunctivae: (units ( unknown) date) conjunctivae normal unknown) (unknown) (no (unknown) (unknown) Const (units (unkno wn) date) unknown) (unknown) (no (unknown) (unknown) Currently using CPAP (uni ts (unknown) date) 5-15 CWP. Compliance unknown) data reviewed, implications of (unknown) (no (unknown) (unknown) Currently using CPAP (uni ts (unknown) date) 5-15 CWP. Using her unknown) machine somewhat regularly. (unknown) (no (unknown) (unknown) DME: [facility] (units (unk nown) date) unknown) (unknown) (no (unknown) (unknown) : 1970 (units (unknown) date) Acct:[id number] unknown) (unknown) (no (unknown) (unknown) Daytime sleepiness (units (unknown) date) unknown) (unknown) (no (unknown) (unknown) Denies bloating on (units (unknown) date) CPAP unknown) (unknown) (no (unknown) (unknown) Denies chest pain (units (unknown) date) unknown) (unknown) (no (unknown) (unknown) Denies daytime (units (unknown) date) sleepiness and Denies unknown) difficulty sleeping (unknown) (no (unknown) (unknown) Denies dyspnea at (units (unknown) date) night unknown) (unknown) (no (unknown) (unknown) Dept at (units (unkno wn) date) . unknown) (unknown) (no (unknown) (unknown) Details: (units (unkno wn) date) unknown) (unknown) (no (unknown) (unknown) Device data last 90 (unit s (unknown) date) days: unknown) (unknown) (no (unknown) (unknown) Device set up: (units (unknown) date) 11/24/2021 unknown) (unknown) (no (unknown) (unknown) Documented By: (units (unknown) date) Regan Joyce unknown) 12/25/21 1119 (unknown) (no (unknown) (unknown) Draft (units (unkno wn) date) unknown) (unknown) (no (unknown) (unknown) Ears: hearing (units ( unknown) date) grossly normal unknown) bilaterally (unknown) (no (unknown) (unknown) Effort + Inspection: (uni ts (unknown) date) normal respiratory unknown) effort, able to speak in complete (unknown) (no (unknown) (unknown) [place] Score: 5 (units (unknown) date) unknown) (unknown) (no (unknown) (unknown) [place] Sleepiness (units (unknown) date) Scale unknown) (unknown) (no (unknown) (unknown) Essential (units (unkn own) date) hypertension unknown) (unknown) (no (unknown) (unknown) Exacerbating/Allevia (uni ts (unknown) date) ting Factors unknown) (unknown) (no (unknown) (unknown) Exam Narrative (units (unknown) date) unknown) (unknown) (no (unknown) (unknown) Exam Narrative: (units (unknown) date) unknown) (unknown) (no (unknown) (unknown) Exam (units (unkno wn) date) unknown) (unknown) (no (unknown) (unknown) Eyes (units (unkno wn) date) unknown) (unknown) (no (unknown) (unknown) Family History (units (unknown) date) (Reviewed 08/14/21 @ unknown) 09:38 by Eimle Velasquez MD) (unknown) (no (unknown) (unknown) Father [...] unknown) (unknown) (no (unknown) (unknown) HPI Sleep Follow Up (unit s (unknown) date) unknown) (unknown) (no (unknown) (unknown) HPI (units (unkno wn) date) unknown) (unknown) (no (unknown) (unknown) Head: normal to (units (unknown) date) inspection unknown) (unknown) (no (unknown) (unknown) Headgear discomfort. (uni ts (unknown) date) Not sure if she is unknown) wearing correctly, right side of her (unknown) (no (unknown) (unknown) History of ITP [...] Allergy (units (unknown) date) (Unknown, Uncoded unknown) 12/25/21 11:26) (unknown) (no (unknown) (unknown) Medical History (units (unknown) date) (Updated 09/24/21 @ unknown) 13:24 by TEDDY Webster) (unknown) (no (unknown) (unknown) Medications (units (un known) date) unknown) (unknown) (no (unknown) (unknown) Mild GERI. History of (uni ts (unknown) date) snoring, sleep unknown) disturbance. NPSG consistent with mild (unknown) (no (unknown) (unknown) Moderate chance of [...] wn) date) unknown) (unknown) (no (unknown) (unknown) Obstructive sleep (units (unknown) date) apnea unknown) (unknown) (no (unknown) (unknown) Ovarian cyst (-1987) (uni ts (unknown) date) unknown) (unknown) (no (unknown) (unknown) PAP treatment due to (unit s (unknown) date) nonadherence unknown) (describe) (does not use device while camping) (unknown) (no (unknown) (unknown) PFSH (units (unkno wn) date) unknown) (unknown) (no (unknown) (unknown) Pain scale (1-10): 2 (uni ts (unknown) date) unknown) (unknown) (no (unknown) (unknown) Pain (units (unkno wn) date) unknown) (unknown) (no (unknown) (unknown) Patient prescribed (units (unknown) date) continued CPAP unknown) therapy at 9-15 cwp. No changes made today. (unknown) (no (unknown) (unknown) Patient reports (units (unknown) date) alcohol Sleep Alcohol unknown) Branch: daily (3 drinks per day), reports (unknown) (no (unknown) (unknown) Patient reports (units (unknown) date) difficulty falling unknown) asleep is denied, difficulty staying asleep (unknown) (no (unknown) (unknown) Patient was (units (un known) date) encouraged to unknown) maintain PAP usage at a minimum of 4 hours a night, (unknown) (no (unknown) (unknown) Patient was started (unit s (unknown) date) on CPAP therapy. unknown) (unknown) (no (unknown) (unknown) Patient: (units (unkno wn) date) Raine Perez MR#: unknown) M000 (unknown) (no (unknown) (unknown) Pertinent (units (unkn own) date) Positives/Negatives unknown) (unknown) (no (unknown) (unknown) Plan (units (unkno wn) date) unknown) (unknown) (no (unknown) (unknown) Prescription written (uni ts (unknown) date) for renewal of PAP unknown) supplies; (unknown) (no (unknown) (unknown) Propoxyphene Allergy (uni ts (unknown) date) (Unknown, Uncoded unknown) 12/25/21 11:26) (unknown) (no (unknown) (unknown) Psych (units (unkno wn) date) unknown) (unknown) (no (unknown) (unknown) Psychological (units ( unknown) date) unknown) (unknown) (no (unknown) (unknown) Questionnaires (units (unknown) date) unknown) (unknown) (no (unknown) (unknown) ROS Sleep (units (unkn own) date) unknown) (unknown) (no (unknown) (unknown) Reason For Visit (units (unknown) date) unknown) (unknown) (no (unknown) (unknown) Reports napping on a (uni ts (unknown) date) regular basis (goes unknown) back to sleep for a couple of hours (unknown) (no (unknown) (unknown) Reports seasonal (units (unknown) date) allergies unknown) (unknown) (no (unknown) (unknown) Resp (units (unkno wn) date) unknown) (unknown) (no (unknown) (unknown) Respiratory (units (un known) date) unknown) (unknown) (no (unknown) (unknown) Return visit in 6 (units (unknown) date) months to assess unknown) continued response to PAP therapy Patient was (unknown) (no (unknown) (unknown) SULFA Allergy (units ( unknown) date) (Unknown, Uncoded unknown) 12/25/21 11:26) (unknown) (no (unknown) (unknown) Sclera: sclerae (units [...] = Never (None) (unknown) (no (unknown) (unknown) Sleep Schedule (units (unknown) date) Branch: consistent, unknown) daytime somnolence absent, snoring not (unknown) (no (unknown) (unknown) Sleep Visit (units (un known) date) unknown) (unknown) (no (unknown) (unknown) [facility] ([facility] unknown) (unknown) (no (unknown) (unknown) Smoking Status: (units (unknown) date) Former smoker unknown) (unknown) (no (unknown) (unknown) Speech and Movement: (uni ts (unknown) date) speech and movement unknown) normal (unknown) (no (unknown) (unknown) Speech: speech (units (unknown) date) normal unknown) (unknown) (no (unknown) (unknown) Status: Acute (units ( unknown) date) unknown) (unknown) (no (unknown) (unknown) Stopped for a few (units (unknown) date) minutes in traffic: 0 unknown) = Never (None) (unknown) (no (unknown) (unknown) Surgical History (units (unknown) date) (Reviewed 08/14/21 @ unknown) 09:38 by Emile Velasquez MD) (unknown) (no (unknown) (unknown) Symptoms (units (unkno [...] date) unknown) (unknown) (no (unknown) (unknown) Treatment Effects: (units (unknown) date) Pap Treatment unknown) Response/Side Effects: nonadherent to current (unknown) (no (unknown) (unknown) Treatment (units (unkn own) date) Response/Side Affects unknown) (unknown) (no (unknown) (unknown) Unintentional weight (uni ts (unknown) date) loss, 15 pounds. unknown) Feels better, no longer exhausted. Feels (unknown) (no (unknown) (unknown) Usage: 97% with 63% (unit s (unknown) date) greater than 4 hours. unknown) Leak 7.0 L/min. AHIflow: 0.6 (unknown) (no (unknown) (unknown) Visit Reasons: 2m (units (unknown) date) comp- rotech unknown) (unknown) (no (unknown) (unknown) Visit type (FU): (units (unknown) date) follow up of GERI unknown) therapy Follow up evaluation of GERI therapy: (unknown) (no (unknown) (unknown) Watching TV: 1 = (units (unknown) date) Slight unknown) (unknown) (no (unknown) (unknown) [Rx Confirmed (units ( unknown) date) 12/25/21] unknown) (unknown) (no (unknown) (unknown) after getting her (units (unknown) date) son ready for school) unknown) (unknown) (no (unknown) (unknown) appreciated, apnea (units (unknown) date) not witnessed, unknown) choking or gasping Choking or Gasping Branch: (unknown) (no (unknown) (unknown) azithromycin [From (units (unknown) date) Zithromax] Allergy unknown) (Unknown, Verified 12/25/21 11:26) (unknown) (no (unknown) (unknown) but increased (units ( unknown) date) benefit from more unknown) usage was also explained. (unknown) (no (unknown) (unknown) caffeine Sleep (units (unknown) date) Caffeine Branch: no unknown) and denies sleeping pills (unknown) (no (unknown) (unknown) cephalexin [From (units (unknown) date) Keflex] Allergy unknown) (Unknown, Verified 12/25/21 11:26) (unknown) (no (unknown) (unknown) cimetidine [From (units (unknown) date) Tagamet] Allergy unknown) (Unknown, Verified 12/25/21 11:26) (unknown) (no (unknown) (unknown) concerns with the (units (unknown) date) mask, machine or unknown) pressure. Showing positive clinical (unknown) (no (unknown) (unknown) continue with CPAP. (unit s (unknown) date) unknown) (unknown) (no (unknown) (unknown) denied and epworth (units (unknown) date) sleep scale score unknown) (08/27) (unknown) (no (unknown) (unknown) denied, c s s representative (uni ts (unknown) date) awakening denied, unknown) spending time in bed not sleeping almost (unknown) (no (unknown) (unknown) denies night sweats, (unit s (unknown) date) reports morning unknown) headache (related to the headgear), reports (unknown) (no (unknown) (unknown) denies nocturnal (units (unknown) date) cough, denies unknown) nocturnal palpitations, denies heart burn (unknown) (no (unknown) (unknown) durng the day, (units (unknown) date) denies depression or unknown) denies anxiety (unknown) (no (unknown) (unknown) evidenced by (units (un known) date) resolution of snoring unknown) and decreased daytime sleepiness with optimal (unknown) (no (unknown) (unknown) findings discussed. (unit s (unknown) date) Compliance is unknown) suboptimal due to camping trips without the (unknown) (no (unknown) (unknown) great, no more (units (unknown) date) feeling sluggish. unknown) (unknown) (no (unknown) (unknown) have occurred. If (units (unknown) date) there are any unknown) questions, please contact the Medical Records (unknown) (no (unknown) (unknown) head is sensitive on (uni ts (unknown) date) the right side from unknown) craniotomy. Referred to DME. (unknown) (no (unknown) (unknown) hydrochlorothiazide (unit s (unknown) date) Allergy (Verified unknown) 12/25/21 11:26) (unknown) (no (unknown) (unknown) improvement as (units (unknown) date) evidenced by unknown) resolution of snoring and decreased daytime (unknown) (no (unknown) (unknown) instructed to return (uni ts (unknown) date) sooner if any unknown) questions or concerns arise. (unknown) (no (unknown) (unknown) machine. Showing (units (unknown) date) positive clinical unknown) improvement when she uses her device, as (unknown) (no (unknown) (unknown) may occur. (units (unk nown) date) Occasional wrong-word unknown) or 'sound-alike' substitutions may have (unknown) (no (unknown) (unknown) nasal congestion at (unit s (unknown) date) night, denies dry unknown) mouth, denies sore throat in the morning, (unknown) (no (unknown) (unknown) no time, normal (units (unknown) date) bedtime ([id number]), unknown) normal wake time (0630), sleep schedule (unknown) (no (unknown) (unknown) occurred due to the (unit s (unknown) date) inherent limitations unknown) of voice recognition software. Please (unknown) (no (unknown) (unknown) on PAP well, sleep (units (unknown) date) quality well and unknown) daytime sleepiness Daytime Sleepiness Branch (unknown) (no (unknown) (unknown) oxycodone [From (units (unknown) date) Percocet] Allergy unknown) (Unknown, Verified 12/25/21 11:26) (unknown) (no (unknown) (unknown) pain, denies (units (u nknown) date) dizziness in the unknown) morning, denies trouble consentrating/focusin g (unknown) (no (unknown) (unknown) read the note (units ( unknown) date) carefully and unknown) recognize, using context, where these substitutions (unknown) (no (unknown) (unknown) sentences and no (units (unknown) date) audible wheezes unknown) (unknown) (no (unknown) (unknown) sleep apnea (AHI (units (unknown) date) 11.7) with unknown) significant desaturation events down to 86%. (unknown) (no (unknown) (unknown) sleepiness. It is (units (unknown) date) clear she is unknown) benefiting from therapy and is willing to (unknown) (no (unknown) (unknown) software. Although (units (unknown) date) every effort is made unknown) to edit content, supervisor remelt errors (unknown) (no (unknown) (unknown) symptoms at night (units (unknown) date) (resolved), reports unknown) nocturia (2-3 times per night), denies (unknown) (no (unknown) (unknown) thyroid (pork) 15 mg (uni ts (unknown) date) tablet ([place] unknown) Thyroid) 15 mg PO DAILY #30 tabs 04/29/21 (unknown) (no (unknown) (unknown) thyroid (pork) 30 mg (uni ts (unknown) date) tablet ([place] unknown) Thyroid) 30 mg PO DAILY #30 tabs 04/29/21 (unknown) (no (unknown) (unknown) with CPAP. (units (unk nown) date) unknown) Result panel 4 (unknown) (no (unknown) (unknown) (no value) (units (unk nown) date) unknown) (unknown) (no (unknown) (unknown) (1) Obstructive (units (unknown) date) sleep apnea: unknown) (unknown) (no (unknown) (unknown) 0 = Would never doze (uni ts (unknown) date) or sleep, 1 = Slight unknown) chance of dozing or sleeping, 2 = (unknown) (no (unknown) (unknown) 12/25/21 1154 (units ( unknown) date) unknown) (unknown) (no (unknown) (unknown) 12/25/21 (units (unkno wn) date) unknown) (unknown) (no (unknown) (unknown) 11:26 (units (unkno wn) date) unknown) (unknown) (no (unknown) (unknown) 2 month compliance (units (unknown) date) unknown) (unknown) (no (unknown) (unknown) [id number] (units (unkno wn) date) unknown) (unknown) (no (unknown) (unknown) 2: better (units (unkn own) date) unknown) (unknown) (no (unknown) (unknown) AHI flow. It is (units (unknown) date) clear she is unknown) benefiting from therapy and is willing to continue (unknown) (no (unknown) (unknown) Add'l Complaint: (units (unknown) date) unknown) (unknown) (no (unknown) (unknown) Adult general (units ( unknown) date) medical exam unknown) (unknown) (no (unknown) (unknown) Affect: normal (units (unknown) date) affect unknown) (unknown) (no (unknown) (unknown) Age/Sex: 51 / F Date (uni ts (unknown) date) of Service: unknown) (unknown) (no (unknown) (unknown) Allergies (units (unkn own) date) unknown) (unknown) (no (unknown) (unknown) [place] [id number] (unit s (unknown) date) unknown) (unknown) (no (unknown) (unknown) Anesthesia (units (unk nown) date) unknown) (unknown) (no (unknown) (unknown) Appearance: grossly (unit s (unknown) date) normal unknown) (unknown) (no (unknown) (unknown) Assessment + Plan (units (unknown) date) unknown) (unknown) (no (unknown) (unknown) Assessment and Plan: (uni ts (unknown) date) unknown) (unknown) (no (unknown) (unknown) Attending Dr: Regan (unit s (unknown) date) Isiah ICD 9 CODER unknown) (unknown) (no (unknown) (unknown) Attitude: (units (unkn own) date) cooperative unknown) (unknown) (no (unknown) (unknown) Auto CPAP set (units ( unknown) date) pressures: 5-15 CWP unknown) (unknown) (no (unknown) (unknown) BMI 31.1 (units (unkno wn) date) unknown) (unknown) (no (unknown) (unknown) BP 159/89 H (units (un known) date) unknown) (unknown) (no (unknown) (unknown) Being a passenger in (uni ts (unknown) date) a motor vehicle for unknown) an hour or so: 2 = Moderate (unknown) (no (unknown) (unknown) Blood Pressure (units (unknown) date) Location Lt brachial unknown) (unknown) (no (unknown) (unknown) CODEINE Allergy (units (unknown) date) (Unknown, Uncoded unknown) 12/25/21 11:26) (unknown) (no (unknown) (unknown) CPAP (5-15 cwp) (units (unknown) date) unknown) (unknown) (no (unknown) (unknown) Cardiac (units (unkno wn) date) unknown) (unknown) (no (unknown) (unknown) Chief Complaint: (units (unknown) date) Follow up CPAP unknown) therapy for GERI (unknown) (no (unknown) (unknown) Chronic back pain (units (unknown) date) unknown) (unknown) (no (unknown) (unknown) Clinical Course (units (unknown) date) unknown) (unknown) (no (unknown) (unknown) Cognition: normal (units (unknown) date) cognition unknown) (unknown) (no (unknown) (unknown) Colon polyps (-1999) (uni ts (unknown) date) unknown) (unknown) (no (unknown) (unknown) Condition is Onset: (unit s (unknown) date) Chronic and ongoing unknown) condition (unknown) (no (unknown) (unknown) Conjunctivae: (units ( unknown) date) conjunctivae normal unknown) (unknown) (no (unknown) (unknown) Const (units (unkno wn) date) unknown) (unknown) (no (unknown) (unknown) Currently using CPAP (uni ts (unknown) date) 5-15 CWP. Compliance unknown) data reviewed, implications of (unknown) (no (unknown) (unknown) Currently using CPAP (uni ts (unknown) date) 5-15 CWP. Compliance unknown) is suboptimal due to camping trips (unknown) (no (unknown) (unknown) DME: [facility] (units (unk nown) date) unknown) (unknown) (no (unknown) (unknown) : 1970 (units (unknown) date) Acct:[id number] unknown) (unknown) (no (unknown) (unknown) Daytime sleepiness (units (unknown) date) unknown) (unknown) (no (unknown) (unknown) Denies bloating on (units (unknown) date) CPAP unknown) (unknown) (no (unknown) (unknown) Denies chest pain (units (unknown) date) unknown) (unknown) (no (unknown) (unknown) Denies daytime (units (unknown) date) sleepiness and Denies unknown) difficulty sleeping (unknown) (no (unknown) (unknown) Denies dyspnea at (units (unknown) date) night unknown) (unknown) (no (unknown) (unknown) Details: (units (unkno wn) date) unknown) (unknown) (no (unknown) (unknown) Device data last 90 (unit s (unknown) date) days: unknown) (unknown) (no (unknown) (unknown) Device set up: (units (unknown) date) 11/24/2021 unknown) (unknown) (no (unknown) (unknown) Documented By: (units (unknown) date) Regan Joyce unknown) 12/25/21 1119 (unknown) (no (unknown) (unknown) Ears: hearing (units ( unknown) date) grossly normal unknown) bilaterally (unknown) (no (unknown) (unknown) Effort + Inspection: (uni ts (unknown) date) normal respiratory unknown) effort, able to speak in complete (unknown) (no (unknown) (unknown) [place] Score: 5 (units (unknown) date) unknown) (unknown) (no (unknown) (unknown) [place] Sleepiness (units (unknown) date) Scale unknown) (unknown) (no (unknown) (unknown) Essential (units (unkn own) date) hypertension unknown) (unknown) (no (unknown) (unknown) Exacerbating/Allevia (uni ts (unknown) date) ting Factors unknown) (unknown) (no (unknown) (unknown) Exam Narrative (units (unknown) date) unknown) (unknown) (no (unknown) (unknown) Exam Narrative: (units (unknown) date) unknown) (unknown) (no (unknown) (unknown) Exam (units [...] unknown) (unknown) (no (unknown) (unknown) HPI Sleep Follow Up (unit s (unknown) date) unknown) (unknown) (no (unknown) (unknown) HPI (units (unkno wn) date) unknown) (unknown) (no (unknown) (unknown) Head: normal to (units (unknown) date) inspection unknown) (unknown) (no (unknown) (unknown) Headgear discomfort. (uni ts (unknown) date) Not sure if she is unknown) wearing correctly, right side of her (unknown) (no (unknown) (unknown) Headgear discomfort. (uni ts (unknown) date) unknown) (unknown) (no (unknown) (unknown) Height 167.64 cm (units (unknown) date) unknown) (unknown) (no (unknown) [...] Allergy (units (unknown) date) (Unknown, Uncoded unknown) 12/25/21 11:26) (unknown) (no (unknown) (unknown) Medical History (units (unknown) date) (Updated 09/24/21 @ unknown) 13:24 by TEDDY Webster) (unknown) (no (unknown) (unknown) Medications (units (un known) date) unknown) (unknown) (no (unknown) (unknown) Mild GERI. History of (uni ts (unknown) date) snoring, sleep unknown) disturbance. NPSG consistent with mild (unknown) (no (unknown) (unknown) Moderate chance of [...] wn) date) unknown) (unknown) (no (unknown) (unknown) Obstructive sleep (units (unknown) date) apnea unknown) (unknown) (no (unknown) (unknown) Ovarian cyst (-1987) (uni ts (unknown) date) unknown) (unknown) (no (unknown) (unknown) PAP treatment due to (unit s (unknown) date) nonadherence unknown) (describe) (does not use device while camping) (unknown) (no (unknown) (unknown) PFSH (units (unkno wn) date) unknown) (unknown) (no (unknown) (unknown) Pain scale (1-10): 2 (uni ts (unknown) date) unknown) (unknown) (no (unknown) (unknown) Pain (units (unkno wn) date) unknown) (unknown) (no (unknown) (unknown) Patient prescribed (units (unknown) date) continued CPAP unknown) therapy at 9-15 cwp. No changes made today. (unknown) (no (unknown) (unknown) Patient reports (units (unknown) date) alcohol Sleep Alcohol unknown) Branch: daily (3 drinks per day), reports (unknown) (no (unknown) (unknown) Patient reports (units (unknown) date) difficulty falling unknown) asleep is denied, difficulty staying asleep (unknown) (no (unknown) (unknown) Patient was (units (un known) date) encouraged to unknown) maintain PAP usage at a minimum of 4 hours a night, (unknown) (no (unknown) (unknown) Patient was started (unit s (unknown) date) on CPAP therapy. unknown) (unknown) (no (unknown) (unknown) Patient: (units (unkno wn) date) Raine Perez MR#: unknown) M000 (unknown) (no (unknown) (unknown) Pertinent (units (unkn own) date) Positives/Negatives unknown) (unknown) (no (unknown) (unknown) Plan (units (unkno wn) date) unknown) (unknown) (no (unknown) (unknown) Position Sitting (units (unknown) date) unknown) (unknown) (no (unknown) (unknown) Prescription written (uni ts (unknown) date) for renewal of PAP unknown) supplies; (unknown) (no (unknown) (unknown) Propoxyphene Allergy (uni ts (unknown) date) (Unknown, Uncoded unknown) 12/25/21 11:26) (unknown) (no (unknown) (unknown) Psych (units (unkno wn) date) unknown) (unknown) (no (unknown) (unknown) Psychological (units ( unknown) date) unknown) (unknown) (no (unknown) (unknown) Pulse 77 (units (unkno wn) date) unknown) (unknown) (no (unknown) (unknown) Pulse Source Monitor (uni ts (unknown) date) unknown) (unknown) (no (unknown) (unknown) Questionnaires (units (unknown) date) unknown) (unknown) (no (unknown) (unknown) ROS Sleep (units (unkn own) date) unknown) (unknown) (no (unknown) (unknown) Reason For Visit (units (unknown) date) unknown) (unknown) (no (unknown) (unknown) Referred to DME for (unit s (unknown) date) headgear and mask unknown) fitting. (unknown) (no (unknown) (unknown) Reports napping on a (uni ts (unknown) date) regular basis (goes unknown) back to sleep for a couple of hours (unknown) (no (unknown) (unknown) Reports seasonal (units (unknown) date) allergies unknown) (unknown) (no (unknown) (unknown) Resp (units (unkno wn) date) unknown) (unknown) (no (unknown) (unknown) Respiration 14 (units (unknown) date) unknown) (unknown) (no (unknown) (unknown) Respiratory (units (un known) date) unknown) (unknown) (no (unknown) (unknown) Return visit in 6 (units (unknown) date) months to assess unknown) continued response to PAP therapy Patient was (unknown) (no (unknown) (unknown) SULFA Allergy (units ( unknown) date) (Unknown, Uncoded unknown) 12/25/21 11:26) (unknown) (no (unknown) (unknown) Sclera: sclerae (units (unknown) date) normal unknown) (unknown) (no (unknown) (unknown) Screening for (units ( unknown) date) malignant neoplasm of unknown) colon (unknown) (no (unknown) (unknown) Showing positive (units (unknown) date) clinical improvement unknown) as evidenced by resolution of snoring and (unknown) (no (unknown) (unknown) Signed By: (units (unk nown) date) <Electronically unknown) signed by Regan Joyce> (unknown) (no (unknown) (unknown) Signed (units (unkno wn) date) unknown) (unknown) (no (unknown) (unknown) Sitting [...] = Never (None) (unknown) (no (unknown) (unknown) Sleep Schedule (units (unknown) date) Branch: consistent, unknown) daytime somnolence absent, snoring not (unknown) (no (unknown) (unknown) Sleep Visit (units (un known) date) unknown) (unknown) (no (unknown) (unknown) [facility] ([facility] unknown) (unknown) (no (unknown) (unknown) Smoking Status: (units (unknown) date) Former smoker unknown) (unknown) (no (unknown) (unknown) Speech and Movement: (uni ts (unknown) date) speech and movement unknown) normal (unknown) (no (unknown) (unknown) Speech: speech (units (unknown) date) normal unknown) (unknown) (no (unknown) (unknown) Status: Acute (units ( unknown) date) unknown) (unknown) (no (unknown) (unknown) Stopped for a few (units (unknown) date) minutes in traffic: 0 unknown) = Never (None) (unknown) (no (unknown) (unknown) Surgical History (units (unknown) date) (Reviewed 08/14/21 @ unknown) 09:38 by Emile Velasquez MD) (unknown) (no (unknown) (unknown) Symptoms (units (unkno wn) date) unknown) (unknown) (no (unknown) (unknown) Temp 97.8 F (units (un known) date) unknown) (unknown) (no (unknown) (unknown) Temp Source Temporal (uni ts (unknown) date) Artery Scan unknown) (unknown) (no (unknown) (unknown) This note may have (units (unknown) date) been all or partially unknown) generated using voice recognition (unknown) (no (unknown) (unknown) Thyroid nodule (units (unknown) date) () unknown) (unknown) (no (unknown) (unknown) Tobacco + Substance (unit s (unknown) date) Use unknown) (unknown) (no (unknown) (unknown) Tobacco Status (units (unknown) date) unknown) (unknown) (no (unknown) (unknown) Treatment Effects: (units (unknown) date) Pap Treatment unknown) Response/Side Effects: nonadherent to current (unknown) (no (unknown) (unknown) Treatment (units (unkn own) date) Response/Side Affects unknown) (unknown) (no (unknown) (unknown) Usage: 97% with 63% (unit s (unknown) date) greater than 4 hours. unknown) Leak 7.0 L/min. AHIflow: 0.6 (unknown) (no (unknown) (unknown) Visit Reasons: 2m (units (unknown) date) comp- rotech unknown) (unknown) (no (unknown) (unknown) Visit type (FU): (units (unknown) date) follow up of GERI unknown) therapy Follow up evaluation of GERI therapy: (unknown) (no (unknown) (unknown) Vitals (units (unkno wn) date) unknown) (unknown) (no (unknown) (unknown) Watching TV: 1 = (units (unknown) date) Slight unknown) (unknown) (no (unknown) (unknown) Weight 87.543 kg (units (unknown) date) unknown) (unknown) (no (unknown) (unknown) [Rx Confirmed (units ( unknown) date) 12/25/21] unknown) (unknown) (no (unknown) (unknown) after getting her (units (unknown) date) son ready for school) unknown) (unknown) (no (unknown) (unknown) appreciated, apnea (units (unknown) date) not witnessed, unknown) choking or gasping Choking or Gasping Branch: (unknown) (no (unknown) (unknown) at . (units (unknown) date) unknown) (unknown) (no (unknown) (unknown) azithromycin [From (units (unknown) date) Zithromax] Allergy unknown) (Unknown, Verified 12/25/21 11:26) (unknown) (no (unknown) (unknown) but increased (units ( unknown) date) benefit from more unknown) usage was also explained. (unknown) (no (unknown) (unknown) caffeine Sleep (units (unknown) date) Caffeine Branch: no unknown) and denies sleeping pills (unknown) (no (unknown) (unknown) cephalexin [From (units (unknown) date) Keflex] Allergy unknown) (Unknown, Verified 12/25/21 11:26) (unknown) (no (unknown) (unknown) cimetidine [From (units (unknown) date) Tagamet] Allergy unknown) (Unknown, Verified 12/25/21 11:26) (unknown) (no (unknown) (unknown) continue with CPAP. (unit s (unknown) date) unknown) (unknown) (no (unknown) (unknown) decreased daytime (units (unknown) date) sleepiness. She unknown) states she feels 'great', no longer exhausted (unknown) (no (unknown) (unknown) denied and epworth (units (unknown) date) sleep scale score unknown) (08/27) (unknown) (no (unknown) (unknown) denied, c s s representative (uni ts (unknown) date) awakening denied, unknown) spending time in bed not sleeping almost (unknown) (no (unknown) (unknown) denies night sweats, (unit s (unknown) date) reports morning unknown) headache (related to the headgear), reports (unknown) (no (unknown) (unknown) denies nocturnal (units (unknown) date) cough, denies unknown) nocturnal palpitations, denies heart burn (unknown) (no (unknown) (unknown) due to the inherent (unit s (unknown) date) limitations of voice unknown) recognition software. Please read the (unknown) (no (unknown) (unknown) during the day. It (units (unknown) date) is clear she is unknown) benefiting from therapy and is willing to (unknown) (no (unknown) (unknown) durng the day, (units (unknown) date) denies depression or unknown) denies anxiety (unknown) (no (unknown) (unknown) evidenced by (units (un known) date) resolution of snoring unknown) and decreased daytime sleepiness with optimal (unknown) (no (unknown) (unknown) findings discussed. (unit s (unknown) date) Compliance is unknown) suboptimal due to camping trips without the (unknown) (no (unknown) (unknown) head is sensitive (units (unknown) date) related to history of unknown) craniotomy. Referred to [facility] [place] for fitting. (unknown) (no (unknown) (unknown) hydrochlorothiazide (unit s (unknown) date) Allergy (Verified unknown) 12/25/21 11:26) (unknown) (no (unknown) (unknown) instructed to return (uni ts (unknown) date) sooner if any unknown) questions or concerns arise. (unknown) (no (unknown) (unknown) machine. Showing (units (unknown) date) positive clinical unknown) improvement when she uses her device, as (unknown) (no (unknown) (unknown) nasal congestion at (unit s (unknown) date) night, denies dry unknown) mouth, denies sore throat in the morning, (unknown) (no (unknown) (unknown) no time, normal (units (unknown) date) bedtime ([id number]), unknown) normal wake time (0630), sleep schedule (unknown) (no (unknown) (unknown) note carefully and (units (unknown) date) recognize, using unknown) context, where these substitutions have (unknown) (no (unknown) (unknown) occurred. If there (units (unknown) date) are any questions, unknown) please contact the Medical Records Dept (unknown) (no (unknown) (unknown) on PAP well, sleep (units (unknown) date) quality well and unknown) daytime sleepiness Daytime Sleepiness Branch (unknown) (no (unknown) (unknown) oxycodone [From (units (unknown) date) Percocet] Allergy unknown) (Unknown, Verified 12/25/21 11:26) (unknown) (no (unknown) (unknown) pain, denies (units (u nknown) date) dizziness in the unknown) morning, denies trouble consentrating/focusin g (unknown) (no (unknown) (unknown) sentences and no (units (unknown) date) audible wheezes unknown) (unknown) (no (unknown) (unknown) sleep apnea (AHI (units (unknown) date) 11.7) with unknown) significant desaturation events down to 86%. (unknown) (no (unknown) (unknown) software. Although (units (unknown) date) every effort is made unknown) to edit content, supervisor remelt errors ma (unknown) (no (unknown) (unknown) symptoms at night (units (unknown) date) (resolved), reports unknown) nocturia (2-3 times per night), denies (unknown) (no (unknown) (unknown) thyroid (pork) 15 mg (uni ts (unknown) date) tablet ([place] unknown) Thyroid) 15 mg PO DAILY #30 tabs 04/29/21 (unknown) (no (unknown) (unknown) thyroid (pork) 30 mg (uni ts (unknown) date) tablet ([place] unknown) Thyroid) 30 mg PO DAILY #30 tabs 04/29/21 (unknown) (no (unknown) (unknown) with CPAP. (units (unk nown) date) unknown) (unknown) (no (unknown) (unknown) without the machine. (uni ts (unknown) date) Reports no concerns unknown) with the mask, machine or pressure. (unknown) (no (unknown) (unknown) y occur. Occasional (unit s (unknown) date) wrong-word or unknown) 'sound-alike' substitutions may have occurred Social History date description facility +[facility] date measurement value units +0000 BMI BMI 31.1 kg/m2 +0000 BP_diastolic BP_diastolic 89 mmHg +0000 BP_systolic BP_systolic 159 mmHg +0000 heart_rate heart_rate 77 /min +0000 height_metric height_metric 167.64 cm +0000 height_standard height_standard 66 in +0000 respiration_rate respiration_rate 14 /min +0000 temperature_metric temperature_metric 36.56 C +0000 temperature_standard temperature_standard 9 7.8 F +0000 weight_metric weight_metric 87.543 g_ code +0000 weight_standard weight_standard 87.543 g_code
[2022-01-28 09:52] LABS: BASOPHILS % (AUTO) 0.5 %; EOSINOPHILS # (AUTO) 0.3 10^3/uL (0.0-0.7); EOSINOPHILS % (AUTO) 4.6 %; HCT - HEMATOCRIT 48.7 % (37.0-47.0); HGB - HEMOGLOBIN 16.1 g/dL (12.0-16.0); LYMPHOCYTES % (AUTO) 26.5 %; MEAN CORPUSCULAR HEMOGLOBIN 30.7 pg (27.0-31.0); MEAN CORPUSCULAR HGB CONC 33.1 g/dL (32.0-36.0); MEAN CORPUSCULAR VOLUME 92.8 fL (81.0-99.0); MEAN PLATELET VOLUME 9.7 fL (7.9-10.8); MONOCYTES # (AUTO) 0.7 10^3/uL (0.0-1.0); MONOCYTES % (AUTO) 8.9 %; NEUTROPHILS # (AUTO) 4.4 10^3/uL (1.5-6.6); PLT - PLATELET COUNT 312 10^3/uL (130-450); RED BLOOD COUNT 5.25 10^6/uL (4.20-5.40); RED CELL DISTRIBUTION WIDTH 13.2 % (12.0-15.0); WHITE BLOOD COUNT 7.4 x10^3/uL (4.8-10.8)
[2022-01-28 09:56] LABS: BILIRUBIN,URINE NEGATIVE (NEGATIVE); GLUCOSE, URINE (UA) NEGATIVE (NEGATIVE); KETONES,URINE (UA) NEGATIVE (NEGATIVE); LEUKOCYTE ESTERASE, URINE NEGATIVE (NEGATIVE); NITRITE,URINE NEGATIVE (NEGATIVE); OCCULT BLOOD,URINE NEGATIVE (NEGATIVE); PH,URINE 8.5 PH (5.0-7.5); PROTEIN,URINE NEGATIVE (NEGATIVE); UROBILINOGEN,URINE 0.2 (NORMAL) E.U./dL (NORMAL)
[2022-01-28 09:57] LABS: CLARITY,URINE CLEAR (CLEAR)
[2022-01-28 10:04] LABS: ALBUMIN 4.1 g/dL (3.2-5.5); ALBUMIN/GLOBULIN RATIO 1.3 (1.0-2.2); BILIRUBIN,TOTAL 0.5 mg/dL (0.2-1.0); CALCIUM 9.4 mg/dL (8.5-10.3); CREATININE 0.8 mg/dL (0.4-1.0); POTASSIUM 3.5 mmol/L (3.5-5.0); TOTAL PROTEIN 7.3 g/dL (6.7-8.2)
[2022-01-28] MEDS ORDERED: iohexoL-300 100 ML VIAL ONE (10:09)
--- NOTE | 2022-01-28 10:48 | CT Report ---
PROCEDURE: ABDOMEN/PELVIS W INDICATIONS: Abdominal pain, acute, more right and flank CONTRAST: 100ml Omnipaque 300 TECHNIQUE: After the administration of intravenous contrast, 5 mm thick sections acquired from the diaphragms to the symphysis. 5 mm thick coronal and sagittal reformats were acquired. For radiation dose reducti on, the following was used: automated exposure control, adjustment of mA and/or kV according to gregg ent size. COMPARISON: None. FINDINGS: Image quality: Excellent. ABDOMEN: Lung bases: Lung bases are clear. Heart size is normal. Solid organs: Liver and spleen are normal in size and enhancement. A low density cyst is present wit hin the left hepatic lobe. Gallbladder is unremarkable. Biliary system is non dilated. Pancreas en hances normally. No adrenal nodules. Kidneys demonstrate normal size and enhancement, without hydro nephrosis. Peritoneum and bowel: Bowel loops demonstrate normal wall thickness and caliber. The appendix is not visualized; however there is no free fluid or fat stranding in the right lower quadrant to suggest a cute appendicitis. No free fluid or air. Nodes and vessels: No retroperitoneal or mesenteric adenopathy by size criteria. Aorta and inferior vena cava are normal in size. Miscellaneous: No ventral hernias. PELVIS: Genitourinary: Bladder wall thickness is normal. Miscellaneous: No inguinal hernias or adenopathy. Bones: No suspicious bony lesions. No vertebral body compression fractures. IMPRESSION: 1. No acute intra-abdominal findings. The appendix is not visualized; however there are no ancillary findings to suggest acute appendicitis. Reviewed by: Lorri Borrego MD on 01/28/2022 10:47 AM PDT Approved by: Lorri Borrego MD on 01/28/2022 10:47 AM PDT Station ID: [id number]
[2022-01-28 11:41] VITALS: BP 179/99
[2022-01-28] MEDS ORDERED: iohexoL-300 100 ML VIAL IVP ONE (18:26)
== END 2022-01-28 12:14 | disposition home or self-care (01) ==
LOC: ED 09:12
DX: R10.11 Right upper quadrant pain (principal); R55 Syncope and collapse
CPT/HCPCS: 36415; 74177; 80053; 81003; 83690; 85025; 96374; 99284; Q9967; 81001; 87086

== ENCOUNTER 2022-05-19 14:30 | Emergency (ER) | payer OTHER ==
[2022-05-19 15:05] LABS: BASOPHILS % (AUTO) 0.3 %; EOSINOPHILS # (AUTO) 0.2 10^3/uL (0.0-0.7); EOSINOPHILS % (AUTO) 1.9 %; HCT - HEMATOCRIT 48.2 % (37.0-47.0); HGB - HEMOGLOBIN 15.8 g/dL (12.0-16.0); LYMPHOCYTES # (AUTO) 1.5 10^3/uL (1.5-3.5); LYMPHOCYTES % (AUTO) 17.5 %; MEAN CORPUSCULAR HEMOGLOBIN 32.3 pg (27.0-31.0); MEAN CORPUSCULAR HGB CONC 32.8 g/dL (32.0-36.0); MEAN CORPUSCULAR VOLUME 98.6 fL (81.0-99.0); MEAN PLATELET VOLUME 9.7 fL (7.9-10.8); MONOCYTES # (AUTO) 0.8 10^3/uL (0.0-1.0); NEUTROPHILS # (AUTO) 6.1 10^3/uL (1.5-6.6); NEUTROPHILS % (AUTO) 71.1 %; PLT - PLATELET COUNT 259 10^3/uL (130-450); RED BLOOD COUNT 4.89 10^6/uL (4.20-5.40); RED CELL DISTRIBUTION WIDTH 12.6 % (12.0-15.0); WHITE BLOOD COUNT 8.6 x10^3/uL (4.8-10.8)
--- NOTE | 2022-05-19 15:07 | XRAY Report ---
PROCEDURE: Chest 1 View X-Ray INDICATIONS: Chest pain TECHNIQUE: One view of the chest was acquired. COMPARISON: 08/19/2021 FINDINGS: Surgical changes and devices: None. Lungs and pleura: No pleural effusions or pneumothorax. Lungs are clear. Mediastinum: Mediastinal contours appear normal. Heart size is normal. Bones and chest wall: No suspicious bony lesions. Overlying soft tissues appear unremarkable. IMPRESSION: No acute cardiopulmonary process demonstrated radiographically. Reviewed by: Manjeet Alfonso MD on 05/19/2022 3:06 PM PST Approved by: Manjeet Alfonso MD on 05/19/2022 3:06 PM [facility] Station ID: [id number]
[2022-05-19 15:20] LABS: ALBUMIN 4.8 g/dL (3.2-5.5); ALBUMIN/GLOBULIN RATIO 1.4 (1.0-2.2); BILIRUBIN,TOTAL 0.9 mg/dL (0.2-1.0); CALCIUM 10.3 mg/dL (8.5-10.3); CREATININE 0.8 mg/dL (0.4-1.0); POTASSIUM 3.7 mmol/L (3.5-5.0); TOTAL PROTEIN 8.2 g/dL (6.7-8.2)
[2022-05-19 16:51] VITALS: BP 156/85
--- NOTE | 2022-05-19 16:52 | ED Physician Documentation ---
PD HPI CHEST PAIN - Stated complaint Stated Complaint: CHEST PX/L BODY TINGLING - Chief complaint Chief Complaint: Cardiac - History obtained from History obtained from: Patient - History of Present Illness Timing - onset: How many days ago (3) Timing - duration: Days (3) Pain level max: 3 Pain level now: 0 Quality: Sharp Improved by: Nothing. No: Rest, Oxygen, Nitro, ASA, Antacids, Other Worsened by: No: Exertion, Inspiration, Eating, Movement, Palpation, Position Associated symptoms: No: Shortness of air, Diaphoresis, Nausea, Vomiting, Feeling faint / dizzy, General Weakness, Palpitations, Cough - Additional information Additional information: Patient is a 52-year-old female who presents to the emergency department with chest pain. She states sometimes it is on the left chest, sometimes on the right, sometimes in the center. Last for a few seconds at a time usually. Had a shooting pain down the left arm yesterday. States that her hands occasionally feel cold at night. No fevers. No chills. No cough. Occasional nausea but no vomiting. No abdominal pain. No cardiac history. She drinks 3-4 drinks per night. Denies any possibility of . No history of cardiac stents or bypasses. Currently not having pain. Review of Systems Constitutional: denies: Fever, Chills Throat: denies: Sore throat Cardiac: denies: Palpitations Respiratory: denies: Cough, Wheezing GI: denies: Abdominal Pain, Vomiting, Diarrhea Skin: denies: Rash Musculoskeletal: denies: Neck pain, Back pain Neurologic: denies: Headache PD PAST MEDICAL HISTORY - Past Medical History Cardiovascular: Hypertension Respiratory: None Neuro: Motion sickness Endocrine/Autoimmune: None, Other GI: None REGISTERED RADIOGRAPHER: Ovarian cysts : None HEENT: None Psych: None Musculoskeletal: Fibromyalgia Derm: None - Past Surgical History Past Surgical History: Yes General: Appendectomy Neuro: Other - Present Medications Home Medications: Ambulatory Orders Medication Instructions Recorded Confirmed Thyroid,Pork [[place] Thyroid] 45 mg PO DAILY 08/12/12 01/28/22 Dicyclomine [Bentyl] 10 mg PO QID PRN #15 cap 01/28/22 Ondansetron Odt [Zofran] 4 mg TL Q6H PRN #10 tablet 01/28/22 Lidocaine Patch 5% [Lidoderm Patch] 1 each TOP DAILY #10 patch 03/07/22 traMADol [Ultram] 50 mg PO ONCE PRN #12 tablet 03/07/22 - Allergies Allergies/Adverse Reactions: Allergies Allergy/AdvReac Type Severity Reaction Status Date / Time cephalexin monohydrate * Allergy Intermediate CAREY, "worse Verified 05/19/22 14:45 [From Keflex] feeling of my life" morphine Allergy Intermediate Itching Verified 05/19/22 14:45 azithromycin [From Zithromax] Allergy Mild Hives Verified 05/19/22 14:45 oxycodone HCl * Allergy Mild Itching Verified 05/19/22 14:45 [From Percocet] propoxyphene napsylate * Allergy Mild Itching Verified 05/19/22 14:45 [From Darvocet-N 100] codeine Allergy Itching Verified 05/19/22 14:45 hydrochlorothiazide Allergy Unknown Verified 05/19/22 14:45 verapamil Allergy Unknown Verified 05/19/22 14:45 cimetidine [From Tagamet] AdvReac Severe drop in Verified 05/19/22 14:45 blood platelets cimetidine HCl * AdvReac Severe drop in Verified 05/19/22 14:45 [From Tagamet] blood platelets Sulfa (Sulfonamide AdvReac Severe platelets Verified 05/19/22 14:45 Antibiotics) dropped hydrocodone bitartrate * AdvReac Intermediate Nausea Verified 05/19/22 14:45 [From Vicodin] ciprofloxacin [From Ciprodex] AdvReac Unknown Verified 05/19/22 14:46 dexamethasone [From Ciprodex] AdvReac Unknown Verified 05/19/22 14:46 - Social History Does the pt smoke?: No Smoking Status: Never smoker Does the pt drink ETOH?: Yes Does the pt have substance abuse?: No - Immunizations Immunizations are current?: Yes - POLST Patient has POLST: No PD ED PE NORMAL - Vitals Vital signs reviewed: Yes - General General: Alert and oriented X 3, No acute distress - HEENT HEENT: PERRL, Moist mucous membranes - Neck Neck: Supple, no meningeal sign - Cardiac Cardiac: RRR, No murmur, Strong equal pulses - Respiratory Respiratory: No respiratory distress, Clear bilaterally - Abdomen Abdomen: Soft, Non tender, Non distended - Back Back: No CVA TTP, No spinal TTP - Derm Derm: Warm and dry - Extremities Extremities: No edema, No calf tenderness / cord - Neuro Neuro: Alert and oriented X 3 - Psych Psych: Normal mood, Normal affect Results - Vitals Vitals: Vital Signs - 24 hr 05/19/22 05/19/22 05/19/22 14:42 16:16 16:30 Temperature 36.2 C L Heart Rate 92 88 70 Respiratory 16 15 12 Rate Blood Pressure 161/102 H 168/86 H 156/85 H O2 Saturation 97 100 99 Oxygen O2 Source Room air - EKG (time done) 1450 Rate: Rate (enter#) (96) Rhythm: NSR [place]: Normal Intervals: Normal NH, RBBB (atypical?) Ischemia: Other (no ischemic changes) Compare to prior EKG: Unchanged from prior EKG - Labs Labs: Laboratory Tests 05/19/22 05/19/22 05/19/22 15:02 15:02 15:02 WBC 8.6 RBC 4.89 Hgb 15.8 Hct 48.2 H MCV 98.6 MCH 32.3 H MCHC 32.8 RDW 12.6 Plt Count 259 MPV 9.7 Neut # (Auto) 6.1 Lymph # (Auto) 1.5 [place] # (Auto) 0.8 Eos # (Auto) 0.2 Baso # (Auto) 0.0 Absolute Nucleated RBC 0.00 Nucleated RBC % 0.0 Sodium 139 Potassium 3.7 Chloride 98 L Carbon Dioxide 26 Anion Gap 15.0 H BUN 16 Creatinine 0.8 Estimated GFR (MDRD) 75 L Glucose 108 H Calcium 10.3 Total Bilirubin 0.9 AST 111 H ALT 147 H Alkaline Phosphatase 82 Troponin I High Sens 2.6 Total Protein 8.2 Albumin 4.8 Globulin 3.4 Albumin/Globulin Ratio 1.4 Lipase 31 - Rads (name of study) cxr Radiology: Final report received, See rad report PD Medical Decision Making - ED course Complexity details: reviewed results, re-evaluated patient, considered differential (No ST elevation IA, no aortic dissection, no PE, no tension pneumothorax, no aortic aneurysm), d/w patient ED course: 52-year-old female presents to the emergency department with atypical chest pain, lasting for a few seconds at a time usually. Patient is well-appearing, nontoxic. Afebrile. No acute findings on EKG, laboratory testing. Negative troponin. No risk factors for PE. No calf swelling. No calf tenderness. No recent travel or immobilization. Currently asymptomatic. Unclear etiology. Minimal elevation of her LFTs, likely secondary to alcohol use. Patient will follow-up with her doctor for further care. No evidence of acute coronary syndrome at this time. Patient counseled regarding signs and symptoms for which I believe and urgent re-evaluation would be necessary. Patient with good understanding of and agreement to plan and is comfortable going home at this time This document was made in part using voice recognition software. While efforts are made to proofread this document, sound alike and grammatical errors may occur. Departure - Departure Disposition: 01 Home, Self Care Clinical Impression: Chest pain Qualifiers: Chest pain type: unspecified Qualified Code(s): R07.9 - Chest pain, unspecified Condition: Good Instructions: ED Chest Pain Atypical Unkn Cause Follow-Up: Your,doctor in 1 week [Other] Comments: The cause of your pain is unclear today. Please follow-up with your doctor for further care. Please return if you worsen. Discharge Date/Time: 05/19/22 17:02
== END 2022-05-19 17:02 | disposition home or self-care (01) ==
LOC: ED 14:30
DX: R07.9 Chest pain, unspecified (principal); I10 Essential (primary) hypertension
CPT/HCPCS: 36415; 80053; 83690; 84484; 85025; 93005; 99284

== ENCOUNTER 2022-07-30 09:15 | Outpatient (CLI) | payer OTHER ==
[~2022-07-30 09:15] MED LIST: GADOBUTROL 10 MMOL/10 ML VIAL ONE
--- NOTE | 2022-07-30 12:38 | MRI Report ---
PROCEDURE: PELVIS W/WO INDICATIONS: DISORDER OF OVARY CONTRAST: Gadavist 8.6ml TECHNIQUE: Coronal ultra fast SE, sagittal breath-hold T2 FSE; axial T1 FSE with and without fat saturation thro ugh the pelvis. Optional long- and short-axis uterine nonbreath-hold T2 FSE through the uterus. Sag ittal or axial dynamic ultra fast GE during administration of contrast. Dynamic Post-contrast axial or coronal ultra fast GE / 2-D spoiled GE with fat saturation from the iliac crests to the symphysis. Restricted diffusion diffusion weighted imaging and ADC may be performed. COMPARISON: CT abdomen pelvis 01/28/2022. FINDINGS: Image quality: Excellent. Uterus: Uterus is anteverted and normal in size. Uterus measures 7.6 x 4.9 x 3.6 cm. Endometrium is normal in thickness measuring 0.2 cm. Junctional zone is normal in thickness at 12 mm or less. Cervi x is unremarkable. Adnexa: Right ovary is not identified. The left ovary is unremarkable. No significant cysts. No mass. No restricted diffusion. No suspicious enhancement. Urinary system: Bladder wall is normal in thickness. Distal ureters are non distended. Urethra jeb ears normal in morphology. Nodes and vessels: No pelvic or inguinal adenopathy by size criteria. Iliac vessels are normal in s ize. Bowel and peritoneum: No pathologic free pelvic fluid. Inferior colon and small bowel loops are nor mal in caliber. A few colonic diverticuli. Soft tissues: No inguinal hernias. No findings of pelvic floor incompetence in the absence of provo cation. Somewhat prominent presacral veins. Bones: Marrow demonstrates normal overall signal. IMPRESSION: 1. Left ovary is unremarkable. Right ovary is not identified. No adnexal mass or significant cyst. No suspicious enhancement or restricted diffusion. 2. No uterine adenomyosis. No endometrial thickening. 3. No free fluid. Reviewed by: Tim Sneed MD on 07/30/2022 12:37 PM PDT Approved by: Tim Sneed MD on 07/30/2022 12:37 PM PDT Station ID: [id number]
[2022-07-30] MEDS ORDERED: GADOBUTROL 10 MMOL/10 ML VIAL IVP ONE (16:05)
== END 2022-07-30 09:16 | disposition home or self-care (01) ==
LOC: DI 09:15
PROVIDERS: ATTEND Family Medicine
DX: N83.9 Noninflammatory disorder of ovary, fallopian tube and broad ligament, unspecified (principal)
CPT/HCPCS: 72197; A9585

== ENCOUNTER 2023-05-07 12:05 | Emergency (ER) | payer OTHER ==
[2023-05-07 12:35] LABS: BASOPHILS # (AUTO) 0.1 10^3/uL (0.0-0.1); BASOPHILS % (AUTO) 0.6 %; EOSINOPHILS # (AUTO) 0.3 10^3/uL (0.0-0.7); EOSINOPHILS % (AUTO) 2.9 %; HCT - HEMATOCRIT 45.6 % (37.0-47.0); HGB - HEMOGLOBIN 15.4 g/dL (12.0-16.0); LYMPHOCYTES # (AUTO) 1.7 10^3/uL (1.5-3.5); LYMPHOCYTES % (AUTO) 20.2 %; MEAN CORPUSCULAR HEMOGLOBIN 32.8 pg (27.0-31.0); MEAN CORPUSCULAR HGB CONC 33.8 g/dL (32.0-36.0); MEAN CORPUSCULAR VOLUME 97.2 fL (81.0-99.0); MEAN PLATELET VOLUME 9.4 fL (7.9-10.8); MONOCYTES # (AUTO) 0.7 10^3/uL (0.0-1.0); NEUTROPHILS # (AUTO) 5.8 10^3/uL (1.5-6.6); NEUTROPHILS % (AUTO) 68.1 %; PLT - PLATELET COUNT 331 10^3/uL (130-450); RED BLOOD COUNT 4.69 10^6/uL (4.20-5.40); RED CELL DISTRIBUTION WIDTH 13.2 % (12.0-15.0); WHITE BLOOD COUNT 8.5 x10^3/uL (4.8-10.8)
[2023-05-07 12:58] LABS: ALBUMIN 4.3 g/dL (3.2-5.5); ALBUMIN/GLOBULIN RATIO 1.4 (1.0-2.2); ALKALINE PHOSPHATASE 86 IU/L (42-121); ALT ALANINE AMINOTRANSFERASE 22 IU/L (10-60); AST ASPARTATE AMINOTRANSFERASE 18 IU/L (10-42); BUN - BLOOD UREA NITROGEN 12 mg/dL (6-20); CALCIUM 9.8 mg/dL (8.5-10.3); CARBON DIOXIDE - CO2 30 mmol/L (21-32); CHLORIDE 101 mmol/L (101-111); CREATININE 0.8 mg/dL (0.6-1.3); GFR - MDRD 75 (>89); GLUCOSE 106 mg/dL (74-104); POTASSIUM 4.1 mmol/L (3.5-4.5); SODIUM 138 mmol/L (135-145); TOTAL PROTEIN 7.4 g/dL (6.4-8.9)
[2023-05-07 13:00] LABS: LIPASE < 10 U/L (11-82)
[2023-05-07 14:17] LABS: BILIRUBIN,URINE NEGATIVE (NEGATIVE); GLUCOSE, URINE (UA) NEGATIVE (NEGATIVE); KETONES,URINE (UA) NEGATIVE (NEGATIVE); LEUKOCYTE ESTERASE, URINE SMALL (NEGATIVE); NITRITE,URINE NEGATIVE (NEGATIVE); OCCULT BLOOD,URINE TRACE-INTA (NEGATIVE); PROTEIN,URINE TRACE mg/dL (NEGATIVE); UROBILINOGEN,URINE 0.2 (NORMAL) E.U./dL (NORMAL)
[2023-05-07 14:22] LABS: CLARITY,URINE SL. CLOUDY (CLEAR); HCG UR QUAL NEGATIVE
[2023-05-07 14:32] LABS: BACTERIA,URINE Moderate /HPF (None Seen); SQUAMOUS EPITHELIAL CELL,UR MOD Squamous (<= Few)
--- NOTE | 2023-05-07 14:37 | ED Physician Documentation ---
PD HPI ABD PAIN - Stated complaint Stated Complaint: SHARP PX,GI,SWELLING - Chief complaint Chief Complaint: Abd Pain - History obtained from History obtained from: Patient, Family () - History of Present Illness Timing - onset: Today Timing - duration: Seconds Timing - details: Abrupt onset, Waxing and waning Quality: Cramping, Sharp, Pain Location: Epigastric, LLQ Improved by: Laying still, Position, Meds, Other (burping after pepcid) Worsened by: Position, Palpation Associated symptoms: Nausea, Diarrhea. No: Fever Similar symptoms before: Has not had sx before Recently seen: Emergency Dept - Additional information Additional information: 53-year-old Raine Perez has recently been seen in the emergency apartment and treated for urinary tract infection with amoxicillin. The organism was sensitive and her symptoms have resolved. Today she was getting ready to go to work when she noted a pain in her epigastrium that was severe and sharp and sudden in onset. She noted specific swelling and worsening of the pain to the epigastric region across the middle of the abdomen. The pain lasted and she was not able to get through work she eventually called off and had her take her to the emergency department. She indicates that she has previously had a pain in her left lower quadrant and a mass was seen on ultrasound. This was not confirmed on MRI. This was 2 years ago. Today she indicates that she took some Pepcid AC and in route to the hospital she has had some burping and has had some relief of her symptoms. She indicates a prior history of hiatal hernia and she has not had problems with this in more than 20 years. She does take Pepcid regularly. Review of Systems Constitutional: denies: Fever Eyes: denies: Decreased vision Ears: denies: Ear pain Nose: denies: Rhinorrhea / runny nose, Congestion Throat: denies: Sore throat Cardiac: denies: Chest pain / pressure Respiratory: denies: Dyspnea, Cough GI: reports: Abdominal Pain, Abdominal Swelling, Diarrhea : denies: Dysuria, Frequency Skin: denies: Rash Musculoskeletal: denies: Neck pain, Back pain, Extremity pain PD PAST MEDICAL HISTORY - Past Medical History Past Medical History: Yes Cardiovascular: Hypertension Respiratory: None Neuro: Motion sickness Endocrine/Autoimmune: Other GI: None 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: Ovarian cysts : None HEENT: None Psych: None Musculoskeletal: Fibromyalgia Derm: None - Past Surgical History Past Surgical History: Yes General: Appendectomy Neuro: Other - Present Medications Home Medications: Ambulatory Orders Medication Instructions Recorded Confirmed Thyroid,Pork [[place] Thyroid] 45 mg PO DAILY 08/12/12 01/28/22 Dicyclomine [Bentyl] 10 mg PO QID PRN #15 cap 01/28/22 Ondansetron Odt [Zofran] 4 mg TL Q6H PRN #10 tablet 01/28/22 Lidocaine Patch 5% [Lidoderm Patch] 1 each TOP DAILY #10 patch 03/07/22 traMADol [Ultram] 50 mg PO ONCE PRN #12 tablet 03/07/22 Amoxicillin 500 mg PO TID #15 cap 04/23/23 Nitrofurantoin [Macrobid] 100 mg PO BID #14 cap 04/23/23 - Allergies Allergies/Adverse Reactions: Allergies Allergy/AdvReac Type Severity Reaction Status Date / Time cephalexin monohydrate * Allergy Intermediate CAREY, "worse Verified 05/07/23 13:57 [From Keflex] feeling of my life" morphine Allergy Intermediate Itching Verified 05/07/23 13:57 azithromycin [From Zithromax] Allergy Mild Hives Verified 05/07/23 13:57 oxycodone HCl * Allergy Mild Itching Verified 05/07/23 13:57 [From Percocet] propoxyphene napsylate * Allergy Mild Itching Verified 05/07/23 13:57 [From Darvocet-N 100] codeine Allergy Itching Verified 05/07/23 13:57 hydrochlorothiazide Allergy Unknown Verified 05/07/23 13:57 verapamil Allergy Unknown Verified 05/07/23 13:57 cimetidine [From Tagamet] AdvReac Severe drop in Verified 05/07/23 13:57 blood platelets cimetidine HCl * AdvReac Severe drop in Verified 05/07/23 13:57 [From Tagamet] blood platelets Sulfa (Sulfonamide AdvReac Severe platelets Verified 05/07/23 13:57 Antibiotics) dropped hydrocodone bitartrate * AdvReac Intermediate Nausea Verified 05/07/23 13:57 [From Vicodin] ciprofloxacin [From Ciprodex] AdvReac Unknown Verified 05/07/23 13:57 dexamethasone [From Ciprodex] AdvReac Unknown Verified 05/07/23 13:57 - Social History Does the pt smoke?: No Smoking Status: Never smoker Does the pt drink ETOH?: Yes Does the pt have substance abuse?: No - Immunizations Immunizations are current?: Yes - POLST Patient has POLST: No PD ED PE NORMAL - Vitals Vital signs reviewed: Yes (hypertensive) - General General: Alert and oriented X 3, No acute distress, Well developed/nourished - HEENT HEENT: Atraumatic, PERRL, EOMI - Neck Neck: Supple, no meningeal sign, No bony TTP - Cardiac Cardiac: RRR, No murmur - Respiratory Respiratory: No respiratory distress, Clear bilaterally - Abdomen Abdomen: Normal bowel sounds, Soft, Non distended, No organomegaly, Other (epigastric tenderness to deep palpation is present and speicfic. 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, No motor deficit, No sensory deficit, Normal speech Eye Opening: Spontaneous Motor: Obeys Commands Verbal: Oriented GCS Score: 15 - Psych Psych: Normal mood, Normal affect Results - Vitals Vitals: Vital Signs - 24 hr 05/07/23 05/07/23 05/07/23 12:11 14:14 16:25 Temperature 36.8 C 36.0 C L 36.2 C L Heart Rate 88 73 67 Respiratory 16 18 18 Rate Blood Pressure 156/99 H 151/91 H 169/99 H O2 Saturation 100 99 98 Oxygen O2 Source Room air - Labs Labs: Laboratory Tests 05/07/23 05/07/23 05/07/23 12:30 12:30 14:07 WBC 8.5 RBC 4.69 Hgb 15.4 Hct 45.6 MCV 97.2 MCH 32.8 H MCHC 33.8 RDW 13.2 Plt Count 331 MPV 9.4 Neut # (Auto) 5.8 Lymph # (Auto) 1.7 Rhea # (Auto) 0.7 Eos # (Auto) 0.3 Baso # (Auto) 0.1 Absolute Nucleated RBC 0.00 Nucleated RBC % 0.0 Sodium 138 Potassium 4.1 Chloride 101 Carbon Dioxide 30 Anion Gap 7.0 BUN 12 Creatinine 0.8 Estimated GFR (MDRD) 75 L Glucose 106 H Calcium 9.8 Total Bilirubin 1.0 AST 18 ALT 22 Alkaline Phosphatase 86 Total Protein 7.4 Albumin 4.3 Globulin 3.1 Albumin/Globulin Ratio 1.4 Lipase < 10 L Urine Color YELLOW Urine Clarity SL. CLOUDY Urine pH 8.0 H Ur Specific [place] 1.010 Urine Protein TRACE Urine Glucose (UA) NEGATIVE Urine Ketones NEGATIVE Urine Occult Blood TRACE-INTA Urine Nitrite NEGATIVE Urine Bilirubin NEGATIVE Urine Urobilinogen 0.2 (NORMAL) Ur Leukocyte Esterase SMALL H Urine RBC 6-10 H Urine WBC 11-25 H Ur Squamous Epith Cells MOD Squamous H Urine Bacteria Moderate H Ur Microscopic Review INDICATED Urine Culture Comments NOT INDICATED Urine HCG, Qual 05/07/23 14:07 WBC RBC Hgb Hct MCV MCH MCHC RDW Plt Count MPV Neut # (Auto) Lymph # (Auto) Rhea # (Auto) Eos # (Auto) Baso # (Auto) Absolute Nucleated RBC Nucleated RBC % Sodium Potassium Chloride Carbon Dioxide Anion Gap BUN Creatinine Estimated GFR (MDRD) Glucose Calcium Total Bilirubin AST ALT Alkaline Phosphatase Total Protein Albumin Globulin Albumin/Globulin Ratio Lipase Urine Color Urine Clarity Urine pH Ur Specific [place] Urine Protein Urine Glucose (UA) Urine Ketones Urine Occult Blood Urine Nitrite Urine Bilirubin Urine Urobilinogen Ur Leukocyte Esterase Urine RBC Urine WBC Ur Squamous Epith Cells Urine Bacteria Ur Microscopic Review Urine Culture Comments Urine HCG, Qual NEGATIVE - Rads (name of study) CT ab/pel Relevant Findings:: Prelim report reviewed (Impression: 1. Finding may represent mild descending colitis. Appendix is not visualized, no definite CT evidence of acute appendicitis. No bowel obstruction. No free fluid or free air. Sigmoid diverticulosis without evidence of acute diverticulitis. No renal stones or hydronephrosis. Hepatic), Final report received (. Hepatic steatosis and stable appearing likely simple left hepatic lobe cyst as above), EMP independent interpretation of test, See rad report PD Medical Decision Making - ED course Complexity details: considered differential, d/w patient, d/w family ED course: This 53-year-old female presented with acute midepigastric abdominal pain that was severe and lasted. We obtained blood work and urinalysis and a CT scan of the abdomen pelvis. The abdomen pelvis CT was unremarkable with the exception of possibly some ascending colitis. This did not fit with the clinical picture. Patient's pain is generally improved. She does have some evidence of persistence of urinary tract infection on a contaminated specimen I have asked her to follow-up with her primary for reevaluation in the following week. She has a significant problem with use of antibiotic and reactions. She has no symptoms of urinary tract infection now and treatment is not indicated Departure - Departure Disposition: 01 Home, Self Care Clinical Impression: Abdominal pain Qualifiers: Abdominal location: epigastric Qualified Code(s): R10.13 - Epigastric pain Condition: Stable Instructions: ED Abdominal Pain Female Non-Specific Abdominal Pain Follow-Up: ALMA Frank [Provider Group] Comments: Raine, today we did not find a specific reason for your severe abdominal pain I suspect this was a gas pain by your description. We did find things inside the abdomen look well. There is still an issue with the urinalysis. The urinalysis we received today was contaminated and potentially infected. You are not having symptoms now and treatment is not indicated. Follow-up with your primary care doctor for a reevaluation of your urine in the coming week. Forms: PCP List
--- NOTE | 2023-05-07 16:18 | CT Report ---
PROCEDURE: Abdomen/Pelvis WO INDICATIONS: epigastric pain TECHNIQUE: A CT scan of the abdomen and pelvis was performed without the use of intravenous contrast. Images we re recorded and evaluated at appropriate window settings. Reformats: coronal and sagittal. For radiat ion dose reduction, the following was used: automated exposure control, adjustment of mA and/or kV ac cording to patient size. COMPARISON: 01/28/2022 and MRI of pelvis dated 07/30/2022. FINDINGS: Image quality: Diagnostic. Lower chest: Unremarkable. Liver: Hepatic steatosis is again seen. 2.3 x 2.3 cm fluid density structure in left hepatic lobe is again seen unchanged from prior study most consistent with hepatic cyst. No solid-appearing hepatic l esion. Gallbladder and biliary tree: No radiopaque stones or wall thickening. No biliary dilation. Spleen: No splenomegaly. Pancreas: No pancreatic ductal dilation. Adrenals: No adrenal nodule. Kidneys and ureters: No hydronephrosis. No renal cystic lesion which requires follow up. No solid mas s. Stomach, bowel and peritoneum: There is no bowel obstruction. No gastric or small bowel wall thickeni ng. Ascending colon wall thickening and edema is noted with very mild pericolonic fat stranding. Sigm oid diverticulosis is seen without significant: Wall thickening or mesenteric fat stranding. No absce ss collection. No free fluid of free air. Appendix is not definitively identified. Lymph nodes: No central or retroperitoneal adenopathy. Vessels: No infrarenal aortic aneurysm. PELVIS Reproductive organs: Unremarkable. Bladder: No wall thickness, accounting for underdistention. Pelvic lymph nodes: No pelvic adenopathy by size criteria. Bones: No aggressive osseous abnormality. Degenerative disc disease at L5-S1 level is seen. Other: No significant ventral or inguinal hernia. IMPRESSION: 1. Finding may represent mild ascending colitis. Appendix is not visualized, no definite CT evidence of acute appendicitis. No bowel obstruction. No free fluid of free air. Sigmoid diverticulosis withou t evidence of acute diverticulitis. 2. No renal stones or hydronephrosis. 3. Hepatic steatosis and stable appearing likely simple is in left hepatic lobe as above. Reviewed by: Ash Cheung MD on 05/07/2023 4:17 PM PST Approved by: Ash Cheung MD on 05/07/2023 4:17 PM PST Station ID: [id number]
[2023-05-07 16:38] VITALS: BP 169/99; O2SAT 98
== END 2023-05-07 16:58 | disposition home or self-care (01) ==
LOC: ED 12:05
DX: R10.13 Epigastric pain (principal); I10 Essential (primary) hypertension; Z79.899 Other long term (current) drug therapy
CPT/HCPCS: 36415; 80053; 81001; 81003; 81025; 83690; 85025; 87086; 99283; 99284

== ENCOUNTER 2023-10-21 17:18 | Emergency (ER) | payer OTHER ==
--- NOTE | 2023-10-21 18:27 | ED Physician Documentation ---
PD HPI UPPER EXT INJURY - Stated complaint Stated Complaint: R FINGER INJ - Chief complaint Chief Complaint: Trauma Ext - History obtained from History obtained from: Patient - Additonal information Additional information: Her dog was running away from her yesterday and she reached under its collar and then it bent her third finger and she has pain at the PIP on the right which is her dominant hand. No other injuries. 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 : None HEENT: None Psych: None Musculoskeletal: Fibromyalgia Derm: None - Past Surgical History Past Surgical History: Yes General: Appendectomy Neuro: Other - Present Medications Home Medications: Ambulatory Orders Medication Instructions Recorded Confirmed Thyroid,Pork [[place] Thyroid] 45 mg PO DAILY 08/12/12 01/28/22 Dicyclomine [Bentyl] 10 mg PO QID PRN #15 cap 01/28/22 Ondansetron Odt [Zofran] 4 mg TL Q6H PRN #10 tablet 01/28/22 Lidocaine Patch 5% [Lidoderm Patch] 1 each TOP DAILY #10 patch 03/07/22 traMADol [Ultram] 50 mg PO ONCE PRN #12 tablet 03/07/22 Amoxicillin 500 mg PO TID #15 cap 04/23/23 Nitrofurantoin [Macrobid] 100 mg PO BID #14 cap 04/23/23 - Allergies Allergies/Adverse Reactions: Allergies Allergy/AdvReac Type Severity Reaction Status Date / Time cephalexin monohydrate * Allergy Intermediate CAREY, "worse Verified 05/07/23 13:57 [From Keflex] feeling of my life" morphine Allergy Intermediate Itching Verified 05/07/23 13:57 azithromycin [From Zithromax] Allergy Mild Hives Verified 10/21/23 17:22 oxycodone HCl * Allergy Mild Itching Verified 10/21/23 17:22 [From Percocet] propoxyphene napsylate * Allergy Mild Itching Verified 10/21/23 17:22 [From Darvocet-N 100] codeine Allergy Itching Verified 10/21/23 17:22 hydrochlorothiazide Allergy Unknown Verified 10/21/23 17:22 verapamil Allergy Unknown Verified 10/21/23 17:22 cimetidine [From Tagamet] AdvReac Severe drop in Verified 10/21/23 17:22 blood platelets cimetidine HCl * AdvReac Severe drop in Verified 10/21/23 17:22 [From Tagamet] blood platelets Sulfa (Sulfonamide AdvReac Severe platelets Verified 10/21/23 17:22 Antibiotics) dropped hydrocodone bitartrate * AdvReac Intermediate Nausea Verified 10/21/23 17:22 [From Vicodin] ciprofloxacin [From Ciprodex] AdvReac Unknown Verified 10/21/23 17:22 dexamethasone [From Ciprodex] AdvReac Unknown Verified 10/21/23 17:22 - Social History Does the pt smoke?: No Smoking Status: Never smoker Does the pt drink ETOH?: Yes Does the pt have substance abuse?: No - Immunizations Immunizations are current?: Yes - POLST Patient has POLST: No PD ED PE NORMAL - Vitals Vital signs reviewed: Yes - General General: Alert and oriented X 3, No acute distress - Extremities Extremities: Other (She is tender and swollen especially on the lateral side of the right third PIP without deformity. No distal neurovascular compromise.) - Neuro Neuro: Alert and oriented X 3, Normal speech Results - Vitals Vitals: Vital Signs - 24 hr 10/21/23 10/21/23 17:22 18:44 Temperature 36.8 C Heart Rate 80 79 Respiratory 16 18 Rate Blood Pressure 150/90 H 154/98 H O2 Saturation 98 97 Oxygen O2 Source Room air - Rads (name of study) Three-view x-ray right middle finger was negative. Relevant Findings:: Final report received, EMP independent interpretation of test Procedures - General procedure General procedure: The right third and fourth fingers were nany taped in standard fashion. Departure - Departure Disposition: 01 Home, Self Care Clinical Impression: Sprain of finger of right hand Qualifiers: Encounter type: initial encounter Finger: middle finger Sprain of finger site: interphalangeal joint Qualified Code(s): S63.632A - Sprain of interphalangeal joint of right middle finger, initial encounter Condition: Good Record reviewed to determine appropriate education?: Yes Instructions: ED Sprain Finger Comments: You can nany tape it as shown, ice elevate and ibuprofen. Follow-up with your doctor in a week if not better. Return for new or worsening symptoms. Forms: PCP List Discharge Date/Time: 10/21/23 18:44
--- NOTE | 2023-10-21 18:50 | XRAY Report ---
PROCEDURE: Finger(s) RT INDICATIONS: Trauma TECHNIQUE: AP hand, 2 views of the third finger(s) acquired. COMPARISON: None. FINDINGS: Bones: No acute fractures or dislocations. No suspicious bony lesions. Well-corticated ossification along the ulnar aspect at the base of the third distal phalanx, suggestive of a remote fracture vers us accessory ossicle. Soft tissues: No suspicious soft tissue calcifications or masses. IMPRESSION: No acute bony abnormality. Reviewed by: Sg Major MD on 10/21/2023 5:48 PM AKDT Approved by: Sg Major MD on 10/21/2023 5:48 PM AKDT Station ID: [id number]
[2023-10-21 18:54] VITALS: BP 154/98; O2SAT 97
== END 2023-10-21 18:44 | disposition home or self-care (01) ==
LOC: ED 17:18
DX: S63.632A Sprain of interphalangeal joint of right middle finger, initial encounter (principal); X50.1XXA Overexertion from prolonged static or awkward postures, initial encounter; Y93.K9 Activity, other involving animal care
CPT/HCPCS: 99283